=== PATIENT | male | born 1950 | race Caucasian/White ===

== ENCOUNTER → 2017-12-08 14:30 | Outpatient (CLI) | payer MEDICARE, OTHER, SELFPAY ==
--- NOTE | 2017-12-08 | FLU_PTH ---
PATIENT: MAYCOL BHANDARI LOC: [facility] U#:[id number] AGE/SX: 75/M ROOM: RE12/08/[address]: NICANOR Martinez : 1950 BED: DIS: SPEC #: [id number] RECD: 12/08/17 15:00 STATUS: SHANITA DEENA #: [id number] BRENT: 12/08/17 00:[address]: Mary Lou Greene NP DEPT: CYTOLOGY RECD BY: Alok Schwarz ENTERED: 12/09/17 08:06 SP TYPE: Fluid OTHR DR: Dr. Kirk Ervin MD Tissues: Urine Procedures: Special Stain Group II Surgery Specimen Level IV Cytospin Fluid HEADER OPERATION: Not noted PRE-OP DIAGNOSIS: C67.9 TISSUE SUBMITTED: Urine for cytology DIAGNOSIS CYTOLOGY Urine for cytology (cytospin): Rare mildly atypical urothelial cells noted. Numerous crystals. See comment. SJ:manuel 12/10/17 COMMENT Please make reference to previous specimen ([id number]), bladder, TUR with diagnosis of papillary urothelial carcinoma. CYTOLOGY STUDY Slides are reviewed. CYTOLOGY GROSS Received is 40 ml of clear yellow fluid labeled with the patient's name and and designated per the requisition as urine. Submitted for cytology preparation. / RB:cc 12/09/10 TC:5 [facility]: [id number]
[2017-12-08 16:18] LABS: PSA,Total - Annual Screen 0.59 ng/mL (0.00-4.00)
[2017-12-08 18:10] LABS: Cytology, Body Fluid / CSF SEE PATHOLOGY REPORT
== END ==
PROVIDERS: Family Provider Family Medicine; PCP Family Medicine; Visit Provider Nurse Practitioner Adult Health
DX: C67.9 Malignant neoplasm of bladder, unspecified (principal); Z12.5 Encounter for screening for malignant neoplasm of prostate
CPT/HCPCS: 36415; 84153; 88108; 88305; 88313; G0103

== ENCOUNTER 2018-05-15 12:13 | Emergency (ER) | payer MEDICARE, OTHER, SELFPAY ==
[2018-05-15] VITALS (9 sets, daily range): BP systolic 141–171; BP diastolic 89–103; PULSE 84–103; RESP 14–21; TEMP 36.8–38.2; O2SAT 96–100; BMI 39.9
--- NOTE | 2018-05-15 12:28 | EKG12_ITS ---
Test Reason : COUGH Blood Pressure : / mmHG Vent. Rate : 089 BPM Atrial Rate : 111 BPM P-R Int : 000 ms QRS Dur : 100 ms QT Int : 382 ms P-R-T Axes : 000 009 -18 degrees QTc Int : 464 ms Atrial fibrillation Abnormal ECG Confirmed by ANN-MARIE OLIVA MD ([id number]), editor farm journal FANG NUNEZ ([id number] on 05/20/2018 3:34:04 PM Referred By: Confirmed By:ANN-MARIE OLIVA MD
--- NOTE | 2018-05-15 12:28 | RAD_ITS ---
STUDY: X-RAY CHEST REASON FOR EXAM: Male, 68 years old. Chest pain and shortness of breath TECHNIQUE: Single AP portable view of the chest. COMPARISON: 09/03/2015 FINDINGS: EKG leads overlie the chest There are interstitial fibrotic changes of the lungs. There is no demonstrated pleural abnormality. Normal size heart. Normal mediastinum and tres. Normal visualized pulmonary arteries. Normal visualized aortic arch and descending thoracic aorta. There are diffuse degenerative changes of the visualized thoracic spine. Normal visualized ribs, clavicles, and shoulders. There is no demonstrated abnormality of the visualized soft tissue structures of the upper abdomen. RAD/Chest 1 View (Portable) IMPRESSION: Chronic interstitial changes, no superimposed acute pulmonary process Electronically Signed: Nate Broussard MD at 12:45 EST , Service support ,
[2018-05-15] MEDS: MethylPREDNISolone 125 MG/2 ML Vial IV (12:42)
--- NOTE | 2018-05-15 12:44 | ED.DCSUM_ITS ---
- ER Visit Summary Date of Service: 05/15/18 Chief Complaint: Cough History of Present Illness: The patient is a 68 M who is deaf but can read lips and speak. He does not sign. He presents with his family. He has had a cough with shortness of breath for the past 3 days. He has a history of smoking and h as had similar symptoms in the past with bronchitis. He also reports some chest pain. No fevers or hemoptysis. He has been using his rescue inhaler. Physical Examination: Hypertensive. Afebrile. No acute distress. Alert. Sitting and breathing comfortably. Lungs show wheezing abdomen sounds throughout. Heart regular. Abdomen soft. Pulses and skin unremarkable. Test Results: EKG, labs, chest x-ray pending. Emergency Department Course and Treatment: Patient received a breathing treatment and Solu-Medrol while awaiting results. His chest x-ray showed chronic changes. No sign of pneumonia. EKG showed atrial fibrillation. He has a history of this. Troponin normal. Platelets 142, potassium 2.9, CO2 33. Patient did have a fever here. He was treated with Tylenol. I suspect he has acute bronchitis. He is doing better on reevaluation. Heart rate 85 and blood pressure 152/91. He would like to go home. With his history, I will treat him with doxycycline. He received potassium here. He will continue taking his home potassium and follow-up with his doctor for recheck. Risks were discussed. He was also treated with a burst therapy of prednisone. Patient will be discharged. Return for any new or worsening issues. Treatment Plan: Potassium replacement, follow-up with primary care doctor for recheck. Doxycycline and prednisone for bronchitis. Disposition: Discharge Impression: 1. Acute bronchitis 2. Atrial fibrillation 3. Hypokalemia This note was generated with [employer] dictation software. It may contain incorrect words, spelling, and punctuation that were not noted in review of the chart prior to signing ED Disposition - Plan for ED Patient: Chief Complaint: Cough Referrals: Kirk Ervin MD [Primary Care Provider] -
[2018-05-15] MEDS: Ipratropium/Albuterol Sulfate 3 ML AMPUL.NEB INHALATION (12:45)
[2018-05-15 13:22] LABS: Absolute Lymphocyte Count 0.76 X10^3/ul (0.83-4.51); Eosinophil# 0.04 X10^3/uL; Eosinophils% 0.5 % (0-5); Hematocrit 47.7 % (40-54); Hemoglobin 15.9 g/dl (13.0-16.5); Lymphocyte # 0.76 X10^3/ul (4.0); Lymphocyte % 8.7 % (19-41); Mean Corp Hgb Conc 33.3 g/gl (32-36); Mean Corpuscular Hgb 32.4 pg (27.0-32.0); Mean Corpuscular Volume 97.1 fL (80-94); Mean Platelet Vol. 10.5 fl (6.2-12.0); Monocyte# 0.94 X10^3/uL; Monocyte% 10.8 % (0-10); Neutrophil # 6.98 X10^3/uL (2.7-7.7); Neutrophil % 79.8 % (47-70); Platelet Count 142 K/mm3 (150-450); RBC Distribution Width CV 14.5 % (11.6-14.6); RBC Distribution Width SD 51.8 fl (35.1-43.9); Red Blood Count 4.91 M/mm3 (4.6-6.2); White Blood Count 8.7 K/mm3 (4.4-11.0)
[2018-05-15 13:24] LABS: POSITIVE COUNT NO; POSITIVE DIFFERENTIAL NO; POSITIVE MORPHOLOGY NO
[2018-05-15 13:40] LABS: Anion Gap 9 (5-15); BUN 9 mg/dL (7-18); BUN/Creat Ratio 8.7 RATIO (10-20); Calcium,Total 8.3 mg/dL (8.5-10.1); Chloride 94 mmol/L (98-107); Creatinine, Serum 1.04 mg/dL (0.70-1.30); EST Glomerular Filtration Rate 75 mL/min (>60); Est Glom Filt Rate - Afr Amer 91 mL/min (>60); Estimated Creatinine Clearance 59.64 ml/min; Glucose 97 mg/dL (74-106); Potassium 2.9 mmol/L (3.5-5.1); Sodium Level 136 mmol/L (136-145)
[2018-05-15] MEDS: Acetaminophen 500 MG Tablet 1000 MG PO (13:59)
--- NOTE | 2018-05-15 14:50 | ED.DEP ---
ED Disposition - Plan for ED Patient: Chief Complaint: Cough Instructions: ED Bronchitis Asthmatic Prescriptions: Prednisone 40 mg PO DAILY 4 Days #16 Doxycycline 100 mg PO BID 10 Days #20 cap Referrals: Kirk Ervin MD [Primary Care Provider] -
[2018-05-15] MEDS: Doxycycline 100 MG CAPSULE PO (15:05)
--- OUTSIDE RECORDS SUMMARY | 2018-07-01 07:49 | XMS RPT_ITS ---
:1950 Author Organization OHIP Care Team Providers Name Role Phone LUCERO ERVIN Attending Unavailable LUCERO ERVIN Referring Unavailable LUCERO ERVIN Referring Unavailable LUCERO ERVIN Referring Unavailable LUCERO ERVIN Attending Unavailable LUCERO ERVIN Referring Unavailable LUCERO ERVIN Referring Unavailable LUBNA NOBLE (PA) Attending Unavailable LUCERO ERVIN Referring Unavailable Zahraa MALDONADO (PA-C) Attending Unavailable Zahraa MALDONADO (PA-C) Referring Unavailable Zahraa MALDONADO (PA-C) Referring Unavailable Zahraa MALDONADO (PA-C) Attending Unavailable Zahraa MALDONADO (PA-C) Referring Unavailable YESENIA JAY (COMPUTER SECURITY SPECIALIST) Attending Unavailable YESENIA JAY (COMPUTER SECURITY SPECIALIST) Referring Unavailable Lucero Ervin Primary Care Unavailable Bran Hsu Attending Unavailable Mary Lou Greene Attending Unavailable Mary Lou Greene Referring Unavailable Lucero Ervin Primary Care Unavailable PROBLEMS PROBLEMS DATE TYPE CONDITION / CODE ATTENDING STATUS SOURCE 05/21/2018 Active Hypokalemia / NA Active [facility] E87.6(ICD-10) [facility] [place] Repository 05/21/2018 Active Sialoadenitis, NA Active [place] unspecified / [facility] K11.20(ICD-10) [place] Repository 05/05/2018 Active Unspecified NA Active [place] osteoarthritis, [facility] unspecified site / [place] M19.90(ICD-10) Repository 04/27/2018 Active Abnormal levels of NA Active [facility] other serum enzymes [facility] / R74.8(ICD-10) [place] Repository 04/14/2018 Active Other fci NA Active [facility] (current) drug [facility] therapy / [place] Z79.899(ICD-10) Repository 04/14/2018 Active Hyperglycemia, NA Active [place] unspecified / [facility] R73.9(ICD-10) [place] Repository 04/14/2018 Active Essential (primary) NA Active [facility] hypertension / [facility] I10(ICD-10) [place] Repository 04/14/2018 Active Encounter for NA Active [facility] screening for lipoid [facility] disorders / [place] Z13.220(ICD-10) Repository 04/14/2018 Active Unspecified atrial NA Active [facility] fibrillation / [facility] I48.91(ICD-10) [place] Repository 12/08/2017 Unknown Z12.5 - Encounter Mary Lou Greene Active [place] for screening for M [facility] malignant [facility] / Repository Z12.5(ICD-10) 11/25/2017 Active Unknown / LUBNA NOBLE Active [facility] UNK(Unknown) (PA) [facility] [place] Repository 10/31/2017 Active Encounter for NA Active [facility] screening for [facility] cardiovascular [place] disorders / Repository Z13.6(ICD-10) 10/31/2017 Active Personal history of NA Active [facility] nicotine dependence [facility] / Z87.891(ICD-10) [place] Repository 07/07/2017 Active Pain in left hand / NA Active [facility] M79.642(ICD-10) [facility] [place] Repository PROCEDURES PROCEDURES No Procedure Records FoundRESULTS RESULTS CNPN Observed: 05/22/2018 Status: COMPLETED Source: [place] 12:00 AM [facility] REPOSITORY Telephone (FAMPWS) MAYCOL TALBERT ([id number]) 1950 M NFR Date Time Provider Department 05/22/18 YESENIA JAY ([facility]) [place] During your visit today, we recorded the following information about you: Yesenia Jay APRN.BOBBY 05/22/2018 7:50 AM Signed Can please let patient know that I received his lab results. His potassium is still low. Can we please check with him on how often he is taking his potassium, as we likely will need to increase this. ANDRZEJ Schofield Cma 05/22/2018 11:38 AM Signed Left message on patient's sisters voicemail to return call to office. Marimar Solis Cma Mike Kauffman IRINEO 05/22/2018 3:07 PM Signed Patient's sister notified. Reports that he is taking 1 tablet daily as noted on med list. Please review and advise. Yesenia Jay APRN.CNP 05/22/2018 4:00 PM Signed Please instruct to increase the potassium to twice daily for now. Repeat labs in 1-2 weeks. Order is in. ANDRZEJ Schofiled APRN.CNP 05/22/2018 4:00 PM Signed Addended by: YESENIA JAY CNP on: 05/22/2018 04:00 PM Modules accepted: Orders Nati Blank MA, MA 05/25/2018 8:30 AM Signed Patient sister informed of results, verbalized understanding. Please send rx for potassium. BOB Mei APRN.CNP 05/28/2018 7:54 AM Signed Script sent. Yesenia Jay APRN.CNP 05/28/2018 7:54 AM Signed Addended by: YESENIA JAY CNP on: 05/28/2018 07:54 AM Modules accepted: Orders Allergies As of Date: 05/22/2018 Noted Allergy Reaction ASA (SALICYLATES) 01/24/2005 5 - Intolerance 8 - GI Upset CODEINE 08/30/2015 8 - GI Upset Date Reviewed: 05/21/2018 Reviewed by: Marimar Solsi [facility] - Fully Assessed Reason for Visit: Results [95] Visit Diagnoses:Hypokalemia [E87.6] Essential hypertension [I10] Order(s):BASIC METABOLIC PNL [SQBMP] Order #: [id number] FUTURE potassium chloride ER (K-DUR, KLOR-CON) 20 mEq tabletTake 1 tablet by mouth twice daily.Disp: 180 tabletRfl: 1 Prescriptions as of 05/22/2018 Sig: ALBUTEROL SULFATE HFA 90 MCG/* Inhale 2 Puffs as instructed * AMOXICILLIN 875 MG-POTASSIUM * Take 1 tablet by mouth twice * CIPROFLOXACIN 500 MG TABLET Take 500 mg in office prior t* COMPOUNDED PRESCRIPTION Cock-up wrist splint DILTIAZEM SR 120 MG 24 HR CAP Take 1 capsule by mouth once * FLUTICASONE 500 MCG-SALMETERO* Inhale 1 Puff as instructed t* HYDROCHLOROTHIAZIDE 12.5 MG C* Take 1 capsule by mouth once * IRON (FERROUS SULFATE) ORAL Take 1 tablet by mouth once d* METHYLCELLULOSE (LAXATIVE) 50* Take 1 tablet by mouth twice * PANTOPRAZOLE 40 MG TABLET,DEL* Take 1 tablet by mouth daily * POTASSIUM CHLORIDE ER 20 MEQ * Take 1 tablet by mouth twice * PREDNISONE 10 MG TABLET Take 4 tabs daily x 3 days, t* TERAZOSIN 2 MG CAPSULE Take 1 capsule by mouth daily* Problem List As Of Date 05/22/2018 Noted Resolved HYPERTENSION BENIGN [I10] INVALID FOR*08/20/2007 TREMORS ESSENTIAL [G25.0, G25.2] INVALID FOR* ESOPHAGEAL REFLUX [K21.9] ACUTE GASTRITIS [535.0] 05/22/2005 ESOPHAGITIS [530.1] 05/22/2005 DIAPHRAGMATIC HERNIA [K44.9] 08/20/2007 HYPERTROPHY PROSTATE W/O OBST [N40.0] INVALID FOR* Hearing loss [H91.90] INVALID FOR* More... CHRONIC ASTHMATIC BRONCHITIS [493.2] INVALID FOR*08/20/2007 BENIGN NEOPLASM LG BOWEL [D12.6] INVALID FOR* DIVERTICULOSIS OF COLON W/O BLEED [K57.30] INVALID FOR* INT HEMORRHOID W/O COMPL [K64.8] HEARRING LOSS [Z82.2] 09/23/2005 CERVICALGIA [M54.2] INVALID FOR* JOINT PAIN-SHLDER [M25.519] INVALID FOR* TENSION HEADACHE [G44.209] INVALID FOR* Chronic airway obstruction, not elsewhere class*INVALID FOR* Hypertension [I10] INVALID FOR* UMBILICAL HERNIA [K42.9] INVALID FOR* CARPAL TUNNEL SYNDROME [G56.00] INVALID FOR* PAIN JOINT, KNEE [M25.569] INVALID FOR*10/30/2017 Chest Pain [R07.9] INVALID FOR* Rotator Cuff (Capsule) Sprain INVALID FOR* Cancer of bladder (HCC) [C67.9] INVALID FOR* Gross Hematuria [R31.0] INVALID FOR* Low back strain [S39.012A] INVALID FOR* Lumbar radicular pain [M54.16] INVALID FOR* Osteoarthritis [M19.90] INVALID FOR* Knee pain [M25.569] INVALID FOR* Anemia [D64.9] INVALID FOR* Rectal bleeding [K62.5] INVALID FOR* Family history of colon cancer [Z80.0] INVALID FOR* GERD (gastroesophageal reflux disease) [K21.9] INVALID FOR* Acute gastritis without mention of hemorrhage [*INVALID FOR* More... Congenital pes planus [Q66.50] INVALID FOR* Ingrowing nail [L60.0] INVALID FOR* Bladder stones [N21.0] INVALID FOR* Left carpal tunnel syndrome [G56.02] INVALID FOR* BPH (benign prostatic hyperplasia) [N40.0] INVALID FOR* Nocturia [R35.1] INVALID FOR* Frequency of urination [R35.0] INVALID FOR* Osteoarthrosis, unspecified whether generalized*INVALID FOR* Arthritis of knee, right [M17.11] INVALID FOR* Knee joint replacement status [Z96.659] INVALID FOR* History of bladder cancer [Z85.51] INVALID FOR* Bladder neck contracture [N32.0] INVALID FOR* Prediabetes [R73.03] INVALID FOR* Abdominal aortic aneurysm (AAA) without rupture*INVALID FOR* More... Medication management [Z79.899] INVALID FOR* First degree AV block [I44.0] INVALID FOR* Urothelial carcinoma (HCC) [C68.9] INVALID FOR* More... Prescriptions ordered this encounter Disp Refills Start End POTASSIUM CHLORIDE ER 20 MEQ TABLET,* 05/22/2018 05/28/2018 Class: Med Update Route: ORAL Sig: Take 1 tablet by mouth twice daily. POTASSIUM CHLORIDE ER 20 MEQ TABLET,* 180 * 1 05/28/2018 Route: ORAL Sig: Take 1 tablet by mouth twice daily. Medications Discontinued During This Encounter potassium chloride ER (K-DUR, KLOR-C* 90 t* 1 04/14/2018 05/22/2018 Route: ORAL Sig: Take 1 tablet by mouth once daily. Disc: Reason for discontinue is not on file. potassium chloride ER (K-DUR, KLOR-C* 05/22/2018 05/28/2018 Class: Med Update Route: ORAL Sig: Take 1 tablet by mouth twice daily. Disc: Reason for discontinue is not on file. Encounter Status:Closed by YESENIA JAY CNP on 05/22/18 CBC AND DIFFERENTIAL Collected: 05/21/2018 Status: F Source: [place] 10:42 AM [facility] REPOSITORY TYPE CODE TESTS RESULT OUT OF REFERENCE UNITS RANGE LAB WBC 3.70-11.00 k/uL WBC 10.10 LAB RBC 4.20-6.00 m/uL RBC 5.17 LAB HGB 13.0-17.0 g/dL Hemoglobin 16.5 LAB HCT 39.0-51.0 % Hematocrit 50.7 LAB MCV 80.0-100.0 fL MCV 98.1 LAB MCH 26.0-34.0 pG MCH 31.9 LAB MCHC 30.5-36.0 g/dL MCHC 32.5 LAB RDWCV 11.5-15.0 % RDW-CV 14.6 LAB PLTCT 150-400 k/uL Low Platelet Count 148 LAB MPV 9.0-12.7 fL MPV 10.8 LAB ANEUT % Neut% 73.2 LAB AANEUT 1.45-7.50 k/uL Abs Neut 7.39 LAB ALYMP % Lymph% 15.1 LAB AALYMP 1.00-4.00 k/uL Abs Lymph 1.53 LAB AMONO % Mcculloch% 7.7 LAB AAMONO <0.87 k/uL Abs Mcculloch 0.78 LAB AEOS % Eosin% 3.6 LAB AAEOS <0.46 k/uL Abs Eosin 0.36 LAB ABASO % Baso% 0.4 LAB AABASO <0.11 k/uL Abs Baso 0.04 LAB AUNRBC 0 /100 WBC NRBCs 0.0 LAB ABNRBC <0.01 k/uL Absolute nRBC <0.01 LAB DTYP DTYPE Auto Diff Performed By: #### CBCDIF, BMP #### [facility] [address] [place], [place] [address] BASIC METABOLIC PANL Collected: 05/21/2018 Status: F Source: [place] 10:42 AM [facility] REPOSITORY TYPE CODE TESTS RESULT OUT OF REFERENCE UNITS RANGE LAB GLU 74-99 mg/dL Glucose 98 Result Comment: The [place] [employer] (ADA) provides guidance for cutoff values for fasting glucose and random glucose. The ADA defines fasting as no caloric intake for at least 8 hours. Fas ting plasma glucose results between 100 to 125 mg/dL indicate increased risk for diabetes (prediabetes). Fasting plasma glucose results greater than or equal to 126 mg/dL meet the criteria for diagnosis of diabetes. In the absence of unequivocal hyperglycemia, results should be confirmed by repeat testing. In a patient with classic symptoms of hyperglycemia or hyperglycemic crisis, random plasma glucose results greater than or equal to 200 mg/dL meet the criteria for diagnosis of diabetes. Reference: Standards of Medical Care in Diabetes 2016, [place] [employer]. Diabetes Care. 2016.39(Suppl 1). LAB BUN 9-24 mg/dL BUN 13 LAB CRET 0.73-1.22 mg/dL Creatinine 1.01 LAB NA 136-144 mmol/L Sodium 140 LAB K 3.7-5.1 mmol/L Potassium Low 3.2 LAB CL 97-105 mmol/L Chloride Low 95 LAB CO2 22-30 mmol/L CO2 29 LAB AGAP 9-18 mmol/L Anion Gap 16 LAB CA 8.5-10.2 mg/dL Calcium, Total 9.1 LAB GFRAA eGFR- Amer. >60 LAB GFRNAA . eGFR-All Other Races >60 Result Comment: eGFR (Estimated GFR) Units of measure: mL/min/1.73 meters squared eGFR is derived from the reexpressed MDRD Study equation using the following parameters: serum creatinine, age, gender and race. The creatinine assay has been calibrated to be traceable to IDMS. An eGFR <60 mL/min/1.73m2 for >3 months is consistent with chronic kidney disease. Refer to KDOQI guidelines for clinical interpretation. In patients with unstable renal function, e.g. those with acute kidney injury, the eGFR may not accurately reflect actual GFR. Performed By: #### CBCDIF, BMP #### [facility] [employer] [address] [place], [place] [address] PROGRESS Observed: 05/21/2018 Status: COMPLETED Source: [place] 10:04 [facility] [place] REPOSITORY HNO ID: [id number] Author: Yesenia Jay Service: (none) Author Type: Nurse Practitioner Type: Progress Notes Filed: 05/21/2018 2:38 PM Note Text: This is a 68 year old male who presents today with: Patient presents with: ED Follow-up: bronchitis HISTORY OF PRESENT ILLNESS: Maycol Talbert is a 68 year old male. Patient presents with: ED Follow-up: bronchitis Pt is very [place]. Had to communicate a lot via writing. Pt presents today for ER follow-up. He was in the ER on 05/15. Dx with bronchitis. Was started on prednisone and doxycycline. Refers that he has finished the prednisone. Refers that he is still on the doxycycline. Using the advair. Using the albuterol every 4 hours (previously using every 6 hours). Refers that he still coughs, but not as bad. Refers that he started yesterday with swelling in the left neck. Refers that it is tender. Refers he has no teeth. No mouth pain. No ear pain. Has had dry mouth recently. He had a low potassium about a month ago. Was started on oral potassium. Due for recheck. PAST MEDICAL HISTORY: PAST MEDICAL HISTORY Diagnosis Date - Acute gastritis without mention of hemorrhage - Asthma - Benign neoplasm of colon - Bladder cancer (HCC) - CTS (carpal tunnel syndrome) bilateral - Diaphragmatic hernia without mention of obstruction or gangrene - Diverticulosis of colon (without mention of hemorrhage) - Esophageal reflux - Esophagitis - HEARRING LOSS - HTN (hypertension) - Hypokalemia - Internal hemorrhoids without mention of complication PAST SURGICAL HISTORY Procedure Laterality Date - ARTHRO KNEE 11/12/01 BILATERAL - COLONOS W/REM POLYP SNARE 09/02/05 - COLONOSCOP W/ OR W/O [facility] SPEC 12/21/10 - COLONOSCOP W/ OR W/O [facility] SPEC 03/18/16 Colonoscopy - EGD W/O [facility] SPECIMEN W/BX 12/21/10 - EGD W/O OR W/BRUSH/WASH 03/18/16 EGD - PAST SURGICAL HISTORY OF 12/06/03 EGD - PAST SURGICAL HISTORY OF 09/2010 TURBT - PAST SURGICAL HISTORY OF lipoma excisions - PAST SURGICAL HISTORY OF tonsillectomy - PAST SURGICAL HISTORY OF hearing implant - TOTAL KNEE REPLACEMENT 10/20/2013 Knee replacement, total - TOTAL KNEE REPLACEMENT 09/13/14 Knee replacement, total left ALLERGIES Asa [Salicylates]; Codeine MEDICATIONS Current Outpatient Prescriptions: albuterol HFA (VENTOLIN HFA) 90 mcg/actuation inhaler Inhale 2 Puffs as instructed every 4 hours as needed. ciprofloxacin HCl (CIPRO) 500 mg tablet Take 500 mg in office prior to procedure-to be administered per clinical support. COMPOUNDED PRESCRIPTION Cock-up wrist splint diltiazem CD (CARDIZEM CD) 120 mg 24 hr capsule Take 1 capsule by mouth once daily. fluticasone-salmeterol (ADVAIR DISKUS) 500-50 mcg/dose dsdv Inhale 1 Puff as instructed twice daily. Rinse and gargle mouth with water after use. Hydrochlorothiazide 12.5 mg capsule Take 1 capsule by mouth once daily. IRON, FERROUS SULFATE, ORAL Take 1 tablet by mouth once daily. Methylcellulose, Laxative, (CITRUCEL) 500 mg tab Take 1 tablet by mouth twice daily. pantoprazole DR (PROTONIX) 40 mg tablet Take 1 tablet by mouth daily before breakfast. Take on empty stomach, 1/2 hr before meal. potassium chloride ER (K-DUR, KLOR-CON) 20 mEq tablet Take 1 tablet by mouth once daily. terazosin (HYTRIN) 2 mg capsule Take 1 capsule by mouth daily at bedtime. No current facility-administered medications for this visit. FAMILY HISTORY Problem Relation Age of Onset - Prostate Cancer Father - Colon Cancer Father Social History Marital status: Spouse name: Tish Years of education: Number of children: 2 Occupational History Occupation Employer Comment [employer]* Social History Main Topics Smoking status: Former Smoker Packs/day: 0.50 Years: 43.00 Types: Cigarettes Quit date: 02/06/2010 Smokeless tobacco: Never Used Alcohol use: No Drug use: No EXAM: BP 160/98 (BP Site: Right Arm, BP Position: Sitting, BP Cuff Size: Large Adult) Pulse 100 Resp 14 Wt 109.8 kg (242 lb) SpO2 97% BMI 35.74 kg/m? PHYSICAL EXAM: General Appearance: Well appearing, alert, in no acute distress, well-hydrated, well nourished.. Skin: Skin color, texture, turgor normal, no suspicious rashes or lesions. Head: Normocephalic, no masses, lesions, tenderness or abnormalities. Eyes: Anicteric sclera. Extraocular movements are intact. . Ears: External ears normal, canals clear, Normal TMs bilaterally. Oropharynx: Lips, mucosa, and tongue normal, teeth and gums normal, oropharynx normal. Neck: swelling of the left parotid area. Lungs: lungs clear to auscultation. No wheezing, rhonchi, rales. Heart: RRR without murmur, gallop, or rubs. No ectopy. Extremities: No deformities, edema, skin discoloration, clubbing or cyanosis. Good capillary refill. . Neurologic: Gait normal. ASSESSMENT/PLAN: 1. Wheezing - ICD9: 786.07, ICD10: R06.2 (primary diagnosis) Continues with wheezing. Will restart taper. - PREDNISONE 10 MG TABLET 2. Hypokalemia - ICD9: 276.8, ICD10: E87.6 Repeat labs - BASIC METABOLIC PNL 3. Sialoadenitis - ICD9: 527.2, ICD10: K11.20 Stop doxy. Start augmentin. Moist heat. Suck on some sour candy. - CBC + DIFF Recheck in a week. Sooner if needed. If worsens/fever/chills, etc -- to the ER. Discussed treatment plan and patient voices understanding. Patient's questions answered appropriately. Medications and potential side effects were discussed and patient voices understanding. Return to the office as scheduled or as needed for worsening/no improvement. Yesenia Jay APRN.BOBBY The patient indicates understanding of these issues and agrees with the plan. CNOV Observed: 05/21/2018 Status: COMPLETED Source: [place] 10:00 AM [facility] REPOSITORY Office Visit (FAMPWS) MAYCOL TALBERT ([id number]) 1950 M NFR Date Time Provider Department 05/21/18 10:00 AM YESENIA JAY (BOBBY) [place] During your visit today, we recorded the following information about you: Pulse Respiration Blood pressure Weight 100/minute 14/minute 160/98 109.8 kg Yesenia Jay APRN.COMPUTER SECURITY SPECIALIST 05/21/2018 2:38 PM Signed This is a 68 year old male who presents today with: Patient presents with: ED Follow-up: bronchitis HISTORY OF PRESENT ILLNESS: Maycol Talbert is a 68 year old male. Patient presents with: ED Follow-up: bronchitis Pt is very [place]. Had to communicate a lot via writing. Pt presents today for ER follow-up. He was in the ER on 05/15. Dx with bronchitis. Was started on prednisone and doxycycline. Refers that he has finished the prednisone. Refers that he is still on the doxycycline. Using the advair. Using the albuterol every 4 hours (previously using every 6 hours). Refers that he still coughs, but not as bad. Refers that he started yesterday with swelling in the left neck. Refers that it is tender. Refers he has no teeth. No mouth pain. No ear pain. Has had dry mouth recently. He had a low potassium about a month ago. Was started on oral potassium. Due for recheck. PAST MEDICAL HISTORY: PAST MEDICAL HISTORY Diagnosis Date - Acute gastritis without mention of hemorrhage - Asthma - Benign neoplasm of colon - Bladder cancer (HCC) - CTS (carpal tunnel syndrome) bilateral - Diaphragmatic hernia without mention of obstruction or gangrene - Diverticulosis of colon (without mention of hemorrhage) - Esophageal reflux - Esophagitis - HEARRING LOSS - HTN (hypertension) - Hypokalemia - Internal hemorrhoids without mention of complication PAST SURGICAL HISTORY Procedure Laterality Date - ARTHRO KNEE 11/12/01 BILATERAL - COLONOS W/REM POLYP SNARE 09/02/05 - COLONOSCOP W/ OR W/O [facility] SPEC 12/21/10 - COLONOSCOP W/ OR W/O [facility] SPEC 03/18/16 Colonoscopy - EGD W/O [facility] SPECIMEN W/BX 12/21/10 - EGD W/O OR W/BRUSH/WASH 03/18/16 EGD - PAST SURGICAL HISTORY OF 12/06/03 EGD - PAST SURGICAL HISTORY OF 09/2010 TURBT - PAST SURGICAL HISTORY OF lipoma excisions - PAST SURGICAL HISTORY OF tonsillectomy - PAST SURGICAL HISTORY OF hearing implant - TOTAL KNEE REPLACEMENT 10/20/2013 Knee replacement, total - TOTAL KNEE REPLACEMENT 09/13/14 Knee replacement, total left ALLERGIES Asa [Salicylates]; Codeine MEDICATIONS Current Outpatient Prescriptions: albuterol HFA (VENTOLIN HFA) 90 mcg/actuation inhaler Inhale 2 Puffs as instructed every 4 hours as needed. ciprofloxacin HCl (CIPRO) 500 mg tablet Take 500 mg in office prior to procedure-to be administered per clinical support. COMPOUNDED PRESCRIPTION Cock-up wrist splint diltiazem CD (CARDIZEM CD) 120 mg 24 hr capsule Take 1 capsule by mouth once daily. fluticasone-salmeterol (ADVAIR DISKUS) 500-50 mcg/dose dsdv Inhale 1 Puff as instructed twice daily. Rinse and gargle mouth with water after use. Hydrochlorothiazide 12.5 mg capsule Take 1 capsule by mouth once daily. IRON, FERROUS SULFATE, ORAL Take 1 tablet by mouth once daily. Methylcellulose, Laxative, (CITRUCEL) 500 mg tab Take 1 tablet by mouth twice daily. pantoprazole DR (PROTONIX) 40 mg tablet Take 1 tablet by mouth daily before breakfast. Take on empty stomach, 1/2 hr before meal. potassium chloride ER (K-DUR, KLOR-CON) 20 mEq tablet Take 1 tablet by mouth once daily. terazosin (HYTRIN) 2 mg capsule Take 1 capsule by mouth daily at bedtime. No current facility-administered medications for this visit. FAMILY HISTORY Problem Relation Age of Onset - Prostate Cancer Father - Colon Cancer Father Social History Marital status: Spouse name: Tish Years of education: Number of children: 2 Occupational History Occupation Employer Comment [employer]* Social History Main Topics Smoking status: Former Smoker Packs/day: 0.50 Years: 43.00 Types: Cigarettes Quit date: 02/06/2010 Smokeless tobacco: Never Used Alcohol use: No Drug use: No EXAM: BP 160/98 (BP Site: Right Arm, BP Position: Sitting, BP Cuff Size: Large Adult) Pulse 100 Resp 14 Wt 109.8 kg (242 lb) SpO2 97% BMI 35.74 kg/m? PHYSICAL EXAM: General Appearance: Well appearing, alert, in no acute distress, well-hydrated, well nourished.. Skin: Skin color, texture, turgor normal, no suspicious rashes or lesions. Head: Normocephalic, no masses, lesions, tenderness or abnormalities. Eyes: Anicteric sclera. Extraocular movements are intact. . Ears: External ears normal, canals clear, Normal TMs bilaterally. Oropharynx: Lips, mucosa, and tongue normal, teeth and gums normal, oropharynx normal. Neck: swelling of the left parotid area. Lungs: lungs clear to auscultation. No wheezing, rhonchi, rales. Heart: RRR without murmur, gallop, or rubs. No ectopy. Extremities: No deformities, edema, skin discoloration, clubbing or cyanosis. Good capillary refill. . Neurologic: Gait normal. ASSESSMENT/PLAN: 1. Wheezing - ICD9: 786.07, ICD10: R06.2 (primary diagnosis) Continues with wheezing. Will restart taper. - PREDNISONE 10 MG TABLET 2. Hypokalemia - ICD9: 276.8, ICD10: E87.6 Repeat labs - BASIC METABOLIC PNL 3. Sialoadenitis - ICD9: 527.2, ICD10: K11.20 Stop doxy. Start augmentin. Moist heat. Suck on some sour candy. - CBC + DIFF Recheck in a week. Sooner if needed. If worsens/fever/chills, etc -- to the ER. Discussed treatment plan and patient voices understanding. Patient's questions answered appropriately. Medications and potential side effects were discussed and patient voices understanding. Return to the office as scheduled or as needed for worsening/no improvement. Yesenia Jay APRN.BOBBY The patient indicates understanding of these issues and agrees with the plan. Yesenia Jay APRN.CNP 05/21/2018 10:29 AM Signed 1. Get labwork done today -- to recheck potassium. 2. Start prednisone taper. The prednisone taper will be 4 tablets for 3 days; 3 tablets for 3 days; 2 tablets for 3 days; then 1 tablet for 3 days. Please do no use other anti-inflammatories (like ibuprofen, aleve, naproxen, etc) while you are on this medication. 3. Start Augmentin -- one pill twice daily. Stop the doxycycline. 4. Recheck in a week. 5. If the facial swelling gets worse -- return sooner or to the ER. Referring Provider: SELF [[id number]] Allergies As of Date: 05/21/2018 Noted Allergy Reaction ASA (SALICYLATES) 01/24/2005 5 - Intolerance 8 - GI Upset CODEINE 08/30/2015 8 - GI Upset Date Reviewed: 05/21/2018 Reviewed by: Marimar Solis Line Worker - Fully Assessed Reason for Visit: ED Follow-up [821] Cmt: bronchitis Primary Visit Diagnosis:Wheezing [R06.2] Other Visit Diagnoses:Hypokalemia [E87.6] Sialoadenitis [K11.20] Order(s):BASIC METABOLIC PNL [SQBMP] Order #: [id number] FUTURE amoxicillin-clavulanic acid (AUGMENTIN) 875-125 mg per tabletTake 1 tablet by mouth twice daily for 10 days.Disp: 20 tabletRfl: 0 CBC + DIFF [SQCBCDIF] Order #: [id number] FUTURE predniSONE (DELTASONE) 10 mg tabletTake 4 tabs daily x 3 days, then 3 tabs x 3 days, 2 tabs x 3 days, then 1 tab x3 days with food.Disp: 30 tabletRfl: 0 Prescriptions as of 05/21/2018 Sig: ALBUTEROL SULFATE HFA 90 MCG/* Inhale 2 Puffs as instructed * CIPROFLOXACIN 500 MG TABLET Take 500 mg in office prior t* COMPOUNDED PRESCRIPTION Cock-up wrist splint DILTIAZEM SR 120 MG 24 HR CAP Take 1 capsule by mouth once * FLUTICASONE 500 MCG-SALMETERO* Inhale 1 Puff as instructed t* HYDROCHLOROTHIAZIDE 12.5 MG C* Take 1 capsule by mouth once * IRON (FERROUS SULFATE) ORAL Take 1 tablet by mouth once d* METHYLCELLULOSE (LAXATIVE) 50* Take 1 tablet by mouth twice * PANTOPRAZOLE 40 MG TABLET,DEL* Take 1 tablet by mouth daily * POTASSIUM CHLORIDE ER 20 MEQ * Take 1 tablet by mouth once d* TERAZOSIN 2 MG CAPSULE Take 1 capsule by mouth daily* AMOXICILLIN 875 MG-POTASSIUM * Take 1 tablet by mouth twice * PREDNISONE 10 MG TABLET Take 4 tabs daily x 3 days, t* Problem List As Of Date 05/21/2018 Noted Resolved HYPERTENSION BENIGN [I10] INVALID FOR*08/20/2007 TREMORS ESSENTIAL [G25.0, G25.2] INVALID FOR* ESOPHAGEAL REFLUX [K21.9] ACUTE GASTRITIS [535.0] 05/22/2005 ESOPHAGITIS [530.1] 05/22/2005 DIAPHRAGMATIC HERNIA [K44.9] 08/20/2007 HYPERTROPHY PROSTATE W/O OBST [N40.0] INVALID FOR* Hearing loss [H91.90] INVALID FOR* More... CHRONIC ASTHMATIC BRONCHITIS [493.2] INVALID FOR*08/20/2007 BENIGN NEOPLASM LG BOWEL [D12.6] INVALID FOR* DIVERTICULOSIS OF COLON W/O BLEED [K57.30] INVALID FOR* INT HEMORRHOID W/O COMPL [K64.8] HEARRING LOSS [Z82.2] 09/23/2005 CERVICALGIA [M54.2] INVALID FOR* JOINT PAIN-SHLDER [M25.519] INVALID FOR* TENSION HEADACHE [G44.209] INVALID FOR* Chronic airway obstruction, not elsewhere class*INVALID FOR* Hypertension [I10] INVALID FOR* UMBILICAL HERNIA [K42.9] INVALID FOR* CARPAL TUNNEL SYNDROME [G56.00] INVALID FOR* PAIN JOINT, KNEE [M25.569] INVALID FOR*10/30/2017 Chest Pain [R07.9] INVALID FOR* Rotator Cuff (Capsule) Sprain INVALID FOR* Cancer of bladder (HCC) [C67.9] INVALID FOR* Gross Hematuria [R31.0] INVALID FOR* Low back strain [S39.012A] INVALID FOR* Lumbar radicular pain [M54.16] INVALID FOR* Osteoarthritis [M19.90] INVALID FOR* Knee pain [M25.569] INVALID FOR* Anemia [D64.9] INVALID FOR* Rectal bleeding [K62.5] INVALID FOR* Family history of colon cancer [Z80.0] INVALID FOR* GERD (gastroesophageal reflux disease) [K21.9] INVALID FOR* Acute gastritis without mention of hemorrhage [*INVALID FOR* More... Congenital pes planus [Q66.50] INVALID FOR* Ingrowing nail [L60.0] INVALID FOR* Bladder stones [N21.0] INVALID FOR* Left carpal tunnel syndrome [G56.02] INVALID FOR* BPH (benign prostatic hyperplasia) [N40.0] INVALID FOR* Nocturia [R35.1] INVALID FOR* Frequency of urination [R35.0] INVALID FOR* Osteoarthrosis, unspecified whether generalized*INVALID FOR* Arthritis of knee, right [M17.11] INVALID FOR* Knee joint replacement status [Z96.659] INVALID FOR* History of bladder cancer [Z85.51] INVALID FOR* Bladder neck contracture [N32.0] INVALID FOR* Prediabetes [R73.03] INVALID FOR* Abdominal aortic aneurysm (AAA) without rupture*INVALID FOR* More... Medication management [Z79.899] INVALID FOR* First degree AV block [I44.0] INVALID FOR* Urothelial carcinoma (HCC) [C68.9] INVALID FOR* More... Other instructions from your clinician: 1. Get labwork done today -- to recheck potassium. 2. Start prednisone taper. The prednisone taper will be 4 tablets for 3 days; 3 tablets for 3 days; 2 tablets for 3 days; then 1 tablet for 3 days. Please do no use other anti-inflammatories (like ibuprofen, aleve, naproxen, etc) while you are on this medication. 3. Start Augmentin -- one pill twice daily. Stop the doxycycline. 4. Recheck in a week. 5. If the facial swelling gets worse -- return sooner or to the ER. Prescriptions ordered this encounter Disp Refills Start End AMOXICILLIN 875 MG-POTASSIUM CLAVULA* 20 t* 0 05/21/2018 05/31/2018 Route: ORAL Sig: Take 1 tablet by mouth twice daily for 10 days. PREDNISONE 10 MG TABLET 30 t* 0 05/21/2018 06/02/2018 Sig: Take 4 tabs daily x 3 days, then 3 tabs x 3 days, 2 tabs x 3 days, then 1 tab x3 days with food. Encounter Status:Closed by YESENIA JAY CNP on 05/21/18 12 LEAD ELECTROCARDIOGRAM Observed: 05/20/2018 Status: F Source: [place] 3:34 PM [facility] REPOSITORY [facility] Cardiovascular Services [address] [place] [address] 12 Lead EKG 05/15/18 1250 MR#: [id number] Acct: [id number] Name: MAYCOL TALBERT Rep #: [id number] : 1950 68 From: Josh Garrison MD Attending Dr: Status: DEP ER Ordering Dr: Bran Hsu MD Date: 05/15/18 Location: ED Sex: M C Admitted: Test Reason : COUGH Blood Pressure : / mmHG Vent. Rate : 089 BPM Atrial Rate : 111 BPM P-R Int : 000 ms QRS Dur : 100 ms QT Int : 382 ms P-R-T Axes : 000 009 -18 degrees QTc Int : 464 ms Atrial fibrillation Abnormal ECG Confirmed by JOSH GARRISON MD ([id number]), state editor FANG NUNEZ ([id number]) on 05/20/2018 3:34:04 PM Referred By: Confirmed By:JOSH GARRISON MD 05/20/18 1534 Date Josh Garrison MD CC: Bran Hsu MD; Lucero Ervin MD Signed DISCHARGE INSTRUCTION Observed: 05/15/2018 Status: F Source: [place] 4:14 PM [facility] [place] REPOSITORY [facility] Medical Records Department [address] [place] [address] Discharge Instruction 05/15/18 1450 MR#: [id number] Acct: [id number] Name: MAYCOL TALBERT Derrick Rep #: [id number] : 1950 68 From: Bran Hsu MD PCP: Lucero Ervin MD Status: DEP ER ED Disposition - Plan for ED Patient: Chief Complaint: Cough Instructions: ED Bronchitis Asthmatic Prescriptions: Prednisone 40 mg PO DAILY 4 Days #16 Doxycycline 100 mg PO BID 10 Days #20 cap Referrals: Lucero Ervin MD [Primary Care Provider] - What to do if you have Problems For any increased pain, shortness of breath, bleeding, nausea or vomiting, chest pain, or any unexpected problems, contact your Primary Care Provider. Call [facility] ([phone]) or report to the closest Emergency Room. Call 911 if necessary. 05/15/18 1614 <Electronically signed by Bran Hsu MD> Date Bran Hsu MD Cosigner Signature (If Indicated): Date CC: Lucero Ervin MD EMERGENCY DEPARTMENT Observed: 05/15/2018 Status: F Source: [place] SUMMARY 4:14 PM [facility] [place] REPOSITORY [facility] Medical Records Department [address] [place] [address] Emergency Department Summary 05/15/18 1242 MR#: [id number] Acct: [id number] Name: MAYCOL TALBERT Rep #: [id number] : 1950 68 From: Bran Hsu MD PCP: Lucero Ervin MD Status: DEP ER - ER Visit Summary Date of Service: 05/15/18 Chief Complaint: Cough History of Present Illness: The patient is a 68 M who is deaf but can read lips and speak. He does not sign. He presents with his family. He has had a cough with shortness of breath for the past 3 days. He has a history of smoking and has had similar symptoms in the past with bronchitis. He also reports some chest pain. No fevers or hemoptysis. He has been using his rescue inhaler. Physical Examination: Hypertensive. Afebrile. No acute distress. Alert. Sitting and breathing comfortably. Lungs show wheezing abdomen sounds throughout. Heart regular. Abdomen soft. Pulses and skin unremarkable. Test Results: EKG, labs, chest x-ray pending. Emergency Department Course and Treatment: Patient received a breathing treatment and Solu-Medrol while awaiting results. His chest x-ray showed chronic changes. No sign of pneumonia. EKG showed atrial fibrillation. He has a history of this. Troponin normal. Platelets 142, potassium 2.9, CO2 33. Patient did have a fever here. He was treated with Tylenol. I suspect he has acute bronchitis. He is doing better on reevaluation. Heart rate 85 and blood pressure 152/91. He would like to go home. With his history, I will treat him with doxycycline. He received potassium here. He will continue taking his home potassium and follow-up with his doctor for recheck. Risks were discussed. He was also treated with a burst therapy of prednisone. Patient will be discharged. Return for any new or worsening issues. Treatment Plan: Potassium replacement, follow-up with primary care doctor for recheck. Doxycycline and prednisone for bronchitis. Disposition: Discharge Impression: 1. Acute bronchitis 2. Atrial fibrillation 3. Hypokalemia This note was generated with [employer] dictation software. It may contain incorrect words, spelling, and punctuation that were not noted in review of the chart prior to signing ED Disposition - Plan for ED Patient: Chief Complaint: Cough Referrals: Lucero Ervin MD [Primary Care Provider] - What to do if you have Problems For any increased pain, shortness of breath, bleeding, nausea or vomiting, chest pain, or any unexpected problems, contact your Primary Care Provider. Call [facility] ([phone]) or report to the closest Emergency Room. Call 911 if necessary. 05/15/18 1614 <Electronically signed by Bran Hsu MD> Date Bran Hsu MD Cosigner Signature (If Indicated): Date CC: Lucero Ervin MD CBC W/DIFF, AUTOMATED Collected: 05/15/2018 Status: F Source: [place] 12:45 PM [facility] REPOSITORY TYPE CODE TESTS RESULT OUT OF RANGE REFERENCE UNITS LAB L100.1000 4.4-11.0 K/mm3 Normal WBC 8.7 LAB L100.1200 4.6-6.2 M/mm3 Normal RBC 4.91 LAB L100.1300 13.0-16.5 g/dl Normal HGB 15.9 LAB L100.1400 40-54 % Normal HCT 47.7 LAB L100.1500 80-94 fL High MCV 97.1 LAB L100.1600 27.0-32.0 pg High MCH 32.4 LAB L100.1700 32-36 g/gl Normal MCHC 33.3 LAB L100.1810 11.6-14.6 % Normal RDW CV 14.5 LAB L100.1820 35.1-43.9 fl High RDW SD 51.8 LAB L100.1900 150-450 K/mm3 Low PLT 142 LAB L100.2000 6.2-12.0 fl Normal MPV 10.5 LAB L100.2100 47-70 % High NEUT% 79.8 LAB L100.2200 19-41 % Low LY% 8.7 LAB L100.2300 0-10 % High MONO% 10.8 LAB L100.2400 0-5 % Normal EO% 0.5 LAB L100.2500 0-1 % Normal BASO% 0.0 LAB L100.2550 0.0-0.9 % Normal IM GRAN % 0.200 Result Comment: IG% - Immature Granulocytes (promyelocytes, myelocytes and metamyelocytes) > 1% indicates that a LEFT SHIFT is Present. LAB L100.2620 2.0-7.7 X10 3/uL Normal Absolute Neut 7.0 LAB L100.2720 0.83-4.51 X10 3/ul Low Absolute Lymph 0.76 Performed By: #### L100.0100 #### [facility] [address] [place], [address] BASIC METABOLIC Collected: 05/15/2018 Status: F Source: [place] PROFILE (BMP) 12:45 PM [facility] [place] REPOSITORY TYPE CODE TESTS RESULT OUT OF RANGE REFERENCE UNITS LAB L501.0100 74-106 mg/dL Normal GLU 97 Result Comment: Please note revised GLUCOSE reference range effective 2017. LAB L501.1000 7-18 mg/dL Normal BUN 9 LAB L501.1100 0.70-1.30 mg/dL Normal CREAT,SERUM 1.04 Result Comment: The validity of the calculated GFR AND GFRAA in patients over 70 years has not been determined. Clinical correlation is essential. LAB L501.1110 >60 mL/min Normal EST GFR 75 Result Comment: Non- GFR Calc LAB L501.1115 >60 mL/min Normal EST GFR - AA 91 Result Comment: GFR Calc LAB L501.1255 ml/min Normal Estimated CRCL 59.64 LAB L501.1300 10-20 RATIO Low BUN/CRE 8.7 LAB L501.2200 8.5-10 mg/dL Low .1 CA 8.3 LAB L501.5300 136-14 mmol/L Normal 5 NA 136 LAB L501.5600 3.5-5. mmol/L Low 1 K 2.9 LAB L501.5900 98-107 mmol/L Low CL 94 LAB L501.6100 21.0-3 mmol/L High 2.0 CO2 33.0 LAB L501.6200 5-15 Normal GAP 9 Performed By: #### L500.2500, L501.4010 #### [facility] [address] [place], [address] TROPONIN-I Collected: 05/15/2018 Status: F Source: [place] 12:45 PM [facility] REPOSITORY TYPE CODE TESTS RESULT OUT OF RANGE REFERENCE UNITS LAB L501.4010 <0.045 ng/mL Normal < 0.015 TROPONIN-I Result Comment: TROPONIN-I EXPECTED VALUES <0.045 Negative 0.045 - 0.590 Consistent with Cardiac Damage > OR = 0.600 Critical Value Not every elevated troponin is indicative of FL. These values should be used with clinical judgement in examining the patient's clinical picture for diagnosis. To establish a diagnosis of FL versus myocardial injury, there must be a demonstrated rise and/or fall in the troponin values, in addition to ischemic symptoms, EKG changes, new regional wall motion abnormality, and/or angiographical evidence. PLEASE NOTE: REFERENCE RANGES EDITED 17 Performed By: #### L500.2500, L501.4010 #### [facility] [address] [place], [address] CHEST 1 VIEW Observed: 05/15/2018 Status: F Source: [place] (PORTABLE) 12:30 PM [facility] [place] REPOSITORY [facility] Imaging Services [address] [place] [address] Chest 1 View (Portable) MR#: [id number] Acct: [id number] Name: MAYCOL TALBERT Rep #: [id number] : 1950 M 68 From: Vitaliy Broussard MD PCP: Lucero Ervin MD Status: REG ER Study: Chest 1 View (Portable) Date of Exam: 05/15/18 Exam# [id number] Ordering Dr: Bran Hsu MD STUDY: X-RAY CHEST REASON FOR EXAM: Male, 68 years old. Chest pain and shortness of breath TECHNIQUE: Single AP portable view of the chest. COMPARISON: 09/03/2015 FINDINGS: EKG leads overlie the chest There are interstitial fibrotic changes of the lungs. There is no demonstrated pleural abnormality. Normal size heart. Normal mediastinum and tres. Normal visualized pulmonary arteries. Normal visualized aortic arch and descending thoracic aorta. There are diffuse degenerative changes of the visualized thoracic spine. Normal visualized ribs, clavicles, and shoulders. There is no demonstrated abnormality of the visualized soft tissue structures of the upper abdomen. RAD/Chest 1 View (Portable) IMPRESSION: Chronic interstitial changes, no superimposed acute pulmonary process Electronically Signed: Nate Broussard MD at 12:45 EST , Service support , CC: Bran Hsu MD; Lucero Ervin MD Electric Switch Tester: Signed SED RATE WESTERGREN Collected: 05/05/2018 Status: F Source: [place] 11:52 AM [facility] REPOSITORY TYPE CODE TESTS RESULT OUT OF REFERENCE UNITS RANGE LAB WSR 0-15 mm/hr Sed Rate Westergren 5 Performed By: #### WSR, CRP, URIC #### [facility] [employer] [address] [place] [address] C-REACTIVE PROTEIN Collected: 05/05/2018 Status: F Source: [place] 11:52 AM [facility] REPOSITORY TYPE CODE TESTS RESULT OUT OF REFERENCE UNITS RANGE LAB CRP <0.9 mg/dL C-Reactive 0.7 Protein Performed By: #### WSR, CRP, URIC #### [facility] [address] [place] [address] URIC ACID Collected: 05/05/2018 Status: F Source: [place] 11:52 AM [facility] REPOSITORY TYPE CODE TESTS RESULT OUT OF RANGE REFERENCE UNITS LAB URIC 4.0-8.1 mg/dL High Uric Acid 8.5 Performed By: #### WSR, CRP, URIC #### [facility] [address] [place], [place] [address] PROGRESS Observed: 05/05/2018 Status: COMPLETED Source: [place] 11:15 AM [facility] REPOSITORY HNO ID: [id number] Author: Zahraa Robbins (PaBarryC) Joel Service: (none) Author Type: Physician Monitoring And Evaluation Advisor Type: Progress Notes Filed: 05/05/2018 4:56 PM Note Text: 68 year old male with c/o swelling in right ankle better, now in left ankle. Tender over ankle. Hurts to walk. Has questions about ALP. I misread as intestinal advised liver. No other liver enzymes elevated. weight unchanged. No change in breathing. Denies SOB, chest pain, orthopnea. SOB with exertion. Concerned about ALP. Other liver enzymes not elevated. Reviewed labs with patient. No concerning. HISTORIES FAMILY HISTORY Problem Relation Age of Onset - Prostate Cancer Father - Colon Cancer Father PAST MEDICAL HISTORY Diagnosis Date - Acute gastritis without mention of hemorrhage - Asthma - Benign neoplasm of colon - Bladder cancer (HCC) - CTS (carpal tunnel syndrome) bilateral - Diaphragmatic hernia without mention of obstruction or gangrene - Diverticulosis of colon (without mention of hemorrhage) - Esophageal reflux - Esophagitis - HEARRING LOSS - HTN (hypertension) - Hypokalemia - Internal hemorrhoids without mention of complication PAST SURGICAL HISTORY Procedure Laterality Date - ARTHRO KNEE 11/12/01 BILATERAL - COLONOS W/REM POLYP SNARE 09/02/05 - COLONOSCOP W/ OR W/O BRSH SPEC 12/21/10 - COLONOSCOP W/ OR W/O BRSH SPEC 03/18/16 Colonoscopy - EGD W/O [facility] SPECIMEN W/BX 12/21/10 - EGD W/O OR W/BRUSH/WASH 03/18/16 EGD - PAST SURGICAL HISTORY OF 12/06/03 EGD - PAST SURGICAL HISTORY OF 09/2010 TURBT - PAST SURGICAL HISTORY OF lipoma excisions - PAST SURGICAL HISTORY OF tonsillectomy - PAST SURGICAL HISTORY OF hearing implant - TOTAL KNEE REPLACEMENT 10/20/2013 Knee replacement, total - TOTAL KNEE REPLACEMENT 09/13/14 Knee replacement, total left Social History Marital status: Spouse name: Tish Years of education: Number of children: 2 Occupational History Occupation Employer Comment [employer]* Social History Main Topics Smoking status: Former Smoker Packs/day: 0.50 Years: 43.00 Types: Cigarettes Quit date: 02/06/2010 Smokeless tobacco: Never Used Alcohol use: No Drug use: No ACTIVE PROBLEM LIST TREMORS ESSENTIAL Esophageal Reflux Hypertrophy of Prostate Without Urinary Obstruction and Other Lower Urinary Tract Symptoms (Luts) Hearing Loss Benign Neoplasm of Colon Diverticulosis of Colon (Without Mention of Hemorrhage) Internal Hemorrhoids Without Mention of Complication Cervicalgia Pain in Joint, Shoulder Region Tension Headache Chronic Airway Obstruction, Not Elsewhere Classified Hypertension Umbilical Hernia Without Mention of Obstruction Or Gangrene Carpal Tunnel Syndrome Chest Pain Rotator Cuff (Capsule) Sprain Cancer of bladder (HCC) Gross Hematuria Low Back Strain Lumbar Radicular Pain Osteoarthritis Knee Pain Anemia Rectal Bleeding Family History of Colon Cancer Gerd (Gastroesophageal Reflux Disease) Acute Gastritis Without Mention of Hemorrhage Congenital Pes Planus Ingrowing Nail Bladder Stones Left Carpal Tunnel Syndrome Bph (Benign Prostatic Hyperplasia) Nocturia Frequency of Urination Osteoarthrosis, Unspecified Whether Generalized Or Localized, Unspecified Site Arthritis of Knee, Right Knee Joint Replacement Status History of Bladder Cancer Bladder Neck Contracture Prediabetes Abdominal Aortic Aneurysm (Aaa) Without Rupture (Hcc) Medication Management First Degree Av Block Urothelial Carcinoma (Hcc) Current Outpatient Prescriptions: diltiazem CD (CARDIZEM CD) 120 mg 24 hr capsule Take 1 capsule by mouth once daily. Disp: 90 capsule Rfl: 3 terazosin (HYTRIN) 2 mg capsule Take 1 capsule by mouth daily at bedtime. Disp: 90 capsule Rfl: 3 potassium chloride ER (K-DUR, KLOR-CON) 20 mEq tablet Take 1 tablet by mouth once daily. Disp: 90 tablet Rfl: 1 albuterol HFA (VENTOLIN HFA) 90 mcg/actuation inhaler Inhale 2 Puffs as instructed every 4 hours as needed. Disp: 3 Inhaler Rfl: 3 Hydrochlorothiazide 12.5 mg capsule Take 1 capsule by mouth once daily. Disp: 30 capsule Rfl: [address] (PROTONIX) 40 mg tablet Take 1 tablet by mouth daily before breakfast. Take on empty stomach, 1/2 hr before meal. Disp: 90 tablet Rfl: 3 fluticasone-salmeterol (ADVAIR DISKUS) 500-50 mcg/dose dsdv Inhale 1 Puff as instructed twice daily. Rinse and gargle mouth with water after use. Disp: 3 Inhaler Rfl: 3 COMPOUNDED PRESCRIPTION Cock-up wrist splint Disp: 1 Device Rfl: 0 IRON, FERROUS SULFATE, ORAL Take 1 tablet by mouth once daily. Disp: Rfl: Methylcellulose, Laxative, (CITRUCEL) 500 mg tab Take 1 tablet by mouth twice daily. Disp: 60 tablet Rfl: 0 ciprofloxacin HCl (CIPRO) 500 mg tablet Take 500 mg in office prior to procedure-to be administered per clinical support. (Patient not taking: Reported on 05/05/2018 ) Disp: 1 tablet Rfl: 0 No current facility-administered medications for this visit. BP CONTROLLED (<130/80) due on 02/10/1966 HEPATITIS C SCREENING due on 1992 DTAP,TDAP,TD(2 - Tdap) due on 09/03/2012 EXAM: BP 140/84 (BP Site: Left Arm, BP Position: Sitting, BP Cuff Size: Large Adult) Pulse 78 Resp 16 Wt 112 kg (247 lb) BMI 36.48 kg/m? weight stable. Pleasant older man in no acute distress. Alert and oriented all spheres. Normal affect and cognition. Speech normal. No deficits to learning or comprehension. Skin warm, dry, pink to lips and nailbeds. Normal turgor. Respirations regular and unlabored. HEENT WNL. TM's clear. Nose and oropharynx free from injection or lesion. No cervical lymph nodes. Thyroid non-tender, no masses Chest CTA. HRRR without murmur or gallop. Abdomen: active bowel sounds throughout, soft, nontender, no masses or organomegaly. No CVAT. Extrem: no clubbing, cyanosis. Has 1/4+ pitting around left ankle now. Tender to palpation. Mildly warm. No erythema. Right ankle looks better. Extremities are warm and pink with prompt capillary refill. ASSESSMENT/PLAN: 1. Inflammatory arthritis - ICD9: 714.9, ICD10: M19.90 (primary diagnosis) Prednisone burst and follow up on progress in 5 days. - SED RATE WESTERGREN - C-REACTIVE PROTEIN (CRP) - URIC ACID BLOOD 2. Elevated alkaline phosphatase level - ICD9: 790.5, ICD10: R74.8 rechekc in 3 months. Other liver enzymes WNL 25 minute visit mostly spent in question answering and education. SAYRA Gipson Observed: 05/05/2018 Status: COMPLETED Source: [place] 10:00 AM [facility] REPOSITORY Office Visit (FAMPWS) MAYCOL TALBERT ([id number]) 1950 M NFR Date Time Provider Department 05/05/18 10:00 AM Zahraa MALDONADO) FAMPWS During your visit today, we recorded the following information about you: Pulse Respiration Blood pressure Weight 78/minute 16/minute 140/84 112 kg M Rosendo Maldonado PA-C 05/05/2018 4:56 PM Signed 68 year old male with c/o swelling in right ankle better, now in left ankle. Tender over ankle. Hurts to walk. Has questions about ALP. I misread as intestinal advised liver. No other liver enzymes elevated. weight unchanged. No change in breathing. Denies SOB, chest pain, orthopnea. SOB with exertion. Concerned about ALP. Other liver enzymes not elevated. Reviewed labs with patient. No concerning. HISTORIES FAMILY HISTORY Problem Relation Age of Onset - Prostate Cancer Father - Colon Cancer Father PAST MEDICAL HISTORY Diagnosis Date - Acute gastritis without mention of hemorrhage - Asthma - Benign neoplasm of colon - Bladder cancer (HCC) - CTS (carpal tunnel syndrome) bilateral - Diaphragmatic hernia without mention of obstruction or gangrene - Diverticulosis of colon (without mention of hemorrhage) - Esophageal reflux - Esophagitis - HEARRING LOSS - HTN (hypertension) - Hypokalemia - Internal hemorrhoids without mention of complication PAST SURGICAL HISTORY Procedure Laterality Date - ARTHRO KNEE 11/12/01 BILATERAL - COLONOS W/REM POLYP SNARE 09/02/05 - COLONOSCOP W/ OR W/O BRSH SPEC 12/21/10 - COLONOSCOP W/ OR W/O BRSH SPEC 03/18/16 Colonoscopy - EGD W/O BRSH SPECIMEN W/BX 12/21/10 - EGD W/O OR W/BRUSH/WASH 03/18/16 EGD - PAST SURGICAL HISTORY OF 12/06/03 EGD - PAST SURGICAL HISTORY OF 09/2010 TURBT - PAST SURGICAL HISTORY OF lipoma excisions - PAST SURGICAL HISTORY OF tonsillectomy - PAST SURGICAL HISTORY OF hearing implant - TOTAL KNEE REPLACEMENT 10/20/2013 Knee replacement, total - TOTAL KNEE REPLACEMENT 09/13/14 Knee replacement, total left Social History Marital status: Spouse name: Tish Years of education: Number of children: 2 Occupational History Occupation Employer Comment [employer]* Social History Main Topics Smoking status: Former Smoker Packs/day: 0.50 Years: 43.00 Types: Cigarettes Quit date: 02/06/2010 Smokeless tobacco: Never Used Alcohol use: No Drug use: No ACTIVE PROBLEM LIST TREMORS ESSENTIAL Esophageal Reflux Hypertrophy of Prostate Without Urinary Obstruction and Other Lower Urinary Tract Symptoms (Luts) Hearing Loss Benign Neoplasm of Colon Diverticulosis of Colon (Without Mention of Hemorrhage) Internal Hemorrhoids Without Mention of Complication Cervicalgia Pain in Joint, Shoulder Region Tension Headache Chronic Airway Obstruction, Not Elsewhere Classified Hypertension Umbilical Hernia Without Mention of Obstruction Or Gangrene Carpal Tunnel Syndrome Chest Pain Rotator Cuff (Capsule) Sprain Cancer of bladder (HCC) Gross Hematuria Low Back Strain Lumbar Radicular Pain Osteoarthritis Knee Pain Anemia Rectal Bleeding Family History of Colon Cancer Gerd (Gastroesophageal Reflux Disease) Acute Gastritis Without Mention of Hemorrhage Congenital Pes Planus Ingrowing Nail Bladder Stones Left Carpal Tunnel Syndrome Bph (Benign Prostatic Hyperplasia) Nocturia Frequency of Urination Osteoarthrosis, Unspecified Whether Generalized Or Localized, Unspecified Site Arthritis of Knee, Right Knee Joint Replacement Status History of Bladder Cancer Bladder Neck Contracture Prediabetes Abdominal Aortic Aneurysm (Aaa) Without Rupture (Hcc) Medication Management First Degree Av Block Urothelial Carcinoma (Hcc) Current Outpatient Prescriptions: diltiazem CD (CARDIZEM CD) 120 mg 24 hr capsule Take 1 capsule by mouth once daily. Disp: 90 capsule Rfl: 3 terazosin (HYTRIN) 2 mg capsule Take 1 capsule by mouth daily at bedtime. Disp: 90 capsule Rfl: 3 potassium chloride ER (K-DUR, KLOR-CON) 20 mEq tablet Take 1 tablet by mouth once daily. Disp: 90 tablet Rfl: 1 albuterol HFA (VENTOLIN HFA) 90 mcg/actuation inhaler Inhale 2 Puffs as instructed every 4 hours as needed. Disp: 3 Inhaler Rfl: 3 Hydrochlorothiazide 12.5 mg capsule Take 1 capsule by mouth once daily. Disp: 30 capsule Rfl: [address] (PROTONIX) 40 mg tablet Take 1 tablet by mouth daily before breakfast. Take on empty stomach, 1/2 hr before meal. Disp: 90 tablet Rfl: 3 fluticasone-salmeterol (ADVAIR DISKUS) 500-50 mcg/dose dsdv Inhale 1 Puff as instructed twice daily. Rinse and gargle mouth with water after use. Disp: 3 Inhaler Rfl: 3 COMPOUNDED PRESCRIPTION Cock-up wrist splint Disp: 1 Device Rfl: 0 IRON, FERROUS SULFATE, ORAL Take 1 tablet by mouth once daily. Disp: Rfl: Methylcellulose, Laxative, (CITRUCEL) 500 mg tab Take 1 tablet by mouth twice daily. Disp: 60 tablet Rfl: 0 ciprofloxacin HCl (CIPRO) 500 mg tablet Take 500 mg in office prior to procedure-to be administered per clinical support. (Patient not taking: Reported on 05/05/2018 ) Disp: 1 tablet Rfl: 0 No current facility-administered medications for this visit. BP CONTROLLED (<130/80) due on 02/10/1966 HEPATITIS C SCREENING due on 1992 DTAP,TDAP,TD(2 - Tdap) due on 09/03/2012 EXAM: BP 140/84 (BP Site: Left Arm, BP Position: Sitting, BP Cuff Size: Large Adult) Pulse 78 Resp 16 Wt 112 kg (247 lb) BMI 36.48 kg/m? weight stable. Pleasant older man in no acute distress. Alert and oriented all spheres. Normal affect and cognition. Speech normal. No deficits to learning or comprehension. Skin warm, dry, pink to lips and nailbeds. Normal turgor. Respirations regular and unlabored. HEENT WNL. TM's clear. Nose and oropharynx free from injection or lesion. No cervical lymph nodes. Thyroid non-tender, no masses Chest CTA. HRRR without murmur or gallop. Abdomen: active bowel sounds throughout, soft, nontender, no masses or organomegaly. No CVAT. Extrem: no clubbing, cyanosis. Has 1/4+ pitting around left ankle now. Tender to palpation. Mildly warm. No erythema. Right ankle looks better. Extremities are warm and pink with prompt capillary refill. ASSESSMENT/PLAN: 1. Inflammatory arthritis - ICD9: 714.9, ICD10: M19.90 (primary diagnosis) Prednisone burst and follow up on progress in 5 days. - SED RATE WESTERGREN - C-REACTIVE PROTEIN (CRP) - URIC ACID BLOOD 2. Elevated alkaline phosphatase level - ICD9: 790.5, ICD10: R74.8 rechekc in 3 months. Other liver enzymes WNL 25 minute visit mostly spent in question answering and education. M Rosendo Maldonado PA-C Referring Provider: SELF [200] Allergies As of Date: 05/05/2018 Noted Allergy Reaction ASA (SALICYLATES) 01/24/2005 5 - Intolerance 8 - GI Upset CODEINE 08/30/2015 8 - GI Upset Date Reviewed: 05/05/2018 Reviewed by: Nayeli Boyer - Fully Assessed Reason for Visit: Edema [39] Cmt: x 4 days both ankles are painful Results [95] Cmt: pt. asking review labs Reason For Visit History Recorded Primary Visit Diagnosis:Inflammatory arthritis [M19.90] Other Visit Diagnosis:Elevated alkaline phosphatase level [R74.8] Order(s):SED RATE WESTERGREN [SQWSR] Order #: [id number] FUTURE C-REACTIVE PROTEIN (CRP) [SQCRP] Order #: [id number] FUTURE URIC ACID BLOOD [SQURIC] Order #: [id number] FUTURE predniSONE (DELTASONE) 20 mg tabletTake 2 tablets by mouth once daily for 5 days.Disp: 10 tabletRfl: 0 Prescriptions as of 05/05/2018 Sig: DILTIAZEM SR 120 MG 24 HR CAP Take 1 capsule by mouth once * TERAZOSIN 2 MG CAPSULE Take 1 capsule by mouth daily* POTASSIUM CHLORIDE ER 20 MEQ * Take 1 tablet by mouth once d* ALBUTEROL SULFATE HFA 90 MCG/* Inhale 2 Puffs as instructed * HYDROCHLOROTHIAZIDE 12.5 MG C* Take 1 capsule by mouth once * PANTOPRAZOLE 40 MG TABLET,DEL* Take 1 tablet by mouth daily * FLUTICASONE 500 MCG-SALMETERO* Inhale 1 Puff as instructed t* COMPOUNDED PRESCRIPTION Cock-up wrist splint IRON (FERROUS SULFATE) ORAL Take 1 tablet by mouth once d* METHYLCELLULOSE (LAXATIVE) 50* Take 1 tablet by mouth twice * PREDNISONE 20 MG TABLET Take 2 tablets by mouth once * CIPROFLOXACIN 500 MG TABLET Take 500 mg in office prior t* Patient not taking: Reported on 05/05/2018 Problem List As Of Date 05/05/2018 Noted Resolved HYPERTENSION BENIGN [I10] INVALID FOR*08/20/2007 TREMORS ESSENTIAL [G25.0, G25.2] INVALID FOR* ESOPHAGEAL REFLUX [K21.9] ACUTE GASTRITIS [535.0] 05/22/2005 ESOPHAGITIS [530.1] 05/22/2005 DIAPHRAGMATIC HERNIA [K44.9] 08/20/2007 HYPERTROPHY PROSTATE W/O OBST [N40.0] INVALID FOR* Hearing loss [H91.90] INVALID FOR* More... CHRONIC ASTHMATIC BRONCHITIS [493.2] INVALID FOR*08/20/2007 BENIGN NEOPLASM LG BOWEL [D12.6] INVALID FOR* DIVERTICULOSIS OF COLON W/O BLEED [K57.30] INVALID FOR* INT HEMORRHOID W/O COMPL [K64.8] HEARRING LOSS [Z82.2] 09/23/2005 CERVICALGIA [M54.2] INVALID FOR* JOINT PAIN-SHLDER [M25.519] INVALID FOR* TENSION HEADACHE [G44.209] INVALID FOR* Chronic airway obstruction, not elsewhere class*INVALID FOR* Hypertension [I10] INVALID FOR* UMBILICAL HERNIA [K42.9] INVALID FOR* CARPAL TUNNEL SYNDROME [G56.00] INVALID FOR* PAIN JOINT, KNEE [M25.569] INVALID FOR*10/30/2017 Chest Pain [R07.9] INVALID FOR* Rotator Cuff (Capsule) Sprain INVALID FOR* Cancer of bladder (HCC) [C67.9] INVALID FOR* Gross Hematuria [R31.0] INVALID FOR* Low back strain [S39.012A] INVALID FOR* Lumbar radicular pain [M54.16] INVALID FOR* Osteoarthritis [M19.90] INVALID FOR* Knee pain [M25.569] INVALID FOR* Anemia [D64.9] INVALID FOR* Rectal bleeding [K62.5] INVALID FOR* Family history of colon cancer [Z80.0] INVALID FOR* GERD (gastroesophageal reflux disease) [K21.9] INVALID FOR* Acute gastritis without mention of hemorrhage [*INVALID FOR* More... Congenital pes planus [Q66.50] INVALID FOR* Ingrowing nail [L60.0] INVALID FOR* Bladder stones [N21.0] INVALID FOR* Left carpal tunnel syndrome [G56.02] INVALID FOR* BPH (benign prostatic hyperplasia) [N40.0] INVALID FOR* Nocturia [R35.1] INVALID FOR* Frequency of urination [R35.0] INVALID FOR* Osteoarthrosis, unspecified whether generalized*INVALID FOR* Arthritis of knee, right [M17.11] INVALID FOR* Knee joint replacement status [Z96.659] INVALID FOR* History of bladder cancer [Z85.51] INVALID FOR* Bladder neck contracture [N32.0] INVALID FOR* Prediabetes [R73.03] INVALID FOR* Abdominal aortic aneurysm (AAA) without rupture*INVALID FOR* More... Medication management [Z79.899] INVALID FOR* First degree AV block [I44.0] INVALID FOR* Urothelial carcinoma (HCC) [C68.9] INVALID FOR* More... Prescriptions ordered this encounter Disp Refills Start End PREDNISONE 20 MG TABLET 10 t* 0 05/05/2018 05/10/2018 Route: ORAL Sig: Take 2 tablets by mouth once daily for 5 days. Encounter Status:Closed by Zahraa MALDONADO PA-C on 05/05/18 ALK PHOS ISOENZYMES Collected: 04/27/2018 Status: F Source: [place] 9:56 AM [facility] REPOSITORY TYPE CODE TESTS RESULT OUT OF REFERENCE UNITS RANGE LAB ALKPS 38-113 U/L Alkaline High Phosphatase 131 LAB ALKBO 10.7-68.3 % Alk Phos Bone % 25.4 LAB ALKBF 12.9-52.6 U/L Bone Fraction 33.3 LAB ALKLIV 26.0-86.2 % Alk Phos Liver % 74.6 LAB ALKLF 16.0-69.3 U/L Liver High Fraction 97.7 LAB ALKINT 0.0-24.2 % Alk Phos Intestine % 0.0 LAB ALKINF 0.0-16.3 U/L Intestine Fraction 0.0 Performed By: #### ALKISO #### [facility] [address], [place] [address] PROGRESS Observed: 04/15/2018 Status: COMPLETED Source: [place] 9:32 AM [facility] REPOSITORY HNO ID: [id number] Author: Zahraa Maldonado Service: (none) Author Type: Physician Monitoring And Evaluation Advisor Type: Progress Notes Filed: 04/21/2018 11:33 AM Note Text: 68 year old male with signficant hearing loss c/o here for follow up. 1. Essential hypertension: controlled. Compliant with cardizem and HCTZ. No headache, dizziness, chest pain 2. Abdominal aortic aneurysm (aaa) without rupture (hcc) (primary encounter diagnosis): 10/31/17 CT: infrarenal 3.2cm: follow annually 3. Copd with chronic bronchitis (hcc): manged well. Occasional cough, wheeze. SOB with exertion but can do what he needs. Taking Advair routinely. Using albuterol about 4 times a day. No orthopnea, PND. 4. Hyperglycemia; no excessive thirst, weight loss, dizziness, chest pain, new numbness or loss of sensation. Component Latest Ref Rng AND Units 08/25/2014 10/29/2016 04/14/2018 Hemoglobin A1C 4.3 - 5.6 % 5.8 5.7 (H) 5.7 (H) Estimated Average Glucose mg/dL 120 117 117 5. hearing loss: can't afford hearing aides. 6. Urothelial cancer: Stage Ta high grade urothelial carcinoma without penetration into muscle. Followed by Dr. Montalvo. 12/08/17 PSA 0.59 HISTORIES FAMILY HISTORY Problem Relation Age of Onset - Prostate Cancer Father - Colon Cancer Father PAST MEDICAL HISTORY Diagnosis Date - Acute gastritis without mention of hemorrhage - Asthma - Benign neoplasm of colon - Bladder cancer (HCC) - CTS (carpal tunnel syndrome) bilateral - Diaphragmatic hernia without mention of obstruction or gangrene - Diverticulosis of colon (without mention of hemorrhage) - Esophageal reflux - Esophagitis - HEARRING LOSS - HTN (hypertension) - Hypokalemia - Internal hemorrhoids without mention of complication PAST SURGICAL HISTORY Procedure Laterality Date - ARTHRO KNEE 11/12/01 BILATERAL - COLONOS W/REM POLYP SNARE 09/02/05 - COLONOSCOP W/ OR W/O BRSH SPEC 12/21/10 - COLONOSCOP W/ OR W/O BRSH SPEC 03/18/16 Colonoscopy - EGD W/O BRSH SPECIMEN W/BX 12/21/10 - EGD W/O OR W/BRUSH/WASH 03/18/16 EGD - PAST SURGICAL HISTORY OF 12/06/03 EGD - PAST SURGICAL HISTORY OF 09/2010 TURBT - PAST SURGICAL HISTORY OF lipoma excisions - PAST SURGICAL HISTORY OF tonsillectomy - PAST SURGICAL HISTORY OF hearing implant - TOTAL KNEE REPLACEMENT 10/20/2013 Knee replacement, total - TOTAL KNEE REPLACEMENT 09/13/14 Knee replacement, total left Social History Marital status: Spouse name: Tish Years of education: Number of children: 2 Occupational History Occupation Employer Comment [employer]* Social History Main Topics Smoking status: Former Smoker Packs/day: 0.50 Years: 43.00 Types: Cigarettes Quit date: 02/06/2010 Smokeless tobacco: Never Used Alcohol use: No Drug use: No ACTIVE PROBLEM LIST TREMORS ESSENTIAL Esophageal Reflux Hypertrophy of Prostate Without Urinary Obstruction and Other Lower Urinary Tract Symptoms (Luts) Hearing Loss Benign Neoplasm of Colon Diverticulosis of Colon (Without Mention of Hemorrhage) Internal Hemorrhoids Without Mention of Complication Cervicalgia Pain in Joint, Shoulder Region Tension Headache Chronic Airway Obstruction, Not Elsewhere Classified Hypertension Umbilical Hernia Without Mention of Obstruction Or Gangrene Carpal Tunnel Syndrome Chest Pain Rotator Cuff (Capsule) Sprain Cancer of bladder (HCC) Gross Hematuria Low Back Strain Lumbar Radicular Pain Osteoarthritis Knee Pain Anemia Rectal Bleeding Family History of Colon Cancer Gerd (Gastroesophageal Reflux Disease) Acute Gastritis Without Mention of Hemorrhage Congenital Pes Planus Ingrowing Nail Bladder Stones Left Carpal Tunnel Syndrome Bph (Benign Prostatic Hyperplasia) Nocturia Frequency of Urination Osteoarthrosis, Unspecified Whether Generalized Or Localized, Unspecified Site Arthritis of Knee, Right Knee Joint Replacement Status History of Bladder Cancer Bladder Neck Contracture Prediabetes Abdominal Aortic Aneurysm (Aaa) Without Rupture (Hcc) Medication Management Current Outpatient Prescriptions: diltiazem CD (CARDIZEM CD) 120 mg 24 hr capsule Take 1 capsule by mouth once daily. Disp: 90 capsule Rfl: 3 terazosin (HYTRIN) 2 mg capsule Take 1 capsule by mouth daily at bedtime. Disp: 90 capsule Rfl: 3 potassium chloride ER (K-DUR, KLOR-CON) 20 mEq tablet Take 1 tablet by mouth once daily. Disp: 90 tablet Rfl: 1 albuterol HFA (VENTOLIN HFA) 90 mcg/actuation inhaler Inhale 2 Puffs as instructed every 4 hours as needed. Disp: 3 Inhaler Rfl: 3 Hydrochlorothiazide 12.5 mg capsule Take 1 capsule by mouth once daily. Disp: 30 capsule Rfl: [address] (PROTONIX) 40 mg tablet Take 1 tablet by mouth daily before breakfast. Take on empty stomach, 1/2 hr before meal. Disp: 90 tablet Rfl: 3 fluticasone-salmeterol (ADVAIR DISKUS) 500-50 mcg/dose dsdv Inhale 1 Puff as instructed twice daily. Rinse and gargle mouth with water after use. Disp: 3 Inhaler Rfl: 3 ciprofloxacin HCl (CIPRO) 500 mg tablet Take 500 mg in office prior to procedure-to be administered per clinical support. Disp: 1 tablet Rfl: 0 IRON, FERROUS SULFATE, ORAL Take 1 tablet by mouth once daily. Disp: Rfl: Methylcellulose, Laxative, (CITRUCEL) 500 mg tab Take 1 tablet by mouth twice daily. Disp: 60 tablet Rfl: 0 COMPOUNDED PRESCRIPTION Cock-up wrist splint Disp: 1 Device Rfl: 0 No current facility-administered medications for this visit. BP CONTROLLED (<130/80) due on 02/10/1966 HEPATITIS C SCREENING due on 1992 DTAP,TDAP,TD(2 - Tdap) due on 09/03/2012 EXAM: BP 148/96 Pulse 76 Temp 36.6 ?C (97.9 ?F) (Tympanic) Resp 16 Wt 110.7 kg (244 lb) BMI 36.03 kg/m? Pleasant older man, over weight, in no acute distress. Alert and oriented all spheres. Normal affect and cognition. Speech normal. No deficits to learning or comprehension other than hearing: had to write for understanding, couldn't hear yelling. Skin warm, dry, pink to lips and nailbeds. Normal turgor. Respirations regular and unlabored. Harsh chronic cough. HEENT WNL. TM's clear. Nose and oropharynx free from injection or lesion. No cervical lymph nodes. Thyroid non-tender, no masses Chest CTA, vesicular, diminished in bases. HRRR without murmur or gallop. Extrem: no clubbing, cyanosis, edema. Extremities are warm and pink with prompt capillary refill. ASSESSMENT/PLAN: 1. Abdominal aortic aneurysm (AAA) without rupture (HCC) - ICD9: 441.4, ICD10: I71.4 (primary diagnosis) Stable, follow annually 2. Hypokalemia - ICD9: 276.8, ICD10: E87.6 - POTASSIUM CHLORIDE ER 20 MEQ TABLET,EXTENDED RELEASE(PART/CRYST) 3. Essential hypertension - ICD9: 401.9, ICD10: I10 - suboptimal control - Recommended regular aerobic exercise. - Recommend home blood pressure monitoring, to bring results in on next visit - Goal of BP <130/80 - DILTIAZEM SR 120 MG 24 HR CAP - POTASSIUM CHLORIDE ER 20 MEQ TABLET,EXTENDED RELEASE(PART/CRYST) - COMP METABOLIC PANEL - CBC 4. COPD with chronic bronchitis (HCC) - ICD9: 491.20, ICD10: J44.9 - ALBUTEROL SULFATE HFA 90 MCG/ACTUATION AEROSOL INHALER 5. Medication management - ICD9: V58.69, ICD10: Z79.899 - COMP METABOLIC PANEL - CBC 6. Lipid screening - ICD9: V77.91, ICD10: Z13.220 - LIPID PANEL, NONFASTING 7. Hyperglycemia - ICD9: 790.29, ICD10: R73.9 - HGB A1C 8. First degree AV block - ICD9: 426.11, ICD10: I44.0 Noted. asymptomatic 9. Hearing loss, unspecified hearing loss type, unspecified laterality - ICD9: 389.9, ICD10: H91.90 Contact social service who came and spoke with patient to see what we might do to get aides covered. 10. Urothelial carcinoma (HCC) - ICD9: 199.1, ICD10: C68.9 Stable, follows with urology. F/u 6 months or prn Patient (guardian) expressed understanding of instructions and agrees with plan. Zahraa Maldonado PA-C CBC Collected: 04/14/2018 Status: F Source: [place] 10[facility] REPOS[facility] TYPE CODE TESTS RESULT OUT OF REFERENCE UNITS RANGE LAB WBC 3.70-11.00 k/uL WBC 7.31 LAB RBC 4.20-6.00 m/uL RBC 4.83 LAB HGB 13.0-17.0 g/dL Hemoglobin 15.4 LAB HCT 39.0-51.0 % Hematocrit 47.0 LAB MCV 80.0-100.0 fL MCV 97.3 LAB MCH 26.0-34.0 pG MCH 31.9 LAB MCHC 30.5-36.0 g/dL MCHC 32.8 LAB RDWCV 11.5-15.0 % RDW-CV 13.8 LAB PLTCT 150-400 k/uL Platelet Count 194 LAB MPV 9.0-12.7 fL MPV 10.4 LAB ABSNUC <0.01 k/uL Absolute nRBC <0.01 Performed By: #### CBC, CMP, LIPNF, HBA1C #### [facility] [address] [place], [place] [address] COMP METABOLIC PANEL Collected: 04/14/2018 Status: F Source: [place] 10:55 AM [facility] REPOSITORY TYPE CODE TESTS RESULT OUT OF REFERENCE UNITS RANGE LAB TP 6.3-8.0 g/dL Protein, Total 7.2 LAB ALB 3.9-4.9 g/dL Albumin 4.2 LAB CA 8.5-10.2 mg/dL Calcium, Total 9.3 LAB TBIL 0.2-1.3 mg/dL Bilirubin, Total 0.8 LAB ALKP 38-113 U/L Alkaline High Phosphatase 135 LAB AST 14-40 U/L AST 24 LAB GLU 74-99 mg/dL Glucose 99 Result Comment: The [place] [employer] (ADA) provides guidance for cutoff values for fasting glucose and random glucose. The ADA defines fasting as no caloric intake for at least 8 hours. Fas ting plasma glucose results between 100 to 125 mg/dL indicate increased risk for diabetes (prediabetes). Fasting plasma glucose results greater than or equal to 126 mg/dL meet the criteria for diagnosis of diabetes. In the absence of unequivocal hyperglycemia, results should be confirmed by repeat testing. In a patient with classic symptoms of hyperglycemia or hyperglycemic crisis, random plasma glucose results greater than or equal to 200 mg/dL meet the criteria for diagnosis of diabetes. Reference: Standards of Medical Care in Diabetes 2016, [place] [employer]. Diabetes Care. 2016.39(Suppl 1). LAB BUN 9-24 mg/dL BUN 11 LAB CRET 0.73-1.22 mg/dL Creatinine 1.04 LAB NA 136-144 mmol/L Sodium 142 LAB K 3.7-5.1 mmol/L Potassium Low 3.2 LAB CL 97-105 mmol/L Chloride 99 LAB CO2 22-30 mmol/L CO2 29 LAB AGAP 9-18 mmol/L Anion Gap 14 LAB ALT 10-54 U/L ALT 17 LAB GFRAA eGFR- Amer. >60 LAB GFRNAA . eGFR-All Other Races >60 Result Comment: eGFR (Estimated GFR) Units of measure: mL/min/1.73 meters squared eGFR is derived from the reexpressed MDRD Study equation using the following parameters: serum creatinine, age, gender and race. The creatinine assay has been calibrated to be traceable to IDMS. An eGFR <60 mL/min/1.73m2 for >3 months is consistent with chronic kidney disease. Refer to KDOQI guidelines for clinical interpretation. In patients with unstable renal function, e.g. those with acute kidney injury, the eGFR may not accurately reflect actual GFR. Performed By: #### CBC, CMP, LIPNF, HBA1C #### [facility] [address] [place], [place] [address] LIPID PANEL, NONFAST Collected: 04/14/2018 Status: F Source: [place] 10:55 AM [facility] REPOSITORY TYPE CODE TESTS RESULT OUT OF REFERENCE UNITS RANGE LAB CHOLNF <200 mg/dL Total Cholesterol NF 153 Result Comment: <200 mg/dL, Desirable 200-239 mg/dL, Borderline high >239 mg/dL, High LAB TRIGNF <150 mg/dL Triglycerides, NF 101 Result Comment: <150 mg/dL, Normal 150-199 mg/dL, Borderline high 200-499 mg/dL, High >499 mg/dL, Very high LAB HDLNF >39 mg/dL HDL Cholesterol, NF Low 39 Result Comment: 40-59 mg/dL, Acceptable >59 mg/dL, High: Negative risk factor for coronary heart disease <40 mg/dL, Low: Positive risk factor for coronary heart disease LAB LDLNF <100 mg/dL LDL Cholesterol, NF 94 Result Comment: <100 mg/dL, Optimal 100-129 mg/dL, Near optimal/above optimal 130-159 mg/dL, Borderline high 160-189 mg/dL, High >189 mg/dL, Very high Secondary prevention optimal LDL Cholesterol levels are recommended to be < 70 mg/dL LAB NOHDLN <130 mg/dL Non HDL Chol, 114 NF Result Comment: <130 mg/dL, Optimal 130-159 mg/dL, Near optimal/above optimal 160-189 mg/dL, Borderline high 190-219 mg/dL, High >219 mg/dL, Very high Secondary prevention optimal non HDL Cholesterol levels are recommended to be < 100 mg/dL LAB VLDLNF <30 mg/dL VLDL Cholesterol, NF 20 LAB TCHDLN <5.10 mg/dL T Chol/HDL Ratio NF 3.92 LAB LDLHDN <2.54 mg/dL LDL/HDL Ratio, NF 2.41 Result Comment: Reference: 1. National Cholesterol Education Program ATP III Guideline At-A-Glance Quick Desk Reference: National Heart, Lung, and Blood [place]. National Institutes of Health. 2001: NIH Publication No. 01-3305. 2. An International Atherosclerosis Society position paper: global recommendations for the management of dyslipidemia: executive summary, Atherosclerosis. 2014: 232(2):410-413. Performed By: #### CBC, CMP, LIPNF, HBA1C #### [facility] [employer] [address] [place], [place] [address] HEMOGLOBIN A1C Collected: 04/14/2018 Status: F Source: [place] 10:55 AM [facility] REPOSITORY TYPE CODE TESTS RESULT OUT OF REFERENCE UNITS RANGE LAB HGBA1C 4.3-5.6 % High Hemoglobin A1c 5.7 Result Comment: [place] [employer] guidelines indicate that patients with HgbA1c in the range 5.7-6.4% are at increased risk for development of diabetes, and intervention by lifestyle modification may be beneficial. HgbA1c greater or equal to 6.5% is considered diagnostic of diabetes. LAB HBA0 mg/dL Est. Average Glucose 117 Result Comment: eAG: (Estimated average glucose) is a calculated value from HgbA1c and is patient admitting representative of the average blood glucose level in the last 2-3 month period. Performed By: #### CBC, CMP, LIPNF, HBA1C #### [facility] [employer] [address] [place], [place] [address] CNOV Observed: 04/14/2018 Status: COMPLETED Source: [place] 10:00 AM [facility] REPOSITORY Office Visit (FAMPWS) MAYCOL TALBERT ([id number]) 1950 M NFR Date Time Provider Department 04/14/18 10:00 AM Zahraa MALDONADO) LROI During your visit today, we recorded the following information about you: Temperature Pulse Respiration Blood pressure 97.9 degrees 76/minute 16/minute 148/96 Weight 110.7 kg M Rosendo Maldonado PA-C 04/21/2018 11:33 AM Signed 68 year old male with signficant hearing loss c/o here for follow up. 1. Essential hypertension: controlled. Compliant with cardizem and HCTZ. No headache, dizziness, chest pain 2. Abdominal aortic aneurysm (aaa) without rupture (hcc) (primary encounter diagnosis): 10/31/17 CT: infrarenal 3.2cm: follow annually 3. Copd with chronic bronchitis (hcc): manged well. Occasional cough, wheeze. SOB with exertion but can do what he needs. Taking Advair routinely. Using albuterol about 4 times a day. No orthopnea, PND. 4. Hyperglycemia; no excessive thirst, weight loss, dizziness, chest pain, new numbness or loss of sensation. Component Latest Ref Rng AND Units 08/25/2014 10/29/2016 04/14/2018 Hemoglobin A1C 4.3 - 5.6 % 5.8 5.7 (H) 5.7 (H) Estimated Average Glucose mg/dL 120 117 117 5. hearing loss: can't afford hearing aides. 6. Urothelial cancer: Stage Ta high grade urothelial carcinoma without penetration into muscle. Followed by Dr. Montalvo. 12/08/17 PSA 0.59 HISTORIES FAMILY HISTORY Problem Relation Age of Onset - Prostate Cancer Father - Colon Cancer Father PAST MEDICAL HISTORY Diagnosis Date - Acute gastritis without mention of hemorrhage - Asthma - Benign neoplasm of colon - Bladder cancer (HCC) - CTS (carpal tunnel syndrome) bilateral - Diaphragmatic hernia without mention of obstruction or gangrene - Diverticulosis of colon (without mention of hemorrhage) - Esophageal reflux - Esophagitis - HEARRING LOSS - HTN (hypertension) - Hypokalemia - Internal hemorrhoids without mention of complication PAST SURGICAL HISTORY Procedure Laterality Date - ARTHRO KNEE 11/12/01 BILATERAL - COLONOS W/REM POLYP SNARE 09/02/05 - COLONOSCOP W/ OR W/O BRSH SPEC 12/21/10 - COLONOSCOP W/ OR W/O BRSH SPEC 03/18/16 Colonoscopy - EGD W/O BRSH SPECIMEN W/BX 12/21/10 - EGD W/O OR W/BRUSH/WASH 03/18/16 EGD - PAST SURGICAL HISTORY OF 12/06/03 EGD - PAST SURGICAL HISTORY OF 09/2010 TURBT - PAST SURGICAL HISTORY OF lipoma excisions - PAST SURGICAL HISTORY OF tonsillectomy - PAST SURGICAL HISTORY OF hearing implant - TOTAL KNEE REPLACEMENT 10/20/2013 Knee replacement, total - TOTAL KNEE REPLACEMENT 09/13/14 Knee replacement, total left Social History Marital status: Spouse name: Tish Years of education: Number of children: 2 Occupational History Occupation Employer Comment [employer]* Social History Main Topics Smoking status: Former Smoker Packs/day: 0.50 Years: 43.00 Types: Cigarettes Quit date: 02/06/2010 Smokeless tobacco: Never Used Alcohol use: No Drug use: No ACTIVE PROBLEM LIST TREMORS ESSENTIAL Esophageal Reflux Hypertrophy of Prostate Without Urinary Obstruction and Other Lower Urinary Tract Symptoms (Luts) Hearing Loss Benign Neoplasm of Colon Diverticulosis of Colon (Without Mention of Hemorrhage) Internal Hemorrhoids Without Mention of Complication Cervicalgia Pain in Joint, Shoulder Region Tension Headache Chronic Airway Obstruction, Not Elsewhere Classified Hypertension Umbilical Hernia Without Mention of Obstruction Or Gangrene Carpal Tunnel Syndrome Chest Pain Rotator Cuff (Capsule) Sprain Cancer of bladder (HCC) Gross Hematuria Low Back Strain Lumbar Radicular Pain Osteoarthritis Knee Pain Anemia Rectal Bleeding Family History of Colon Cancer Gerd (Gastroesophageal Reflux Disease) Acute Gastritis Without Mention of Hemorrhage Congenital Pes Planus Ingrowing Nail Bladder Stones Left Carpal Tunnel Syndrome Bph (Benign Prostatic Hyperplasia) Nocturia Frequency of Urination Osteoarthrosis, Unspecified Whether Generalized Or Localized, Unspecified Site Arthritis of Knee, Right Knee Joint Replacement Status History of Bladder Cancer Bladder Neck Contracture Prediabetes Abdominal Aortic Aneurysm (Aaa) Without Rupture (Hcc) Medication Management Current Outpatient Prescriptions: diltiazem CD (CARDIZEM CD) 120 mg 24 hr capsule Take 1 capsule by mouth once daily. Disp: 90 capsule Rfl: 3 terazosin (HYTRIN) 2 mg capsule Take 1 capsule by mouth daily at bedtime. Disp: 90 capsule Rfl: 3 potassium chloride ER (K-DUR, KLOR-CON) 20 mEq tablet Take 1 tablet by mouth once daily. Disp: 90 tablet Rfl: 1 albuterol HFA (VENTOLIN HFA) 90 mcg/actuation inhaler Inhale 2 Puffs as instructed every 4 hours as needed. Disp: 3 Inhaler Rfl: 3 Hydrochlorothiazide 12.5 mg capsule Take 1 capsule by mouth once daily. Disp: 30 capsule Rfl: [address] (PROTONIX) 40 mg tablet Take 1 tablet by mouth daily before breakfast. Take on empty stomach, 1/2 hr before meal. Disp: 90 tablet Rfl: 3 fluticasone-salmeterol (ADVAIR DISKUS) 500-50 mcg/dose dsdv Inhale 1 Puff as instructed twice daily. Rinse and gargle mouth with water after use. Disp: 3 Inhaler Rfl: 3 ciprofloxacin HCl (CIPRO) 500 mg tablet Take 500 mg in office prior to procedure-to be administered per clinical support. Disp: 1 tablet Rfl: 0 IRON, FERROUS SULFATE, ORAL Take 1 tablet by mouth once daily. Disp: Rfl: Methylcellulose, Laxative, (CITRUCEL) 500 mg tab Take 1 tablet by mouth twice daily. Disp: 60 tablet Rfl: 0 COMPOUNDED PRESCRIPTION Cock-up wrist splint Disp: 1 Device Rfl: 0 No current facility-administered medications for this visit. BP CONTROLLED (<130/80) due on 02/10/1966 HEPATITIS C SCREENING due on 1992 DTAP,TDAP,TD(2 - Tdap) due on 09/03/2012 EXAM: BP 148/96 Pulse 76 Temp 36.6 ?C (97.9 ?F) (Tympanic) Resp 16 Wt 110.7 kg (244 lb) BMI 36.03 kg/m? Pleasant older man, over weight, in no acute distress. Alert and oriented all spheres. Normal affect and cognition. Speech normal. No deficits to learning or comprehension other than hearing: had to write for understanding, couldn't hear yelling. Skin warm, dry, pink to lips and nailbeds. Normal turgor. Respirations regular and unlabored. Harsh chronic cough. HEENT WNL. TM's clear. Nose and oropharynx free from injection or lesion. No cervical lymph nodes. Thyroid non-tender, no masses Chest CTA, vesicular, diminished in bases. HRRR without murmur or gallop. Extrem: no clubbing, cyanosis, edema. Extremities are warm and pink with prompt capillary refill. ASSESSMENT/PLAN: 1. Abdominal aortic aneurysm (AAA) without rupture (HCC) - ICD9: 441.4, ICD10: I71.4 (primary diagnosis) Stable, follow annually 2. Hypokalemia - ICD9: 276.8, ICD10: E87.6 - POTASSIUM CHLORIDE ER 20 MEQ TABLET,EXTENDED RELEASE(PART/CRYST) 3. Essential hypertension - ICD9: 401.9, ICD10: I10 - suboptimal control - Recommended regular aerobic exercise. - Recommend home blood pressure monitoring, to bring results in on next visit - Goal of BP <130/80 - DILTIAZEM SR 120 MG 24 HR CAP - POTASSIUM CHLORIDE ER 20 MEQ TABLET,EXTENDED RELEASE(PART/CRYST) - COMP METABOLIC PANEL - CBC 4. COPD with chronic bronchitis (HCC) - ICD9: 491.20, ICD10: J44.9 - ALBUTEROL SULFATE HFA 90 MCG/ACTUATION AEROSOL INHALER 5. Medication management - ICD9: V58.69, ICD10: Z79.899 - COMP METABOLIC PANEL - CBC 6. Lipid screening - ICD9: V77.91, ICD10: Z13.220 - LIPID PANEL, NONFASTING 7. Hyperglycemia - ICD9: 790.29, ICD10: R73.9 - HGB A1C 8. First degree AV block - ICD9: 426.11, ICD10: I44.0 Noted. asymptomatic 9. Hearing loss, unspecified hearing loss type, unspecified laterality - ICD9: 389.9, ICD10: H91.90 Contact social service who came and spoke with patient to see what we might do to get aides covered. 10. Urothelial carcinoma (HCC) - ICD9: 199.1, ICD10: C68.9 Stable, follows with urology. F/u 6 months or prn Patient (guardian) expressed understanding of instructions and agrees with plan. M Rosendo Maldonado PA-C Referring Provider: SELF [[id number]] Allergies As of Date: 04/14/2018 Noted Allergy Reaction ASA (SALICYLATES) 01/24/2005 5 - Intolerance 8 - GI Upset CODEINE 08/30/2015 8 - GI Upset Date Reviewed: 04/14/2018 Reviewed by: Melissa Corado LPN - Fully Assessed Reason for Visit: F/U 3 Month [443] Primary Visit Diagnosis:Abdominal aortic aneurysm (AAA) without rupture (HCC) [I71.4] Other Visit Diagnoses:Hypokalemia [E87.6] Essential hypertension [I10] COPD with chronic bronchitis (HCC) [J44.9] Medication management [Z79.899] Lipid screening [Z13.220] Hyperglycemia [R73.9] First degree AV block [I44.0] Hearing loss, unspecified hearing loss type, unspecified laterality [H91.90] Urothelial carcinoma (HCC) [C68.9] Order(s):diltiazem CD (CARDIZEM CD) 120 mg 24 hr capsuleTake 1 capsule by mouth once daily.Disp: 90 capsuleRfl: 3 terazosin (HYTRIN) 2 mg capsuleTake 1 capsule by mouth daily at bedtime.Disp: 90 capsuleRfl: 3 potassium chloride ER (K-DUR, KLOR-CON) 20 mEq tabletTake 1 tablet by mouth once daily.Disp: 90 tabletRfl: 1 albuterol HFA (VENTOLIN HFA) 90 mcg/actuation inhalerInhale 2 Puffs as instructed every 4 hours as needed.Disp: 3 InhalerRfl: 3 HGB A1C [IZNEC5L] Order #: [id number] FUTURE COMP METABOLIC PANEL [SQCMP] Order #: [id number] FUTURE LIPID PANEL, NONFASTING [SQLIPNF] Order #: [id number] FUTURE CBC [SQCBC] Order #: [id number] FUTURE Prescriptions as of 04/14/2018 Sig: DILTIAZEM SR 120 MG 24 HR CAP Take 1 capsule by mouth once * TERAZOSIN 2 MG CAPSULE Take 1 capsule by mouth daily* POTASSIUM CHLORIDE ER 20 MEQ * Take 1 tablet by mouth once d* ALBUTEROL SULFATE HFA 90 MCG/* Inhale 2 Puffs as instructed * HYDROCHLOROTHIAZIDE 12.5 MG C* Take 1 capsule by mouth once * PANTOPRAZOLE 40 MG TABLET,DEL* Take 1 tablet by mouth daily * FLUTICASONE 500 MCG-SALMETERO* Inhale 1 Puff as instructed t* CIPROFLOXACIN 500 MG TABLET Take 500 mg in office prior t* IRON (FERROUS SULFATE) ORAL Take 1 tablet by mouth once d* METHYLCELLULOSE (LAXATIVE) 50* Take 1 tablet by mouth twice * COMPOUNDED PRESCRIPTION Cock-up wrist splint Problem List As Of Date 04/14/2018 Noted Resolved HYPERTENSION BENIGN [I10] INVALID FOR*08/20/2007 TREMORS ESSENTIAL [G25.0, G25.2] INVALID FOR* ESOPHAGEAL REFLUX [K21.9] ACUTE GASTRITIS [535.0] 05/22/2005 ESOPHAGITIS [530.1] 05/22/2005 DIAPHRAGMATIC HERNIA [K44.9] 08/20/2007 HYPERTROPHY PROSTATE W/O OBST [N40.0] INVALID FOR* Hearing loss [H91.90] INVALID FOR* Priority: A More... CHRONIC ASTHMATIC BRONCHITIS [493.2] INVALID FOR*08/20/2007 BENIGN NEOPLASM LG BOWEL [D12.6] INVALID FOR* DIVERTICULOSIS OF COLON W/O BLEED [K57.30] INVALID FOR* INT HEMORRHOID W/O COMPL [K64.8] HEARRING LOSS [Z82.2] 09/23/2005 CERVICALGIA [M54.2] INVALID FOR* JOINT PAIN-SHLDER [M25.519] INVALID FOR* TENSION HEADACHE [G44.209] INVALID FOR* Chronic airway obstruction, not elsewhere class*INVALID FOR* Priority: A Hypertension [I10] INVALID FOR* Priority: Moderate UMBILICAL HERNIA [K42.9] INVALID FOR* CARPAL TUNNEL SYNDROME [G56.00] INVALID FOR* PAIN JOINT, KNEE [M25.569] INVALID FOR*10/30/2017 Chest Pain [R07.9] INVALID FOR* Rotator Cuff (Capsule) Sprain INVALID FOR* Cancer of bladder (HCC) [C67.9] INVALID FOR* Priority: A Gross Hematuria [R31.0] INVALID FOR* Low back strain [S39.012A] INVALID FOR* Lumbar radicular pain [M54.16] INVALID FOR* Osteoarthritis [M19.90] INVALID FOR* Knee pain [M25.569] INVALID FOR* Anemia [D64.9] INVALID FOR* Rectal bleeding [K62.5] INVALID FOR* Family history of colon cancer [Z80.0] INVALID FOR* Priority: A GERD (gastroesophageal reflux disease) [K21.9] INVALID FOR* Acute gastritis without mention of hemorrhage [*INVALID FOR* More... Congenital pes planus [Q66.50] INVALID FOR* Ingrowing nail [L60.0] INVALID FOR* Bladder stones [N21.0] INVALID FOR* Left carpal tunnel syndrome [G56.02] INVALID FOR* BPH (benign prostatic hyperplasia) [N40.0] INVALID FOR* Nocturia [R35.1] INVALID FOR* Frequency of urination [R35.0] INVALID FOR* Osteoarthrosis, unspecified whether generalized*INVALID FOR* Arthritis of knee, right [M17.11] INVALID FOR* Knee joint replacement status [Z96.659] INVALID FOR* History of bladder cancer [Z85.51] INVALID FOR* Bladder neck contracture [N32.0] INVALID FOR* Prediabetes [R73.03] INVALID FOR* Abdominal aortic aneurysm (AAA) without rupture*INVALID FOR* More... Medication management [Z79.899] INVALID FOR* Prescriptions ordered this encounter Disp Refills Start End DILTIAZEM SR 120 MG 24 HR CAP 90 c* 3 04/14/2018 Route: ORAL Sig: Take 1 capsule by mouth once daily. TERAZOSIN 2 MG CAPSULE 90 c* 3 04/14/2018 Route: ORAL Sig: Take 1 capsule by mouth daily at bedtime. POTASSIUM CHLORIDE ER 20 MEQ TABLET,* 90 t* 1 04/14/2018 Route: ORAL Sig: Take 1 tablet by mouth once daily. ALBUTEROL SULFATE HFA 90 MCG/ACTUATI* 3 In* 3 04/14/2018 Route: INHALATION Sig: Inhale 2 Puffs as instructed every 4 hours as needed. Medications Discontinued During This Encounter diltiazem CD (CARDIZEM CD) 120 mg 24* 90 c* 3 04/17/2017 04/14/2018 Route: ORAL Sig: Take 1 capsule by mouth once daily. Disc: Reason for discontinue is not on file. terazosin (HYTRIN) 2 mg capsule 90 c* 3 04/17/2017 04/14/2018 Route: ORAL Sig: Take 1 capsule by mouth daily at bedtime. Disc: Reason for discontinue is not on file. potassium chloride ER (K-DUR, KLOR-C* 90 t* 0 02/17/2018 04/14/2018 Route: ORAL Sig: Take 1 tablet by mouth once daily. Disc: Reason for discontinue is not on file. albuterol HFA (VENTOLIN HFA) 90 mcg/* 3 In* 3 04/30/2017 04/14/2018 Class: Print RX Route: INHALATION Sig: Inhale 2 Puffs as instructed every 4 hours as needed. Disc: Reason for discontinue is not on file. Disposition: Return in about 6 months (around 10/12/2018). Follow-up and Disposition History Recorded Encounter Status:Closed by Zahraa MALDONADO PA-C on 04/21/18 PSA,TOTAL - ANNUAL Collected: 12/08/2017 Status: F Source: [place] SCREEN 2:37 PM [facility] [place] REPOSITORY TYPE CODE TESTS RESULT OUT OF RANGE REFERENCE UNITS LAB L501.9910 0.00-4.00 ng/mL Normal PSA,TOT 0.59 SCREEN Result Comment: This test was performed using the TPSA assay method for the [employer] chemistry system. Values obtained with different assay methods cannot be used interchangably. When changing PSA assays in the course of monitoring a patient, additional sequential testing should be carried out to confirm baseline values. Performed By: #### L501.9910 #### [facility] [address] [place], [address] CYTOLOGY, BODY FLUID / Collected: 12/08/2017 Status: F Source: [place] CSF 2:15 PM [facility] [place] REPOSITORY Order Comment: Specimen Source: URINE TYPE CODE TESTS RESULT OUT OF RANGE REFERENCE UNITS LAB L350.1000 SEE Normal PATHOLOGY CYTOLOGY,BF REPORT /CSF Result Comment: Specimen submitted to Anatomical Pathology Department for testing. Performed By: #### L350.1000 #### [facility] [address] [place], [address] FLUID/WASHING Observed: 12/08/2017 Status: F Source: [place] 12:00 AM [facility] [place] REPOSITORY Patient: MAYCOL TALBERT : 1950 (67/M) Acct Num: [id number] Phys: Jc MELTON,Mary Lou Unit Num: [id number] Loc: LAB Specimen: [id number] Received: 12/08/17 - 1500 Spec Type: Fluid TISSUES TISSUES: Urine COMMENT Please make reference to previous specimen ([id number]), bladder, TUR with diagnosis of papillary urothelial carcinoma. CYTOLOGY GROSS Received is 40 ml of clear yellow fluid labeled with the patient's name and and designated per the requisition as urine. Submitted for cytology preparation. / RB:cc 12/09/10 TC:5 CPT: 66584 CYTOLOGY STUDY Slides are reviewed. DIAGNOSIS CYTOLOGY Urine for cytology (cytospin): Rare mildly atypical urothelial cells noted. Numerous crystals. See comment. SJ:manuel 12/10/17 HEADER OPERATION: Not noted PRE-OP DIAGNOSIS: C67.9 TISSUE SUBMITTED: Urine for cytology Signed Phani Goff 12/10/17 <signature on file> Performed By: #### PFLU #### [facility] [address] [place], [address] PROGRESS Observed: 11/25/2017 Status: COMPLETED Source: [place] 10:05 AM [facility] REPOSITORY HNO ID: [id number] Author: Lubna Noble (Pa) Service: (none) Author Type: Physician Monitoring And Evaluation Advisor Type: Progress Notes Filed: 11/25/2017 10:20 AM Note Text: Discussed with patient that he requires annual cystoscopy and cytology for his history of Bladder Cancer. At this time I am unable to perform these for him at this location and offered [place] locations he refused Saying he can not drive there and will not go. So I offered him to call [facility] to see if they will Take him on. Notes printed and given to patient. I spent a total of, 15 minutes face to face with the patient. Greater than 50% of the time was spent counseling and coordinating the care based on my plan and assessment as noted. Lubna Noble, [facility], [place], SAYRA CNOV Observed: 11/25/2017 Status: COMPLETED Source: [place] 9:30 AM [facility] REPOSITORY Office Visit (UROLWS) MAYCOL TALBERT ([id number]) 1950 M NFR Date Time Provider Department 11/25/17 9:30 AM LUBNA NOBLE) UROLWS During your visit today, we recorded the following information about you: Pulse Blood pressure Weight 84/minute 164/102 112.3 kg JUAN RAMON Roth 11/25/2017 10:20 AM Signed Discussed with patient that he requires annual cystoscopy and cytology for his history of Bladder Cancer. At this time I am unable to perform these for him at this location and offered [place] locations he refused Saying he can not drive there and will not go. So I offered him to call [facility] to see if they will Take him on. Notes printed and given to patient. I spent a total of, 15 minutes face to face with the patient. Greater than 50% of the time was spent counseling and coordinating the care based on my plan and assessment as noted. GRISELDA Ordonez, [place], SAYRA Winn LPN 11/25/2017 10:12 AM Signed Our office will help get an appointment with Dr Zahraa Strange. When his office calls us back we will get you the first available appointment and contact your sister with that date and time Referring Provider: LUCERO ERVIN [[id number]] Allergies As of Date: 11/25/2017 Noted Allergy Reaction ASA (SALICYLATES) 01/24/2005 5 - Intolerance 8 - GI Upset CODEINE 08/30/2015 8 - GI Upset Date Reviewed: 10/30/2017 Reviewed by: Jyoti Guzman LPN - Fully Assessed Reason for Visit: Consult [173] Cmt: Consult Bladder Cancer Primary Visit Diagnosis:Malignant neoplasm of urinary bladder, unspecified site (HCC) [C67.9] Order(s):UA DIP, URINE (POC) [[id number]] Order #: [id number]. #:[id number] Prescriptions as of 11/25/2017 Sig: HYDROCHLOROTHIAZIDE 12.5 MG C* Take 1 capsule by mouth once * PANTOPRAZOLE 40 MG TABLET,DEL* Take 1 tablet by mouth daily * ALBUTEROL SULFATE HFA 90 MCG/* Inhale 2 Puffs as instructed * FLUTICASONE 500 MCG-SALMETERO* Inhale 1 Puff as instructed t* DILTIAZEM SR 120 MG 24 HR CAP Take 1 capsule by mouth once * TERAZOSIN 2 MG CAPSULE Take 1 capsule by mouth daily* POTASSIUM CHLORIDE ER 20 MEQ * Take 1 tablet by mouth once d* COMPOUNDED PRESCRIPTION Cock-up wrist splint IRON (FERROUS SULFATE) ORAL Take 1 tablet by mouth once d* METHYLCELLULOSE (LAXATIVE) 50* Take 1 tablet by mouth twice * CIPROFLOXACIN 500 MG TABLET Take 500 mg in office prior t* Problem List As Of Date 11/25/2017 Noted Resolved HYPERTENSION BENIGN [I10] INVALID FOR*08/20/2007 TREMORS ESSENTIAL [G25.0, G25.2] INVALID FOR* ESOPHAGEAL REFLUX [K21.9] ACUTE GASTRITIS [535.0] 05/22/2005 ESOPHAGITIS [530.1] 05/22/2005 DIAPHRAGMATIC HERNIA [K44.9] 08/20/2007 HYPERTROPHY PROSTATE W/O OBST [N40.0] INVALID FOR* Hearing loss [H91.90] INVALID FOR* Priority: A More... CHRONIC ASTHMATIC BRONCHITIS [493.2] INVALID FOR*08/20/2007 BENIGN NEOPLASM LG BOWEL [D12.6] INVALID FOR* DIVERTICULOSIS OF COLON W/O BLEED [K57.30] INVALID FOR* INT HEMORRHOID W/O COMPL [K64.8] HEARRING LOSS [Z82.2] 09/23/2005 CERVICALGIA [M54.2] INVALID FOR* JOINT PAIN-SHLDER [M25.519] INVALID FOR* TENSION HEADACHE [G44.209] INVALID FOR* Chronic airway obstruction, not elsewhere class*INVALID FOR* Priority: A Hypertension [I10] INVALID FOR* Priority: Moderate UMBILICAL HERNIA [K42.9] INVALID FOR* CARPAL TUNNEL SYNDROME [G56.00] INVALID FOR* PAIN JOINT, KNEE [M25.569] INVALID FOR*10/30/2017 Chest Pain [R07.9] INVALID FOR* Rotator Cuff (Capsule) Sprain INVALID FOR* Cancer of bladder (HCC) [C67.9] INVALID FOR* Priority: A Gross Hematuria [R31.0] INVALID FOR* Low back strain [S39.012A] INVALID FOR* Lumbar radicular pain [M54.16] INVALID FOR* Osteoarthritis [M19.90] INVALID FOR* Knee pain [M25.569] INVALID FOR* Anemia [D64.9] INVALID FOR* Rectal bleeding [K62.5] INVALID FOR* Family history of colon cancer [Z80.0] INVALID FOR* Priority: A GERD (gastroesophageal reflux disease) [K21.9] INVALID FOR* Acute gastritis without mention of hemorrhage [*INVALID FOR* More... Congenital pes planus [Q66.50] INVALID FOR* Ingrowing nail [L60.0] INVALID FOR* Bladder stones [N21.0] INVALID FOR* Left carpal tunnel syndrome [G56.02] INVALID FOR* BPH (benign prostatic hyperplasia) [N40.0] INVALID FOR* Nocturia [R35.1] INVALID FOR* Frequency of urination [R35.0] INVALID FOR* Osteoarthrosis, unspecified whether generalized*INVALID FOR* Arthritis of knee, right [M17.11] INVALID FOR* Knee joint replacement status [Z96.659] INVALID FOR* History of bladder cancer [Z85.51] INVALID FOR* Bladder neck contracture [N32.0] INVALID FOR* Prediabetes [R73.03] INVALID FOR* Abdominal aortic aneurysm (AAA) without rupture*INVALID FOR* More... Other instructions from your clinician: Our office will help get an appointment with Dr Zahraa Strange. When his office calls us back we will get you the first available appointment and contact your sister with that date and time Encounter Status:Closed by LUBNA NOBLE PA-C on 11/25/17 PROGRESS Observed: 10/31/2017 Status: COMPLETED Source: [place] 11:43 AM [facility] REPOSITORY HNO ID: [id number] Author: Vance Parisi Service: (none) Author Type: Picking Tech Type: Progress Notes Filed: 10/31/2017 11:43 AM Note Text: Radiology Service Progress Note PATIENT NAME: Maycol Talebrt DATE OF SERVICE: October 31, 2017 TIME: 11:43 AM PATIENT IDENTITY VERIFICATION COMPLETED USING TWO (2) METHODS: Patient confirmed name verbally and Date of . PATIENT GENDER DATA: Male PATIENT RELEVANT IMPLANT DATA REVIEWED: Not Applicable RADIOLOGY DEPARTMENT: Ultrasound PERIPHERAL IV DATA: Not applicable SIGNED BY: VANCE PARISI RDMS Bree October 31, 2017 11:43 AM US ABD AORTA Observed: 10/31/2017 Status: F Source: [place] 11:42 AM [facility] REPOSITORY * * *Final Report* * * DATE OF EXAM: Oct 31 2017 11:42AM WRU [id number] - US ABD AORTA / PROCEDURE REASON: multiple diagnoses * * * * Physician Interpretation * * * * EXAMINATION: US ABD AORTA HISTORY: Encounter for screening for cardiovascular disorders Personal history of nicotine dependence . TECHNIQUE: Grayscale and color Doppler images of the retroperitoneum were obtained. COMPARISON: Renal CT dated 01/29/2010. RESULT: The proximal abdominal aorta was not well-seen secondary to overlying bowel gas. The mid abdominal aorta measures approximately 2.3 x 2.8 cm. There is an infrarenal abdominal aortic aneurysm, measuring approximately 3.2 x 3.1 cm. This aneurysm measures approximately 3.9 cm in length. The distal abdominal measures approximately 2.2 x 2.6 cm. Both common iliac arteries measure approximately 1.1 cm. The proximal IVC is patent. IMPRESSION: Infrarenal abdominal aortic aneurysm, measuring approximately 3.2 cm. Electric Switch Tester: GLORIA Transcribe Date/Time: Nov 02 2017 7:16A Dictated by : DANGELO LUNA MD This examination was interpreted and the report reviewed and electronically signed by: DANGELO LUNA MD on Nov 02 2017 7:17AM EST [id number] Observed: 10/30/2017 Status: COMPLETED Source: [place] 11:00 AM [facility] REPOSITORY Office Visit (FAMPWS) MAYCOL TALBERT ([id number]) 1950 M NFR Date Time Provider Department 10/30/17 11:00 AM LUCERO ERVINWS During your visit today, we recorded the following information about you: Pulse Respiration Blood pressure Weight 80/minute 16/minute 140/100 110.2 kg Lucero Ervin MD 10/30/2017 12:02 PM Signed Patient presents with: Follow Up: 6 month. Bilateral ankle AND feet swelling x 1 wk HPI: Patient presents today for office visit for follow up. HYPERTENSION: has had some peripheral swelling since it got hot. Worse when on his feet. Is better in am. No chest pain or shortness of breath. No redness or warmth or pain. PULM: stable. Still gets winded easily. He is using his inhalers. GASTROENTEROLOGY:no gi issues. GENITOURINARY:urinating well. Overdue for follow up. MEDICATIONS: Current Outpatient Prescriptions: pantoprazole DR (PROTONIX) 40 mg tablet Take 1 tablet by mouth daily before breakfast. Take on empty stomach, 1/2 hr before meal. albuterol HFA (VENTOLIN HFA) 90 mcg/actuation inhaler Inhale 2 Puffs as instructed every 4 hours as needed. fluticasone-salmeterol (ADVAIR DISKUS) 500-50 mcg/dose dsdv Inhale 1 Puff as instructed twice daily. Rinse and gargle mouth with water after use. diltiazem CD (CARDIZEM CD) 120 mg 24 hr capsule Take 1 capsule by mouth once daily. terazosin (HYTRIN) 2 mg capsule Take 1 capsule by mouth daily at bedtime. potassium chloride ER (K-DUR, KLOR-CON) 20 mEq tablet Take 1 tablet by mouth once daily. ciprofloxacin HCl (CIPRO) 500 mg tablet Take 500 mg in office prior to procedure-to be administered per clinical support. IRON, FERROUS SULFATE, ORAL Take 1 tablet by mouth once daily. Methylcellulose, Laxative, (CITRUCEL) 500 mg tab Take 1 tablet by mouth twice daily. COMPOUNDED PRESCRIPTION Cock-up wrist splint No current facility-administered medications for this visit. ALLERGIES: ALLERGIES Allergen Reactions - Asa [Salicylates] Intolerance, GI Upset - Codeine GI Upset PAST MEDICAL HISTORY Diagnosis Date - Acute gastritis without mention of hemorrhage - Asthma - Benign neoplasm of colon - Bladder cancer (HCC) - CTS (carpal tunnel syndrome) bilateral - Diaphragmatic hernia without mention of obstruction or gangrene - Diverticulosis of colon (without mention of hemorrhage) - Esophageal reflux - Esophagitis - HEARRING LOSS - HTN (hypertension) - Hypokalemia - Internal hemorrhoids without mention of complication PAST SURGICAL HISTORY Procedure Laterality Date - ARTHRO KNEE 11/12/01 BILATERAL - COLONOS W/REM POLYP SNARE 09/02/05 - COLONOSCOP W/ OR W/O BRSH SPEC 12/21/10 - COLONOSCOP W/ OR W/O BRSH SPEC 03/18/16 Colonoscopy - EGD W/O BRSH SPECIMEN W/BX 12/21/10 - EGD W/O OR W/BRUSH/WASH 03/18/16 EGD - PAST SURGICAL HISTORY OF 12/06/03 EGD - PAST SURGICAL HISTORY OF 09/2010 TURBT - PAST SURGICAL HISTORY OF lipoma excisions - PAST SURGICAL HISTORY OF tonsillectomy - PAST SURGICAL HISTORY OF hearing implant - TOTAL KNEE REPLACEMENT 10/20/2013 Knee replacement, total - TOTAL KNEE REPLACEMENT 09/13/14 Knee replacement, total left FAMILY HISTORY Problem Relation Age of Onset - Prostate Cancer Father - Colon Cancer Father Social History Marital status: Spouse name: Tish Years of education: Number of children: 2 Occupational History Occupation Employer Comment [employer]* Social History Main Topics Smoking status: Former Smoker Packs/day: 0.50 Years: 43.00 Types: Cigarettes Quit date: 02/06/2010 Smokeless tobacco: Never Used Alcohol use: No Drug use: No Reviewed current medications, allergies, past medical history, surgical history, family history and social history today. REVIEW OF SYSTEMS All other reviewed and negative other than HPI. HEALTH MAINTENANCE: Reviewed health maintenance issues today and recommended the following in detail. HEPATITIS C SCREENING due on 1992 DTAP,TDAP,TD(2 - Tdap) due on 09/03/2012 ABDOMINAL AORTIC ANEURYSM SCREENING TOPIC due on 02/10/2013 PNEUMOVAX AGE 65 AND OVER WITH 5YR LOOKBACK(1) due on 12/27/2014 VITALS: BP 140/100 Pulse 80 Resp 16 Wt 110.2 kg (243 lb) BMI 35.88 kg/m? Last 4 Encounter Wt Readings: Date: Wt: 10/30/2017 110.2 kg (243 lb) 07/07/2017 108.4 kg (239 lb) 04/30/2017 110.2 kg (243 lb) 10/29/2016 111.9 kg (246 lb 9.6 oz) PHYSICAL EXAMINATION: General appearance: Well appearing, alert, in no acute distress, well-hydrated, well nourished. Skin: Skin color, texture, turgor normal, no suspicious rashes or lesions Head: Normocephalic, no masses, lesions, tenderness or abnormalities Lungs: Lungs clear to auscultation. No wheezing, rhonchi, rales Heart: RRR without murmur, gallop, or rubs. No ectopy Abdomen: Normal abdominal exam, Abdomen soft, non-tender. Bowel sounds normal. No masses, organomegaly Extremities: No deformities, trace edema, skin discoloration, clubbing or cyanosis. Good capillary refill. Neg homans ASSESSMENT/PLAN: 1. Essential hypertension - ICD9: 401.9, ICD10: I10 (primary diagnosis) - poor control - Continue current medication(s) - Add HCTZ - Reviewed risks of HTN and principles of treatment - BASIC METABOLIC PNL 2. Need for vaccination - ICD9: V05.9, ICD10: Z23 - PNEUMOCOCCAL IMMUNIZATION PPSV 23 3. Malignant neoplasm of urinary bladder, unspecified site (HCC) - ICD9: 188.9, ICD10: C67.9 - CONSULT TO UROLOGY 4. Prediabetes - ICD9: 790.29, ICD10: R73.03 - follow labs. - HGB A1C 5. Hearing loss, unspecified hearing loss type, unspecified laterality - ICD9: 389.9, ICD10: H91.90 stable 6. Anemia, unspecified type - ICD9: 285.9, ICD10: D64.9 - recheck labs. - CBC + DIFF 7. Screening for AAA (abdominal aortic aneurysm) - ICD9: V81.2, ICD10: Z13.6 - US ABD AORTA - US DOPPLER AORTA 8. Hx of tobacco use, presenting hazards to health - ICD9: V15.82, ICD10: Z87.891 - US ABD AORTA - US DOPPLER AORTA Lucero Ervin MD RTO in two weeks for labs and bp check and three months and prn. Referring Provider: LUCERO ERVIN [[id number]] Allergies As of Date: 10/30/2017 Noted Allergy Reaction ASA (SALICYLATES) 01/24/2005 5 - Intolerance 8 - GI Upset CODEINE 08/30/2015 8 - GI Upset Date Reviewed: 10/30/2017 Reviewed by: Jyoti Guzman LPN - Fully Assessed Reason for Visit: Follow Up [171] Cmt: 6 month. Bilateral ankle AND feet swelling x 1 wk Reason For Visit History Recorded Primary Visit Diagnosis:Essential hypertension [I10] Other Visit Diagnoses:Need for vaccination [Z23] Malignant neoplasm of urinary bladder, unspecified site (HCC) [C67.9] Prediabetes [R73.03] Hearing loss, unspecified hearing loss type, unspecified laterality [H91.90] Anemia, unspecified type [D64.9] Screening for AAA (abdominal aortic aneurysm) [Z13.6] Hx of tobacco use, presenting hazards to health [Z87.891] Order(s):PNEUMOCOCCAL IMMUNIZATION PPSV 23 [[id number]] Order #: [id number] US ABD AORTA [[id number]] Order #: [id number] FUTURE US DOPPLER AORTA [[id number]] Order #: [id number] FUTURE CONSULT TO UROLOGY [9041] Order #: [id number]: 1 Hydrochlorothiazide 12.5 mg capsuleTake 1 capsule by mouth once daily.Disp: 30 capsuleRfl: 12 CBC + DIFF [SQCBCDIF] Order #: [id number] FUTURE BASIC METABOLIC PNL [SQBMP] Order #: [id number] FUTURE HGB A1C [[id number]] Order #: [id number] FUTURE Prescriptions as of 10/30/2017 Sig: PANTOPRAZOLE 40 MG TABLET,DEL* Take 1 tablet by mouth daily * ALBUTEROL SULFATE HFA 90 MCG/* Inhale 2 Puffs as instructed * FLUTICASONE 500 MCG-SALMETERO* Inhale 1 Puff as instructed t* DILTIAZEM SR 120 MG 24 HR CAP Take 1 capsule by mouth once * TERAZOSIN 2 MG CAPSULE Take 1 capsule by mouth daily* POTASSIUM CHLORIDE ER 20 MEQ * Take 1 tablet by mouth once d* CIPROFLOXACIN 500 MG TABLET Take 500 mg in office prior t* IRON (FERROUS SULFATE) ORAL Take 1 tablet by mouth once d* METHYLCELLULOSE (LAXATIVE) 50* Take 1 tablet by mouth twice * HYDROCHLOROTHIAZIDE 12.5 MG C* Take 1 capsule by mouth once * COMPOUNDED PRESCRIPTION Cock-up wrist splint Problem List As Of Date 10/30/2017 Noted Resolved HYPERTENSION BENIGN [I10] INVALID FOR*08/20/2007 TREMORS ESSENTIAL [G25.0, G25.2] INVALID FOR* ESOPHAGEAL REFLUX [K21.9] ACUTE GASTRITIS [535.0] 05/22/2005 ESOPHAGITIS [530.1] 05/22/2005 DIAPHRAGMATIC HERNIA [K44.9] 08/20/2007 HYPERTROPHY PROSTATE W/O OBST [N40.0] INVALID FOR* Hearing loss [H91.90] INVALID FOR* Priority: A More... CHRONIC ASTHMATIC BRONCHITIS [493.2] INVALID FOR*08/20/2007 BENIGN NEOPLASM LG BOWEL [D12.6] INVALID FOR* DIVERTICULOSIS OF COLON W/O BLEED [K57.30] INVALID FOR* INT HEMORRHOID W/O COMPL [K64.8] HEARRING LOSS [Z82.2] 09/23/2005 CERVICALGIA [M54.2] INVALID FOR* JOINT PAIN-SHLDER [M25.519] INVALID FOR* TENSION HEADACHE [G44.209] INVALID FOR* Chronic airway obstruction, not elsewhere class*INVALID FOR* Priority: A Hypertension [I10] INVALID FOR* Priority: Moderate UMBILICAL HERNIA [K42.9] INVALID FOR* CARPAL TUNNEL SYNDROME [G56.00] INVALID FOR* PAIN JOINT, KNEE [M25.569] INVALID FOR*10/30/2017 Chest Pain [R07.9] INVALID FOR* Rotator Cuff (Capsule) Sprain INVALID FOR* Cancer of bladder (HCC) [C67.9] INVALID FOR* Priority: A Gross Hematuria [R31.0] INVALID FOR* Low back strain [S39.012A] INVALID FOR* Lumbar radicular pain [M54.16] INVALID FOR* Osteoarthritis [M19.90] INVALID FOR* Knee pain [M25.569] INVALID FOR* Anemia [D64.9] INVALID FOR* Rectal bleeding [K62.5] INVALID FOR* Family history of colon cancer [Z80.0] INVALID FOR* Priority: A GERD (gastroesophageal reflux disease) [K21.9] INVALID FOR* Acute gastritis without mention of hemorrhage [*INVALID FOR* More... Congenital pes planus [Q66.50] INVALID FOR* Ingrowing nail [L60.0] INVALID FOR* Bladder stones [N21.0] INVALID FOR* Left carpal tunnel syndrome [G56.02] INVALID FOR* BPH (benign prostatic hyperplasia) [N40.0] INVALID FOR* Nocturia [R35.1] INVALID FOR* Frequency of urination [R35.0] INVALID FOR* Osteoarthrosis, unspecified whether generalized*INVALID FOR* Arthritis of knee, right [M17.11] INVALID FOR* Knee joint replacement status [Z96.659] INVALID FOR* History of bladder cancer [Z85.51] INVALID FOR* Bladder neck contracture [N32.0] INVALID FOR* Prediabetes [R73.03] INVALID FOR* Prescriptions ordered this encounter Disp Refills Start End HYDROCHLOROTHIAZIDE 12.5 MG CAPSULE 30 c* 12 10/30/2017 Route: ORAL Sig: Take 1 capsule by mouth once daily. Disposition: Return in about 3 months (around 01/30/2018). Follow-up and Disposition History Recorded Encounter Status:Closed by LUCERO ERVIN MD on 10/30/17 PROGRESS Observed: 10/30/2017 Status: COMPLETED Source: [place] 10:58 AM [facility] REPOSITORY HNO ID: [id number] Author: Lucero Ervin Service: (none) Author Type: Physician Type: Progress Notes Filed: 10/30/2017 12:02 PM Note Text: Patient presents with: Follow Up: 6 month. Bilateral ankle AND feet swelling x 1 wk HPI: Patient presents today for office visit for follow up. HYPERTENSION: has had some peripheral swelling since it got hot. Worse when on his feet. Is better in am. No chest pain or shortness of breath. No redness or warmth or pain. PULM: stable. Still gets winded easily. He is using his inhalers. GASTROENTEROLOGY:no gi issues. GENITOURINARY:urinating well. Overdue for follow up. MEDICATIONS: Current Outpatient Prescriptions: pantoprazole DR (PROTONIX) 40 mg tablet Take 1 tablet by mouth daily before breakfast. Take on empty stomach, 1/2 hr before meal. albuterol HFA (VENTOLIN HFA) 90 mcg/actuation inhaler Inhale 2 Puffs as instructed every 4 hours as needed. fluticasone-salmeterol (ADVAIR DISKUS) 500-50 mcg/dose dsdv Inhale 1 Puff as instructed twice daily. Rinse and gargle mouth with water after use. diltiazem CD (CARDIZEM CD) 120 mg 24 hr capsule Take 1 capsule by mouth once daily. terazosin (HYTRIN) 2 mg capsule Take 1 capsule by mouth daily at bedtime. potassium chloride ER (K-DUR, KLOR-CON) 20 mEq tablet Take 1 tablet by mouth once daily. ciprofloxacin HCl (CIPRO) 500 mg tablet Take 500 mg in office prior to procedure-to be administered per clinical support. IRON, FERROUS SULFATE, ORAL Take 1 tablet by mouth once daily. Methylcellulose, Laxative, (CITRUCEL) 500 mg tab Take 1 tablet by mouth twice daily. COMPOUNDED PRESCRIPTION Cock-up wrist splint No current facility-administered medications for this visit. ALLERGIES: ALLERGIES Allergen Reactions - Asa [Salicylates] Intolerance, GI Upset - Codeine GI Upset PAST MEDICAL HISTORY Diagnosis Date - Acute gastritis without mention of hemorrhage - Asthma - Benign neoplasm of colon - Bladder cancer (HCC) - CTS (carpal tunnel syndrome) bilateral - Diaphragmatic hernia without mention of obstruction or gangrene - Diverticulosis of colon (without mention of hemorrhage) - Esophageal reflux - Esophagitis - HEARRING LOSS - HTN (hypertension) - Hypokalemia - Internal hemorrhoids without mention of complication PAST SURGICAL HISTORY Procedure Laterality Date - ARTHRO KNEE 11/12/01 BILATERAL - COLONOS W/REM POLYP SNARE 09/02/05 - COLONOSCOP W/ OR W/O BRSH SPEC 12/21/10 - COLONOSCOP W/ OR W/O BRSH SPEC 03/18/16 Colonoscopy - EGD W/O BRSH SPECIMEN W/BX 12/21/10 - EGD W/O OR W/BRUSH/WASH 03/18/16 EGD - PAST SURGICAL HISTORY OF 12/06/03 EGD - PAST SURGICAL HISTORY OF 09/2010 TURBT - PAST SURGICAL HISTORY OF lipoma excisions - PAST SURGICAL HISTORY OF tonsillectomy - PAST SURGICAL HISTORY OF hearing implant - TOTAL KNEE REPLACEMENT 10/20/2013 Knee replacement, total - TOTAL KNEE REPLACEMENT 09/13/14 Knee replacement, total left FAMILY HISTORY Problem Relation Age of Onset - Prostate Cancer Father - Colon Cancer Father Social History Marital status: Spouse name: Tish Years of education: Number of children: 2 Occupational History Occupation Employer Comment [employer]* Social History Main Topics Smoking status: Former Smoker Packs/day: 0.50 Years: 43.00 Types: Cigarettes Quit date: 02/06/2010 Smokeless tobacco: Never Used Alcohol use: No Drug use: No Reviewed current medications, allergies, past medical history, surgical history, family history and social history today. REVIEW OF SYSTEMS All other reviewed and negative other than HPI. HEALTH MAINTENANCE: Reviewed health maintenance issues today and recommended the following in detail. HEPATITIS C SCREENING due on 1992 DTAP,TDAP,TD(2 - Tdap) due on 09/03/2012 ABDOMINAL AORTIC ANEURYSM SCREENING TOPIC due on 02/10/2013 PNEUMOVAX AGE 65 AND OVER WITH 5YR LOOKBACK(1) due on 12/27/2014 VITALS: BP 140/100 Pulse 80 Resp 16 Wt 110.2 kg (243 lb) BMI 35.88 kg/m? Last 4 Encounter Wt Readings: Date: Wt: 10/30/2017 110.2 kg (243 lb) 07/07/2017 108.4 kg (239 lb) 04/30/2017 110.2 kg (243 lb) 10/29/2016 111.9 kg (246 lb 9.6 oz) PHYSICAL EXAMINATION: General appearance: Well appearing, alert, in no acute distress, well-hydrated, well nourished. Skin: Skin color, texture, turgor normal, no suspicious rashes or lesions Head: Normocephalic, no masses, lesions, tenderness or abnormalities Lungs: Lungs clear to auscultation. No wheezing, rhonchi, rales Heart: RRR without murmur, gallop, or rubs. No ectopy Abdomen: Normal abdominal exam, Abdomen soft, non-tender. Bowel sounds normal. No masses, organomegaly Extremities: No deformities, trace edema, skin discoloration, clubbing or cyanosis. Good capillary refill. Neg homans ASSESSMENT/PLAN: 1. Essential hypertension - ICD9: 401.9, ICD10: I10 (primary diagnosis) - poor control - Continue current medication(s) - Add HCTZ - Reviewed risks of HTN and principles of treatment - BASIC METABOLIC PNL 2. Need for vaccination - ICD9: V05.9, ICD10: Z23 - PNEUMOCOCCAL IMMUNIZATION PPSV 23 3. Malignant neoplasm of urinary bladder, unspecified site (HCC) - ICD9: 188.9, ICD10: C67.9 - CONSULT TO UROLOGY 4. Prediabetes - ICD9: 790.29, ICD10: R73.03 - follow labs. - HGB A1C 5. Hearing loss, unspecified hearing loss type, unspecified laterality - ICD9: 389.9, ICD10: H91.90 stable 6. Anemia, unspecified type - ICD9: 285.9, ICD10: D64.9 - recheck labs. - CBC + DIFF 7. Screening for AAA (abdominal aortic aneurysm) - ICD9: V81.2, ICD10: Z13.6 - US ABD AORTA - US DOPPLER AORTA 8. Hx of tobacco use, presenting hazards to health - ICD9: V15.82, ICD10: Z87.891 - US ABD AORTA - US DOPPLER AORTA Lucero Ervin MD RTO in two weeks for labs and bp check and three months and prn. CNPTOUTREACH Observed: 10/14/2017 Status: COMPLETED Source: [place] 12:00 AM [facility] REPOSITORY Patient Outreach ([facility]) MAYCOL TALBERT ([id number]) 1950 M NFR Date Time Provider Department 10/14/17 LUCERO ERIVN During your visit today, we recorded the following information about you: Allergies As of Date: 10/14/2017 Noted Allergy Reaction ASA (SALICYLATES) 01/24/2005 5 - Intolerance 8 - GI Upset CODEINE 08/30/2015 8 - GI Upset Date Reviewed: 07/07/2017 Reviewed by: Adrianne Tipton LPN - Fully Assessed Visit Diagnosis:Medication management [Z79.899] Prescriptions as of 10/14/2017 Sig: PANTOPRAZOLE 40 MG TABLET,DEL* Take 1 tablet by mouth daily * ALBUTEROL SULFATE HFA 90 MCG/* Inhale 2 Puffs as instructed * FLUTICASONE 500 MCG-SALMETERO* Inhale 1 Puff as instructed t* DILTIAZEM SR 120 MG 24 HR CAP Take 1 capsule by mouth once * TERAZOSIN 2 MG CAPSULE Take 1 capsule by mouth daily* X POTASSIUM CHLORIDE ER 20 MEQ * Take 1 tablet by mouth once d* CIPROFLOXACIN 500 MG TABLET Take 500 mg in office prior t* COMPOUNDED PRESCRIPTION Cock-up wrist splint IRON (FERROUS SULFATE) ORAL Take 1 tablet by mouth once d* METHYLCELLULOSE (LAXATIVE) 50* Take 1 tablet by mouth twice * Problem List As Of Date 10/14/2017 Noted Resolved HYPERTENSION BENIGN [I10] INVALID FOR*08/20/2007 TREMORS ESSENTIAL [G25.0, G25.2] INVALID FOR* ESOPHAGEAL REFLUX [K21.9] ACUTE GASTRITIS [535.0] 05/22/2005 ESOPHAGITIS [530.1] 05/22/2005 DIAPHRAGMATIC HERNIA [K44.9] 08/20/2007 HYPERTROPHY PROSTATE W/O OBST [N40.0] INVALID FOR* Unspecified hearing loss [H91.90] INVALID FOR* Priority: A More... CHRONIC ASTHMATIC BRONCHITIS [493.2] INVALID FOR*08/20/2007 BENIGN NEOPLASM LG BOWEL [D12.6] INVALID FOR* DIVERTICULOSIS OF COLON W/O BLEED [K57.30] INVALID FOR* INT HEMORRHOID W/O COMPL [K64.8] HEARRING LOSS [Z82.2] 09/23/2005 CERVICALGIA [M54.2] INVALID FOR* JOINT PAIN-SHLDER [M25.519] INVALID FOR* TENSION HEADACHE [G44.209] INVALID FOR* Chronic airway obstruction, not elsewhere class*INVALID FOR* Priority: A Hypertension [I10] INVALID FOR* Priority: Moderate UMBILICAL HERNIA [K42.9] INVALID FOR* CARPAL TUNNEL SYNDROME [G56.00] INVALID FOR* PAIN JOINT, KNEE [M25.569] INVALID FOR* Chest Pain [R07.9] INVALID FOR* Rotator Cuff (Capsule) Sprain INVALID FOR* Cancer of bladder (HCC) [C67.9] INVALID FOR* Priority: A Gross Hematuria [R31.0] INVALID FOR* Low back strain [S39.012A] INVALID FOR* Lumbar radicular pain [M54.16] INVALID FOR* Osteoarthritis [M19.90] INVALID FOR* Knee pain [M25.569] INVALID FOR* Anemia [D64.9] INVALID FOR* Rectal bleeding [K62.5] INVALID FOR* Family history of colon cancer [Z80.0] INVALID FOR* Priority: A GERD (gastroesophageal reflux disease) [K21.9] INVALID FOR* Acute gastritis without mention of hemorrhage [*INVALID FOR* More... Congenital pes planus [Q66.50] INVALID FOR* Ingrowing nail [L60.0] INVALID FOR* Bladder stones [N21.0] INVALID FOR* Left carpal tunnel syndrome [G56.02] INVALID FOR* BPH (benign prostatic hyperplasia) [N40.0] INVALID FOR* Nocturia [R35.1] INVALID FOR* Frequency of urination [R35.0] INVALID FOR* Osteoarthrosis, unspecified whether generalized*INVALID FOR* Arthritis of knee, right [M17.11] INVALID FOR* Knee joint replacement status [Z96.659] INVALID FOR* History of bladder cancer [Z85.51] INVALID FOR* Bladder neck contracture [N32.0] INVALID FOR* Prediabetes [R73.03] INVALID FOR* Encounter Status:Closed by BRIDGETTE, PRODUSER on 03/13/18 CBC AND DIFFERENTIAL Collected: 07/07/2017 Status: F Source: [place] 12:07 PM [facility] REPOS[facility] TYPE CODE TESTS RESULT OUT OF REFERENCE UNITS RANGE LAB WBC 3.70-11.00 k/uL WBC High 11.84 LAB RBC 4.20-6.00 m/uL RBC 4.85 LAB HGB 13.0-17.0 g/dL Hemoglobin 15.6 LAB HCT 39.0-51.0 % Hematocrit 47.0 LAB MCV 80.0-100.0 fL MCV 96.9 LAB MCH 26.0-34.0 pG MCH 32.2 LAB MCHC 30.5-36.0 g/dL MCHC 33.2 LAB RDWCV 11.5-15.0 % RDW-CV 13.5 LAB PLTCT 150-400 k/uL Platelet Count 190 LAB MPV 9.0-12.7 fL MPV 10.7 LAB ANEUT % Neut% 81.6 LAB AANEUT 1.45-7.50 k/uL Abs Neut High 9.65 LAB ALYMP % Lymph% 11.1 LAB AALYMP 1.00-4.00 k/uL Abs Lymph 1.32 LAB AMONO % Mcculloch% 6.8 LAB AAMONO <0.87 k/uL Abs Mcculloch 0.81 LAB AEOS % Eosin% 0.3 LAB AAEOS <0.46 k/uL Abs Eosin 0.04 LAB ABASO % Baso% 0.2 LAB AABASO <0.11 k/uL Abs Baso <0.03 LAB AUNRBC 0 /100 WBC NRBCs 0.0 LAB ABNRBC <0.01 k/uL Absolute nRBC <0.01 LAB DTYP DTYPE Auto Diff Performed By: #### CBCDIF, URIC, WSR #### [facility] [employer] [address] [place], [place] [address] URIC ACID Collected: 07/07/2017 Status: F Source: [place] 12:07 PM [facility] REPOSITORY TYPE CODE TESTS RESULT OUT OF RANGE REFERENCE UNITS LAB URIC 4.0-8.1 mg/dL Uric Acid 7.5 Performed By: #### CBCDIF, URIC, WSR #### [facility] [employer] [address], [place] [id number] SED RATE WESTERGREN Collected: 07/07/2017 Status: F Source: [place] 12:07 PM [facility] REPOSITORY TYPE CODE TESTS RESULT OUT OF REFERENCE UNITS RANGE LAB WSR 0-15 mm/hr Sed Rate Westergren 5 Performed By: #### CBCDIF, URIC, WSR #### [facility] [employer] [address], [place] [address] PROGRESS Observed: 07/07/2017 Status: COMPLETED Source: [place] 11:55 AM [facility] REPOSITORY HNO ID: [id number] Author: Aury (Rt) Hannah Nunez Service: (none) Author Type: Market Editor Type: Progress Notes Filed: 07/07/2017 11:57 AM Note Text: Radiology Service Progress Note PATIENT NAME: Maycol Talbert DATE OF SERVICE: July 07, 2017 TIME: 11:55 AM PATIENT IDENTITY VERIFICATION COMPLETED USING TWO (2) METHODS: Patient confirmed name verbally and Date of . PATIENT GENDER DATA: Male PATIENT RELEVANT IMPLANT DATA REVIEWED: Not Applicable RADIOLOGY DEPARTMENT: General X-ray: Exam(s) Completed: Upper Extremity X-Ray(s): Hand, left : PERIPHERAL IV DATA: Not applicable SIGNED BY: RT Blaise July 07, 2017 11:55 AM XR HAND 3V PA/LAT/OBL Observed: 07/07/2017 Status: F Source: [facility] 11:53 AM [facility] REPOSITORY * * *Final Report* * * DATE OF EXAM: Jul 07 2017 11:53AM WOX [id number] - XR HAND 3V PA/LAT/OBL LT / PROCEDURE REASON: Pain in left hand * * * * Physician Interpretation * * * * LEFT HAND X-RAY TECHNIQUE: 3 images: AP, lateral, and oblique views COMPARISON: No relevant prior INDICATION: Pain in left hand RESULT: Osteophytes most conspicuously at the interphalangeal joint of the thumb, 1st MCP joint, and at the middle finger DIP joint. Osteophyte formation, joint space loss, and subchondral cyst formation at the 1st carpometacarpal joint. No fracture. No osseous erosion. Soft tissues are intact. No radiopaque foreign object is appreciated. Diffuse demineralization. - IMPRESSION: Multifocal osteoarthritis. No acute osseous abnormality. Electric Switch Tester: PSCB Transcribe Date/Time: Jul 08 2017 9:17A Dictated by : AQUILES SIBLEY MD This examination was interpreted and the report reviewed and electronically signed by: AQUILES SIBLEY MD on Jul 08 2017 9:19AM EST [id number] PROGRESS Observed: 07/07/2017 Status: COMPLETED Source: [place] 11:32 AM [facility] REPOSITORY HNO ID: [id number] Author: Lucero Ervin Service: (none) Author Type: Physician Type: Progress Notes Filed: 07/07/2017 11:57 AM Note Text: Patient presents with: left hand pain: swelling and painful HPI: Patient presents today for office visit for left hand pain. Has been there today. No trauma. No fever or hx of gout. No numbness or tingling. No significant redness. Pain with movement. Worst pain is at the base of the thung. MEDICATIONS: ALLERGIES: ALLERGIES Allergen Reactions - Asa [Salicylates] Intolerance, GI Upset - Codeine GI Upset PAST MEDICAL HISTORY Diagnosis Date - Acute gastritis - Acute gastritis without mention of hemorrhage - Asthma - Benign neoplasm of colon - Bladder cancer (HCC) - Bladder mass - CTS (carpal tunnel syndrome) bilateral - Diaphragmatic hernia without mention of obstruction or gangrene - Diarrhea - Diverticulosis of colon (without mention of hemorrhage) - Esophageal reflux - Esophagitis - HEARRING LOSS - HTN (hypertension) - Hypokalemia - Internal hemorrhoids without mention of complication - Nonspecific abnormal finding in stool contents PAST SURGICAL HISTORY Procedure Laterality Date - ARTHRO KNEE 11/12/01 BILATERAL - COLONOS W/REM POLYP SNARE 09/02/05 - COLONOSCOP W/ OR W/O BRSH SPEC 12/21/10 - COLONOSCOP W/ OR W/O BRS SPEC 03/18/16 Colonoscopy - EGD W/O BRSH SPECIMEN W/BX 12/21/10 - EGD W/O OR W/BRUSH/WASH 03/18/16 EGD - PAST SURGICAL HISTORY OF 12/06/03 EGD - PAST SURGICAL HISTORY OF 09/2010 TURBT - PAST SURGICAL HISTORY OF lipoma excisions - PAST SURGICAL HISTORY OF tonsillectomy - PAST SURGICAL HISTORY OF hearing implant - TOTAL KNEE REPLACEMENT 10/20/2013 Knee replacement, total - TOTAL KNEE REPLACEMENT 09/13/14 Knee replacement, total left FAMILY HISTORY Problem Relation Age of Onset - Prostate Cancer Father - Colon Cancer Father Social History Marital status: Spouse name: Tish Years of education: Number of children: 2 Occupational History Occupation Employer Comment [employer]* Social History Main Topics Smoking status: Former Smoker Packs/day: 0.50 Years: 43.00 Types: Cigarettes Quit date: 02/06/2010 Smokeless status: Never Used Alcohol use: No Drug use: No Reviewed current medications, allergies, past medical history, surgical history, family history and social history today. VITALS: BP 142/92 Pulse 92 Temp 37.6 ?C (99.6 ?F) (Tympanic) Resp 14 Wt 108.4 kg (239 lb) BMI 35.29 kg/m2 Last 4 Encounter Wt Readings: Date: Wt: 07/07/2017 108.4 kg (239 lb) 04/30/2017 110.2 kg (243 lb) 10/29/2016 111.9 kg (246 lb 9.6 oz) 06/04/2016 103.4 kg (228 lb) PHYSICAL EXAMINATION: General appearance: Well appearing, alert, in no acute distress, well-hydrated, well nourished. Skin: Skin color, texture, turgor normal, no suspicious rashes or lesions Ext. No deformity. Normal pps Pain with movement. Tender at the base of the thumb. Minimal redness that would appear more inflammatory. No warmth. Nothing to suggest cellulitis. ASSESSMENT/PLAN: 1. Pain of left hand - ICD9: 729.5, ICD10: M79.642 (primary diagnosis) - appears inflammatory. - ice and rest. Red flags for re-assessment reviewed with patient in detail. - call with update in am. - XR HAND GENERAL 3V PA/LAT/OBL LT - CBC + DIFF - SED RATE WESTERGREN - URIC ACID BLOOD - PREDNISONE 10 MG TABLET 2. Gastroesophageal reflux disease with esophagitis - ICD9: 530.11, ICD10: K21.0 - PANTOPRAZOLE 40 MG TABLET,DELAYED RELEASE Lucero Ervin MD ALLERGIES ALLERGIES DATE TYPE / NAME / CODE REACTION SEVERITY SOURCE CODE 05/15/2018 Drug codeine/[id number] Vomiting Unknown [place] Allergy/41 0(RXNORM) Community [id number]([facility] OMED CT) Repository 05/15/2018 Drug aspirin/[id number] Other Unknown [place] Allergy/41 7(RXNORM) Community [id number]([facility] OMED CT) Repository 08/30/2015 DRUG CODEINE GI UPSET [facility] INGREDI/[address] [place] [id number]( Repository OMED CT) 01/24/2005 Drug SALICYLATES INTOLERANCE [facility] Class/[address] [place] [address]([facility] Repository ED CT) ENCOUNTERS ENCOUNTERS ADMIT/DISCHARGE ACCOUNT ADMITTING ENCOUNTER LOCATION SOURCE NUMBER CLASS 05/21/2018/05/21/20 [id number] Ambulatory [address] [place] Repository 05/21/2018/05/22/20 [id number] Ambulatory [address] [place] Repository 05/15/2018/05/15/20 [id number] Emergency [address] ing:ED Repository 05/05/2018/05/05/20 [id number] Ambulatory [address] [place] Repository 05/05/2018/05/06/20 [id number] Ambulatory [address] [place] Repository 04/27/2018/04/27/20 [id number] Ambulatory [address] [place] Repository 04/14/2018/04/14/20 [id number] Ambulatory [address] [place] Repository 04/14/2018/04/22/20 [id number] Ambulatory [address] [place] Repository 12/08/2017 [id number] Ambulatory [facility] ing:LAB Repository 11/25/2017/11/27/19 [id number] Ambulatory [address] [place] Repository 10/31/2017/11/05/19 [id number] Ambulatory [address] [place] Repository 10/30/2017/11/01/19 [id number] Ambulatory [address] [place] Repository 07/07/2017/07/07/19 [id number] Ambulatory [address] Repository 07/07/2017 [id number] Ambulatory [facility] Repository 07/07/2017 [id number] Ambulatory [facility] Repository 07/07/2017/07/07/[id number] Repository PAYERS PAYERS ENCOUNTER GUARANTOR PAYER SUBSCRIBER SOURCE 05/15/2018 MAYCOL L Primary MAYCOL L [place] [id number] Insurance:MEDICARE SELLERSDOB: Community [address] [facility] [id number] Number: Repository [id number]: [phone] [id number] [phone] (HP) Date:2018-05-15 05/15/2018 Secondary MAYCOL L [place] Insurance:PHYSICIAN SELLERSDOB: Community MUTUAL INS [facility] [id number] Hospital Number: Repository [id number] Date:0012-20-28DL [address] [address]UH: 05/15/2018 Tertiary NOT GIVENUNK [place] Insurance:SELF PAY [facility] Effective Repository Date:2018-05-15 12/08/2017 [place] Primary [place] [id number] Insurance:MEDICARE SellersDOB: Community [address] [facility] [id number] Number: Repository [id number]: [phone] [id number] [phone] (HP) Date:2017-12-08 12/08/2017 Secondary Maycol L [place] Insurance:PHYSICIAN SellersDOB: Community MUTUAL INS COPolicy [id number] Hospital Number: Repository [id number] Date:3832-06-00[address] [place] [id number]: 12/08/2017 Tertiary NOT GIVENUNK [place] Insurance:SELF PAY [facility] Number: Effective Repository Date:2017-12-08
== END 2018-05-15 15:13 | disposition home or self-care (01) ==
PROVIDERS: Emergency Provider Emergency Medicine; Family Provider Family Medicine; PCP Family Medicine
DX: J20.9 Acute bronchitis, unspecified (principal); I48.91 Unspecified atrial fibrillation; E87.6 Hypokalemia; I10 Essential (primary) hypertension; H91.93 Unspecified hearing loss, bilateral; Z79.899 Other long term (current) drug therapy; Z87.891 Personal history of nicotine dependence
CPT/HCPCS: 71045; 80048; 84484; 85025; 93005; 94640; 96374; 99285; A4216

== ENCOUNTER → 2019-01-25 09:24 | Outpatient (CLI) | payer MEDICARE, OTHER, SELFPAY ==
[2019-01-19 11:51] VITALS: BMI 39.9
[2019-01-25 11:35] LABS: AST(SGOT) 23 U/L (15-37); Alanine Aminotransfer ALT/SGPT 26 U/L (16-61); Albumin, Serum 3.7 g/dL (3.2-5.0); Alkaline Phosphatase 149 U/L (45-117); Bilirubin, Direct 0.23 mg/dL (0.00-0.30); Cholesterol 146 mg/dL (200); Globulin 3.9 g/dL (2.2-4.2); High Density Lipoprotein 54 mg/dL; Protein, Total 7.6 g/dL (6.4-8.2); Triglycerides 73 mg/dL; Very Low Density Lipoprotein 15 mg/dL (5-40)
== END ==
PROVIDERS: Family Provider Family Medicine; PCP Family Medicine; Referring Provider Internal Medicine Cardiovascular Disease; Visit Provider Internal Medicine Cardiovascular Disease
DX: R07.9 Chest pain, unspecified (principal); Z13.220 Encounter for screening for lipoid disorders
CPT/HCPCS: 36415; 80061; 80076

== ENCOUNTER → 2019-02-05 07:50 | Outpatient (CLI) | payer MEDICARE, OTHER, SELFPAY ==
[2019-01-19 11:51] VITALS: BMI 39.9
--- NOTE | 2019-02-05 07:52 | AAVD_ITS ---
Reason For Study: AAA Aorta Measurements Aorta Doppler Measurements Proximal aorta measures2.26 x 2.23cm. in cross- Peak systolic flow velocities within the proximal sectional axis. aorta measure 53.7 cm/sec. Proximal aorta measures2.26cm. in longitudinal Peak systolic flow velocities within the mid aorta axis. measure 49.4 cm/sec. Mid aorta measures2.02 x 2.04cm. in cross- Peak systolic flow velocities within the distal sectional axis. aorta measure 61.6 cm/sec. Mid aorta measures3.10 x 3.10cm. in longitudinal axis. Distal aorta measures3.10cm. in cross-sectional axis. Left Iliac Artery Left iliac artery measures 1.02 x 1.04 cm. in the cross-sectional axis. Left iliac artery measures 0.99 cm. in the longitudinal axis. Peak systolic velocity in the left iliac artery measures 122 cm/sec. Right Iliac Artery Right iliac artery measures 1.02 x 1.00 cm. in the cross-sectional axis. Right iliac artery measures 1.05 cm. in the longitudinal axis. Peak systolic velocity in the right iliac artery measures 122.1 cm/sec. Procedure Aorta IVC Iliac vasculature or bypass grafts 02054. Exam performed in department. Interpretation Summary Maximum aortic diameter mid and distal abdominal aorta 3.1 x 3.1 cm consistent with small aortic aneurysm. Left common iliac 1.2 x 1.04 cm Right common iliac 1.02 x 1 cm Ordering Physician: Bran Navarro Referring Physician: Kirk Ervin Performed By: Xochitl Mahoney RVT
--- NOTE | 2019-02-05 07:52 | STEWCON_ITS ---
Reason For Study: CHEST PAIN Stress Results Protocol: Dobutamine with definity Maximum Predicted HR: 150 bpm Target HR: 128 bpm % Maximum Predicted HR: 87 % DurationHeart Rate Stage (mm:ss) (bpm) BP Dose Comment BASELINE 76 167/96 2 CC DEFINITY STAGE 1 3:00 90 185/54854.002 CC DEFINITY STAGE 2 3:00 115 182/44340.00 STAGE 3 2:30 130 171/9630.002 CC DEFINITY RECOVERY 98 173/102 Stress Duration: 8:30 mm:ss Maximum Stress HR: 130 bpm Baseline Echocardiogram Findings The estimated ejection fraction is 65 %. Stress Echo Wall motion Data Resting WM Intermediate WM Stress WM Resting Wall Motion Wall Motion Stress No regional wall motion No regional wall motion abnormalities noted. abnormalities noted. EKG Data The baseline ECG displays normal sinus rhythm. The patient was titrated from 10 mcg to a maximun of 30 mcg of dobutamine during the stress. The maximum heart rate attained was 134 beats per minute. This was 89% of maximum predicted heart rate. During dobutamine infusion, there were no ST or T wave changes noted to suggest ischemia. No clinical angina was noted. Interpretation Summary The estimated ejection fraction is 65 %. Normal, adequate, dobutamine echocardiogram. Negative for ischemia by EKG and echocardiographic criteria. Final LVEF is 75%. Decreased sensitivity due to poor echo windows requiring Definity agent. Rare PACs noted. Appropriate blood pressure response to dobutamine. Test terminated due to attainment of target heart rate. The study was technically difficult. Contrast injection was performed. Ordering Physician: Bran Navarro Referring Physician: Bran Navarro Performed By: Giulia Corbett, RDCS, RVT
== END ==
PROVIDERS: Family Provider Family Medicine; PCP Family Medicine; Referring Provider Internal Medicine Cardiovascular Disease; Visit Provider Internal Medicine Cardiovascular Disease
DX: R07.9 Chest pain, unspecified (principal); I71.4 Abdominal aortic aneurysm, without rupture; I48.1 Persistent atrial fibrillation; R06.09 Other forms of dyspnea
CPT/HCPCS: 93017; 93350; 93978; J7040; Q9957; A4216; C8928

== ENCOUNTER 2019-05-03 15:48 | Emergency (ER) | payer MEDICARE, OTHER, SELFPAY ==
[2019-03-18 10:18] VITALS: BMI 38.0
[2019-05-03 15:49] VITALS: BP 159/101; PULSE 77; RESP 16; TEMP 36.6; O2SAT 97; BMI 34.8
--- NOTE | 2019-05-03 16:49 | ED.VIS.GEN ---
History of Present Illness Chief Complaint: Cough Detail of Chief Complaint: Dyspnea, dyspnea on exertion, productive cough Informant: Patient, Significant Other Onset: Weeks Timing: Continuous Quality: Productive cough yellow-colored sputum with RUIZ Location: Respiratory Current Severity: Mild Maximum Severity: Severe Worsened by: Activity Relieved by: Nothing Associated Symptoms: Dyspnea, dyspnea on exertion and productive cough Narrative: Patient is 69-year-old male who is not a good informant presents with productive cough, wheezing, dyspnea and dyspnea on exertion for the past several days to weeks. His symptoms have gotten worse over the past couple of days. He denies history of PE or DVT. He denies history of cardiac disease. He is on anticoagulant for chronic A. fib. He denies leg pain, swelling or discoloration. He denies fever, chills or night sweats. He denies chest pain. He denies GI symptoms. Patient reads lips. There was difficulty in reading my lips and had to facilitate. Prior similar symptoms: Yes Recent Illness/Hospitalization: No - Past Medical History (1) Debility Status: Acute (2) Aneurysm of infrarenal abdominal aorta Status: Chronic Comment: 3.2X 3.1 cm per U/S abdomina aorta 11/02/17 done @ [facility] (3) Benign neoplasm of colon Status: Chronic (4) Bladder cancer Status: Chronic (5) COPD (chronic obstructive pulmonary disease) Status: Chronic (6) Carpal tunnel syndrome on both sides Status: Chronic (7) Deaf Status: Chronic (8) Diaphragmatic hernia Status: Chronic (9) Diverticulosis Status: Chronic (10) Esophagitis Status: Chronic (11) GERD (gastroesophageal reflux disease) Status: Chronic (12) Hypertension Status: Chronic (13) Internal hemorrhoids without mention of complication Status: Chronic (14) Obesity (BMI 30.0-34.9) Status: Chronic (15) Persistent atrial fibrillation Status: Chronic (16) Pulmonary hypertension Status: Chronic Past Medical History - Allergies and Home Meds Allergies/Adverse Reactions: Allergies aspirin Adverse Reaction (Intermediate, Verified 05/03/19 15:49) Excess bleeding,GI upset codeine Adverse Reaction (Intermediate, Verified 05/03/19 15:49) GI upset Primary Care Physician: Kirk Ervin MD [Primary Care Provider] - Surgical History: total knee arthroplasty Lives: Spouse/ Significant Other Smoking Status: Former smoker Alcohol: None Drugs: None - Family History Maternal Family History: Family History (Last Reviewed 01/18/19 @ 17:56 by Jyoti Pearce) Father Colon cancer Prostate cancer Family History: Reports: No pertinent history Review of Systems General: Denies: Chills, Fever, Malaise, Subjective, Sweats Eyes: Denies: Visual changes - bilaterally, Diplopia ENT: Denies: Rhinorrhea, Sore throat Cardiovascular: Denies: Chest pain, Palpitations Respiratory: Reports: Dyspnea, Cough, Sputum, Dyspnea on exertion. Denies: Orthopnea, Paroxysmal nocturnal dyspnea, -, - Gastrointestinal: Denies: Abdominal pain, Nausea, Vomiting, Diarrhea, Melena, Hematochezia Genitourinary: Denies: Dysuria, Hematuria, Frequency Musculoskeletal: Denies: Myalgias, Arthralgias, Neck pain, Back pain, Swelling, Extremity Pain Skin: Denies: Rash, Wounds Neurological: Denies: Headache, Weakness, Numbness Hematologic: Denies: Easy bruising, Easy bleeding Allergy: Denies: Uticaria, Swelling of the mouth Physical Exam Vital Signs/Narrative: Vital Signs Temp Pulse Resp BP Pulse Ox 05/03/19 15:49 97.9 F 77 16 159/101 H 97 Inital Vital Signs reviewed: Yes General: Well nourished, Well developed, No Acute Distress Head: Normocephalic, Atraumatic Eyes: Perrl, EOMI ENT: Moist mucous membranes, No rhinorrhea Neck: Supple, Nontender Cardiovascular: Regular rate, Regular rhythm, No murmurs Respiratory: No distress, Chest nontender, Wheezing, Decreased Air Movement - Expiratory phase is increased.. Negative for: CTA bilaterally Abdomen: Soft, Nontender, Nondistended, Normal bowel sounds Back: Nontender, Normal Inspection, - - There is no asymmetry, swelling, discoloration, leg vein distention, palpable cords or tenderness along the distribution of the deep venous system. Extremities: Nontender, No edema Skin: Normal color, No rash, No Trauma. Negative for: Cyanosis, Diaphoresis, Jaundice Neurological: Alert, Oriented x3, Cranial nerves II-XII grossly intact, Normal Strength, Normal Sensation Psychological: Normal affect, Normal Mood Diagnostic/Tx/Re-eval Chest X-Ray - ED: 2 View, Read by ED Physician, Normal, Heart, Mediastinum, Bony Structures, No Acute Disease, Chronic Changes, - - Tray was interpreted by me at 1724. There is no evidence of pneumonia. 05/03/19 17:15 Chest PA and Lateral [RAD] Stat Laboratory Results 05/03/19 17:00 WBC 6.1 RBC 4.87 Hgb 15.6 Hct 47.2 MCV 96.9 H MCH 32.0 MCHC 33.1 RDW Std Deviation 50.2 H RDW Coeff of Taty 14.0 Plt Count 158 MPV 9.8 Immature Gran % (Auto) 0.200 Neut % (Auto) 63.6 Lymph % (Auto) 24.6 [place] % (Auto) 8.6 Eos % (Auto) 2.8 Baso % (Auto) 0.2 Absolute Neuts (auto) 3.9 Absolute Lymphs (auto) 1.49 Nucleated RBC % 0 05/03/19 17:15 Chest PA and Lateral [RAD] Stat Laboratory Results 05/03/19 05/03/19 17:00 17:00 WBC 6.1 RBC 4.87 Hgb 15.6 Hct 47.2 MCV 96.9 H MCH 32.0 MCHC 33.1 RDW Std Deviation 50.2 H RDW Coeff of Taty 14.0 Plt Count 158 MPV 9.8 Immature Gran % (Auto) 0.200 Neut % (Auto) 63.6 Lymph % (Auto) 24.6 [place] % (Auto) 8.6 Eos % (Auto) 2.8 Baso % (Auto) 0.2 Absolute Neuts (auto) 3.9 Absolute Lymphs (auto) 1.49 Nucleated RBC % 0 Sodium 134 L Potassium 3.0 L Chloride 97 L Carbon Dioxide 31.0 Anion Gap 6 BUN 16 Creatinine 1.17 Estim Creat Clear Calc 57.91 Est GFR (MDRD) Af Amer 79 Est GFR (MDRD) Non-Af 65 BUN/Creatinine Ratio 13.7 Glucose 95 Calcium 8.5 Chest x-ray and blood work are unremarkable. Since patient has a productive cough of green-colored sputum and has slight wheezing on the right side on reevaluation plan is 5-day burst of prednisone and 7 days of doxycycline. - Medical Decision Making With productive cough and wheezing he will receive a DuoNeb and albuterol treatment. Because he has had productive cough will obtain chest x-ray to assess for pneumonia. Baseline blood work was obtained for risk stratification in the event chest x-ray shows pneumonia. ED Disposition - Plan for ED Patient: Disposition: Home or Assisted Living Diagnosis: Acute exacerbation of COPD with asthma, Acute exacerbation of chronic bronchitis Instructions: Copd Flare Prescriptions: Prednisone [Deltasone] 40 mg PO DAILY #10 tab Transmission Status: Pending to [id number] Doxycycline 100 mg PO BID #14 cap Transmission Status: Pending to [id number] Referrals: iKrk Ervin MD [Primary Care Provider] - 3-5 Days
--- NOTE | 2019-05-03 17:15 | RAD_ITS ---
STUDY: X-RAY CHEST REASON FOR EXAM: Male, 69 years old. Cough. TECHNIQUE: PA and lateral views of the chest. COMPARISON: May 15, 2018. FINDINGS: Cardiac monitoring leads are present. The lungs are hyperexpanded. There is mild prominence of the bronchovascular markings. There is no demonstrated pleural abnormality. There is mild cardiac enlargement. Normal mediastinum and tres. There is prominence of the pulmonary hilar arteries with peripheral pulmonary vascular congestion. There is atherosclerotic calcification of the aortic arch with tortuosity. There are diffuse degenerative changes of the visualized thoracic spine. Normal visualized ribs, clavicles, and shoulders. There is no demonstrated abnormality of the visualized soft tissue structures of the upper abdomen. RAD/Chest PA and Lateral IMPRESSION: Mild cardiomegaly and pulmonary congestion. Electronically Signed: Selma Rosas MD at 7:05 EST , Service support ,
[2019-05-03 17:22] LABS: Absolute Lymphocyte Count 1.49 X10^3/uL (0.83-4.51); Absolute Neutrophil Count 3.9 X10^3/uL (2.0-7.7); Basophil# 0.01 X10^3/uL; Basophil% 0.2 % (0-1); Eosinophil# 0.17 X10^3/uL; Eosinophils% 2.8 % (0-5); Hematocrit 47.2 % (40-54); Hemoglobin 15.6 g/dL (13.0-16.5); Lymphocyte # 1.49 X10^3/ul (4.0); Lymphocyte % 24.6 % (19-41); Mean Corp Hgb Conc 33.1 g/dL (32-36); Mean Corpuscular Volume 96.9 fL (80-94); Mean Platelet Vol. 9.8 fl (6.2-12.0); Monocyte# 0.52 X10^3/uL; Monocyte% 8.6 % (0-10); NRBC Flagged by Analyzer 0 % (0-5); Neutrophil # 3.86 X10^3/uL (2.7-7.7); Neutrophil % 63.6 % (47-70); Platelet Count 158 K/mm3 (150-450); RBC Distribution Width SD 50.2 fl (35.1-43.9); Red Blood Count 4.87 M/mm3 (4.6-6.2); White Blood Count 6.1 K/mm3 (4.4-11.0)
[2019-05-03] MEDS: Ipratropium/Albuterol Sulfate 3 ML AMPUL.NEB INHALATION (17:23)
[2019-05-03] MEDS: Albuterol 2.5 MG/3 ML VIAL.NEB. INHALATION (17:24)
[2019-05-03 17:26] VITALS: PULSE 62; RESP 14
[2019-05-03 17:30] LABS: Anion Gap 6 (5-15); BUN 16 mg/dL (7-18); BUN/Creat Ratio 13.7 RATIO (10-20); Calcium,Total 8.5 mg/dL (8.5-10.1); Chloride 97 mmol/L (98-107); Creatinine, Serum 1.17 mg/dL (0.70-1.30); EST Glomerular Filtration Rate 65 mL/min (>60); Est Glom Filt Rate - Afr Amer 79 mL/min (>60); Estimated Creatinine Clearance 57.91 ml/min; Glucose 95 mg/dL (74-106); Sodium Level 134 mmol/L (136-145)
[2019-05-03 18:59] VITALS: BP 190/156; PULSE 82; RESP 16; O2SAT 95
== END 2019-05-03 19:02 | disposition home or self-care (01) ==
PROVIDERS: Emergency Provider Emergency Medicine; Family Provider Family Medicine; PCP Family Medicine
DX: J44.1 Chronic obstructive pulmonary disease with (acute) exacerbation (principal); I48.20 Chronic atrial fibrillation, unspecified; I10 Essential (primary) hypertension; I27.20 Pulmonary hypertension, unspecified; I48.19 Other persistent atrial fibrillation; K64.8 Other hemorrhoids; G56.03 Carpal tunnel syndrome, bilateral upper limbs; K21.9 Gastro-esophageal reflux disease without esophagitis; E66.9 Obesity, unspecified; Z79.899 Other long term (current) drug therapy; Z88.5 Allergy status to narcotic agent; Z88.6 Allergy status to analgesic agent; Z87.891 Personal history of nicotine dependence; Z85.51 Personal history of malignant neoplasm of bladder
CPT/HCPCS: 71046; 80048; 85025; 94640; 99251; 99284; A4216; G0463

== ENCOUNTER → 2020-01-13 08:46 | Outpatient (CLI) | payer MEDICARE, OTHER, SELFPAY ==
[2019-12-21 10:53] VITALS: BMI 39.9
--- NOTE | 2020-01-13 08:47 | ECHOCS_ITS ---
Reason For Study: PHTN Procedure This was a 2D Doppler, Color Flow transthoracic echocardiogram. The study was technically difficult. Contrast injection was performed. Exam performed in department. Left Ventricle Mild concentric left ventricular hypertrophy. The estimated ejection fraction is 65 %. Unable to assess diastolic dysfunction due to arrhythmia. No regional wall motion abnormalities noted. Right Ventricle Mildly dilated right ventricle. Normal systolic function. Atria The left atrium is moderately enlarged. The right atrium is moderately enlarged. Normal atrial septum. Mitral Valve The mitral valve is structurally normal. No prolapse or stenosis seen. Trivial mitral valve insufficiency. Tricuspid Valve Normal tricuspid valve. Trivial tricuspid valve insufficiency. Right ventricular systolic pressure estimated to be 37 mmHg. Mild pulmonary hypertension. Aortic Valve Trisinus/trileaflet aortic valve. Pulmonic Valve Normal pulmonic valve. Trivial pulmonic valve insufficiency. Great Vessels Normal aortic root. Normal arch. Normal inferior vena cava. Inferior vena cava collapse with sniff. Pericardium/Pleural No pericardial effusion. Medication 22 gauge I.V. with prn adaptor inserted into right arm. Diluted definity 6.0ml given slow IV push to enhance endocardial definition. MMode/2D Measurements & Calculations LVIDd: 4.5 cm IVSd: 1.4 cm Ao root diam: 4.0 cm LVIDs: 3.3 cm LVPWd: 1.2 cm RVDd: 3.8 cm FS: 26.0 % LAV(MOD-bp): 114.8 ml LVAd ap4: 30.1 cm2 SV(MOD-sp4): 55.2 ml LAV(MOD-bp) Indexed: 51.8 ml/m2 EDV(MOD-sp4): 93.4 ml LAV(MOD-sp2): 110.7 ml EDV(sp4-el): 98.4 ml LAV(MOD-sp4): 105.5 ml LVAs ap4: 17.8 cm2 ESV(MOD-sp4): 38.2 ml ESV(sp4-el): 38.5 ml EF(MOD-sp4): 59.1 % EF(sp4-el): 60.9 % SV(sp4-el): 59.9 ml LA A4 area: 31.2 cm2 LA dimension(2D): 5.2 cm RA A4 area: 25.2 cm2 Time Measurements MV dec time: 0.19 sec Doppler Measurements & Calculations MV E max sarah: 117.4 cm/sec Ao V2 max: 111.0 cm/sec LV V1 max: 103.1 cm/sec Ao max P.9 mmHg LV V1 max P.3 mmHg PA V2 max: 102.2 cm/sec PI end-d sarah: 135.6 cm/sec TR max sarah: 233.1 cm/sec TR max P.7 mmHg Interpretation Summary Mild concentric left ventricular hypertrophy. The estimated ejection fraction is 65 %. Unable to assess diastolic dysfunction due to arrhythmia. Mildly dilated right ventricle. The left atrium is moderately enlarged. Trivial mitral valve insufficiency. Trivial tricuspid valve insufficiency. Right ventricular systolic pressure estimated to be 37 mmHg. Mild pulmonary hypertension. Compared to echo report dated 09/20/2014, no appreciable changes noted however today the patient appears to be in atrial fibrillation. The study was technically difficult. Contrast injection was performed. Ordering Physician: Bran Navarro MD Referring Physician: LUCERO TEMPLE Performed By: Chelle ROSE RVT, Carrie and Student
== END ==
PROVIDERS: PCP Family Medicine; Referring Provider Internal Medicine Cardiovascular Disease; Visit Provider Internal Medicine Cardiovascular Disease
DX: I27.20 Pulmonary hypertension, unspecified (principal); R06.09 Other forms of dyspnea
CPT/HCPCS: 93306; Q9957; A4216; C8929

== ENCOUNTER 2020-09-05 17:50 | Emergency (ER) | payer MEDICARE, OTHER, SELFPAY ==
[2020-06-22 10:59] VITALS: BMI 40.1
[2020-09-05 17:51] VITALS: BP 145/102; PULSE 87; RESP 15; TEMP 36.7; O2SAT 98; BMI 37.8
[2020-09-05 18:00] VITALS: BP 177/102; PULSE 75; RESP 19; O2SAT 96
--- NOTE | 2020-09-05 18:00 | EKG12_ITS ---
Test Reason : CHF Blood Pressure : / mmHG Vent. Rate : 071 BPM Atrial Rate : 340 BPM P-R Int : 000 ms QRS Dur : 096 ms QT Int : 400 ms P-R-T Axes : 000 036 043 degrees QTc Int : 434 ms Atrial fibrillation Abnormal ECG Confirmed by DAVID SEALS, DEAN ([id number]), editorial project manager ELIZABETH MARSHALL ([id number]) on 09/08/2020 2:58:59 PM Referred By: Confirmed By:LJ HERNANDEZ MD
--- NOTE | 2020-09-05 18:17 | ED.DCSUM_ITS ---
History of Present Illness Chief Complaint: Edema Informant: Patient Narrative: 70-year-old male presenting with leg swelling over the last 3 days. He states he has a history of COPD and CHF. He states he used to follow with Dr. Navarro. He states that he had a recent chemical stress test which he said was okay. Patient states that he does have a little bit of dyspnea with exertion. He is not having any chest pain. He has not had a fever or cough. No viral symptoms. - Past Medical History (1) Dyspnea on exertion Status: Chronic (2) Aneurysm of infrarenal abdominal aorta Status: Chronic Comment: 3.2X 3.1 cm per U/S abdomina aorta 11/02/17 done @ [facility] (3) Benign neoplasm of colon Status: Chronic (4) COPD (chronic obstructive pulmonary disease) Status: Chronic (5) Deaf Status: Chronic Past Medical History - Allergies and Home Meds Allergies/Adverse Reactions: Allergies aspirin Adverse Reaction (Intermediate, Verified 09/05/20 17:51) Excess bleeding,GI upset codeine Adverse Reaction (Intermediate, Verified 09/05/20 17:51) GI upset Primary Care Physician: Kirk Ervin MD [Primary Care Provider] - Prior records reviewed: Yes Past Medical History: - - Reviewed in problem list Surgical History: total knee arthroplasty Lives: With Family Smoking Status: Former smoker Alcohol: None Drugs: None - Family History Maternal Family History: Family History (Last Reviewed 06/29/20 @ 11:00 by Luz Elena DELATORRE, PA) Father Colon cancer Prostate cancer Family History: Reports: No pertinent history Review of Systems General: Denies: Chills, Fever, Sweats Eyes: Denies: Visual changes - bilaterally, Diplopia ENT: Denies: Rhinorrhea, Sore throat Cardiovascular: Denies: Chest pain, Palpitations Respiratory: Reports: Dyspnea, Dyspnea on exertion. Denies: Cough Gastrointestinal: Denies: Abdominal pain, Nausea, Vomiting, Diarrhea, Melena, Hematochezia Genitourinary: Denies: Dysuria, Hematuria, Frequency Musculoskeletal: Reports: Swelling. Denies: Back pain Skin: Denies: Rash, Wounds Neurological: Denies: Headache, Weakness, Numbness Psych: Denies: Depression, Anxiety, Suicidal thoughts, Suicidal ideations, -, - Physical Exam Vital Signs/Narrative: Vital Signs Temp Pulse Resp BP Pulse Ox 09/05/20 17:51 98.1 F 87 15 145/102 H 98 Inital Vital Signs reviewed: Yes General: Well nourished, Well developed, No Acute Distress Head: Normocephalic, Atraumatic Eyes: Perrl, EOMI ENT: Moist mucous membranes, No rhinorrhea Cardiovascular: Regular rate, Regular rhythm Respiratory: No distress, CTA bilaterally Extremities: Nontender, Edema Skin: Normal color, No rash. Negative for: Cyanosis, Diaphoresis Neurological: Alert, Oriented x3 Psychological: Normal affect, Normal Mood Diagnostic/Tx/Re-eval Clinical Impression(s) from Imaging Studies Chest X-Ray 09/05/20 19:06 IMPRESSION: Mild cardiomegaly with central pulmonary venous congestion. Electronically Signed: Mynor Oconnor MD at 19:20 EDT Tel , Service support , Laboratory Data 09/05/20 09/05/20 09/05/20 18:30 18:30 18:30 WBC 6.0 RBC 4.36 L Hgb 14.1 Hct 43.7 MCV 100.2 H MCH 32.3 H MCHC 32.3 RDW Std Deviation 50.9 H RDW Coeff of Taty 14.0 Plt Count 194 MPV 10.0 Immature Gran % (Auto) 0.500 Neut % (Auto) 63.4 Lymph % (Auto) 23.7 [place] % (Auto) 10.0 Eos % (Auto) 2.2 Baso % (Auto) 0.2 Absolute Neuts (auto) 3.8 Absolute Lymphs (auto) 1.42 Nucleated RBC % 0 Sodium 140 Potassium 4.0 Chloride 109 H Carbon Dioxide 28.0 Anion Gap 3 L BUN 14 Creatinine 1.16 Estim Creat Clear Calc 57.56 Est GFR (MDRD) Af Amer 80 Est GFR (MDRD) Non-Af 66 BUN/Creatinine Ratio 12.1 Glucose 99 Calcium 8.2 L Troponin I < 0.015 B-Natriuretic Peptide 132.6 H - Medical Decision Making 80-year-old male presenting with shortness of breath and lower extremity edema. He states the lower extremity edema is new he admits to a history of COPD and CHF. Patient has on Aldactone. It seems as though he used to be on Lasix and was having trouble with wasting of potassium even though he was taking it 3 times a day-and that is why he was switched. He states he had been doing well. He is previously a patient of Dr. 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 Patient had a recent echo in the fall of last year which was normal and did not show CHF. Patient did appear to be having scant wheezing on initial exam and was given Solu-Medrol and breathing treatments which did help his breathing. It does sound as though his difficulty breathing and exertional dyspnea are chronic its difficult to determine whether it is significantly changed. Patient had EKG performed on arrival which shows atrial fibrillation at 71 bpm as interpreted by myself. Patient does have history of atrial fibrillation. Patient's work-up today shows a white blood cell count of 6.0 hemoglobin 14.1 platelets 194. BMP is unremarkable. Troponin is negative. BNP is 136. Asked x-ray as interpreted by myself shows mild pulmonary vascular congestion and radiology does agree. Patient is not requiring any O2 supplementation and his vital signs are otherwise stable. I initially spoke to Dr. Silver given the patient likely needing diuresis and not tolerant of Lasix due to potassium wasting. He recommended initially that we bring the patient in while we diurese him. Discussed with hospitalist who felt the patient was stable for discharge home. He felt the patient could go home on his eye doctor own and take Lasix. I did again spoke with Dr. Silver who felt this is probably reasonable if the patient is stable. I do believe he is at this point. He was given a dose of Lasix 40 mg IV as well as 20 mEq of potassium in the ED. He will be discharged home to continue his Aldactone and take 40 mg of Lasix daily as well as 20 mEq of potassium daily. He is to call Dr. Rosaline Watkins office to set an appointment. He needs to get follow-up BMP to determine his potassium levels. Patient was amenable to this plan. The plan was discussed with his sister given that the patient is deaf and has difficulty communicating. She acknowledges understanding as well. Patient discharged home in stable condition Impression: 1. CHF exacerbation ED Disposition - Plan for ED Patient: Disposition: Home or Assisted Living Instructions: ED Heart Failure, Congestive (CHF) Prescriptions: Furosemide [Lasix] 40 mg PO DAILY #30 tab Prescription Printed Potassium Chloride 0 meq PO DAILY #30 [email or web address].[email or web address] Prescription Printed Referrals: Kirk Ervin MD [Primary Care Provider] -
[2020-09-05 18:39] LABS: Absolute Lymphocyte Count 1.42 X10^3/uL (0.83-4.51); Absolute Neutrophil Count 3.8 X10^3/uL (2.0-7.7); Basophil# 0.01 X10^3/uL; Basophil% 0.2 % (0-1); Eosinophil# 0.13 X10^3/uL; Eosinophils% 2.2 % (0-5); Hematocrit 43.7 % (40-54); Hemoglobin 14.1 g/dL (13.0-16.5); Lymphocyte # 1.42 X10^3/ul (4.0); Lymphocyte % 23.7 % (19-41); Mean Corp Hgb Conc 32.3 g/dL (32-36); Mean Corpuscular Hgb 32.3 pg (27.0-32.0); Mean Corpuscular Volume 100.2 fL (80-94); NRBC Flagged by Analyzer 0 % (0-5); Neutrophil % 63.4 % (47-70); Platelet Count 194 K/mm3 (150-450); RBC Distribution Width SD 50.9 fl (35.1-43.9); Red Blood Count 4.36 M/mm3 (4.6-6.2)
[2020-09-05] MEDS: Ipratropium/Albuterol Sulfate 3 ML AMPUL.NEB INHALATION (18:42)
[2020-09-05] MEDS: MethylPREDNISolone 125 MG/2 ML Vial IV (18:42)
[2020-09-05] MEDS: Albuterol 2.5 MG/3 ML VIAL.NEB. INHALATION (18:42)
[2020-09-05 18:59] LABS: BNP,B-Type NATRIURETIC PEPTIDE 132.6 pg/mL (0-100)
[2020-09-05 19:03] LABS: Anion Gap 3 (5-15); BUN 14 mg/dL (7-18); BUN/Creat Ratio 12.1 RATIO (10-20); Calcium,Total 8.2 mg/dL (8.5-10.1); Chloride 109 mmol/L (98-107); Creatinine, Serum 1.16 mg/dL (0.70-1.30); EST Glomerular Filtration Rate 66 mL/min (>60); Est Glom Filt Rate - Afr Amer 80 mL/min (>60); Estimated Creatinine Clearance 57.56 ml/min; Glucose 99 mg/dL (74-106); Sodium Level 140 mmol/L (136-145)
--- NOTE | 2020-09-05 19:06 | RAD_ITS ---
INDICATION: chest pain EXAMINATION/TECHNIQUE: X-RAY - XR Chest 1 View COMPARISON: 05/03/2019. FINDINGS: Central pulmonary venous congestion. The lungs are otherwise clear. The heart is mildly enlarged. No pleural effusion or pneumothorax. No acute osseous abnormalities. RAD/Chest 1 View (Portable) IMPRESSION: Mild cardiomegaly with central pulmonary venous congestion. Electronically Signed: Mynor Oconnor MD at 19:20 EDT Tel , Service support ,
[2020-09-05 20:10] VITALS: BP 169/109; PULSE 84; RESP 15; O2SAT 97
[2020-09-05] MEDS: Potassium Chloride Oral Tablet 20 MEQ PO (21:28)
[2020-09-05] MEDS: Furosemide 40 MG/4 ML Vial IV (21:35)
== END 2020-09-05 21:42 | disposition home or self-care (01) ==
PROVIDERS: Emergency Provider Student in an Organized Health Care Education/Training Program; PCP Family Medicine
DX: I50.9 Heart failure, unspecified (principal); J44.9 Chronic obstructive pulmonary disease, unspecified; I48.91 Unspecified atrial fibrillation; H91.90 Unspecified hearing loss, unspecified ear; Z79.01 Long term (current) use of anticoagulants; Z79.899 Other long term (current) drug therapy; Z86.010 Personal history of colon polyps; Z87.891 Personal history of nicotine dependence
CPT/HCPCS: 71045; 80048; 83880; 84484; 85025; 93005; 96374; 96375; 99283; A4216; J1940

== ENCOUNTER → 2020-09-08 12:05 | Outpatient (CLI) | payer MEDICARE, OTHER, SELFPAY ==
[2020-09-08 11:19] VITALS: BMI 36.9
[2020-09-08 13:05] LABS: Anion Gap 6 (5-15); BUN 25 mg/dL (7-18); BUN/Creat Ratio 18.5 RATIO (10-20); Calcium,Total 9.3 mg/dL (8.5-10.1); Chloride 102 mmol/L (98-107); Creatinine, Serum 1.35 mg/dL (0.70-1.30); EST Glomerular Filtration Rate 55 mL/min (>60); Est Glom Filt Rate - Afr Amer 67 mL/min (>60); Glucose 90 mg/dL (74-106); Potassium 4.1 mmol/L (3.5-5.1); Sodium Level 138 mmol/L (136-145)
== END ==
PROVIDERS: PCP Family Medicine; Referring Provider Internal Medicine Cardiovascular Disease; Visit Provider Internal Medicine Cardiovascular Disease
DX: I10 Essential (primary) hypertension (principal); I48.19 Other persistent atrial fibrillation
CPT/HCPCS: 36415; 80048

== ENCOUNTER 2020-09-24 11:44 | Inpatient (IN) | payer MEDICARE, OTHER, SELFPAY ==
[2020-09-08 11:19] VITALS: BMI 36.9
[2020-09-24] VITALS (8 sets, daily range): BP systolic 116–167; BP diastolic 75–105; PULSE 65–80; RESP 10–18; TEMP 36.2–36.9; O2SAT 94–97; BMI 33.6; BMI 35.2
--- NOTE | 2020-09-24 11:51 | CT_ITS ---
STUDY: CTA CHEST REASON FOR EXAM: Male, 70 years old. chest pain RADIATION DOSAGE (If Supplied By Facility): CTDIvol = ( 18.78 ) mGy, DLP = ( 1133.74 ) mGycm TECHNIQUE: The examination was performed with the intravenous administration of 100CC ISOVUE 370. Post-processing of the angiographic images was performed, with multiplanar reformation and 3D reconstruction. Individualized dose optimization techniques were used for this CT. COMPARISON: None. FINDINGS: Normal enhancement of the main pulmonary artery and right and left pulmonary arteries. Normal enhancement of the bilateral peripheral pulmonary arteries. There is no demonstrated pulmonary embolism. Normal thoracic aorta and visualized great vessels. There is no demonstrated aortic dissection. Normal heart and pericardium. Normal mediastinum. Normal hilar regions. Normal visualized trachea and bronchi. The lungs are well expanded. Mild emphysematous changes with some subpleural blebs. Normal pleura. Normal chest wall structures. Normal osseous structures. Normal visualized upper abdomen. IMPRESSION: Normal CTA chest examination, without a demonstrated pulmonary embolism or arterial dissection. Electronically Signed: Konrad Riddle MD at 13:21 EDT Tel , Service support , STUDY: CTA OF THE ABDOMINAL AORTA AND BILATERAL LOWER EXTREMITIES REASON FOR EXAM: Male, 70 years old. chest pain RADIATION DOSAGE (If Supplied By Facility): CTDIvol = ( 18.78 ) mGy, DLP = ( 1133.74 ) mGycm TECHNIQUE: Axial CT angiography multi-detector data acquisition was obtained from the lung bases to the iliac crest following intravenous administration of 100 ML ISOVUE 370. Axial images and MIP images were reconstructed from the axial data set. Post-processing of the angiographic images was performed, with multiplanar reformation and 3D reconstruction. Individualized dose optimization techniques were used for this CT. TECHNICAL QUALITY: Good COMPARISON: None. Descriptors of Narrowing: None (0%) Mild (< 50%) Moderate (50-70%) Severe (70-90%) Subtotal/Total Occlusion (90-100%) Non-Evaluable (technically non-diagnostic FINDINGS: Abdominal aorta: 3.2 cm aneurysm of the infrarenal abdominal aorta without significant mural thrombus. Celiac and superior mesenteric arteries: No demonstrated narrowing. Inferior mesenteric artery: No demonstrated narrowing. Right renal artery(arteries): No demonstrated narrowing. Left renal artery(arteries): No demonstrated narrowing. Right common iliac artery: There is mild diffuse narrowing. Right external iliac artery: No demonstrated narrowing. Right internal iliac artery: No demonstrated narrowing. Left common iliac artery: There is mild diffuse narrowing. Left external iliac artery: No demonstrated narrowing. Left internal iliac artery: No demonstrated narrowing. CT/CTA Abdomen W/WO Contrast IMPRESSION: 1. 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 2. No chronic mesenteric ischemia renal artery stenosis. Electronically Signed: Konrad Riddle MD at 13:28 EDT Tel , Service support ,
--- NOTE | 2020-09-24 11:51 | EKG12_ITS ---
Test Reason : CHEST PAIN Blood Pressure : / mmHG Vent. Rate : 081 BPM Atrial Rate : 326 BPM P-R Int : 000 ms QRS Dur : 098 ms QT Int : 382 ms P-R-T Axes : 000 033 034 degrees QTc Int : 443 ms Atrial fibrillation Abnormal ECG Confirmed by JEROD SEALS, TING ([id number]), editor news VIKTORIA WILLIAM ([id number]) on 09/27/2020 8:49:12 AM Referred By: CL Confirmed By:TING NEWSOME MD
--- NOTE | 2020-09-24 11:51 | CT_ITS ---
STUDY: CTA CHEST REASON FOR EXAM: Male, 70 years old. chest pain RADIATION DOSAGE (If Supplied By Facility): CTDIvol = ( 18.78 ) mGy, DLP = ( 1133.74 ) mGycm TECHNIQUE: The examination was performed with the intravenous administration of 100CC ISOVUE 370. Post-processing of the angiographic images was performed, with multiplanar reformation and 3D reconstruction. Individualized dose optimization techniques were used for this CT. COMPARISON: None. FINDINGS: Normal enhancement of the main pulmonary artery and right and left pulmonary arteries. Normal enhancement of the bilateral peripheral pulmonary arteries. There is no demonstrated pulmonary embolism. Normal thoracic aorta and visualized great vessels. There is no demonstrated aortic dissection. Normal heart and pericardium. Normal mediastinum. Normal hilar regions. Normal visualized trachea and bronchi. The lungs are well expanded. Mild emphysematous changes with some subpleural blebs. Normal pleura. Normal chest wall structures. Normal osseous structures. Normal visualized upper abdomen. IMPRESSION: Normal CTA chest examination, without a demonstrated pulmonary embolism or arterial dissection. Electronically Signed: Konrad Riddle MD at 13:21 EDT Tel , Service support , STUDY: CTA OF THE ABDOMINAL AORTA AND BILATERAL LOWER EXTREMITIES REASON FOR EXAM: Male, 70 years old. chest pain RADIATION DOSAGE (If Supplied By Facility): CTDIvol = ( 18.78 ) mGy, DLP = ( 1133.74 ) mGycm TECHNIQUE: Axial CT angiography multi-detector data acquisition was obtained from the lung bases to the iliac crest following intravenous administration of 100 ML ISOVUE 370. Axial images and MIP images were reconstructed from the axial data set. Post-processing of the angiographic images was performed, with multiplanar reformation and 3D reconstruction. Individualized dose optimization techniques were used for this CT. TECHNICAL QUALITY: Good COMPARISON: None. Descriptors of Narrowing: None (0%) Mild (< 50%) Moderate (50-70%) Severe (70-90%) Subtotal/Total Occlusion (90-100%) Non-Evaluable (technically non-diagnostic FINDINGS: Abdominal aorta: 3.2 cm aneurysm of the infrarenal abdominal aorta without significant mural thrombus. Celiac and superior mesenteric arteries: No demonstrated narrowing. Inferior mesenteric artery: No demonstrated narrowing. Right renal artery(arteries): No demonstrated narrowing. Left renal artery(arteries): No demonstrated narrowing. Right common iliac artery: There is mild diffuse narrowing. Right external iliac artery: No demonstrated narrowing. Right internal iliac artery: No demonstrated narrowing. Left common iliac artery: There is mild diffuse narrowing. Left external iliac artery: No demonstrated narrowing. Left internal iliac artery: No demonstrated narrowing. CT/CTA Chest W/WO Contrast IMPRESSION: 1. 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 2. No chronic mesenteric ischemia renal artery stenosis. Electronically Signed: Konrad Riddle MD at 13:28 EDT Tel , Service support ,
[2020-09-24 11:59] LABS: Absolute Neutrophil Count 5.5 X10^3/uL (2.0-7.7); Basophil# 0.01 X10^3/uL; Basophil% 0.2 % (0-1); Eosinophil# 0.01 X10^3/uL; Eosinophils% 0.2 % (0-5); Hematocrit 47.2 % (40-54); Hemoglobin 15.6 g/dL (13.0-16.5); Lymphocyte % 10.5 % (19-41); Mean Corp Hgb Conc 33.1 g/dL (32-36); Mean Corpuscular Hgb 32.8 pg (27.0-32.0); Mean Corpuscular Volume 99.2 fL (80-94); Monocyte# 0.38 X10^3/uL; Monocyte% 5.7 % (0-10); NRBC Flagged by Analyzer 0 % (0-5); Neutrophil # 5.54 X10^3/uL (2.7-7.7); Neutrophil % 83.1 % (47-70); Platelet Count 174 K/mm3 (150-450); RBC Distribution Width CV 13.2 % (11.6-14.6); RBC Distribution Width SD 48.8 fl (35.1-43.9); Red Blood Count 4.76 M/mm3 (4.6-6.2); White Blood Count 6.7 K/mm3 (4.4-11.0)
--- NOTE | 2020-09-24 12:13 | ED.VIS.GEN ---
History of Present Illness Chief Complaint: Chest Pain Informant: Patient Narrative: 70-year-old male with past medical history of deafness, hypertension, atrial fibrillation, abdominal aortic aneurysm presents with concern for chest pain. Patient states that 9 hours ago he began having pain in his upper abdomen which radiated up into his chest. Patient states he does have gastric reflux but this does feel somewhat different. States he is not having the pain actively at this time. States it is been somewhat intermittent. Denies any shortness of breath, nausea, vomiting, diaphoresis. Eating and drinking normally. Moving his bowels and urinating normally. Denies any trauma. Past Medical History - Allergies and Home Meds Allergies/Adverse Reactions: Allergies aspirin Adverse Reaction (Intermediate, Verified 09/24/20 11:51) Excess bleeding,GI upset codeine Adverse Reaction (Intermediate, Verified 09/24/20 11:51) GI upset Primary Care Physician: Kirk Ervin MD [Primary Care Provider] - Prior records reviewed: Yes Past Medical History: - - afib, htn, AAA Surgical History: total knee arthroplasty Lives: Spouse/ Significant Other Smoking Status: Former smoker Alcohol: None Drugs: None - Family History Maternal Family History: Family History (Last Reviewed 09/13/20 @ 12:00 by Luz Elena DELATORRE, PA) Father Colon cancer Prostate cancer Family History: Reports: No pertinent history Review of Systems General: Denies: Chills, Fever, Sweats Eyes: Denies: Visual changes - bilaterally, Diplopia ENT: Denies: Rhinorrhea, Sore throat Cardiovascular: Reports: Chest pain. Denies: Palpitations Respiratory: Denies: Dyspnea, Cough, Dyspnea on exertion Gastrointestinal: Reports: Abdominal pain. Denies: Nausea, Vomiting, Diarrhea, Melena, Hematochezia Genitourinary: Denies: Dysuria, Hematuria, Frequency Musculoskeletal: Denies: Back pain, Extremity Pain Skin: Denies: Rash, Wounds Neurological: Denies: Headache, Weakness, Numbness Physical Exam Vital Signs/Narrative: Vital Signs Temp Pulse Resp BP Pulse Ox 09/24/20 11:51 97 09/24/20 11:46 97.2 F L 80 16 167/105 H 97 Inital Vital Signs reviewed: Yes General: Well nourished, Well developed, No Acute Distress Head: Normocephalic, Atraumatic Eyes: Perrl, EOMI ENT: Moist mucous membranes, No rhinorrhea Neck: Supple, Nontender Cardiovascular: Regular rate, Regular rhythm, No murmurs Respiratory: No distress, CTA bilaterally, Chest nontender, - - equal bilateral lower and upper extremity pulses. Abdomen: Soft, Nontender, Nondistended, Normal bowel sounds Back: Nontender, Normal Inspection Extremities: Nontender, No edema, - Skin: Normal color, No rash Neurological: Alert, Oriented x3, Cranial nerves II-XII grossly intact, Normal Strength, Normal Sensation Psychological: Normal affect, Normal Mood Diagnostic/Tx/Re-eval - Rhythm Strip Rhythm Strip: A-fib Rate: 81 Ectopy: None - EKG Initial EKG Interpretation: Atrial Fibrillation - Atrial fibrillation with a rate of 81 bpm. QTC of 443 ms. No evidence of ST elevation or depression at this time. ED Disposition - Plan for ED Patient: Referrals: Kirk Ervin MD [Primary Care Provider] -
[2020-09-24 12:18] LABS: AST(SGOT) 267 U/L (15-37); Alanine Aminotransfer ALT/SGPT 194 U/L (16-61); Albumin, Serum 3.8 g/dL (3.2-5.0); Alkaline Phosphatase 281 U/L (45-117); Anion Gap 6 (5-15); BUN 16 mg/dL (7-18); Calcium,Total 10.9 mg/dL (8.5-10.1); Chloride 99 mmol/L (98-107); Creatinine, Serum 1.46 mg/dL (0.70-1.30); EST Glomerular Filtration Rate 50 mL/min (>60); Est Glom Filt Rate - Afr Amer 61 mL/min (>60); Glucose 116 mg/dL (74-106); Lipase 151 U/L (73-393); Magnesium 2.1 mg/dL (1.6-2.6); Protein, Total 7.8 g/dL (6.4-8.2); Sodium Level 135 mmol/L (136-145)
[2020-09-24 12:30] LABS: Mucous, Urine 0 SEEN /hpf (<or=2+); Red Blood Cells-Urine 0 SEEN /hpf (0-5); Squamous Epithelial Cells - UA 0 SEEN /hpf (0-5); White Blood Cells 0 SEEN /hpf (0-5)
[2020-09-24 12:34] LABS: Color, Urine Yellow (Yellow); Glucose, Dipstick Normal (Normal); Ketone-Dipstick Negative (Negative); Leukocyte Esterase-Dipstick Negative /ul (Negative); Nitrite-Dipstick Negative (Negative); Occult Blood-Urine Negative /ul (Negative); Protein-Dipstick Negative (Negative); Specific Gravity, Urine 1.005 (1.002-1.030); Urine Bilirubin Dipstick Negative (Negative); Urine Clarity Sl. Cloudy (Clear); Urine Urobilinogen Normal (Normal)
--- NOTE | 2020-09-24 12:38 | US_ITS ---
STUDY: ABDOMINAL ULTRASOUND - RIGHT UPPER QUADRANT REASON FOR VISIT: Male, 70 years old. Right upper quadrant pain TECHNIQUE: Ultrasound evaluation of the right upper quadrant was performed with real-time and static paul-scale imaging. TECHNICAL QUALITY: Adequate. COMPARISON: None. FINDINGS: Liver: The liver measures 16.2 cm. There is increased echogenicity of the liver. The bile ducts are within normal limits. There is hepatic color flow. The direction of portal flow is hepatopetal. There is no demonstrated mass lesion. Gallbladder: Normal distended gallbladder. The gallbladder wall measures 3 mm. There is a negative sonographic Curtis''s sign in this patient on current pain medication. There is no pericholecystic fluid. There are multiple gallstones. Common Bile Duct (C.B.D.): The common bile duct measures 4 mm. Pancreas: Normal size of the head, body and tail of the pancreas. There is normal echogenicity of the pancreas. There is no demonstrated pancreatic mass or cyst. Right Kidney: Normal size of the right kidney. The right kidney measures 10.8 x 4.4 x 3.9 cm. Normal renal cortex. The right cortex measures 1.2 cm. There is no demonstrated renal mass or cyst. There is no right hydronephrosis. US/Gallbladder IMPRESSION: 1. Cholecystolithiasis without cholecystitis. Electronically Signed: Mayra Rangel MD at 14:32 EDT Tel , Service support ,
[2020-09-24 12:50] LABS: Bacteria 1+ /hpf (None Seen)
[2020-09-24] MEDS: Ondansetron 4 MG/2 ML Vial IV (13:02)
[2020-09-24] MEDS: HYDROmorphone 0.5 MG/0.5 ML SYRINGE IV (13:03)
--- NOTE | 2020-09-24 14:52 | NURSING ---
MED SURG BILIARY COLIC, CHOLELITHIASIS AARON
[2020-09-24] MEDS: Lactated Ringers 1,000 ML 75 ML IV (17:24)
[2020-09-24] MEDS: 0.9% Saline Lock 10 ML Syringe IV (17:24)
--- NOTE | 2020-09-24 18:20 | PCM.HP.BLA ---
History and Physical Date of Admission: 09/24/20 CC - abdominal pain HPI - 70 y/o WM presents with complaint of abdominal pain for the past day. He describes the pain as in the epigastric area but it radiates throughout the abdomen and to his back. He states that the pain is intermittent, he is not having pain at this time. However, the pain was severe at the time - described as sharp and 8 out of 10. He denies nausea/emesis. He underwent evaluation in the ED and found to have elevated LFTs. Tbili 4.2, AST 267, ALT 194, alkphos 281. WBC is normal. US of the RUQ abdomen revealed cholelithiasis. multiple gallstones...gallbladder wall measures 3mm...no pericholecystic fluid...CBD measures 4mm. He also has a known AAA. PAST MEDICAL HISTORY ? Acute gastritis without mention of hemorrhage ? ? Asthma ? ? Benign neoplasm of colon ? ? Bladder cancer (HCC) ? ? CTS (carpal tunnel syndrome)? bilateral ? Diaphragmatic hernia without mention of obstruction or gangrene ? ? Diverticulosis of colon (without mention of hemorrhage) ? ? Esophageal reflux ? ? Esophagitis ? ? HEARING LOSS ? ? HTN (hypertension) ? ? Hypokalemia ? ? Internal hemorrhoids without mention of complication ? PAST SURGICAL HISTORY ? ARTHRO KNEE 11/12/01 BILATERAL ? COLONOS W/REM POLYP SNARE ? 09/02/05 ? COLONOSCOP W/ OR W/O BRSH SPEC ? 12/21/10 ? COLONOSCOP W/ OR W/O BRSH SPEC ? 03/18/16 ? EGD W/O BRSH SPECIMEN W/BX ? 12/21/10 ? EGD W/O OR W/BRUSH/WASH ? 03/18/16 ? PAST SURGICAL HISTORY OF 12/06/03 EGD ? PAST SURGICAL HISTORY OF 09/2010 TURBT ? PAST SURGICAL HISTORY OF lipoma excisions ? PAST SURGICAL HISTORY OF tonsillectomy ? PAST SURGICAL HISTORY OF hearing implant ? TOTAL KNEE REPLACEMENT 10/20/2013 Knee replacement, total ? TOTAL KNEE REPLACEMENT 09/13/14 Knee replacement, total left ? MEDICATIONS: ? albuterol HFA (VENTOLIN HFA) 90 mcg/actuation inhaler Inhale 2 Puffs as instructed every 4 hours as needed. ? fluticasone-salmeterol (ADVAIR DISKUS) 500-50 mcg/dose dsdv Inhale 1 Puff as instructed twice daily. Rinse and gargle ? terazosin (HYTRIN) 2 mg capsule Take 1 capsule by mouth daily at bedtime. Appointment needed for future refills ? spironolactone (ALDACTONE) 25 mg tablet Take 1 tablet by mouth once daily. ? pantoprazole DR (PROTONIX) 40 mg tablet Take 1 tablet by mouth daily before breakfast. Take on empty stomach, 1/2 hr before ? rivaroxaban (XARELTO) 20 mg tablet Take 20 mg by mouth daily with dinner. ? diltiazem CD (CARDIZEM CD) 120 mg 24 hr capsule Take 1 capsule by mouth once daily. ? COMPOUNDED PRESCRIPTION Cock-up wrist splint ? Methylcellulose, Laxative, (CITRUCEL) 500 mg tab Take 1 tablet by mouth twice daily. ? ALLERGIES: ? Asa [Salicylates] Intolerance, GI Upset ? Codeine SOCIAL HISTORY Social History ? Tobacco Use ? Smoking status: Former Smoker ? ? Packs/day: 0.50 ? ? Years: 43.00 ? ? Pack years: 21.50 ? ? Types: Cigarettes ? ? Quit date: 02/06/2010 ? ? Years since quittin.2 ? Smokeless tobacco: Never Used Substance Use Topics ? Alcohol use: No ? Drug use: No REVIEW OF SYSTEMS: General - denies fevers, denies weight loss, denies anorexia Cardiovascular has CAF followed by [facility], denies chest pain, denies racing heart sensation Pulmonary denies shortness of breath, denies coughing up blood Gastrointestinal as per HPI, has acid reflux/heartburn Neurological is deaf - able to read lips, denies seizures Genitourinary history of bladder cancer, denies burning with urination, denies blood in urine Hematological on eliquis for CAF, denies spontaneous/prolonged bleeding Skin denies open non healing wounds Musculoskeletal denies history of fractures, denies arthritis Endocrine denies diabetes Psychological denies hallucinations PHYSICAL EXAMINATION: Vital signs Temp 98.4F HR 78 RR 16 BP 116/86 General WD/WN WM in no apparent distress, alert and oriented, not septic appearing HEENT Normocephalic. EOM intact with sclera clear and no icterus noted. Neck is supple with no jugular venous distention noted. Trachea is midline. Lungs normal respiratory excursion, no adventitial sounds noted. No labored breathing noted, such as retractions. No cough heard. Heart irregular. Abdomen soft and benign and protuberant, umbilical hernia noted - incarcerated, rectus diastasis present, no peritoneal signs Extremities no pitting edema noted. . Genitourinary/Rectal deferred Skin no rashes noted. Normal skin integrity. Neurological non focal. Psychological normal affect, patient is calm and appropriate IMPRESSION: biliary colic elevated LFTs - possible choledocholithiasis PLAN: Hold corinne Earliest that I can place patient on schedule is Friday afternoon Will consult Internal Medicine/Hospitalist for perioperative medical management I have explained the above to the patient. I have offered the patient the procedure of laparoscopic cholecystectomy with cholangiograms. I have explained the procedure to the patient. I have counseled the patient as to the risks of the procedure, including but not limited to: infection, bleeding, injury to any blood vessels/nerves, scar tissue, injury to any intrabdominal organs, injury to kidney/ureters, injury to bowel/bladder, injury to the common bile duct/biliary tree, bile leakage, intraabdominal abscess/bleeding, hernias at incisional sites, wound infections, possible open procedure, complications of anesthesia, postoperative pneumonia/cardiac problems/blood clots etc. the patient understands. The patient was offered a surgery/procedure. The provider and patient have discussed in detail the risk of exposure to and/or potential harm posed by the COVID-19 virus with having a surgery/procedure at this time versus the risk of delaying the surgery/procedure. It is not possible to know either the risk of delaying the surgery or procedure or chance of getting an infection with perfect accuracy, but a joint decision was made between the patient and the provider to proceed at this time with the scheduled surgery/procedure. I have answered all questions to the patient?s satisfaction and the patient has no further questions. I have also called patient's sister, [place], at patient's request, and informed her of the above.
--- NOTE | 2020-09-24 18:59 | PN_ITS ---
Subjective: There is is a 70-year-old white male who presented to the emergency department [facility] on 09/24/2020 complaining of epigastric pain. Mr. Talbert has a past medical history of mild pulmonary hypertension with right ventricular systolic pressure of 37, a mildly dilated RV, persistent atrial fibrillation, COPD, and infrarenal AAA that is stable, hypertension, GERD, BPH, deafness, and history of prostate cancer. The patient reported that his symptoms started approximately 9 hours prior to presentation when he began having upper abdominal pain with it radiated into his right chest. He reports that he has a history of acid reflux but this felt different than his acid reflux. He denied any pain with activity and stated on admission that the pain was somewhat intermittent. He denied shortness of breath, nausea, vomiting, diaphoresis and stated he had been eating and drinking normally. He has had no changes in his bowels or bladder habits. His vital signs in the emergency department were stable. His CBC was normal. His CMP showed mild hyponatremia with a sodium of 135, serum creatinine elevation with a serum creatinine of 1.46, hypercalcemia, and an elevated alkaline phosphatase at 281, ALT at 194, AST at 267, and a total bilirubin of 4.20. All of which were markedly above baseline. A UA was done and was unremarkable. A CTA of his abdomen and pelvis was performed given his history of aneurysm and showed a 3.2 cm fusiform aneurysm of the infrarenal aorta which is stable when compared to previous studies and no chronic mesenteric ischemia or renal artery stenosis. The CTA of his chest was a normal study with no PE or arterial dissection. Given his liver enzyme elevation an ultrasound of his gallbladder was performed and showed cholecystolithiasis without any cholecystitis. General surgery was contacted and recommended admission for removal of his gallbladder which is to be formed on Friday. The patient has been on Eliquis for his chronic atrial fibrillation and this has been held with his last dose being this morning. I suspect based on his liver enzymes that he possibly had a duct obstruction with a stone that has since passed. The patient is currently only complaining of some mild right epigastric/right upper quadrant pain. The patient is deaf but he reads lips well. Vitals/I&O's: Vital Signs Temp Pulse Resp BP Pulse Ox 98.3 F 70 18 131/89 H 94 09/24/20 17:08 09/24/20 17:08 09/24/20 17:08 09/24/20 17:08 09/24/20 17:08 Oxygen Delivery Method Room Air Weight: 109.7 kg Body Mass Index (BMI) 35.2 Intake and Output for Last 24 Hours 09/22/20 09/23/20 09/24/20 23:59 23:59 23:59 Intake Total 180 / 180 Balance 180 / 180 General: Alert, Oriented x3, Cooperative, No apparent distress, Well developed, Well nourished, - - Obese white male lying in bed, watching television, appears comfortable, nursing at bedside, nontoxic HEENT: Atraumatic, PERRLA, EOMI, Normocephalic, EAC Clear Oral: Moist Mucosa, No Gingival or Mucosal Lesions/ Ulcerations, - - Upper and lower dentures in place, Mallampati 2, no thrush Neck: Supple, No JVD, Negative Carotid Bruits, Trachea Midline, Thyroid Normal Size and Texture Lungs: Clear to auscultation, Normal air movement, No rhonchi, No wheeze, No rales Cardiovascular: Regular rate, Normal S1, Normal S2, No murmurs, No Ectopic Activity, No rub noted, No Gallop, - - Irregular rhythm Abdomen: Bowel Sounds Present, Soft, Non-Distended, Obese, Tender - Mild tenderness in the epigastric and right upper quadrant region, Hernia - Moderate umbilical hernia that is easily reducible Extremities: No clubbing, No cyanosis, No edema, Capillary Refill Less than 3 Seconds, Peripheral Pulses Normal Skin: No rashes, No breakdown Musculoskeletal: No Tenderness to Palpation of Joints or Extremities, No Muscle Wasting, Arthritic Changes, - - Bilateral knee incisions indicative of previous total knee [id number] Lymphatic: No Cervical, Supraclavicular, or Inguinal Adenopathy Neurological: Neuro grossly intact, Motor Exam 5/5 strength throughout, Muscle tone normal, Coordination normal, - - Patient is deaf all other cranial nerves are within normal limits Psych/Mental Status: Normal Affect, Appropriate Laboratory Results 09/24/20 11:50: WBC 6.7, RBC 4.76, Hgb 15.6, Hct 47.2, MCV 99.2 H, MCH 32.8 H, MCHC 33.1, RDW Std Deviation 48.8 H, RDW Coeff of Tayt 13.2, Plt Count 174, MPV 10.0, Immature Gran % (Auto) 0.300, Neut % (Auto) 83.1 H, Lymph % (Auto) 10.5 L, [place] % (Auto) 5.7, Eos % (Auto) 0.2, Baso % (Auto) 0.2, Absolute Neuts (auto) 5.5, Absolute Lymphs (auto) 0.70 L, Nucleated RBC % 0 09/24/20 11:50: Sodium 135 L, Potassium 4.0, Chloride 99, Carbon Dioxide 30.0, Anion Gap 6, BUN 16, Creatinine 1.46 H, Estim Creat Clear Calc 50.20, Est GFR (MDRD) Af Amer 61, Est GFR (MDRD) Non-Af 50 L, BUN/Creatinine Ratio 11.0, Glucose 116 H, Calcium 10.9 H, Magnesium 2.1, Total Bilirubin 4.20 H, AST 267 H, ALT 194 H, Alkaline Phosphatase 281 H, Troponin I < 0.015, Total Protein 7.8, Albumin 3.8, Globulin 4.0, Albumin/Globulin Ratio 1.0, Lipase 151 09/24/20 12:27: Urine Color Yellow, Urine Clarity Sl. Cloudy, Urine pH 7.0, Ur Specific [place] 1.005, Urine Protein Negative, Urine Glucose (UA) Normal, Urine Ketones Negative, Urine Occult Blood Negative, Urine Nitrite Negative, Urine Bilirubin Negative, Urine Urobilinogen Normal, Ur Leukocyte Esterase Negative, Urine RBC 0 SEEN, Urine WBC 0 SEEN, Ur Squamous Epith Cells 0 SEEN, Urine Bacteria 1+, Urine Mucus 0 SEEN Current Medications Albuterol Sulfate (Albuterol 2.5 Mg/3 Ml Vial.Neb.) 2.5 mg INHALATION Q4H PRN PRN PRN Reason: SHORTNESS OF BREATH Albuterol Sulfate (Albuterol 2.5 Mg/3 Ml Vial.Neb.) 2.5 mg INHALATION Q6HWA.RT [facility] Budesonide (Budesonide Respules 0.5 Mg/2 Ml Ampul.Neb.) 0.5 mg INHALATION Q12H.RT [facility] Diltiazem HCl (Diltiazem Cd 120 Mg Capsule) 120 mg PO DAILY [facility] Doxazosin Mesylate (Doxazosin 1 Mg Tablet) 2 mg PO QHS [facility] Furosemide (Furosemide 40 Mg Tablet) 40 mg PO DAILY [facility] Lactated Ringer's () 1,000 mls @ 75 mls/hr IV .[id number] [facility] Last Admin: 09/24/20 17:24 Dose: 75 mls/hr Documented by: Sodium Chloride () 250 mls @ 15 mls/hr IV .[id number] PRN PRN Reason: Saline Flush Sodium Chloride () 250 mls @ 15 mls/hr IV .[id number] PRN PRN Reason: Additional IVPB Infusion Morphine Sulfate (Morphine 2 Mg/Ml Syringe) 2 mg IV Q1H PRN PRN PRN Reason: Pain Score 4-10 Ondansetron HCl (Ondansetron 4 Mg/2 Ml Vial) 4 mg IV Q8 PRN PRN Reason: NAUSEA/VOMITING Pantoprazole Sodium (Pantoprazole Sodium 40 Mg Tablet) 40 mg PO DAILY [facility] Sodium Chloride (0.9% Saline Lock 10 Ml Syringe) 10 - 40 ml IV UD PRN PRN Reason: SALINE FLUSH Last Admin: 09/24/20 17:24 Dose: 10 ml Documented by: Spironolactone (Spironolactone 25 Mg Tablet) 25 mg PO DAILY [facility] STROKE Vital Signs/Narrative: Vital Signs Temp Pulse Resp BP Pulse Ox 09/24/20 17:08 98.3 F 70 18 131/89 H 94 09/24/20 15:00 98.4 F 78 11 L 116/86 H 95 Medical Necessity - Tobacco Use Smoking Status: Former smoker Assessment/Plan All Active Problems (Last Reviewed 09/13/20 @ 12:00 by Luz Elena Willard PA, PA) Chest pain (Resolved) Debility (Acute) Postoperative hematoma (Resolved) Biliary colic/cholecystitis -Patient is admitted to general surgery with the intent to perform a cholecystectomy on Friday afternoon -Hold [facility] -EKG reviewed and shows persistent atrial fibrillation with no signs of ST-T wave changes indicative of ischemia -Serum troponin was within normal limits -Echo done on 01/13/2020 that showed mild concentric LVH, EF of 65%, persistent a trial fibrillation, moderate left atrial enlargement and a right ventricular systolic pressure of 37 mmHg -NSQIP risk calculator was performed and patient has slight increased risk for serious complication(2.1% greater than baseline risk), any complication(2.6% greater than baseline risk, readmission(3.1% greater than baseline risk), and intermediate discharge (1% greater than baseline risk) -Continue with morphine for pain and Zofran for nausea -As needed bowel regimen Mild LUIS EDUARDO on CKD stage II -Patient with IV hydration of LR at 75 cc/h -Continue x1 bag -Repeat BMP in a.m. -If these have normalized would continue Lasix and Aldactone dosing as ordered, if not would hold diuretics and continue IV fluids Persistent atrial fibrillation -Patient is rate controlled with diltiazem--> continue 120 mg daily -Eliquis on hold for surgery -Restart in the postoperative period when okay with general surgery Hypertension -Continue Cardizem, Lasix, Aldactone -Trend blood pressures -DC IV fluids in a.m. if serum creatinine is stable and normalized Hypercalcemia -Suspect related to dehydration -Repeat in a.m. Hyponatremia -Suspect hypovolemic hyponatremia -Sodium 135 on admission -Repeat in a.m. after fluids -Okay for Lasix if serum creatinine has normalized History of GERD/gastritis/esophagitis -Continue PPI Chronic deafness -Patient reads lips well History of bladder cancer/BPH -No current issues and patient has been in remission -Continue doxazosin COPD -Remote history of tobacco abuse -Continue home inhalers -As needed albuterol DVT prophylaxis -Lovenox daily starting tomorrow Inpatient E&M: [id number] [facility] [place] Hosp L3
[2020-09-24] MEDS: Albuterol 2.5 MG/3 ML VIAL.NEB. INHALATION (19:19)
[2020-09-24] MEDS: Budesonide Respules 0.5 MG/2 ML AMPUL.NEB. INHALATION (19:20)
[2020-09-24] MEDS: Doxazosin 1 MG Tablet 2 MG PO (21:06)
[2020-09-25] VITALS (7 sets, daily range): BP systolic 111–146; BP diastolic 61–78; PULSE 72–89; RESP 16–20; TEMP 36.6–37.2; O2SAT 93–98
[2020-09-25] MEDS: Lactated Ringers 1,000 ML 75 ML IV ×2 (05:48→17:47)
[2020-09-25 07:19] LABS: Absolute Lymphocyte Count 0.65 X10^3/uL (0.83-4.51); Absolute Neutrophil Count 4.3 X10^3/uL (2.0-7.7); Basophil# 0.01 X10^3/uL; Basophil% 0.2 % (0-1); Eosinophil# 0.09 X10^3/uL; Eosinophils% 1.6 % (0-5); Hematocrit 41.2 % (40-54); Hemoglobin 13.3 g/dL (13.0-16.5); Lymphocyte # 0.65 X10^3/ul (0.83-4.51); Lymphocyte % 11.8 % (19-41); Mean Corp Hgb Conc 32.3 g/dL (32-36); Mean Platelet Vol. 10.3 fl (6.2-12.0); Monocyte# 0.41 X10^3/uL; Monocyte% 7.4 % (0-10); NRBC Flagged by Analyzer 0 % (0-5); Neutrophil # 4.34 X10^3/uL (2.7-7.7); Neutrophil % 78.8 % (47-70); Platelet Count 162 K/mm3 (150-450); RBC Distribution Width CV 13.6 % (11.6-14.6); RBC Distribution Width SD 49.8 fl (35.1-43.9); Red Blood Count 4.16 M/mm3 (4.6-6.2); White Blood Count 5.5 K/mm3 (4.4-11.0)
[2020-09-25] MEDS: Budesonide Respules 0.5 MG/2 ML AMPUL.NEB. INHALATION ×2 (07:42→20:18)
[2020-09-25] MEDS: Albuterol 2.5 MG/3 ML VIAL.NEB. INHALATION ×3 (07:43→20:18)
--- NOTE | 2020-09-25 07:50 | PCM.PN.HOSP ---
Reason for Visit: Follow-up on cholecystolithiasis Subjective: Patient was seen and examined. I communicated with him through lip-reading with my mask off, but his on; as he was deaf. He denied any abdominal pain. Denied any fever or chills. He is going for surgery tomorrow. Objective: Physical exam: General: Alert, Oriented x3, Cooperative, No apparent distress, Well developed, deaf HEENT: Atraumatic Oral: Moist Mucosa Neck: Supple Lungs: Clear to auscultation Cardiovascular: HS I+II, regular, no murmurs Abdomen: Bowel Sounds Present, Soft, Non Tender Extremities: No edema Skin: No rashes, No breakdown Neurological: Grossly intact Psych/Mental Status: Appropriate Vitals/I&O's: Vital Signs Temp Pulse Resp BP Pulse Ox 98 F 76 20 H 111/70 98 09/25/20 03:13 09/25/20 07:43 09/25/20 07:43 09/25/20 03:13 09/25/20 03:13 Oxygen Delivery Method Room Air Weight: 109.7 kg Body Mass Index (BMI) 35.2 Intake and Output for Last 24 Hours 09/23/20 09/24/20 09/25/20 23:59 23:59 23:59 Intake Total 180 / 180 930 / 930 Balance 180 / 180 930 / 930 Laboratory Results 09/24/20 11:50: WBC 6.7, RBC 4.76, Hgb 15.6, Hct 47.2, MCV 99.2 H, MCH 32.8 H, MCHC 33.1, RDW Std Deviation 48.8 H, RDW Coeff of Taty 13.2, Plt Count 174, MPV 10.0, Immature Gran % (Auto) 0.300, Neut % (Auto) 83.1 H, Lymph % (Auto) 10.5 L, [place] % (Auto) 5.7, Eos % (Auto) 0.2, Baso % (Auto) 0.2, Absolute Neuts (auto) 5.5, Absolute Lymphs (auto) 0.70 L, Nucleated RBC % 0 09/24/20 11:50: Sodium 135 L, Potassium 4.0, Chloride 99, Carbon Dioxide 30.0, Anion Gap 6, BUN 16, Creatinine 1.46 H, Estim Creat Clear Calc 50.20, Est GFR (MDRD) Af Amer 61, Est GFR (MDRD) Non-Af 50 L, BUN/Creatinine Ratio 11.0, Glucose 116 H, Calcium 10.9 H, Magnesium 2.1, Total Bilirubin 4.20 H, AST 267 H, ALT 194 H, Alkaline Phosphatase 281 H, Troponin I < 0.015, Total Protein 7.8, Albumin 3.8, Globulin 4.0, Albumin/Globulin Ratio 1.0, Lipase 151 09/24/20 12:27: Urine Color Yellow, Urine Clarity Sl. Cloudy, Urine pH 7.0, Ur Specific [employer] 1.005, Urine Protein Negative, Urine Glucose (UA) Normal, Urine Ketones Negative, Urine Occult Blood Negative, Urine Nitrite Negative, Urine Bilirubin Negative, Urine Urobilinogen Normal, Ur Leukocyte Esterase Negative, Urine RBC 0 SEEN, Urine WBC 0 SEEN, Ur Squamous Epith Cells 0 SEEN, Urine Bacteria 1+, Urine Mucus 0 SEEN 09/25/20 06:35: WBC 5.5, RBC 4.16 L, Hgb 13.3, Hct 41.2, MCV 99.0 H, MCH 32.0, MCHC 32.3, RDW Std Deviation 49.8 H, RDW Coeff of Taty 13.6, Plt Count 162, MPV 10.3, Immature Gran % (Auto) 0.200, Neut % (Auto) 78.8 H, Lymph % (Auto) 11.8 L, [place] % (Auto) 7.4, Eos % (Auto) 1.6, Baso % (Auto) 0.2, Absolute Neuts (auto) 4.3, Absolute Lymphs (auto) 0.65 L, Nucleated RBC % 0 09/25/20 06:35: Sodium Pending, Potassium Pending, Chloride Pending, Carbon Dioxide Pending, Anion Gap Pending, BUN Pending, Creatinine Pending, Est GFR (MDRD) Af Amer Pending, Est GFR (MDRD) Non-Af Pending, BUN/Creatinine Ratio Pending, Glucose Pending, Calcium Pending, Total Bilirubin Pending, AST Pending, ALT Pending, Alkaline Phosphatase Pending, Total Protein Pending, Albumin Pending Current Medications Albuterol Sulfate (Albuterol 2.5 Mg/3 Ml Vial.Neb.) 2.5 mg INHALATION Q4H PRN PRN PRN Reason: SHORTNESS OF BREATH Albuterol Sulfate (Albuterol 2.5 Mg/3 Ml Vial.Neb.) 2.5 mg INHALATION Q6HWA.RT [facility] Last Admin: 09/25/20 07:43 Dose: 2.5 mg Documented by: Budesonide (Budesonide Respules 0.5 Mg/2 Ml Ampul.Neb.) 0.5 mg INHALATION Q12H.RT [facility] Last Admin: 09/25/20 07:42 Dose: 0.5 mg Documented by: Diltiazem HCl (Diltiazem Cd 120 Mg Capsule) 120 mg PO DAILY [facility] Doxazosin Mesylate (Doxazosin 1 Mg Tablet) 2 mg PO QHS [facility] Last Admin: 09/24/20 21:06 Dose: 2 mg Documented by: Furosemide (Furosemide 40 Mg Tablet) 40 mg PO DAILY [facility] Lactated Ringer's () 1,000 mls @ 75 mls/hr IV .[id number] [facility] Last Admin: 09/25/20 05:48 Dose: 75 mls/hr Documented by: Sodium Chloride () 250 mls @ 15 mls/hr IV .[id number] PRN PRN Reason: Saline Flush Sodium Chloride () 250 mls @ 15 mls/hr IV .[id number] PRN PRN Reason: Additional IVPB Infusion Morphine Sulfate (Morphine 2 Mg/Ml Syringe) 2 mg IV Q1H PRN PRN PRN Reason: Pain Score 4-10 Ondansetron HCl (Ondansetron 4 Mg/2 Ml Vial) 4 mg IV Q8 PRN PRN Reason: NAUSEA/VOMITING Pantoprazole Sodium (Pantoprazole Sodium 40 Mg Tablet) 40 mg PO DAILY [facility] Senna/Docusate Sodium (Senna/Docusate Sodium 1 Tablet) 2 tablet PO DAILY PRN PRN PRN Reason: CONSTIPATION Sodium Chloride (0.9% Saline Lock 10 Ml Syringe) 10 - 40 ml IV UD PRN PRN Reason: SALINE FLUSH Last Admin: 09/24/20 17:24 Dose: 10 ml Documented by: Spironolactone (Spironolactone 25 Mg Tablet) 25 mg PO DAILY [facility] STROKE Vital Signs/Narrative: Vital Signs Pulse Resp 09/25/20 07:43 76 20 H Medical Necessity - Tobacco Use Smoking Status: Former smoker Assessment/Plan All Active Problems (Last Reviewed 09/13/20 @ 12:00 by Luz Elena Willard PA, PA) Chest pain (Resolved) Debility (Acute) Postoperative hematoma (Resolved) 1. Cholecystolithiasis, no evidence of acute cholecystitis Patient is going for surgery tomorrow; off Eliquis Continue on clear liquid diet per general surgery 2. LUIS EDUARDO on CKD stage 2, secondary to #1 , appears the same Baseline Creatinine around 1.1; off spironolactone and hydrochlorothiazide On IV fluids, repeat blood work in a.m. 3. Persistent atrial fibrillation, rate controlled, continue on Cardizem, off Eliquis for surgery 4. Hypertension, controlled, continue on Cardizem Continue to hold spironolactone and Lasix 5. Hypercalcemia, resolved with IV fluids Repeat blood work in a.m. 6. Hyponatremia, appears resolved with IV fluids Sodium currently is 137, improved from 135 7. GERD/gastritis, continue on pantoprazole 8. History of bladder CA/BPH, continue on Cardura 9. Deafness, complicates communication; patient lip-reads 10. DVT prophylaxis with Lovenox subcu Inpatient E&M: [id number] Subs Hosp L2
[2020-09-25 07:57] LABS: ALB/GLOB Ratio 0.9 RATIO (0.9-2.4); AST(SGOT) 144 U/L (15-37); Alanine Aminotransfer ALT/SGPT 155 U/L (16-61); Albumin, Serum 2.9 g/dL (3.2-5.0); Alkaline Phosphatase 254 U/L (45-117); Anion Gap 6 (5-15); BUN 14 mg/dL (7-18); BUN/Creat Ratio 9.5 RATIO (10-20); Calcium,Total 9.2 mg/dL (8.5-10.1); Chloride 102 mmol/L (98-107); Creatinine, Serum 1.47 mg/dL (0.70-1.30); EST Glomerular Filtration Rate 50 mL/min (>60); Est Glom Filt Rate - Afr Amer 61 mL/min (>60); Estimated Creatinine Clearance 45.42 ml/min; Globulin 3.1 g/dL (2.2-4.2); Glucose 100 mg/dL (74-106); Potassium 4.3 mmol/L (3.5-5.1); Sodium Level 137 mmol/L (136-145)
[2020-09-25] MEDS: Pantoprazole Sodium 40 MG Tablet PO (08:54)
[2020-09-25] MEDS: dilTIAZem CD 120 MG Capsule PO (08:55)
--- NOTE | 2020-09-25 09:55 | CASEMGMT ---
RN CM Face to Face with patient for initial transition planning/care coordination assessment. RN CM introduced self and role at [facility]. Patient lying in bed, alert and oriented. Patient willing to participate in assessment and is able to answer all questions appropriately. Care providers, pharmacy, and demographics verified. Patient wishes to discharge home, will monitor for need for HHC pending therapy. Patient states he has no further needs or concerns at this time. CM to follow for discharge planning needs that may arise. PCP: [facility] Specialists: Nadeem, polisher balance screwhead; Katia, urologist [facility] Insurance: [facility], Physician [place] Prescription Benefit: yes Living Will/HPOA: none LNOK: sisters Living Arrangements: Patient lives alone in a ground floor apartment with no steps to enter. Patient states he is independent at home. Transportation: self/sister DME/HHC: Patient states he has shower chair, raised toilet, cane, walker, and grab bars at home. Patient states he has previously had [facility] HHC. Disposition Plan: Patient to discharge home with family support and follow-up plans in place. Xochitl BLANK, RN, CM
--- NOTE | 2020-09-25 11:25 | PCM.PN.SRG ---
Subjective: Patient still with RUQ and epigastric abdominal pain, but less LFTs decreasing but still abnormal - may have passed stone (choledocholithiasis) - will plan IOC - Physical Exam Vitals/I&O's: Vital Signs Temp Pulse Resp BP Pulse Ox 98.3 F 85 18 111/73 94 09/25/20 08:44 09/25/20 08:44 09/25/20 08:44 09/25/20 08:44 09/25/20 08:44 Oxygen Delivery Method Room Air Weight: 109.7 kg Body Mass Index (BMI) 35.2 Intake and Output for Last 24 Hours 09/23/20 09/24/20 09/25/20 23:59 23:59 23:59 Intake Total 180 / 180 930 / 930 Balance 180 / 180 930 / 930 General: Alert, Oriented x3 Oral: Moist Mucosa Neck: Supple Lungs: Normal air movement Abdomen: Soft, Obese, - - minimal tenderness right upper quadrant Microbiology Past 72 Hours 09/25/20 09:50 Mucosa - Nose SARS-CoV-2 Antigen (Rapid) - Final Laboratory Results 09/24/20 11:50: WBC 6.7, RBC 4.76, Hgb 15.6, Hct 47.2, MCV 99.2 H, MCH 32.8 H, MCHC 33.1, RDW Std Deviation 48.8 H, RDW Coeff of Taty 13.2, Plt Count 174, MPV 10.0, Immature Gran % (Auto) 0.300, Neut % (Auto) 83.1 H, Lymph % (Auto) 10.5 L, [place] % (Auto) 5.7, Eos % (Auto) 0.2, Baso % (Auto) 0.2, Absolute Neuts (auto) 5.5, Absolute Lymphs (auto) 0.70 L, Nucleated RBC % 0 09/24/20 11:50: Sodium 135 L, Potassium 4.0, Chloride 99, Carbon Dioxide 30.0, Anion Gap 6, BUN 16, Creatinine 1.46 H, Estim Creat Clear Calc 50.20, Est GFR (MDRD) Af Amer 61, Est GFR (MDRD) Non-Af 50 L, BUN/Creatinine Ratio 11.0, Glucose 116 H, Calcium 10.9 H, Magnesium 2.1, Total Bilirubin 4.20 H, AST 267 H, ALT 194 H, Alkaline Phosphatase 281 H, Troponin I < 0.015, Total Protein 7.8, Albumin 3.8, Globulin 4.0, Albumin/Globulin Ratio 1.0, Lipase 151 09/24/20 12:27: Urine Color Yellow, Urine Clarity Sl. Cloudy, Urine pH 7.0, Ur Specific [place] 1.005, Urine Protein Negative, Urine Glucose (UA) Normal, Urine Ketones Negative, Urine Occult Blood Negative, Urine Nitrite Negative, Urine Bilirubin Negative, Urine Urobilinogen Normal, Ur Leukocyte Esterase Negative, Urine RBC 0 SEEN, Urine WBC 0 SEEN, Ur Squamous Epith Cells 0 SEEN, Urine Bacteria 1+, Urine Mucus 0 SEEN 09/25/20 06:35: WBC 5.5, RBC 4.16 L, Hgb 13.3, Hct 41.2, MCV 99.0 H, MCH 32.0, MCHC 32.3, RDW Std Deviation 49.8 H, RDW Coeff of Taty 13.6, Plt Count 162, MPV 10.3, Immature Gran % (Auto) 0.200, Neut % (Auto) 78.8 H, Lymph % (Auto) 11.8 L, [place] % (Auto) 7.4, Eos % (Auto) 1.6, Baso % (Auto) 0.2, Absolute Neuts (auto) 4.3, Absolute Lymphs (auto) 0.65 L, Nucleated RBC % 0 09/25/20 06:35: Sodium 137, Potassium 4.3, Chloride 102, Carbon Dioxide 29.0, Anion Gap 6, BUN 14, Creatinine 1.47 H, Estim Creat Clear Calc 45.42, Est GFR (MDRD) Af Amer 61, Est GFR (MDRD) Non-Af 50 L, BUN/Creatinine Ratio 9.5 L, Glucose 100, Calcium 9.2, Total Bilirubin 2.90 H, AST 144 H, ALT 155 H, Alkaline Phosphatase 254 H, Total Protein 6.0 L, Albumin 2.9 L, Globulin 3.1, Albumin/Globulin Ratio 0.9 Current Medications Albuterol Sulfate (Albuterol 2.5 Mg/3 Ml Vial.Neb.) 2.5 mg INHALATION Q4H PRN PRN PRN Reason: SHORTNESS OF BREATH Albuterol Sulfate (Albuterol 2.5 Mg/3 Ml Vial.Neb.) 2.5 mg INHALATION Q6HWA.RT [facility] Last Admin: 09/25/20 07:43 Dose: 2.5 mg Documented by: Budesonide (Budesonide Respules 0.5 Mg/2 Ml Ampul.Neb.) 0.5 mg INHALATION Q12H.RT [facility] Last Admin: 09/25/20 07:42 Dose: 0.5 mg Documented by: Diltiazem HCl (Diltiazem Cd 120 Mg Capsule) 120 mg PO DAILY [facility] Last Admin: 09/25/20 08:55 Dose: 120 mg Documented by: Doxazosin Mesylate (Doxazosin 1 Mg Tablet) 2 mg PO QHS [facility] Last Admin: 09/24/20 21:06 Dose: 2 mg Documented by: Furosemide (Furosemide 40 Mg Tablet) 40 mg PO DAILY [facility] Last Admin: 09/25/20 09:06 Dose: Not Given Documented by: Lactated Ringer's () 1,000 mls @ 75 mls/hr IV .[id number] [facility] Last Admin: 09/25/20 05:48 Dose: 75 mls/hr Documented by: Sodium Chloride () 250 mls @ 15 mls/hr IV .[id number] PRN PRN Reason: Saline Flush Sodium Chloride () 250 mls @ 15 mls/hr IV .[id number] PRN PRN Reason: Additional IVPB Infusion Morphine Sulfate (Morphine 2 Mg/Ml Syringe) 2 mg IV Q1H PRN PRN PRN Reason: Pain Score 4-10 Ondansetron HCl (Ondansetron 4 Mg/2 Ml Vial) 4 mg IV Q8 PRN PRN Reason: NAUSEA/VOMITING Pantoprazole Sodium (Pantoprazole Sodium 40 Mg Tablet) 40 mg PO DAILY [facility] Last Admin: 09/25/20 08:54 Dose: 40 mg Documented by: Senna/Docusate Sodium (Senna/Docusate Sodium 1 Tablet) 2 tablet PO DAILY PRN PRN PRN Reason: CONSTIPATION Sodium Chloride (0.9% Saline Lock 10 Ml Syringe) 10 - 40 ml IV UD PRN PRN Reason: SALINE FLUSH Last Admin: 09/24/20 17:24 Dose: 10 ml Documented by: Spironolactone (Spironolactone 25 Mg Tablet) 25 mg PO DAILY [facility] Last Admin: 09/25/20 09:06 Dose: Not Given Documented by: Medical Necessity - Tobacco Use Smoking Status: Former smoker Assessment/Plan All Active Problems (Last Reviewed 09/13/20 @ 12:00 by Luz Elena Willard PA, PA) Chest pain (Resolved) Debility (Acute) Postoperative hematoma (Resolved) Impression: biliary colic, cholelithiasis, elevated LFTs - suggestion of choledocholithiasis Plan: Lap linda tomorrow - risks/benefits again explained to patient perioperative medications as per Internal Medicine - appreciate their input
--- NOTE | 2020-09-25 11:30 | CASEMGMT ---
Palliative screening tool completed due to Lace/Strata 3. Patient does not meet criteria per screening tool at this time.
[2020-09-25] MEDS: Senna/Docusate Sodium 1 Tablet 2 TABLET PO (11:42)
[2020-09-25] MEDS: Doxazosin 1 MG Tablet 2 MG PO (22:32)
[2020-09-26] VITALS (13 sets, daily range): BP systolic 130–156; BP diastolic 77–99; PULSE 74–92; RESP 16–20; TEMP 36.2–37.3; O2SAT 87–99; BMI 35.2
--- NOTE | 2020-09-26 | GALL_PTH ---
PATIENT: MAYOCL BHANDARI LOC: MS3 U#:[id number] AGE/SX: 70/M ROOM: WI318 RE09/24/[address]: Dr. Violeta Hernandez MD : 1950 BED: 1 DIS: 09/29/2020 SPEC #: [id number] RECD: 09/27/20 08:42 STATUS: SHANITA REQ #: [id number] BRENT: 09/26/20 00:[address]: Aarti Tran DEPT: SURGICAL PATHOLOGY RECD BY: Gregory Lynn ENTERED: 09/27/20 08:42 SP TYPE: GALLBLADDE OTHR DR: MD Dr. Cindy Traylor DO Dr. Linda Wang, MD Dr. William Lago, MD Tissues: Gallbladder, NOS Procedures: Surgery Specimen Level III Comments: @ Ordering doctor for SUIII edited from to DR.LWANG Erasmo NEGRO at 09/27/20 09 @ Submitting doctor edited from to DR.LWANG Zimmerman by MARKY at 09/27/20907 HEADER OPERATION: Laparoscopic cholecystectomy with IOC PRE-OP DIAGNOSIS: Biliary colic, elevated LFTs TISSUE SUBMITTED: Gallbladder MICROSCOPIC DIAGNOSIS Gallbladder, cholecystectomy: Acute and chronic cholecystitis, cholelithiasis and focal cholesterolosis. ANTONIO:manuel 09/28/2020 MICROSCOPIC DESCRIPTION Slides are reviewed. GROSS DESCRIPTION Received is one container labeled with the patient's name and designated gallbladder. The specimen consists of a previously opened gallbladder measuring 8 cm in length and up to 3 cm in diameter. The external surface is pink-cochran, smooth and glistening for the most part. Focally it is granular, hemorrhagic and contains cautery artifact. The gallbladder contains a small amount of green-yellow mucoid bile and one brownish-black stone at the cystic duct measuring 1 cm in greatest dimension. The mucosa is bile-stained and without any mass lesions. The gallbladder wall measures up to 1.2 cm in thickness. Increased amount of subserosal fat is noted. Commercial Green Building Architect sections from the gallbladder and the cystic duct are submitted in one cassette. / ANTONIO:manuel 09/27/20 TC:2 CPT: 57534
[2020-09-26] MEDS: Albuterol 2.5 MG/3 ML VIAL.NEB. INHALATION ×2 (07:15→19:08)
[2020-09-26] MEDS: Lactated Ringers 1,000 ML 75 ML IV ×2 (07:20→17:23)
[2020-09-26] MEDS: Budesonide Respules 0.5 MG/2 ML AMPUL.NEB. INHALATION ×2 (07:20→19:08)
[2020-09-26] MEDS: Bisacodyl 5 MG Tablet PO (08:00)
[2020-09-26] MEDS: Pantoprazole Sodium 40 MG Tablet PO (08:00)
[2020-09-26] MEDS: dilTIAZem CD 120 MG Capsule PO (08:00)
--- NOTE | 2020-09-26 15:11 | RAD_ITS ---
STUDY: INTRAOPERATIVE CHOLANGIOGRAM. REASON FOR EXAM: Male, 70 years old. PAIN FLUOROSCOPY TIME (if supplied): ( 10 seconds ) minutes/seconds. One image was obtained. TECHNIQUE: An intraoperative Intra Cholangiogram was performed by the surgeon. Imaging was provided. COMPARISON: None. FINDINGS: Mild dilatation of the common bile duct. No flow of contrast is seen entering the duodenum. RAD/Cholangiogram/ O R,Initial IMPRESSION: The common bile duct does not empty into the duodenum. Electronically Signed: Kevin Jacobsen MD at 8:55 EDT , Service support ,
--- NOTE | 2020-09-26 16:07 | RAD_ITS ---
STUDY: INTRAOPERATIVE CHOLANGIOGRAM. REASON FOR EXAM: Male, 70 years old. PAIN FLUOROSCOPY TIME (if supplied): ( 10 seconds ) minutes/seconds. One single image was obtained. TECHNIQUE: An intraoperative cholangiogram was performed by the surgeon. Single image was submitted. COMPARISON: None. FINDINGS: Minimal dilatation of the common bile duct. Tiny filling defect is seen in the distal portion of the common bile duct. No flow of contrast is seen into the duodenum. RAD/Cholangiogram O.R./Subsequent IMPRESSION: Tiny filling defect in the distal portion of the common bile duct. No flow of contrast is seen into the duodenum. Electronically Signed: Kevin Jacobsen MD at 8:52 EDT , Service support ,
--- NOTE | 2020-09-26 16:34 | CPS ---
checked on patient at 16:00 has been out of the room all afternoon.
--- NOTE | 2020-09-26 16:49 | OP.PCM_ITS ---
Report of Operation Date of Procedure: 09/26/20 Pre-Operative Diagnosis: cholelithiasis, elevated LFTs Post-Operative Diagnosis: cholelithiasis, common bile duct obstruction by IOC Surgery/Procedure Performed:: laparoscopic cholecystectomy with intraoperative cholangiogram Description of Surgical Findings:: common bile duct obstruction by IOC, cholelithiasis, chronic cholecystitis business solutions analyst: Teddy Go Type of Anesthesia: General/Regional Anesthesiologist: Linwood Drummond Specimen's removed: gallbladder and contents Drains: 10 FR passive drain Estimated Blood Loss (mL): 40 ml Fluids Replaced: 2000 ml RL Description of Procedure: After informed consent was given, the patient was brought to the Operating Room. Appropriate time out protocol was followed. The patient was placed in the supine position. The patient was then placed under general endotracheal anesthesia by the anesthesia provider. The abdomen was then prepped with a sterile surgical skin preparation and sterile surgical drapes were placed. An area superior to the umbilical dimple was grasped with penetrating clamps and the skin and subcutaneous tissues were infiltrated with 0.25% marcaine with epinephrine. A skin incision was then made with a 15 blade scalpel. The patient had a large umbilical hernia - fascial defect and the 12 mm trocar was placed into the intraabdominal cavity via the hernia. A CO2 pneumoperitoneum was then created. Once this was achieved, A 10mm laparoscope was then inserted into the trocar and careful attention was directed to the intraabdominal contents. There was no evidence of injury to any intraabdominal organs from insertion of the Veress needle or the trocar. Under direct visualization, a 5mm subxiphoid trocar and two lateral 5mm right subcostal trocars were placed. The skin and subcutaneous tissues at these sites were infiltrated with 0.25% marcaine with epinephrine prior to placement of these trocars. Attention was then directed to the right upper quadrant of the abdomen. Graspers were placed in the lateral trocars to grasp the distal aspect of the gallbladder and direct it cephalad and to grasp the gallbladder at Robles?s pouch and direct it laterally. Dissection then began on the proximal gallbladder continuing down to the area of the triangle of Calot to bluntly dissect out the cystic duct. The neck of the gallbladder was identified and blunt dissection continued to dissect out a segment of the cystic duct. A clip was then placed on the neck of the gallbladder. A small ductotomy was then made. A Ranfac catheter was brought in through a separate skin incision and placed into the cystic duct. An intraoperative cholangiogram was performed under fluoroscopy. The xray revealed obstruction of the common bile duct, no flow into the duodenum but good arborization of the biliary tree. The Ranfac catheter was then removed and two clips were placed proximal to the ductotomy and the cystic duct was then transected. The cystic artery was visualized and bluntly isolated and then two clips were placed proximally and one clip distally and then it was transected between the proximal and distal clips. The gallbladder was then from the liver bed using electrocautery. Once from the liver bed, it was brought out via the umbilical port in an Endobag. It was then forwarded to pathology for analysis. The liver bed was carefully examined. There was no evidence of bile leakage or bleeding. However, there was inflammatory oozing and patient was on Eliquis. Therefore surgicel and Zeeshan was applied to the area. A 10 Fr passive drain was brought in via one of the lateral ports and the drain placed in the liver bed and sutured to the skin using nylon suture. The cystic duct stump and cystic artery stump had their clips intact and there was no evidence of bile leakage or bleeding. The remainder of the abdomen was grossly normal. The CO2 was released and all trocars removed intact. The periumbilical fascia was approximated with a [id number] 0 vicryl sutures to close the fascial defect in a transverse fashion. All skin incision were closed with 4-0 monocryl in a subdermal fashion. Cavilol and Steristrips were used to reinforce the skin closure. Sterile dressings were applied to all wounds. Sponge, needle and instrument count was verified and correct at time of skin closure. The patient was extubated and brought to the Recovery Room in stable condition. Complications none noted Admit VTE Documentation VTE Present on Admission: Yes VTE Mechan Device Prophylaxis: SCD's
[2020-09-26] MEDS: Bupiv/Epi 0.25% 30 ML Vial (16:51)
--- NOTE | 2020-09-26 16:58 | PCM.PN.BLA ---
Progress Note Patient with common bile duct obstruction. Dr. Zamora consulted for consideration of ERCP
--- NOTE | 2020-09-26 17:43 | PCM.PN.HOSP ---
Subjective Subjective: Patient was seen and examined. He is going for surgery at 3pm. He denied any fever or chills. He has been passing gas. Objective Data Objective Data General: Alert, Oriented x3, Cooperative, No apparent distress, Well developed, deaf HEENT: Atraumatic Oral: Moist Mucosa Neck: Supple Lungs: Clear to auscultation Cardiovascular: HS I+II, regular, no murmurs Abdomen: Bowel Sounds Present, Soft, Non Tender Extremities: No edema Skin: No rashes, No breakdown Neurological: Grossly intact Psych/Mental Status: Appropriate Vital Signs: Vital Signs Temp Pulse Resp BP Pulse Ox 99.1 F 82 20 H 142/97 H 99 09/26/20 17:06 09/26/20 17:30 09/26/20 17:30 09/26/20 17:30 09/26/20 17:30 Oxygen Flow Rate (L/min) 8 Oxygen Delivery Method Simple Mask Weight: 109.7 kg Body Mass Index (BMI) 35.2 Intake & Output: Intake and Output for Last 24 Hours 09/24/20 09/25/20 09/26/20 23:59 23:59 23:59 Intake Total 180 / 180 2278.75 / 2278.75 2353.75 / 2353.75 Output Total 40 / 40 Balance 180 / 180 2278.75 / 2278.75 2313.75 / 2313.75 Lab / Micro Data Result Diagrams: 09/25/20 06:35 09/25/20 06:35 Micro: Microbiology 09/25/20 09:50 Mucosa - Nose SARS-CoV-2 Antigen (Rapid) - Final Rhythm Strip Rhythm Strip: A-fib Rate: 81 Ectopy: None Assessment & Plan Assessment/Plan (1) Cholecystolithiasis: Status: Acute Code(s): K80.20 - Calculus of gallbladder without cholecystitis without obstruction Qualifiers: Cholecystitis presence: without cholecystitis Biliary obstruction: with biliary obstruction Qualified Code(s): K80.21 - Calculus of gallbladder without cholecystitis with obstruction (2) LUIS EDUARDO (acute kidney injury): Status: Acute Code(s): N17.9 - Acute kidney failure, unspecified Plan: Continue on IV fluids Repeat blood work in a.m. Follow-up on general surgery recommendation Continue rest of home medications?reviewed
[2020-09-26] MEDS: Ondansetron 4 MG/2 ML Vial IV (18:51)
[2020-09-26] MEDS: Furosemide 40 MG Tablet PO (18:52)
[2020-09-26] MEDS: 0.9% Saline Lock 10 ML Syringe IV (18:57)
[2020-09-26] MEDS: Morphine 2 MG/ML Syringe IV (21:18)
[2020-09-26] MEDS: Doxazosin 1 MG Tablet 2 MG PO (21:19)
[2020-09-27] VITALS (15 sets, daily range): BP systolic 119–137; BP diastolic 77–93; PULSE 75–108; RESP 16–20; TEMP 36.5–37.1; O2SAT 92–99; BMI 35.2
[2020-09-27] MEDS: Lactated Ringers 1,000 ML 75 ML IV ×2 (06:02→17:33)
[2020-09-27] MEDS: Morphine 2 MG/ML Syringe IV (06:03)
[2020-09-27] MEDS: Albuterol 2.5 MG/3 ML VIAL.NEB. INHALATION ×2 (06:23→08:13)
[2020-09-27] MEDS: Budesonide Respules 0.5 MG/2 ML AMPUL.NEB. INHALATION (06:24)
[2020-09-27] MEDS: Ondansetron 4 MG/2 ML Vial IV (06:36)
[2020-09-27 07:13] LABS: Absolute Lymphocyte Count 0.77 X10^3/uL (0.83-4.51); Basophil# 0.01 X10^3/uL; Basophil% 0.1 % (0-1); Eosinophil# 0.02 X10^3/uL; Eosinophils% 0.2 % (0-5); Hematocrit 44.1 % (40-54); Hemoglobin 13.8 g/dL (13.0-16.5); Lymphocyte # 0.77 X10^3/ul (0.83-4.51); Lymphocyte % 8.8 % (19-41); Mean Corp Hgb Conc 31.3 g/dL (32-36); Mean Corpuscular Hgb 31.9 pg (27.0-32.0); Mean Corpuscular Volume 102.1 fL (80-94); Mean Platelet Vol. 10.4 fl (6.2-12.0); Monocyte# 0.87 X10^3/uL; NRBC Flagged by Analyzer 0 % (0-5); Neutrophil # 7.01 X10^3/uL (2.7-7.7); Neutrophil % 80.6 % (47-70); Platelet Count 133 K/mm3 (150-450); RBC Distribution Width CV 13.6 % (11.6-14.6); RBC Distribution Width SD 51.9 fl (35.1-43.9); Red Blood Count 4.32 M/mm3 (4.6-6.2); White Blood Count 8.7 K/mm3 (4.4-11.0)
[2020-09-27] MEDS: Pantoprazole Sodium 40 MG Tablet PO (07:35)
--- NOTE | 2020-09-27 07:39 | PCM.PN.SRG ---
Subjective Subjective: Patient reporting some nausea and some pain at the incision sites Objective Data Objective Data Vital Signs: Vital Signs Temp Pulse Resp BP Pulse Ox 97.7 F L 92 19 H 136/93 H 94 09/27/20 02:31 09/27/20 06:24 09/27/20 06:24 09/27/20 02:31 09/27/20 06:24 Oxygen Flow Rate (L/min) 3 Oxygen Delivery Method Nasal Cannula Weight: 241 lb 13.553 oz Body Mass Index (BMI) 35.2 Intake & Output: Intake and Output for Last 24 Hours 09/25/20 09/26/20 09/27/20 23:59 23:59 23:59 Intake Total 2278.75 / 2278.75 2403.75 / 2403.75 1448.75 / 1448.75 Output Total 60 / 60 555 / 555 Balance 2278.75 / 2278.75 2343.75 / 2343.75 893.75 / 893.75 Lab / Micro Data Result Diagrams: 09/27/20 06:40 09/25/20 06:35 Labs: Laboratory Results - last 24 hr 09/27/20 06:40 WBC 8.7 RBC 4.32 L Hgb 13.8 Hct 44.1 MCV 102.1 H MCH 31.9 MCHC 31.3 L RDW Std Deviation 51.9 H RDW Coeff of Taty 13.6 Plt Count 133 L MPV 10.4 Immature Gran % (Auto) 0.300 Neut % (Auto) 80.6 H Lymph % (Auto) 8.8 L [place] % (Auto) 10.0 Eos % (Auto) 0.2 Baso % (Auto) 0.1 Absolute Neuts (auto) 7.0 Absolute Lymphs (auto) 0.77 L Nucleated RBC % 0 Micro: Microbiology 09/25/20 09:50 Mucosa - Nose SARS-CoV-2 Antigen (Rapid) - Final Rhythm Strip Rhythm Strip: A-fib Rate: 81 Ectopy: None Physical Exam Const oriented x3 Resp normal respiratory effort Cardio regular rate and regular rhythm GI soft to palpation Assessment & Plan Assessment/Plan (1) Choledocholithiasis: Status: Acute Code(s): K80.50 - Calculus of bile duct without cholangitis or cholecystitis without obstruction Plan: The patient had laparoscopic cholecystectomy with cholangiogram yesterday for acute cholecystitis. The patient was noted to have a bile duct stone on cholangiogram. I discussed ERCP with the patient this morning. I discussed the procedure in detail as well as the risks including but not limited to bleeding, infection, perforation of bile duct or bowel, pancreatitis. The patient understands the risks and is willing to proceed with ERCP and stone removal. I also explained the possibility of stent placement. Dickson Zamora MD Pager: [facility] [address] [place] [address] Office:
[2020-09-27 07:43] LABS: ALB/GLOB Ratio 0.9 RATIO (0.9-2.4); AST(SGOT) 74 U/L (15-37); Alanine Aminotransfer ALT/SGPT 116 U/L (16-61); Alkaline Phosphatase 220 U/L (45-117); Anion Gap 4 (5-15); BUN 13 mg/dL (7-18); BUN/Creat Ratio 9.3 RATIO (10-20); Calcium,Total 8.3 mg/dL (8.5-10.1); Chloride 102 mmol/L (98-107); EST Glomerular Filtration Rate 53 mL/min (>60); Est Glom Filt Rate - Afr Amer 64 mL/min (>60); Estimated Creatinine Clearance 47.69 ml/min; Globulin 3.4 g/dL (2.2-4.2); Glucose 103 mg/dL (74-106); Potassium 4.4 mmol/L (3.5-5.1); Protein, Total 6.4 g/dL (6.4-8.2); Sodium Level 137 mmol/L (136-145)
--- NOTE | 2020-09-27 09:43 | NURSING ---
@ 09, surgery here to take pt for ERCP via bed
--- NOTE | 2020-09-27 10:00 | RAD_ITS ---
STUDY: ERCP REASON FOR EXAM: Male, 70 years old. Retained calculus. FLUOROSCOPY TIME (if supplied): ( 51 seconds ) minutes/seconds. 2 images were obtained. TECHNIQUE: An ERCP was performed by the surgeon. The the surgeon performed a sphincterotomy and balloon dilatation. COMPARISON: None. FINDINGS: Imaging provided for intraoperative ERCP. RAD/ERCP Biliary Only IMPRESSION: Imaging provided for ERCP. Electronically Signed: Kevin Jacobsen MD at 13:35 EDT , Service support ,
[2020-09-27] MEDS: Furosemide 20 MG/2 ML VIAL IV ×2 (10:10→20:30)
--- NOTE | 2020-09-27 11:49 | NURSING ---
pt remains off unit
--- NOTE | 2020-09-27 11:57 | OP.ERCP_ITS ---
Patient Name: Shyam Talbert Procedure Date: 09/27/2020 10:18 AM Date of : 1950 Age: 70 Procedure: ERCP Indications: Bile duct stone(s) Providers: Dickson Zamora MD Medicines: General Anesthesia Patient Profile: This is a 70 year old male. Refer to note in patient chart for documentation of history and physical. Complications: No immediate complications. Estimated blood loss: Minimal. Procedure: Pre-Anesthesia Assessment: - Prior to the procedure, a History and Physical was performed, and patient medications and allergies were reviewed. The patient's tolerance of previous anesthesia was also reviewed. The risks and benefits of the procedure and the sedation options and risks were discussed with the patient. All questions were answered, and informed consent was obtained. Prior Anticoagulants: The patient has taken Eliquis (apixaban), last dose was 3 days prior to procedure. After reviewing the risks and benefits, the patient was deemed in satisfactory condition to undergo the procedure. After obtaining informed consent, the scope was passed under direct vision. Throughout the procedure, the patient's blood pressure, pulse, and oxygen saturations were monitored continuously. The [id number] s/n [id number] endoscope was introduced through the mouth, and advanced to the duodenum and used to inject contrast into the bile duct. The ERCP was accomplished without difficulty. The patient tolerated the procedure well. Scope In: 11:44:10 AM Scope Out: 11:52:01 AM Total Procedure Duration Time 0 hours 7 minutes 51 seconds Findings: A 0.035 inch x 260 cm straight Dreamwire was passed into the biliary tree. The sphincterotome was passed over the guidewire and the bile duct was then deeply cannulated. Contrast was injected. I personally interpreted the bile duct images. There was brisk flow of contrast through the ducts. The lower third of the main bile duct contained one stone mm. Biliary sphincterotomy was made with a monofilament sphincterotome using ERBE electrocautery. There was no post-sphincterotomy bleeding. The biliary tree was swept with a 12 mm balloon starting at the bifurcation. All stones were removed. The endoscope was withdrawn from the patient. Impression: - Choledocholithiasis was found. Complete removal was accomplished by biliary sphincterotomy and balloon extraction. - A biliary sphincterotomy was performed. - The biliary tree was swept. Recommendation: - [facility] care. - Advance diet as tolerated. - Continue present medications. Procedure Code(s): --- Professional --- 22334, Endoscopic retrograde cholangiopancreatography (ERCP); with removal of calculi/debris from biliary/pancreatic duct(s) 40437, Endoscopic retrograde cholangiopancreatography (ERCP); with sphincterotomy/papillotomy Diagnosis Code(s): --- Professional --- K80.50, Calculus of bile duct without cholangitis or cholecystitis without obstruction CPT copyright 2017 [employer]. All rights reserved. The codes documented in this report are preliminary and upon sap security consultant review may be revised to meet current compliance requirements. Dickson Zamora MD 09/27/2020 11:57:09 AM This report has been signed electronically. Number of Addenda: 0 Note Initiated On: 09/27/2020 10:18 AM
--- NOTE | 2020-09-27 11:57 | OP.CCLET_ITS ---
09/27/2020 Kirk Ervin Re : ERCP procedure for Robeson Talbertmason Ervin This procedure was performed on Sunday, September 27, 2020. My impressions and recommendations are as follows: Impressions : - Choledocholithiasis was found. Complete removal was accomplished by biliary sphincterotomy and balloon extraction. - A biliary sphincterotomy was performed. - The biliary tree was swept. Recommendations : - [facility]. - Advance diet as tolerated. - Continue present medications. My findings are described in the full procedure note, which is enclosed. If I can be of further assistance, please feel free to contact me at Doctor phone number(s): , Work: . Sincerely, Dickson Zamora MD 09/27/2020 11:57:09 AM This report has been signed electronically.
--- NOTE | 2020-09-27 15:15 | PCM.PN.SRG ---
Subjective Subjective: patient feeling well this morning Objective Data Objective Data Vital Signs: Vital Signs Temp Pulse Resp BP Pulse Ox 97.9 F 87 20 H 131/77 H 95 09/27/20 14:31 09/27/20 14:31 09/27/20 14:31 09/27/20 14:31 09/27/20 14:31 Oxygen Flow Rate (L/min) 96 Oxygen Delivery Method Room Air Weight: 109.7 kg Body Mass Index (BMI) 35.2 Intake & Output: Intake and Output for Last 24 Hours 09/25/20 09/26/20 09/27/20 23:59 23:59 23:59 Intake Total 2278.75 / 2278.75 2403.75 / 2403.75 1498.75 / 1498.75 Output Total 60 / 60 1015 / 1015 Balance 2278.75 / 2278.75 2343.75 / 2343.75 483.75 / 483.75 Lab / Micro Data Result Diagrams: 09/27/20 06:40 09/27/20 06:40 Labs: Laboratory Results - last 24 hr 09/27/20 09/27/20 06:40 06:40 WBC 8.7 RBC 4.32 L Hgb 13.8 Hct 44.1 MCV 102.1 H MCH 31.9 MCHC 31.3 L RDW Std Deviation 51.9 H RDW Coeff of Taty 13.6 Plt Count 133 L MPV 10.4 Immature Gran % (Auto) 0.300 Neut % (Auto) 80.6 H Lymph % (Auto) 8.8 L [place] % (Auto) 10.0 Eos % (Auto) 0.2 Baso % (Auto) 0.1 Absolute Neuts (auto) 7.0 Absolute Lymphs (auto) 0.77 L Nucleated RBC % 0 Sodium 137 Potassium 4.4 Chloride 102 Carbon Dioxide 31.0 Anion Gap 4 L BUN 13 Creatinine 1.40 H Estim Creat Clear Calc 47.69 Est GFR (MDRD) Af Amer 64 Est GFR (MDRD) Non-Af 53 L BUN/Creatinine Ratio 9.3 L Glucose 103 Calcium 8.3 L Total Bilirubin 1.10 H AST 74 H ALT 116 H Alkaline Phosphatase 220 H Total Protein 6.4 Albumin 3.0 L Globulin 3.4 Albumin/Globulin Ratio 0.9 Micro: Microbiology 09/25/20 09:50 Mucosa - Nose SARS-CoV-2 Antigen (Rapid) - Final Radiography Diagnostic Testing: Radiology Impression Cholangiogram 09/26/20 15:11 IMPRESSION: The common bile duct does not empty into the duodenum. Electronically Signed: Kevin Jacobsen MD at 8:55 EDT , Service support , Cholangiogram,Operative 09/26/20 16:07 IMPRESSION: Tiny filling defect in the distal portion of the common bile duct. No flow of contrast is seen into the duodenum. Electronically Signed: Kevin Jacobsen MD at 8:52 EDT , Service support , ERCP X-Ray 09/27/20 10:00 IMPRESSION: Imaging provided for ERCP. Electronically Signed: Kevin Jacobsen MD at 13:35 EDT , Service support , Rhythm Strip Rhythm Strip: A-fib Rate: 81 Ectopy: None Physical Exam Const no apparent distress Resp normal respiratory effort GI GI Narrative: dressings intact abdomen is soft ROLAN output is serosanguinous patient underwent ERCP today and did well, plan discharge tomorrow
--- NOTE | 2020-09-27 15:45 | PN.HOSP_ITS ---
Subjective Subjective: Patient was seen and examined. He has some wheezes. Had ERCP done today Objective Data Objective Data Vital Signs: Vital Signs Temp Pulse Resp BP Pulse Ox 97.9 F 87 20 H 131/77 H 95 09/27/20 14:31 09/27/20 14:31 09/27/20 14:31 09/27/20 14:31 09/27/20 14:31 Oxygen Flow Rate (L/min) 96 Oxygen Delivery Method Room Air Weight: 109.7 kg Body Mass Index (BMI) 35.2 Intake & Output: Intake and Output for Last 24 Hours 09/25/20 09/26/20 09/27/20 23:59 23:59 23:59 Intake Total 2278.75 / 2278.75 2403.75 / 2403.75 1498.75 / 1498.75 Output Total 60 / 60 1015 / 1015 Balance 2278.75 / 2278.75 2343.75 / 2343.75 483.75 / 483.75 Lab / Micro Data Result Diagrams: 09/27/20 06:40 09/27/20 06:40 Labs: Laboratory Results - last 24 hr 09/27/20 09/27/20 06:40 06:40 WBC 8.7 RBC 4.32 L Hgb 13.8 Hct 44.1 MCV 102.1 H MCH 31.9 MCHC 31.3 L RDW Std Deviation 51.9 H RDW Coeff of Taty 13.6 Plt Count 133 L MPV 10.4 Immature Gran % (Auto) 0.300 Neut % (Auto) 80.6 H Lymph % (Auto) 8.8 L [place] % (Auto) 10.0 Eos % (Auto) 0.2 Baso % (Auto) 0.1 Absolute Neuts (auto) 7.0 Absolute Lymphs (auto) 0.77 L Nucleated RBC % 0 Sodium 137 Potassium 4.4 Chloride 102 Carbon Dioxide 31.0 Anion Gap 4 L BUN 13 Creatinine 1.40 H Estim Creat Clear Calc 47.69 Est GFR (MDRD) Af Amer 64 Est GFR (MDRD) Non-Af 53 L BUN/Creatinine Ratio 9.3 L Glucose 103 Calcium 8.3 L Total Bilirubin 1.10 H AST 74 H ALT 116 H Alkaline Phosphatase 220 H Total Protein 6.4 Albumin 3.0 L Globulin 3.4 Albumin/Globulin Ratio 0.9 Micro: Microbiology 09/25/20 09:50 Mucosa - Nose SARS-CoV-2 Antigen (Rapid) - Final Radiography Diagnostic Testing: Radiology Impression Cholangiogram 09/26/20 15:11 IMPRESSION: The common bile duct does not empty into the duodenum. Electronically Signed: Kevin Jacobsen MD at 8:55 EDT , Service support , Cholangiogram,Operative 09/26/20 16:07 IMPRESSION: Tiny filling defect in the distal portion of the common bile duct. No flow of contrast is seen into the duodenum. Electronically Signed: Kevin Jacobsen MD at 8:52 EDT , Service support , ERCP X-Ray 09/27/20 10:00 IMPRESSION: Imaging provided for ERCP. Electronically Signed: Kevin Jacobsen MD at 13:35 EDT , Service support , Rhythm Strip Rhythm Strip: A-fib Rate: 81 Ectopy: None Physical Exam Narrative General: Alert, Oriented x3, Cooperative, No apparent distress, Well developed, deaf HEENT: Atraumatic Oral: Moist Mucosa Neck: Supple Lungs: Diminished, wheezes ++ Cardiovascular: HS I+II, regular, no murmurs Abdomen: Bowel Sounds Present, Soft, Non Tender Extremities: No edema Skin: No rashes, No breakdown Neurological: Grossly intact Psych/Mental Status: Appropriate Assessment & Plan Assessment/Plan (1) Cholecystolithiasis: Status: Acute Code(s): K80.20 - Calculus of gallbladder without cholecystitis without obstruction Qualifiers: Biliary obstruction: with biliary obstruction Cholecystitis presence: without cholecystitis Qualified Code(s): K80.21 - Calculus of gallbladder without cholecystitis with obstruction Plan: status post ERCP (2) LUIS EDUARDO (acute kidney injury): Status: Acute Code(s): N17.9 - Acute kidney failure, unspecified Plan: Discontinue IV fluids, Continue with pain control Ipratropium breathing treatments Repeat blood work in a.m. Follow-up on general surgery recommendation Possible dc in am Continue rest of home medications?reviewed Inpatient E&M: 84217 Subs Hosp L2
[2020-09-27] MEDS: dilTIAZem CD 120 MG Capsule PO (17:32)
[2020-09-27] MEDS: Spironolactone 25 MG Tablet PO (17:32)
[2020-09-27] MEDS: 0.9% Saline Lock 10 ML Syringe IV ×2 (20:31→22:56)
[2020-09-27] MEDS: Doxazosin 1 MG Tablet 2 MG PO (22:56)
[2020-09-28] VITALS (16 sets, daily range): BP systolic 107–142; BP diastolic 66–95; PULSE 71–101; RESP 18–19; TEMP 36.5–36.9; O2SAT 80–97
[2020-09-28] MEDS: Acetaminophen 325 MG Tablet 650 MG PO ×2 (00:38→10:00)
[2020-09-28] MEDS: Budesonide Respules 0.5 MG/2 ML AMPUL.NEB. INHALATION ×2 (07:06→19:36)
[2020-09-28] MEDS: Ipratropium/Albuterol Sulfate 3 ML AMPUL.NEB INHALATION ×4 (07:06→19:36)
--- NOTE | 2020-09-28 07:33 | PCM.PN.SRG ---
Subjective Subjective: The patient reports he is feeling better since the ERCP Objective Data Objective Data Abdomen is soft and nondistended Vital Signs: Vital Signs Temp Pulse Resp BP Pulse Ox 97.7 F L 71 18 142/95 H 92 09/28/20 05:35 09/28/20 06:46 09/28/20 05:35 09/28/20 05:35 09/28/20 06:46 Oxygen Flow Rate (L/min) 1 Oxygen Delivery Method Nasal Cannula Weight: 241 lb 13.553 oz Body Mass Index (BMI) 35.2 Intake & Output: Intake and Output for Last 24 Hours 09/26/20 09/27/20 09/28/20 23:59 23:59 23:59 Intake Total 2403.75 / 2403.75 4672.75 / 4672.75 200 / 200 Output Total 60 / 60 3415 / 3415 750 / 750 Balance 2343.75 / 2343.75 1257.75 / 1257.75 -550 / -550 Lab / Micro Data Result Diagrams: 09/27/20 06:40 09/27/20 06:40 Labs: Laboratory Results - last 24 hr 09/27/20 06:40 Sodium 137 Potassium 4.4 Chloride 102 Carbon Dioxide 31.0 Anion Gap 4 L BUN 13 Creatinine 1.40 H Estim Creat Clear Calc 47.69 Est GFR (MDRD) Af Amer 64 Est GFR (MDRD) Non-Af 53 L BUN/Creatinine Ratio 9.3 L Glucose 103 Calcium 8.3 L Total Bilirubin 1.10 H AST 74 H ALT 116 H Alkaline Phosphatase 220 H Total Protein 6.4 Albumin 3.0 L Globulin 3.4 Albumin/Globulin Ratio 0.9 Micro: Microbiology 09/25/20 09:50 Mucosa - Nose SARS-CoV-2 Antigen (Rapid) - Final Radiography Diagnostic Testing: Radiology Impression Cholangiogram 09/26/20 15:11 IMPRESSION: The common bile duct does not empty into the duodenum. Electronically Signed: Kevin Jacobsen MD at 8:55 EDT , Service support , Cholangiogram,Operative 09/26/20 16:07 IMPRESSION: Tiny filling defect in the distal portion of the common bile duct. No flow of contrast is seen into the duodenum. Electronically Signed: Kevin Jacobsen MD at 8:52 EDT , Service support , ERCP X-Ray 09/27/20 10:00 IMPRESSION: Imaging provided for ERCP. Electronically Signed: Kevin Jacobsen MD at 13:35 EDT , Service support , Rhythm Strip Rhythm Strip: A-fib Rate: 81 Ectopy: None Assessment & Plan Assessment/Plan (1) Choledocholithiasis: Status: Resolved Code(s): K80.50 - Calculus of bile duct without cholangitis or cholecystitis without obstruction Plan: The patient had ERCP with 2 stones removed from the common bile duct yesterday. He is feeling well this morning. He says he is still not passing flatus. He is tolerating clears with no nausea or vomiting. Advance diet as tolerated. Follow-up as needed. Dickson Zamora MD Pager: [facility] [address] [place] [address], [address] [place] [address] Office:
[2020-09-28 08:31] LABS: Absolute Lymphocyte Count 0.67 X10^3/uL (0.83-4.51); Absolute Neutrophil Count 8.6 X10^3/uL (2.0-7.7); Eosinophil# 0.01 X10^3/uL; Eosinophils% 0.1 % (0-5); Hematocrit 42.3 % (40-54); Hemoglobin 13.6 g/dL (13.0-16.5); Lymphocyte # 0.67 X10^3/ul (0.83-4.51); Lymphocyte % 6.6 % (19-41); Mean Corp Hgb Conc 32.2 g/dL (32-36); Mean Corpuscular Hgb 32.9 pg (27.0-32.0); Mean Corpuscular Volume 102.2 fL (80-94); Mean Platelet Vol. 10.1 fl (6.2-12.0); Monocyte% 7.9 % (0-10); NRBC Flagged by Analyzer 0 % (0-5); Neutrophil # 8.57 X10^3/uL (2.7-7.7); Platelet Count 130 K/mm3 (150-450); RBC Distribution Width CV 13.5 % (11.6-14.6); RBC Distribution Width SD 51.3 fl (35.1-43.9); Red Blood Count 4.14 M/mm3 (4.6-6.2); White Blood Count 10.1 K/mm3 (4.4-11.0)
[2020-09-28 08:53] LABS: ALB/GLOB Ratio 0.8 RATIO (0.9-2.4); AST(SGOT) 43 U/L (15-37); Alanine Aminotransfer ALT/SGPT 86 U/L (16-61); Albumin, Serum 2.8 g/dL (3.2-5.0); Alkaline Phosphatase 182 U/L (45-117); Anion Gap 5 (5-15); BUN 14 mg/dL (7-18); BUN/Creat Ratio 10.3 RATIO (10-20); Calcium,Total 8.3 mg/dL (8.5-10.1); Chloride 100 mmol/L (98-107); Creatinine, Serum 1.36 mg/dL (0.70-1.30); EST Glomerular Filtration Rate 55 mL/min (>60); Est Glom Filt Rate - Afr Amer 66 mL/min (>60); Globulin 3.6 g/dL (2.2-4.2); Glucose 118 mg/dL (74-106); Potassium 3.6 mmol/L (3.5-5.1); Protein, Total 6.4 g/dL (6.4-8.2); Sodium Level 138 mmol/L (136-145)
--- NOTE | 2020-09-28 09:49 | PN.SURG_ITS ---
Subjective Subjective: Patient feels improved, has minimal pain, but primarily from the drain The ROLAN drain was removed without difficulty, output was mainly serous this morning Overnight output was 40 ml Objective Data Objective Data Vital Signs: Vital Signs Temp Pulse Resp BP Pulse Ox 97.7 F L 88 19 H 142/95 H 93 09/28/20 05:35 09/28/20 07:10 09/28/20 07:10 09/28/20 05:35 09/28/20 07:58 Oxygen Flow Rate (L/min) 2 Oxygen Delivery Method Nasal Cannula Weight: 109.7 kg Body Mass Index (BMI) 35.2 Intake & Output: Intake and Output for Last 24 Hours 09/26/20 09/27/20 09/28/20 23:59 23:59 23:59 Intake Total 2403.75 / 2403.75 4672.75 / 4672.75 200 / 200 Output Total 60 / 60 3415 / 3415 750 / 750 Balance 2343.75 / 2343.75 1257.75 / 1257.75 -550 / -550 Lab / Micro Data Result Diagrams: 09/28/20 08:10 09/28/20 08:10 Labs: Laboratory Results - last 24 hr 09/28/20 09/28/20 08:10 08:10 WBC 10.1 RBC 4.14 L Hgb 13.6 Hct 42.3 MCV 102.2 H MCH 32.9 H MCHC 32.2 RDW Std Deviation 51.3 H RDW Coeff of Taty 13.5 Plt Count 130 L MPV 10.1 Immature Gran % (Auto) 0.400 Neut % (Auto) 85.0 H Lymph % (Auto) 6.6 L [place] % (Auto) 7.9 Eos % (Auto) 0.1 Baso % (Auto) 0.0 Absolute Neuts (auto) 8.6 H Absolute Lymphs (auto) 0.67 L Nucleated RBC % 0 Sodium 138 Potassium 3.6 Chloride 100 Carbon Dioxide 33.0 H Anion Gap 5 BUN 14 Creatinine 1.36 H Estim Creat Clear Calc 49.10 Est GFR (MDRD) Af Amer 66 Est GFR (MDRD) Non-Af 55 L BUN/Creatinine Ratio 10.3 Glucose 118 H Calcium 8.3 L Total Bilirubin 0.90 AST 43 H ALT 86 H Alkaline Phosphatase 182 H Total Protein 6.4 Albumin 2.8 L Globulin 3.6 Albumin/Globulin Ratio 0.8 L Micro: Microbiology 09/25/20 09:50 Mucosa - Nose SARS-CoV-2 Antigen (Rapid) - Final Radiography Diagnostic Testing: Radiology Impression ERCP X-Ray 09/27/20 10:00 IMPRESSION: Imaging provided for ERCP. Electronically Signed: Kevin Jacobsen MD at 13:35 EDT , Service support , Rhythm Strip Rhythm Strip: A-fib Rate: 81 Ectopy: None Physical Exam Const no apparent distress Resp normal respiratory effort Resp Narrative: but wheezing noted GI GI Narrative: abdomen is soft but distended/protuberant - unchanged from base line Dressings intact ROLAN removed without difficulty
--- NOTE | 2020-09-28 09:57 | DCINST_ITS ---
Discharge Instructions Outpatient Procedure Reason For Visit: CHOLELITHIASIS, ABDOMINAL PAIN, ELEVATED BILL Diet Discharge Diet: No restrictions (avoid carbonated beverages for a couple of days, drink plenty of fluids) Activity Discharge Activity: Return to Normal Activity Follow Up Care Test Results: Test results from this visit will be discussed in further detail at your follow-up appointment, if applicable. Pending Tests Upon Discharge: Ignore above heading. Recommended pain control regimen - May take 600 mg ibuprofen (Motrin) and then in 3-4 hours, may take 650 mg acetaminophen (Tylenol), then in 3-4 hours may take 600 mg ibuprofen, then in 3- 4 hours may take 650 mg acetaminophen and so on for 2-3 days May take narcotic pain medication for pain that is not controlled by above and at night for comfort through the night Leave dressings in place May get dressings wet in shower - do not scrub in the area and pat dry Do not soak - no tub baths/swimming Ice applied to areas of discomfort may help No lifting/pushing/pulling greater than 20 pounds for a month. Please call for a follow up appointment in 1-2 weeks, . Discharge Plan Admission Admit Date/Time: 09/24/20 14:46 Attending Provider: Violeta Hernandez Primary Care Provider: Kirk Ervin Consulting Providers: Cindy Watkins Instructions Patient Instructions: ED Chest Pain, Noncardiac Discharge Orders/Prescriptions Prescriptions: No Action spironolactone 25 mg tablet 25 mg PO DAILY RF: 0 terazosin 2 mg capsule 2 mg PO QHS RF: 0 fluticasone propion-salmeterol 1 PUFF inhaler 1 puff inhalation BID RF: 0 albuterol sulfate 1 INHALER inhaler 2 puff inhalation Q4H PRN PRN (Reason: Shortness Of Breath) RF: 0 methylcellulose (laxative) 500 MG tablet 500 mg PO BID RF: 0 multivitamin with minerals 1 EACH tablet 1 tablet PO DAILY RF: 0 calcium citrate-vitamin D3 1 EACH tablet 1 tab PO DAILY RF: 0 furosemide 40 MG tablet 40 mg PO DAILY RF: 0 pantoprazole 40 MG tablet,delayed release (DR/EC) 40 mg PO DAILY RF: 0 diltiazem HCl 120 MG capsule,extended release 24hr 120 mg PO DAILY RF: 0 apixaban 5 MG tablet 5 mg PO BID RF: 0 Potassium Chloride 20 MEQ Tab.Er.Prt 20 meq PO DAILY RF: 0 Referrals: Kirk Ervin MD [Primary Care Provider] -
[2020-09-28] MEDS: Pantoprazole Sodium 40 MG Tablet PO (10:00)
[2020-09-28] MEDS: Furosemide 40 MG Tablet PO (10:01)
[2020-09-28] MEDS: dilTIAZem CD 120 MG Capsule PO (10:13)
[2020-09-28] MEDS: Spironolactone 25 MG Tablet PO (10:13)
--- NOTE | 2020-09-28 10:22 | PCM.PN.HOSP ---
Subjective Subjective: Patient was seen and examined. He has generalized wheezes. He diuresed a lot yesterday. He is off IV fluids. Currently on 2 L of oxygen. Objective Data Objective Data Vital Signs: Vital Signs Temp Pulse Resp BP Pulse Ox 97.7 F L 88 19 H 142/95 H 93 09/28/20 05:35 09/28/20 07:10 09/28/20 07:10 09/28/20 05:35 09/28/20 07:58 Oxygen Flow Rate (L/min) 2 Oxygen Delivery Method Nasal Cannula Weight: 109.7 kg Body Mass Index (BMI) 35.2 Intake & Output: Intake and Output for Last 24 Hours 09/26/20 09/27/20 09/28/20 23:59 23:59 23:59 Intake Total 2403.75 / 2403.75 4672.75 / 4672.75 200 / 200 Output Total 60 / 60 3415 / 3415 750 / 750 Balance 2343.75 / 2343.75 1257.75 / 1257.75 -550 / -550 Lab / Micro Data Result Diagrams: 09/28/20 08:10 09/28/20 08:10 Labs: Laboratory Results - last 24 hr 09/28/20 09/28/20 08:10 08:10 WBC 10.1 RBC 4.14 L Hgb 13.6 Hct 42.3 MCV 102.2 H MCH 32.9 H MCHC 32.2 RDW Std Deviation 51.3 H RDW Coeff of Taty 13.5 Plt Count 130 L MPV 10.1 Immature Gran % (Auto) 0.400 Neut % (Auto) 85.0 H Lymph % (Auto) 6.6 L [place] % (Auto) 7.9 Eos % (Auto) 0.1 Baso % (Auto) 0.0 Absolute Neuts (auto) 8.6 H Absolute Lymphs (auto) 0.67 L Nucleated RBC % 0 Sodium 138 Potassium 3.6 Chloride 100 Carbon Dioxide 33.0 H Anion Gap 5 BUN 14 Creatinine 1.36 H Estim Creat Clear Calc 49.10 Est GFR (MDRD) Af Amer 66 Est GFR (MDRD) Non-Af 55 L BUN/Creatinine Ratio 10.3 Glucose 118 H Calcium 8.3 L Total Bilirubin 0.90 AST 43 H ALT 86 H Alkaline Phosphatase 182 H Total Protein 6.4 Albumin 2.8 L Globulin 3.6 Albumin/Globulin Ratio 0.8 L Micro: Microbiology 09/25/20 09:50 Mucosa - Nose SARS-CoV-2 Antigen (Rapid) - Final Radiography Diagnostic Testing: Radiology Impression ERCP X-Ray 09/27/20 10:00 IMPRESSION: Imaging provided for ERCP. Electronically Signed: Kevni Jacobsen MD at 13:35 EDT , Service support , Rhythm Strip Rhythm Strip: A-fib Rate: 81 Ectopy: None Physical Exam Narrative General: Alert, Oriented x3, Cooperative, No apparent distress, Well developed, deaf HEENT: Atraumatic Oral: Moist Mucosa Neck: Supple Lungs: Diminished, wheezes ++ Cardiovascular: HS I+II, regular, no murmurs Abdomen: Bowel Sounds Present, Soft, Non Tender Extremities: No edema Skin: No rashes, No breakdown Neurological: Grossly intact Psych/Mental Status: Appropriate Assessment & Plan Assessment/Plan (1) Cholecystolithiasis: Status: Acute Code(s): K80.20 - Calculus of gallbladder without cholecystitis without obstruction Qualifiers: Cholecystitis presence: without cholecystitis Biliary obstruction: with biliary obstruction Qualified Code(s): K80.21 - Calculus of gallbladder without cholecystitis with obstruction Plan: status post ERCP (2) LUIS EDUARDO (acute kidney injury): Status: Resolved Code(s): N17.9 - Acute kidney failure, unspecified (3) COPD with acute exacerbation: Status: Chronic Code(s): J44.1 - Chronic obstructive pulmonary disease with (acute) exacerbation Plan: We will treat empirically for acute COPD exacerbation with IV Solu-Medrol, continue on breathing treatments Lasix IV 40 mg x 1, continue on rest of home p.o. Lasix Continue with pain control Continue rest of home medications?reviewed Patient will be reassessed for ambulatory home oxygen requirements and possibly be discharged home with oxygen He would need prednisone 40 mg p.o. daily x5 Inpatient E&M: 25992 Subs Hosp L2
[2020-09-28] MEDS: MethylPREDNISolone 125 MG/2 ML Vial IV (11:07)
[2020-09-28] MEDS: Furosemide 40 MG/4 ML Vial IV (11:07)
[2020-09-28] MEDS: oxyCODONE 5 MG Tablet PO (11:07)
--- NOTE | 2020-09-28 15:25 | CASEMGMT ---
EUGENIA CM in to discuss discharge needs with patient. Patient denies need for HHC. Patient may need home oxygen at discharge. Patient was provided a list of DME providers consistent with the patient?s preferred geographic region, medical needs, and insurance network. The patient?s preferred provider is [facility]. EUGENIA RYDER put green sheet on chart if patient qualifies for home oxygen.
[2020-09-28] MEDS: Doxazosin 1 MG Tablet 2 MG PO (21:34)
[2020-09-28] MEDS: 0.9% Saline Lock 10 ML Syringe IV (21:35)
[2020-09-29] MEDS: Acetaminophen 325 MG Tablet 650 MG PO ×2 (00:57→07:20)
[2020-09-29 03:22] VITALS: BP 124/87; PULSE 85; RESP 18; TEMP 36.9; O2SAT 97
[2020-09-29] MEDS: 0.9% Saline Lock 10 ML Syringe IV (05:46)
[2020-09-29 07:51] VITALS: PULSE 85; RESP 20; O2SAT 95
[2020-09-29] MEDS: Ipratropium/Albuterol Sulfate 3 ML AMPUL.NEB INHALATION ×2 (07:51→11:18)
[2020-09-29 09:11] VITALS: BP 127/63; PULSE 87; RESP 16; TEMP 36.8; O2SAT 93
[2020-09-29] MEDS: Furosemide 40 MG Tablet PO (09:25)
[2020-09-29] MEDS: dilTIAZem CD 120 MG Capsule PO (09:25)
[2020-09-29] MEDS: Pantoprazole Sodium 40 MG Tablet PO (09:25)
[2020-09-29] MEDS: Spironolactone 25 MG Tablet PO (09:25)
[2020-09-29 10:35] VITALS: O2SAT 86; O2SAT 94; O2SAT 95
--- NOTE | 2020-09-29 10:46 | CASEMGMT ---
EUGENIA RYDER NOTE: Pt qualifies for O2 @ 2 l/m w/exertion. Script obtained from Dr Hernandez and faxed to [facility]. Call placed to [facility] and spoke w/ Viviane. She was made aware pt is being discharged home today and will need portable O2 tank delivered to his room. EUGENIA RYDER to room to talk with pt. He was made aware he is to call [facility] once he arrives home for further O2 portable tanks and concentrator can be delivered to his home. Pt inquired if he can get humidification on his oxygen at home d/t issues w/dry nose. Viviane @ [facility] was made aware of this request. She states she will notify the assistant gm of content & delivery to have this added. Pt denies having any further discharge needs. Chrissy BLANK RN CM
[2020-09-29 11:18] VITALS: RESP 18
--- NOTE | 2020-09-29 11:20 | CPS ---
Pt thinks aerosols are causing headaches each time they are given, stopped aerosol & informed Garry BELLO.
--- NOTE | 2020-09-29 11:37 | PCM.PN.HOSP ---
Subjective Subjective: Patient was seen and examined. He feels much better. He is saturating well on room air. He,however, needed 2 L of oxygen on ambulation. Objective Data Objective Data Vital Signs: Vital Signs Temp Pulse Resp BP Pulse Ox 98.3 F 87 18 127/63 H 95 09/29/20 09:11 09/29/20 09:11 09/29/20 11:18 09/29/20 09:11 09/29/20 10:35 Oxygen Flow Rate (L/min) [ 2 AMBULATING with Oxygen #3] Oxygen Flow Rate (L/min) 2 Oxygen Delivery Method Room Air Weight: 241 lb 13.553 oz Body Mass Index (BMI) 35.2 Intake & Output: Intake and Output for Last 24 Hours 09/27/20 09/28/20 09/29/20 23:59 23:59 23:59 Intake Total 4672.75 / 4672.75 1598.5 / 1598.5 50 / 50 Output Total 3415 / 3415 1350 / 1350 450 / 450 Balance 1257.75 / 1257.75 248.5 / 248.5 -400 / -400 Lab / Micro Data Result Diagrams: 09/28/20 08:10 09/28/20 08:10 Micro: Microbiology 09/25/20 09:50 Mucosa - Nose SARS-CoV-2 Antigen (Rapid) - Final Rhythm Strip Rhythm Strip: A-fib Rate: 81 Ectopy: None Physical Exam Narrative General: Alert, Oriented x3, Cooperative, No apparent distress, Well developed, deaf HEENT: Atraumatic Oral: Moist Mucosa Neck: Supple Lungs: Diminished, no wheezes heard Cardiovascular: HS I+II, regular, no murmurs Abdomen: Bowel Sounds Present, Soft, Non Tender Extremities: No edema Skin: No rashes, No breakdown Neurological: Grossly intact Psych/Mental Status: Appropriate Assessment & Plan Assessment/Plan (1) Cholecystolithiasis: Status: Acute Code(s): K80.20 - Calculus of gallbladder without cholecystitis without obstruction Qualifiers: Cholecystitis presence: without cholecystitis Biliary obstruction: with biliary obstruction Qualified Code(s): K80.21 - Calculus of gallbladder without cholecystitis with obstruction Plan: status post ERCP (2) LUIS EDUARDO (acute kidney injury): Status: Resolved Code(s): N17.9 - Acute kidney failure, unspecified (3) COPD with acute exacerbation: Status: Chronic Code(s): J44.1 - Chronic obstructive pulmonary disease with (acute) exacerbation Plan: Patient is improved. He will be discharged home with oxygen. He would need a short burst of prednisone 40 mg daily x5. He should continue with the rest of his home medications and breathing treatments. He will follow-up with his primary care doctor within 1 to 2 weeks. Continue per general surgery recommendations Visit Charges Inpatient E&M: 57308 Subs Hosp L2
--- NOTE | 2020-10-02 10:15 | DS.PCM_ITS ---
Discharge Summary Date of Admission: 09/24/20 Date of Discharge: 09/28/20 Summary: Patient admitted for RUQ abdominal pain and cholelithiasis with findings of elevated LFTs. Underwent laparoscopic cholecystectomy with IOC on 09/26/2020 Found to have choledocholithiasis by IOC. Underwent ERCP on 09/27/2020 - with sphincterotomy and stent placement and removal of choledocholithiasis. Developed mild fluid overload and treated by Internal Medicine. Discharged to home Meaningful Use Info Meaningful Use Diagnoses (Choose all that apply): None applicable Discharge Plan Admission Admit Date/Time: 09/24/20 14:46 Attending Provider: Violeta Hernandez Primary Care Provider: Kirk Ervin Consulting Providers: Cindy Watkins Instructions Patient Instructions: ED Chest Pain, Noncardiac Additional Instructions / Restrictions: Recommended pain control regimen - May take 600 mg ibuprofen (Motrin) and then in 3-4 hours, may take 650 mg acetaminophen (Tylenol), then in 3-4 hours may take 600 mg ibuprofen, then in 3- 4 hours may take 650 mg acetaminophen and so on for 2-3 days May take narcotic pain medication for pain that is not controlled by above and at night for comfort through the night Leave dressings in place May get dressings wet in shower - do not scrub in the area and pat dry Do not soak - no tub baths/swimming No lifting/pushing/pulling greater than 20 pounds for .two weeks Please call for a follow up appointment in 1 weeks, Discharge Orders/Prescriptions Prescriptions: New hydrocodone-acetaminophen 5-325 mg tablet 1 tab PO Q8H 5 Days Qty: 15 RF: 0 prednisone 20 mg tablet 40 mg PO DAILY 5 Days Qty: 10 RF: 0 No Action spironolactone 25 mg tablet 25 mg PO DAILY RF: 0 terazosin 2 mg capsule 2 mg PO QHS RF: 0 fluticasone propion-salmeterol 1 PUFF inhaler 1 puff inhalation BID RF: 0 albuterol sulfate 1 INHALER inhaler 2 puff inhalation Q4H PRN PRN (Reason: Shortness Of Breath) RF: 0 methylcellulose (laxative) 500 MG tablet 500 mg PO BID RF: 0 multivitamin with minerals 1 EACH tablet 1 tablet PO DAILY RF: 0 calcium citrate-vitamin D3 1 EACH tablet 1 tab PO DAILY RF: 0 furosemide 40 MG tablet 40 mg PO DAILY RF: 0 pantoprazole 40 MG tablet,delayed release (DR/EC) 40 mg PO DAILY RF: 0 diltiazem HCl 120 MG capsule,extended release 24hr 120 mg PO DAILY RF: 0 apixaban 5 MG tablet 5 mg PO BID RF: 0 Potassium Chloride 20 MEQ Tab.Er.Prt 20 meq PO DAILY RF: 0 Referrals: Kirk Ervin MD [Primary Care Provider] - Disposition Disposition (needs filled in before D/C Order can be placed): Home, self care
--- NOTE | 2020-10-02 13:57 | CASEMGMT ---
EUGENIA RYDER Discharge Follow-up Phone Call: PAT: 13 Strata: 3 Call Date: 10/02/20 Discharge Date: Time of Call: 1357 Duration: 1 min Admitting Diagnosis: Cholelithiasis, Abdominal pain RN BRITNI attempted to complete follow-up phone call after recent hospitalization. No answer, voice message left with return contact information.
== END 2020-09-29 14:25 | disposition home or self-care (01) | DRG 418 ==
LOC: ED 14:50 → MS3 15:18
PROVIDERS: Internal Medicine; Surgery; Admitting Provider Surgery; Emergency Provider Emergency Medicine; PCP Family Medicine; Visit Provider Internal Medicine
PROC: 0FT44ZZ Resection of Gallbladder, Percutaneous Endoscopic Approach (ICD-10-PCS; CPT 47610; principal; 2020-09-26 14:40)
PROC: 0FC98ZZ Extirpation of Matter from Common Bile Duct, Via Natural or Artificial Opening Endoscopic (ICD-10-PCS; CPT 43260; principal; 2020-09-27 10:30)
DX: K80.65 Calculus of gallbladder and bile duct with chronic cholecystitis with obstruction (principal); I48.19 Other persistent atrial fibrillation; N17.9 Acute kidney failure, unspecified; E87.1 Hypo-osmolality and hyponatremia; J44.1 Chronic obstructive pulmonary disease with (acute) exacerbation; K80.20 Calculus of gallbladder without cholecystitis without obstruction; E87.70 Fluid overload, unspecified; E83.52 Hypercalcemia; Z20.822 Contact with and (suspected) exposure to COVID-19; I12.9 Hypertensive chronic kidney disease with stage 1 through stage 4 chronic kidney disease, or unspecified chronic kidney disease; N18.2 Chronic kidney disease, stage 2 (mild); I27.20 Pulmonary hypertension, unspecified; H91.90 Unspecified hearing loss, unspecified ear; M19.90 Unspecified osteoarthritis, unspecified site; N40.0 Benign prostatic hyperplasia without lower urinary tract symptoms; K21.9 Gastro-esophageal reflux disease without esophagitis; Z79.01 Long term (current) use of anticoagulants; Z79.899 Other long term (current) drug therapy; Z87.891 Personal history of nicotine dependence; Z85.51 Personal history of malignant neoplasm of bladder; Z96.652 Presence of left artificial knee joint; Z85.46 Personal history of malignant neoplasm of prostate
CPT/HCPCS: 36415; 71275; 74175; 74300; 74301; 74328; 76000; 76705; 80053; 81001; 83690; 83735; 84484; 85025; 87426; 88304; 93005; 94640; 94762; 99285; J7050; J7120; Q9967; A4216; J1610; J1940; J2405

== ENCOUNTER → 2021-01-02 07:06 | Outpatient (CLI) | payer MEDICARE, OTHER, SELFPAY ==
[2020-12-18 08:46] VITALS: BMI 36.6
--- NOTE | 2021-01-02 13:21 | STRESSREP ---
Stress Test Report Date: 01-02-2021 Procedure: Pharmacologic stress nuclear imaging study Indications: Chest pain; atrial fibrillation; peripheral artery disease Consent: Per the patient Procedure: The patient underwent pharmacologic (Regadenoson 0.4mg ) evaluation with a peak heart rate of 87 beats per minute (58%predicted maximal heart rate) and a peak blood pressure of 142/80 mmHg. The baseline ECG demonstrated atrial fibrillation; nonspecific T wave abnormality. The peak pharmacologic ECG demonstrated no obvious ECG changes. There was a rare PVC during infusion and recovery. There was no complaint of chest discomfort during pharmacologic infusion or recovery. The examination was discontinued secondary to completion of protocol. Impression: 1. Pharmacologic (Regadenoson) evaluation 2. Peak pharmacologic ECG with continued nonspecific T wave abnormality with no obvious ECG changes. 3. There was a rare PVC during infusion and recovery. 4. Nuclear images pending Myocardial perfusion imaging study: Technique: The patient was injected with 14.2 millicuries of technetium 99m Cardiolite and subsequently rest SPECT Cardiolite nuclear imaging was obtained in the horizontal long, vertical long, and short axis views. The patient underwent pharmacologic (Regadenoson) evaluation with a peak heart rate of 87 beats per minute (58% percent predicted maximal heart rate) and a peak blood pressure of 142/80mmHg. The patient was injected with 45.0 millicuries of technetium 99m Cardiolite and subsequently stress SPECT Cardiolite nuclear imaging was obtained in the horizontal long, vertical long, and short axis views. A gated Cardiolite study at peak stress was obtained. Interpretation: Rest and stress SPECT Cardiolite nuclear imaging status post realignment, normalization, and attenuation correction demonstrate relative uniform tracer uptake and myocardial perfusion appearing within normal limits. There is end systolic thickening and brightening. The gated Cardiolite study demonstrates myocardial thickening and inward wall motion. The reported LVEF is 68%. Impression: 1. Rest and stress SPECT Cardiolite nuclear imaging demonstrate relative uniform tracer uptake and myocardial perfusion appearing within normal limits. 2. The gated Cardiolite study reports an LVEF of 68%. This note was generated with [employer] software. It may contain incorrect words, spelling, and punctuation that were not noted in checking the note before signing.
== END ==
PROVIDERS: PCP Family Medicine; Referring Provider Nurse Practitioner Gerontology; Visit Provider Nurse Practitioner Gerontology
DX: R07.9 Chest pain, unspecified (principal)
CPT/HCPCS: 78452; 93017; A9500; A4216; J2785

== ENCOUNTER 2021-08-02 10:56 | Outpatient (CLI) | payer MEDICARE, OTHER, SELFPAY ==
--- NOTE | 2021-08-02 11:07 | ART_ITS ---
Reason For Study: PVD Procedure A bilateral lower extremity continuous wave Doppler with analog waveform analysis,segmental pressures,and ankle brachial indexes without exercise. Left Segmental Pressures Left brachial= 144mmHg. Left posterior tibial artery = 179mmHg. Left dorsalis pedis artery = 163mmHg. Left digit = 140 mmHg. The left dorsalis pedis waveforms are triphasic. The left posterior tibial artery waveforms are triphasic. Right Segmental Pressures Right brachial= 150mmHg. Right posterior tibial artery = 165mmHg. Right dorsalis pedis artery = 158mmHg. Right digit = 144 mmHg. The right dorsalis pedis waveforms are triphasic. The right posterior tibial artery waveforms are triphasic. Indices The right ankle brachial index by the dorsalis pedis is 1.05. The right ankle brachial index by the posterior tibial artery is 1.1. The right digital-brachial index is .96. The left ankle brachial index by the dorsalis pedis is 1.09. The left ankle brachial index by the posterior tibial artery is 1.19. The left digital-brachial index is .93. Did not exercise pt. Pt walks with a cane and is wearing house slippers. VL/Lower Ext Art Exam w/o Exercis Interpretation Summary Triphasic Doppler waveforms are noted at ankle level bilaterally. Pulse-volume recordings appear satisfactory at all levels bilaterally, including low thigh, calf, ankle, and d igital levels. Resting ankle-brachial indices are normal bilaterally. Digital-brachial indices are normal bilaterally. There is no evidence of significant arterial occlusive disease in the lower ext remities bilaterally. Ordering Physician: Bran Williamson Performed By: David Aguilar, RVT
== END 2021-08-02 23:59 | disposition home or self-care (01) ==
LOC: CVS 10:59
PROVIDERS: PCP Family Medicine; Referring Provider Podiatrist; Visit Provider Podiatrist
DX: I73.9 Peripheral vascular disease, unspecified (principal)
CPT/HCPCS: 93923

== ENCOUNTER 2021-09-10 12:55 | Outpatient (CLI) | payer MEDICARE, OTHER, SELFPAY ==
--- NOTE | 2021-09-10 13:04 | CT_ITS ---
EXAM: CT ANGIOGRAPHY ABDOMEN AND PELVIS WITH RUNOFF TO THE LOWER EXTREMITIES WITH INTRAVENOUS CONTRAST : 1950 CLINICAL INDICATION: AAA TECHNIQUE: Helically acquired angiography images were obtained of the abdomen, pelvis and lower extremities with intravenous contrast using CTA runoff protocol. This CT exam was performed using one or more of the following dose reduction techniques: automated exposure control, adjustment of the mA and/or kV according to patient size, and/or use of iterative reconstruction technique. This report was created using [employer] report generation technology. MIP reconstructed images were created and reviewed. CONTRAST: IV 100mL [id number] COMPARISON: CT abdomen and pelvis September 24, 2020 FINDINGS: VASCULATURE: AORTA: Stable 3.6 cm saccular infrarenal abdominal aortic aneurysm. No occlusion or significant stenosis. No dissection. CELIAC TRUNK AND MESENTERIC ARTERIES: No acute findings. No occlusion or significant stenosis. No dissection. RENAL ARTERIES: No acute findings. No occlusion or significant stenosis. No dissection. RIGHT ILIAC ARTERIES: No acute findings. No occlusion or significant stenosis. No dissection. RIGHT FEMORAL/POPLITEAL ARTERIES: Popliteal arteries not evaluated at the level of the popliteal fossa secondary to significant streak artifacts from the bilateral knee prostheses. Popliteal arteries are otherwise unremarkable. RIGHT CALF/FOOT ARTERIES: No acute findings. No occlusion or significant stenosis. LEFT ILIAC ARTERIES: No acute findings. No occlusion or significant stenosis. No dissection. LEFT FEMORAL/POPLITEAL ARTERIES: Patent. LEFT CALF/FOOT ARTERIES: No acute findings. No occlusion or significant stenosis. LOWER THORAX: Unremarkable. Lung bases are clear. Stable mild cardiomegaly. No pericardial effusion. ABDOMEN: LIVER: Unremarkable. Homogeneous. No focal mass. GALLBLADDER AND BILE DUCTS: Interval cholecystectomy. No intra- or extrahepatic biliary ductal dilation. PANCREAS: Unremarkable. No focal cystic or solid mass. SPLEEN: Unremarkable. Normal size without focal cystic or solid mass. ADRENALS: Unremarkable. No nodules. KIDNEYS AND URETERS: Unremarkable. Normal renal size and position. No hydronephrosis. STOMACH AND BOWEL: Small linear radiopaque foreign body noted along the proximal sigmoid colon and along the proximal descending colon. No stomach or bowel distention. No focal inflammatory change. PELVIS: APPENDIX: Appendix is visualised and normal in appearance. BLADDER: Unremarkable. REPRODUCTIVE: Unremarkable as visualized. No mass. ABDOMEN, PELVIS and LOWER EXTREMITIES: INTRAPERITONEAL SPACE: Unremarkable. No ascites or other fluid collection. No free air. BONES/JOINTS: Unremarkable. No suspicious lytic or blastic abnormality. SOFT TISSUES: Bilateral fat-containing inguinal hernias are noted. Fat-containing periumbilical hernia appears smaller in size on the current study. LYMPH NODES: Unremarkable. No enlarged lymph nodes. CT/CTA Abd w/Runoff W/WO Contrast IMPRESSION: 1. Stable 3.6 cm infrarenal saccular aneurysm. 2. No evidence of significant peripheral vascular disease. Individualized dose optimization techniques were used for this CT. at 1111 Reported and signed by: Johan Cox MD Electronically Signed: Johan Cox MD at 11:10 EDT ,
[2021-09-10 13:21] LABS: CREATININE FINGERSTICK 1.2 mg/dL (0.70-1.30); EGFR FINGERSTICK > 60.0000 mL/min (>60)
== END 2021-09-10 23:59 | disposition home or self-care (01) ==
LOC: CT 12:56
PROVIDERS: PCP Family Medicine; Visit Provider Internal Medicine Cardiovascular Disease
DX: I71.4 Abdominal aortic aneurysm, without rupture (principal)
CPT/HCPCS: 75635; Q9967

== ENCOUNTER 2021-12-05 15:06 | Emergency (ER) | payer MEDICARE, OTHER, SELFPAY ==
[2021-12-05 15:07] VITALS: BP 168/96; PULSE 92; RESP 18; TEMP 36.3; O2SAT 95; BMI 29.5
--- NOTE | 2021-12-05 15:19 | RAD_ITS ---
STUDY: X-RAY CHEST REASON FOR EXAM: Male, 71 years old. chest pain TECHNIQUE: 1 view COMPARISON: 09/05/2020 FINDINGS: Cardiomediastinal silhouette is unremarkable. Costophrenic angles are sharp. Lungs are clear. The trachea is midline. There is no pneumothorax. The bones are grossly intact. RAD/Chest 1 View (Portable) IMPRESSION: No acute cardiopulmonary process. Electronically Signed: Heriberto Santiago MD at 16:07 EDT ,
--- NOTE | 2021-12-05 15:19 | EKG12_ITS ---
Test Reason : cp Blood Pressure : / mmHG Vent. Rate : 063 BPM Atrial Rate : 000 BPM P-R Int : 000 ms QRS Dur : 094 ms QT Int : 392 ms P-R-T Axes : 000 032 029 degrees QTc Int : 401 ms Atrial fibrillation Abnormal ECG Confirmed by JEROD SEALS, TING ([id number]), pictures editor VIKTORIA WILLIAM ([id number]) on 12/08/2021 9:36:41 AM Referred By: Maria Confirmed By:TING NEWSOME MD
--- NOTE | 2021-12-05 15:20 | EDS_ITS ---
HPI History of Present Illness Chief Complaint: Chest Pain Informant: patient and spouse/S.O. Narrative Narrative: Here with spouse patient is deaf however can read lips chest pains 2 hours prior to arrival while watching TV. Pain down left arm with numbness. He does have history of COPD reports increasing cough due to change in seasons recently. There is tightness and wheezing. Remote tobacco history. History of atrial fibrillation on Eliquis followed by Dr. Silver. Denies any cardiac stents or coronary disease. Denies history of heart cath. Prediabetic. Denies hyperlipidemia. Reports pain is 7. Prior Similar Symptoms: No CVD Risk Factors: Positive for Hypertension, Diabetes and Smoking [facility] Medical History Abdominal aortic aneurysm without rupture Aneurysm of infrarenal abdominal aorta Asthma Chest pain Cholecystolithiasis COPD (chronic obstructive pulmonary disease) Deaf Essential hypertension History of gastritis Hypokalemia Osteoarthritis Persistent atrial fibrillation Postoperative atrial fibrillation Pulmonary hypertension Home Medications albuterol sulfate 90 mcg/actuation aerosol inhaler 2 puff inhalation Q4H PRN PRN Shortness Of Breath 09/06/14 [History Last Taken Unknown] methylcellulose (laxative) 500 mg tablet 500 mg PO BID bowels 09/03/15 [History Last Taken Unknown] terazosin 2 mg capsule 2 mg PO QHS bladder 12/21/19 [History Last Taken 09/23/20 22:00] multivitamin with minerals 1 tablet PO DAILY supplement 09/24/20 [History Last Taken Unknown] pantoprazole 40 mg tablet,delayed release 40 mg PO DAILY acid reflux 09/24/20 [History Last Taken 09/23/20] diltiazem HCl 120 mg capsule,extended release 24 hr 120 mg PO DAILY heart #90 caps 11/24/20 [Rx Last Taken Unknown] fluticasone fur. 100 mcg-umeclid 62.5 mcg-vilant 25 mcg inhalat.powder (Trelegy Ellipta) 1 inh inhalation DAILY 12/18/20 [History Last Taken Unknown] apixaban 5 mg tablet 5 mg PO BID #60 tabs 06/22/21 [Rx Last Taken Unknown] furosemide 40 mg tablet 40 mg PO DAILY water pill #90 tabs 10/05/21 [Rx Last Taken Unknown] azithromycin 250 mg tablet 250 mg PO DAILY #4 tabs 12/05/21 [Rx Last Taken Unknown] potassium chloride 20 mEq tablet,extended release 40 meq PO DAILY 12/05/21 [History Last Taken Unknown] prednisone 20 mg tablet 60 mg PO DAILY #12 tabs 12/05/21 [Rx Last Taken Unknown] Allergy/AdvReac Type Severity Reaction Status Date / Time aspirin AdvReac Intermediate Excess Verified 12/05/21 15:10 bleeding,GI upset codeine AdvReac Intermediate GI upset Verified 12/05/21 15:10 Family History Father Colon cancer Prostate cancer Surgical History History of bilateral cataract extraction (~2015) History of bilateral knee arthroplasty History of cholecystectomy (~08/2020) History of cochlear implant History of colonoscopy History of esophagogastroduodenoscopy (EGD) History of tonsillectomy History of umbilical hernia repair (~08/2020) Status post bilateral knee replacements Status post excision of lipoma Status post total left knee replacement Social History Smoking Status: Former smoker how long ago did patient quit smokin years ago alcohol intake: current alcohol intake frequency: holidays/special occasions only substance use type: does not use caffeine: Yes Type: coffee ROS ROS ED Constitutional Constitutional ED: Denies chills, fever(s) or sweats Eyes Eyes: Denies change in vision ENT ENT ED: Denies dysphagia or sore throat Cardiovascular Cardiovascular: Reports chest pain; Denies leg edema, palpitations or racing heartbeat Respiratory/Chest Respiratory/Chest: Reports cough and dyspnea; Denies dyspnea on exertion Gastrointestinal Gastrointestinal: Denies abdominal pain, diarrhea, nausea or vomiting Genitourinary Genitourinary ED: Denies dysuria, hematuria or urinary frequency Musculoskeletal Musculoskeletal: Denies back pain, extremity pain or neck pain Integumentary Denies rash or wounds Neurologic Neurologic: Denies headache(s), paresthesias or weakness EXAM Physical Exam Const Vital Signs: 12/05/21 15:07 12/05/21 15:19 12/05/21 15:31 Temperature 97.4 F L Temperature Source Temporal Pulse Rate 92 75 Respiratory Rate 18 18 Respiratory Effort Blood Pressure 168/96 H Blood Pressure Mean 120 Pulse Ox 95 Oxygen Delivery Method Room Air Room Air 12/05/21 16:12 12/05/21 16:32 12/05/21 18:22 Temperature Temperature Source Pulse Rate 68 79 Respiratory Rate 14 22 H Respiratory Effort Normal Non-Labored Blood Pressure 137/85 H 145/93 H Blood Pressure Mean 102 110 Pulse Ox 96 95 Oxygen Delivery Method Room Air Room Air 12/05/21 19:00 Temperature Temperature Source Pulse Rate Respiratory Rate 18 Respiratory Effort Blood Pressure Blood Pressure Mean Pulse Ox Oxygen Delivery Method Positive well nourished and well developed Constitutional Narrative: Patient speaking in short sentences General Appearance ED: well developed HEENT Reports moist mucous membranes normocephalic and atraumatic Eyes PERRL, EOMs intact bilaterally and conjunctivae normal General Eye ED: Yes normal appearance of both eyes Neck no lymphadenopathy and supple General: Negative for tenderness Chest Wall Chest: Negative for tenderness Resp Resp Narrative: Diminished breath sounds at bases Effort and Inspection: symmetric chest movement; Negative for respiratory distress Cardio regular rhythm and no murmurs Rhythm: abnormal rhythm Peripheral Pulses: pulses 2+ throughout GI normal to inspection, nondistended, normoactive bowel sounds and non-tender Palpation: Negative for guarding or rebound tenderness present Back/Spine no CVA tenderness and no thoracic nor lumbar tenderness Extremity normal to inspection General Extremety ED: Negative for edema or tenderness General Extremity: Negative for edema Neuro oriented x3 and no sensory deficits noted Sensorium / Orientation: awake and alert Skin no rashes or lesions noted and no wounds Heart Score History: Slightly/Non-Suspicious ECG: Normal Age: >/= 65 years Risk Factors: >/= 3 Risk Factors or History of CAD Troponin: </= Normal Limit Score: 4 MDM MDM MDM Narrative Medical decision making narrative: Patient EKG rate controlled atrial fibrillation. Cardiac work-up initiated. Chest x-ray 1 view reviewed by myself and read by radiology shows no acute process. He was treated aerosol treatment and steroids with his COPD. 1700: Lab work initial troponin negative. Clinically was improving after aerosol treatments and steroids. Heart score is a 4. Awaiting repeat troponin. Repeat troponin down to 10. Symptoms clinically improved pulse ox 96% on room air. He is started on Zithromax. Additional 4 days of antibiotics and steroids for COPD exacerbation. He will follow-up as an outpatient with strict return precautions. All questions were answered. Lab Data Attestation: I reviewed the patient's lab results. Labs: Laboratory Results - last 24 hr 12/05/21 12/05/21 12/05/21 15:30 15:30 17:30 WBC 6.0 RBC 4.71 Hgb 14.9 Hct 44.9 MCV 95.3 H MCH 31.6 MCHC 33.2 RDW Std Deviation 50.2 H RDW Coeff of Taty 14.4 Plt Count 169 MPV 10.4 Immature Gran % (Auto) 0.300 Neut % (Auto) 58.2 Lymph % (Auto) 26.8 [place] % (Auto) 11.7 H Eos % (Auto) 2.8 Baso % (Auto) 0.2 Absolute Neuts (auto) 3.5 Absolute Lymphs (auto) 1.61 Nucleated RBC % 0 Sodium 139 Potassium 3.8 Chloride 106 Carbon Dioxide 27.0 Anion Gap 6 BUN 15 Creatinine 1.22 Estim Creat Clear Calc 53.93 Est GFR (MDRD) Af Amer 75 Est GFR (MDRD) Non-Af 62 BUN/Creatinine Ratio 12.3 Glucose 83 Calcium 8.8 Troponin I High Sens 11 10 Radiography Chest X-Ray - ED: 1 View, Read by ED Physician and Read by Radiologist Diagnostic Testing: Clinical Impression(s) from Imaging Studies Chest X-Ray 12/05/21 15:19 IMPRESSION: No acute cardiopulmonary process. Electronically Signed: Heriberto Santiago MD at 16:07 EDT Reading Location ID and State: [address] [place] [address] Tel , Service support , EKG Initial EKG: Attestation: I personally reviewed and interpreted this EKG as follows: Comments: Rate controlled atrial fibrillation rate of 63, no ST or T wave changes. Discharge Plan Triage Chief Complaint: Chest Pain ED Provider: Osman Sifuentes Dx/Rx/DC Orders Clinical Impression: COPD exacerbation, Chest pain, Chronic a-fib Instructions: ED COPD Flare, ED Chest Pain, Uncertain Cause Prescriptions: New azithromycin [azithromycin] 250 MG tablet 250 mg PO DAILY Qty: 4 0RF prednisone 20 MG tablet 60 mg PO DAILY Qty: 12 0RF No Action terazosin 2 mg capsule 2 mg PO QHS Trelegy Ellipta 100-62.5-25 mcg blister with device 1 inh inhalation DAILY albuterol sulfate 1 INHALER inhaler 2 puff inhalation Q4H PRN PRN (Reason: Shortness Of Breath) Label Comments: breathing methylcellulose (laxative) 500 MG tablet 500 mg PO BID multivitamin with minerals 1 EACH tablet 1 tablet PO DAILY pantoprazole 40 MG tablet,delayed release (DR/EC) 40 mg PO DAILY Label Comments: gastric reflux potassium chloride 20 mEq tablet extended release 40 meq PO DAILY diltiazem HCl 120 mg capsule,extended release 24hr 120 mg PO DAILY Qty: 90 3RF apixaban 5 mg tablet 5 mg PO BID Qty: 60 11RF furosemide 40 mg tablet 40 mg PO DAILY Qty: 90 3RF Primary Care Provider: Kirk Ervin Referrals: Kirk Ervin MD [Primary Care Provider] - 3-5 Days Activity Restrictions/Additional Instructions: Cardiac work-up negative. Take medications as prescribed. Follow-up with your doctor. Return for any worsening symptoms. Disposition Disposition: Home, Self Care Discharge Date/Time: 12/05/21 19:01
[2021-12-05 15:31] VITALS: PULSE 75; RESP 18
[2021-12-05] MEDS: Ipratropium/Albuterol Sulfate 3 ML AMPUL.NEB INHALATION (15:31)
[2021-12-05] MEDS: MethylPREDNISolone 125 MG/2 ML Vial 60 MG IV (15:39)
[2021-12-05 15:51] LABS: Absolute Lymphocyte Count 1.61 X10^3/uL (0.83-4.51); Absolute Neutrophil Count 3.5 X10^3/uL (2.0-7.7); Basophil# 0.01 X10^3/uL; Basophil% 0.2 % (0-1); Eosinophil# 0.17 X10^3/uL; Eosinophils% 2.8 % (0-5); Hematocrit 44.9 % (40-54); Hemoglobin 14.9 g/dL (13.0-16.5); Lymphocyte # 1.61 X10^3/ul (0.83-4.51); Lymphocyte % 26.8 % (19-41); Mean Corp Hgb Conc 33.2 g/dL (32-36); Mean Corpuscular Hgb 31.6 pg (27.0-32.0); Mean Corpuscular Volume 95.3 fL (80-94); Mean Platelet Vol. 10.4 fl (6.2-12.0); Monocyte% 11.7 % (0-10); NRBC Flagged by Analyzer 0 % (0-5); Neutrophil # 3.49 X10^3/uL (2.7-7.7); Neutrophil % 58.2 % (47-70); Platelet Count 169 K/mm3 (150-450); RBC Distribution Width CV 14.4 % (11.6-14.6); RBC Distribution Width SD 50.2 fl (35.1-43.9); Red Blood Count 4.71 M/mm3 (4.6-6.2)
[2021-12-05 15:59] LABS: Anion Gap 6 (5-15); BUN 15 mg/dL (7-18); BUN/Creat Ratio 12.3 RATIO (10-20); Calcium,Total 8.8 mg/dL (8.5-10.1); Chloride 106 mmol/L (98-107); Creatinine, Serum 1.22 mg/dL (0.70-1.30); EST Glomerular Filtration Rate 62 mL/min (>60); Est Glom Filt Rate - Afr Amer 75 mL/min (>60); Estimated Creatinine Clearance 53.93 ml/min; Glucose 83 mg/dL (74-106); Potassium 3.8 mmol/L (3.5-5.1); Sodium Level 139 mmol/L (136-145); Troponin-I HS (w/2H Reflex) 11 pg/mL (3.0-78.0)
[2021-12-05 16:12] VITALS: BP 137/85; PULSE 68; RESP 14; O2SAT 96
[2021-12-05 17:36] LABS: Reflex Troponin-HS? (from REC) Y
[2021-12-05 18:03] LABS: Troponin-I HS 10 pg/mL (3.0-78.0)
[2021-12-05 18:22] VITALS: BP 145/93; PULSE 79; RESP 22; O2SAT 95
[2021-12-05] MEDS: Azithromycin 250 MG Tablet 500 MG PO (18:56)
[2021-12-05 19:00] VITALS: RESP 18
== END 2021-12-05 19:01 | disposition home or self-care (01) ==
PROVIDERS: Emergency Provider Emergency Medicine; PCP Family Medicine; Visit Provider Emergency Medicine
DX: J44.1 Chronic obstructive pulmonary disease with (acute) exacerbation (principal); I48.20 Chronic atrial fibrillation, unspecified; E11.9 Type 2 diabetes mellitus without complications; I10 Essential (primary) hypertension; M79.602 Pain in left arm; H91.90 Unspecified hearing loss, unspecified ear; Z79.01 Long term (current) use of anticoagulants; Z79.899 Other long term (current) drug therapy; Z87.891 Personal history of nicotine dependence; Z96.653 Presence of artificial knee joint, bilateral
CPT/HCPCS: 71045; 80048; 84484; 85025; 93005; 94640; 96374; 99285; A4216

== ENCOUNTER → 2022-02-20 | Outpatient (CLI) | payer MEDICARE, OTHER, SELFPAY ==
--- NOTE | 2022-02-20 08:45 | CDU_ITS ---
Reason For Study: Lightheadedness/dizziness Rt. Velocities/BP Lt. Velocities/BP Prox CCA 69.2/8.8 cm/sec. Prox CCA 71.8/16.8 cm/sec. Mid CCA 71.1/12.6 cm/sec. Mid CCA 43.2/13.5 cm/sec. Dist CCA 52.2/8.8 cm/sec. Dist CCA 46.5/14.6 cm/sec. Prox ICA 30.5/12.6 cm/sec. Prox ICA 35.5/11.3 cm/sec. Mid ICA 43.8/11.8 cm/sec. Mid ICA 49.8/17.9 cm/sec. Dist ICA 38.7/14.5 cm/sec. Dist ICA 48.7/17.9 cm/sec. Rt. ICA/CCA = 0.63. Lt. ICA/CCA = 1.07. Prox ECA 84.4/10.7 cm/sec. Prox ECA 71.8/9.1 cm/sec. Rt. Vert. 33.3/6.9 cm/sec. Lt. Vert. 33.3/11.3 cm/sec. Right Extracranial There is homogeneous, smooth atherosclerotic plaque noted in the right common carotid artery. There is homogeneous, smooth atherosclerotic plaque noted in the right internal carotid artery. There is intimal thickening but no significant atherosclerotic plaque noted in the right external carotid artery. Antegrade flow is noted in the right vertebral artery. Left Extracranial There is homogeneous, smooth atherosclerotic plaque noted in the left common carotid artery. There is homogeneous, smooth atherosclerotic plaque noted in the left internal carotid artery. There is homogeneous, smooth atherosclerotic plaque noted in the left external carotid artery. Antegrade flow is noted in the left vertebral artery. Procedure Carotid Duplex 15172. This is a Carotid Duplex examination using B-mode, color flow and specral Doppler. Exam performed in department. VL/Carotid Duplex Ultrasound Interpretation Summary Mild (<50%) stenosis right extracranial internal carotid. Mild (<50%) stenosis left extracranial internal carotid. Patent and antegrade vertebrals bilaterally. Ordering Physician: Corey Serna Referring Physician: Kirk Ervin Performed By: Xochitl Mahoney RVT
== END | disposition home or self-care (01) ==
LOC: CVS 08:41
PROVIDERS: PCP Family Medicine; Referring Provider Nurse Practitioner Family; Visit Provider Nurse Practitioner Family
DX: I65.23 Occlusion and stenosis of bilateral carotid arteries (principal); R42 Dizziness and giddiness
CPT/HCPCS: 93880

== ENCOUNTER → 2022-03-08 | Outpatient (CLI) | payer MEDICARE, OTHER, SELFPAY ==
--- NOTE | 2022-03-08 17:46 | CT_ITS ---
STUDY: CT TEMPORAL BONES WITHOUT CONTRAST - ATTN: I.A.C. S REASON FOR EXAM: Male, 72 years old. Hearing loss. RADIATION DOSAGE (If Supplied By Facility): CTDIvol = ( 67.58 ) mGy, DLP = ( 827.45 ) mGycm TECHNIQUE: The patient was scanned in a multi detector CT scanner. Transaxial imaging was performed without the administration of intravenous contrast material. Sagittal and coronal images were reconstructed. Individualized dose optimization techniques were used for this CT. COMPARISON: None. FINDINGS: RIGHT TEMPORAL BONE Normal right internal auditory canal. Normal visualized ossicles and tympanic cavity. Normal right cochlea and semicircular canals. Normal vestibular aqueduct. Normal right petrous carotid artery. Normal right jugular fossa. Normal right mastoid air cells. Normal right petrous apex. LEFT TEMPORAL BONE Normal left internal auditory canal. Left canal wall up mastoidectomy defect. No soft tissue density in the left mastoid bowl. The learning technologies specialist-stimulator hardware in the skull show no erosion of the underlying skull. The electrode extending from the learning technologies specialist-stimulator hardware courses through the mastoid bowl, across the facial recess and into the cochlea via a widened round window. This courses into the basal turn of the left cochlea. Normal left cochlea and semicircular canals. Normal vestibular aqueduct. Normal left middle ear ossicles. Normal left petrous carotid artery. Normal right jugular fossa. No suspicious abnormality of the left mastoid bowl. Normal left petrous apex. CT/Orb Sella Post Fossa Ear w/o IMPRESSION: 1. No CT evidence of any suspicious abnormality of the left mastoid bowl previous canal wall up mastoidectomy. 2. No erosion of the skull underneath the left learning technologies specialist-stimulator hardware. 3. Normal course of the electrode extending from the learning technologies specialist stimulator through the mastoid bowl, across the fascial recesses and into the basal turn of the cochlea via a wide and round window. 4. Normal CT of the right temporal bone. Electronically Signed: Steven Melendez MD at 8:51 EDT ,
== END | disposition home or self-care (01) ==
LOC: CT 17:43
PROVIDERS: PCP Family Medicine; Referring Provider Otolaryngology; Visit Provider Otolaryngology
DX: H91.90 Unspecified hearing loss, unspecified ear (principal)
CPT/HCPCS: 70480

== ENCOUNTER 2022-04-21 11:06 | Emergency (ER) | payer MEDICARE, OTHER, SELFPAY ==
[2022-04-21 11:07] VITALS: BP 140/83; PULSE 89; RESP 18; TEMP 36.6; O2SAT 98; BMI 36.6
--- NOTE | 2022-04-21 11:20 | EDS_ITS ---
HPI History of Present Illness Chief Complaint: Edema Detail of Chief Complaint: Pain and swelling the right foot x2 days Informant: patient Narrative Narrative: Present with pain and swelling to the right foot x2 days. Patient states he f irst noticed that when he got up to use restroom middle the night 2 nights ago. Painful to walk on now. He denies any injury. He is not had pain like this before. He denies fever. No history of gout. [facility] Medical History Abdominal aortic aneurysm without rupture Aneurysm of infrarenal abdominal aorta Asthma Chest pain Cholecystolithiasis COPD (chronic obstructive pulmonary disease) [place] Essential hypertension History of gastritis Hypokalemia Osteoarthritis Persistent atrial fibrillation Postoperative atrial fibrillation Pulmonary hypertension Home Medications methylcellulose (laxative) 500 mg tablet 500 mg PO BID bowels 09/03/15 [History Last Taken Unknown] terazosin 2 mg capsule 2 mg PO QHS bladder 12/21/19 [History Last Taken 09/23/20 22:00] multivitamin with minerals 1 tablet PO DAILY supplement 09/24/20 [History Last Taken Unknown] pantoprazole 40 mg tablet,delayed release 40 mg PO DAILY acid reflux 09/24/20 [History Last Taken 09/23/20] fluticasone fur. 100 mcg-umeclid 62.5 mcg-vilant 25 mcg inhalat.powder (Trelegy Ellipta) 1 inh inhalation DAILY 12/18/20 [History Last Taken Unknown] potassium chloride 20 mEq tablet,extended release 40 meq PO DAILY 12/05/21 [History Last Taken Unknown] diltiazem HCl 120 mg capsule,extended release 24 hr 120 mg PO DAILY heart #90 caps 12/20/21 [Rx Last Taken Unknown] albuterol sulfate 90 mcg/actuation aerosol inhaler 2 puff inhalation Q6H PRN Shortness Of Breath 01/14/22 [History Last Taken Unknown] furosemide 40 mg tablet 40 mg PO Q OTHER DAY water pill #90 tabs 01/17/22 [Rx Last Taken Unknown] apixaban 5 mg tablet 5 mg PO BID #180 tabs 04/17/22 [Rx Last Taken Unknown] hydrocodone-acetaminophen 5-325mg 5mg-325mg 1 tab PO Q4H PRN PRN Pain 2 days #10 TABLETS 04/21/22 [Rx Last Taken Unknown] prednisone 20 mg tablet 20 mg PO BID #10 tabs 04/21/22 [Rx Last Taken Unknown] Allergy/AdvReac Type Severity Reaction Status Date / Time aspirin AdvReac Intermediate Excess Verified 04/21/22 11:08 bleeding,GI upset codeine AdvReac Intermediate GI upset Verified 04/21/22 11:08 Family History Father Colon cancer Prostate cancer Surgical History History of bilateral cataract extraction (~2015) History of bilateral knee arthroplasty History of cholecystectomy (~08/2020) History of cochlear implant History of colonoscopy History of esophagogastroduodenoscopy (EGD) History of tonsillectomy History of umbilical hernia repair (~08/2020) Status post bilateral knee replacements Status post excision of lipoma Status post total left knee replacement Social History Smoking Status: Former smoker how long ago did patient quit smokin years ago alcohol intake: current alcohol intake frequency: holidays/special occasions only substance use type: does not use caffeine: Yes Type: coffee ROS ROS ED Review of Systems ROS Unobtainable: other Constitutional Constitutional ED: Reports lethargy; Denies chills, fever(s), sweats or weight loss Eyes Eyes: Denies blurry vision, change in vision or diplopia ENT ENT ED: Denies rhinorrhea or sore throat Cardiovascular Cardiovascular: Denies chest pain, orthopnea or racing heartbeat Respiratory/Chest Respiratory/Chest: Denies cough, dyspnea, dyspnea on exertion, orthopnea or sputum Gastrointestinal Gastrointestinal: Denies abdominal pain, diarrhea, nausea or vomiting Genitourinary Genitourinary ED: Denies dysuria, hematuria or urinary frequency Musculoskeletal Musculoskeletal: Reports other Details: Right foot pain and swelling ; Denies arthralgias, back pain, myalgias or neck pain Integumentary Denies abscess, Abrasions or rash Neurologic Neurologic: Denies headache(s) or weakness Psychiatric Psychiatric: Denies anxiety, depression or suicidal thoughts Endocrine Endocrinology: Denies polydipsia, polyphagia or polyuria Hematologic/Lymphatic Hematologic/Lymphatic: Denies easy bleeding, easy bruising or lymphadenopathy Allergic/Immunologic Allergic/Immunologic ED: Denies mouth swelling, tongue swelling or urticaria EXAM Physical Exam Const Vital Signs: 04/21/22 11:07 Temperature 97.9 F Temperature Source Temporal Pulse Rate 89 Respiratory Rate 18 Blood Pressure 140/83 H Blood Pressure Mean 102 Pulse Ox 98 Positive well nourished and well developed General Appearance ED: well developed and NAD HEENT Reports TM's clear and moist mucous membranes normocephalic and atraumatic; Negative for trauma or tenderness Tympanic Membrane ED: Yes TM's clear Eyes PERRL and EOMs intact bilaterally General Eye ED: Negative for pale conjunctiva or scleral icterus Neck no lymphadenopathy, supple and no JVD General: Negative for tenderness Chest Wall inspection of chest normal and palpation of chest normal Chest: Negative for tenderness Resp normal respiratory effort and clear to auscultation bilaterally Effort and Inspection: Negative for respiratory distress or pain with movement Auscultation: Negative for rhonchi, wheezes or diminished lung sounds Cardio regular rate, regular rhythm, S1 normal heart sound, S2 normal heart sound and no murmurs Peripheral Pulses: pulses 2+ throughout GI normal to inspection, nondistended, normoactive bowel sounds, soft to palpation, non-tender, non-distended and no masses Back/Spine no CVA tenderness and no thoracic nor lumbar tenderness Extremity Extremity Narrative: Right foot-I do not appreciate significant edema. Patient does have some erythema over the first MTP joint with tenderness to palpation over this area. There are no cellulitic changes noted. Foot is atraumatic. No deformities. Patient has normal dorsal pedal and posterior tibial pulses and normal cap refill. Foot is warm to the touch. General Extremety ED: Negative for edema General Extremity: Negative for edema Neuro oriented x3, CN's II-XII intact bilaterally, no sensory deficits noted and gait normal Sensorium / Orientation: awake, alert, oriented to person, oriented to place and oriented to time Motor Exam: strength 5/5 throughout and strength abnormal Psych mental status grossly normal Skin no rashes or lesions noted and no wounds MDM MDM MDM Narrative Medical decision making narrative: Patient clinically has gout. Since he is atraumatic and will feel x-rays are indicated. Patient will be started on prednisone and given a prescription for [place] and given crutches. Patient advised to follow-up with his primary care physician within next 3 to 5 days. Patient is not a diabetic. Discharge Plan Triage Chief Complaint: Edema ED Provider: Alida Barbosa Dx/Rx/DC Orders Clinical Impression: Gouty arthritis Instructions: ED Gout, ED Gout Diet Prescriptions: New prednisone 20 mg tablet 20 mg PO BID Qty: 10 0RF hydrocodone-acetaminophen [hydrocodone-acetaminophen] 5-325 mg tablet 1 tab PO Q4H PRN PRN (Reason: Pain) 2 Days Qty: 10 0RF No Action terazosin 2 mg capsule 2 mg PO QHS Trelegy Ellipta 100-62.5-25 mcg blister with device 1 inh inhalation DAILY albuterol sulfate 90 mcg/actuation HFA aerosol inhaler 2 puff inhalation Q6H PRN (Reason: Shortness Of Breath) Label Comments: breathing methylcellulose (laxative) 500 MG tablet 500 mg PO BID multivitamin with minerals 1 EACH tablet 1 tablet PO DAILY pantoprazole 40 MG tablet,delayed release (DR/EC) 40 mg PO DAILY Label Comments: gastric reflux potassium chloride 20 mEq tablet extended release 40 meq PO DAILY diltiazem HCl 120 mg capsule,extended release 24hr 120 mg PO DAILY Qty: 90 3RF furosemide 40 mg tablet 40 mg PO Q OTHER DAY Qty: 90 3RF apixaban 5 mg tablet 5 mg PO BID Qty: 180 4RF Primary Care Provider: Kirk Ervin Referrals: Kirk Ervin MD [Primary Care Provider] - 3-5 Days Disposition Disposition: Home, Self Care
[2022-04-21] MEDS: HYDROcodone Bitartrate/Apap 5/325 Tablet PO (11:39)
[2022-04-21] MEDS: predniSONE 20 MG Tablet 40 MG PO (11:39)
== END 2022-04-21 11:46 | disposition home or self-care (01) ==
PROVIDERS: Emergency Provider Emergency Medicine; PCP Family Medicine; Visit Provider Emergency Medicine
DX: M10.9 Gout, unspecified (principal); J44.9 Chronic obstructive pulmonary disease, unspecified; I48.19 Other persistent atrial fibrillation; M79.671 Pain in right foot; I10 Essential (primary) hypertension; Z79.01 Long term (current) use of anticoagulants; Z79.899 Other long term (current) drug therapy; Z87.891 Personal history of nicotine dependence; Z96.653 Presence of artificial knee joint, bilateral
CPT/HCPCS: 99284

== ENCOUNTER 2022-10-07 18:54 | Emergency (ER) | payer MEDICARE, SELFPAY ==
[2022-10-07] VITALS (8 sets, daily range): BP systolic 161–188; BP diastolic 86–101; PULSE 78–91; RESP 12–19; TEMP 36.4; O2SAT 94–96; BMI 38.8
[2022-10-07 19:18] LABS: Absolute Lymphocyte Count 1.32 X10^3/uL (0.83-4.51); Absolute Neutrophil Count 3.7 X10^3/uL (2.0-7.7); Basophil# 0.01 X10^3/uL; Basophil% 0.2 % (0-1); Eosinophil# 0.21 X10^3/uL; Eosinophils% 3.6 % (0-5); Hematocrit 42.7 % (40-54); Hemoglobin 14.1 g/dL (13.0-16.5); Lymphocyte # 1.32 X10^3/ul (0.83-4.51); Lymphocyte % 22.6 % (19-41); Mean Corpuscular Hgb 32.2 pg (27.0-32.0); Mean Corpuscular Volume 97.5 fL (80-94); Mean Platelet Vol. 9.7 fl (6.2-12.0); Monocyte# 0.59 X10^3/uL; Monocyte% 10.1 % (0-10); NRBC Flagged by Analyzer 0 % (0-5); Neutrophil % 63.2 % (47-70); Platelet Count 178 K/mm3 (150-450); RBC Distribution Width CV 14.6 % (11.6-14.6); RBC Distribution Width SD 52.9 fl (35.1-43.9); Red Blood Count 4.38 M/mm3 (4.6-6.2); White Blood Count 5.9 K/mm3 (4.4-11.0)
[2022-10-07 19:32] LABS: Anion Gap 6 (5-15); BUN 12 mg/dL (7-18); BUN/Creat Ratio 10.5 RATIO (10-20); Calcium,Total 8.5 mg/dL (8.5-10.1); Chloride 109 mmol/L (98-107); Creatinine, Serum 1.14 mg/dL (0.70-1.30); EST Glomerular Filtration Rate 67 mL/min (>60); Est Glom Filt Rate - Afr Amer 81 mL/min (>60); Estimated Creatinine Clearance 56.85 ml/min; Glucose 100 mg/dL (74-106); Potassium 4.2 mmol/L (3.5-5.1); Sodium Level 144 mmol/L (136-145)
--- NOTE | 2022-10-07 19:40 | RAD_ITS ---
STUDY: X-RAY CHEST REASON FOR EXAM: Male, 72 years old. SOB TECHNIQUE: Single AP portable view of the chest. COMPARISON: 09/05/2020. FINDINGS: The lungs are hyperexpanded. There are coarsened interstitial markings suggestive of mild chronic fibrosis. Probable scarring in the lung bases. No gross focal infiltrates. No gross effusions. There is moderate cardiac enlargement. Normal mediastinum and tres. Normal visualized pulmonary arteries. There is atherosclerotic tortuosity of the aortic arch and descending thoracic aorta. Normal visualized thoracic spine. Normal visualized ribs, clavicles, and shoulders. There is no demonstrated abnormality of the visualized soft tissue structures of the upper abdomen. RAD/Chest 1 View (Portable) IMPRESSION: No definite acute or significant abnormality seen. Electronically Signed: Jeet Cleary MD at 20:38 EDT ,
[2022-10-07] MEDS: MethylPREDNISolone 125 MG/2 ML Vial IV (22:10)
[2022-10-07] MEDS: Albuterol 2.5 MG/3 ML VIAL.NEB. INHALATION (22:14)
[2022-10-07] MEDS: Ipratropium/Albuterol Sulfate 3 ML AMPUL.NEB INHALATION (22:14)
--- NOTE | 2022-10-07 22:38 | CPS ---
x1 Albuterol given to pt. in ER as well
--- NOTE | 2022-10-07 23:39 | EDS_ITS ---
HPI History of Present Illness Chief Complaint: Shortness of Breath Narrative Narrative: 72-year-old male with history of A-fib, dyspnea on exertion, hypertension, COPD presenting with shortness of breath. He states been going on for about a week. He states he feels like he is wheezing. It is definitely worsened by exertion. He denies chest pain. He has not had fever, chills. He does not feel unwell other than shortness of breath. She is also complaining of bilateral lower ext remity pain. He states it hurts all the time. It is worse when he walks. He called his PCP to get an appointment for the leg pain and was referred to the ER. Patient is anticoagulated on Eliquis. [facility] Medical History Abdominal aortic aneurysm without rupture Aneurysm of infrarenal abdominal aorta Asthma Chest pain Cholecystolithiasis COPD (chronic obstructive pulmonary disease) [place] Essential hypertension History of gastritis Hypokalemia Osteoarthritis Persistent atrial fibrillation Postoperative atrial fibrillation Pulmonary hypertension Home Medications methylcellulose (laxative) 500 mg tablet 500 mg PO BID bowels 09/03/15 [History Last Taken Unknown] terazosin 2 mg capsule 2 mg PO QHS bladder 12/21/19 [History Last Taken 09/23/20 22:00] multivitamin with minerals 1 tablet PO DAILY supplement 09/24/20 [History Last Taken Unknown] pantoprazole 40 mg tablet,delayed release 40 mg PO DAILY acid reflux 09/24/20 [History Last Taken 09/23/20] fluticasone fur. 100 mcg-umeclid 62.5 mcg-vilant 25 mcg inhalat.powder (Trelegy Ellipta) 1 inh inhalation DAILY 12/18/20 [History Last Taken Unknown] diltiazem HCl 120 mg capsule,extended release 24 hr 120 mg PO DAILY heart #90 caps 12/20/21 [Rx Last Taken Unknown] albuterol sulfate 90 mcg/actuation aerosol inhaler 2 puff inhalation Q6H PRN Shortness Of Breath 01/14/22 [History Last Taken Unknown] hydrocodone-acetaminophen 5-325mg 5mg-325mg 1 tab PO Q4H PRN PRN Pain 2 days #10 TABLETS 04/21/22 [Rx Last Taken Unknown] furosemide 40 mg tablet 40 mg PO DAILY this is a dose increase from every other day #90 tabs 06/11/22 [Rx Last Taken Unknown] apixaban 5 mg tablet 5 mg PO BID #180 tabs 08/21/22 [Rx Last Taken Unknown] potassium chloride 20 mEq tablet,extended release 40 meq PO DAILY #90 tabs 09/30/22 [Rx Last Taken Unknown] prednisone 50 mg tablet 50 mg PO DAILY #5 tabs 10/07/22 [Rx Last Taken Unknown] Allergy/AdvReac Type Severity Reaction Status Date / Time aspirin AdvReac Intermediate Excess Verified 10/07/22 20:42 bleeding,GI upset codeine AdvReac Intermediate GI upset Verified 10/07/22 20:42 Family History Father Colon cancer Prostate cancer Surgical History History of bilateral cataract extraction (~2015) History of bilateral knee arthroplasty History of cholecystectomy (~08/2020) History of cochlear implant History of colonoscopy History of esophagogastroduodenoscopy (EGD) History of tonsillectomy History of umbilical hernia repair (~08/2020) Status post bilateral knee replacements Status post excision of lipoma Status post total left knee replacement Social History Smoking Status: Former smoker how long ago did patient quit smokin years ago alcohol intake: current alcohol intake frequency: holidays/special occasions only substance use type: does not use caffeine: Yes Type: coffee ROS ROS ED Constitutional Constitutional ED: Denies chills or fever(s) Eyes Eyes: Denies change in vision or diplopia ENT ENT ED: Denies rhinorrhea or sore throat Cardiovascular Cardiovascular: Denies chest pain or palpitations Respiratory/Chest Respiratory/Chest: Reports dyspnea and dyspnea on exertion Gastrointestinal Gastrointestinal: Denies abdominal pain, nausea or vomiting Genitourinary Genitourinary ED: Denies hematuria Musculoskeletal Musculoskeletal: Reports other Details: Leg pains ; Denies arthralgias or back pain Integumentary Denies abscess or Abrasions Neurologic Neurologic: Denies headache(s) EXAM Physical Exam Const Vital Signs: 10/07/22 18:55 10/07/22 20:40 10/07/22 20:41 Temperature 97.6 F L Temperature Source Temporal Pulse Rate 91 78 Respiratory Rate 16 17 Respiratory Effort Respiratory Depth Respiratory Pattern Blood Pressure 188/101 H 170/86 H Blood Pressure Mean 130 114 Pulse Ox 95 96 96 Oxygen Delivery Method Room Air Room Air 10/07/22 20:41 10/07/22 20:43 10/07/22 22:09 Temperature Temperature Source Pulse Rate 80 Respiratory Rate 19 H 18 Respiratory Effort Short of Breath Labored Accessory Muscle Use Respiratory Depth Shallow Respiratory Pattern Normal Blood Pressure 161/94 H Blood Pressure Mean 116 Pulse Ox 96 95 Oxygen Delivery Method Room Air Room Air Room Air 10/07/22 22:14 10/07/22 23:08 Temperature Temperature Source Pulse Rate 81 85 Respiratory Rate 18 12 Respiratory Effort Respiratory Depth Respiratory Pattern Normal Blood Pressure 166/93 H Blood Pressure Mean 117 Pulse Ox 94 Oxygen Delivery Method Room Air Positive well nourished General Appearance ED: NAD HEENT Reports moist mucous membranes Eyes PERRL and EOMs intact bilaterally General Eye ED: Negative for pale conjunctiva or scleral icterus Neck no lymphadenopathy and supple Resp normal respiratory effort MDM MDM MDM Narrative Medical decision making narrative: Patient presenting with shortness of breath. Patient is wheezing on exam. He is given Solu-Medrol 125 as well as breathing treatments. PE is unlikely given that he is anticoagulated on Eliquis. CBC to assess white blood cell count, hemoglobin, platelets, differential. BMP to assess renal function, electrolytes. Chest x-ray my interpretation shows no acute cardiopulmonary process. Radiologist services and agrees. CBC and BMP unremarkable. On reevaluation patient is feeling improved. He does have complaint that his lower extremities hurt when he walks although he has good pulses bilaterally. There is no evidence of cellulitis. He does not have lower extremity edema. I suspect he has peripheral neuropathy. I recommend that he follow-up with his PCP for this. I do not believe he needs any lab work or imaging. Impression: 1. COPD exacerbation Lab Data Labs: Laboratory Results - last 24 hr 10/07/22 10/07/22 19:10 19:10 WBC 5.9 RBC 4.38 L Hgb 14.1 Hct 42.7 MCV 97.5 H MCH 32.2 H MCHC 33.0 RDW Std Deviation 52.9 H RDW Coeff of Taty 14.6 Plt Count 178 MPV 9.7 Immature Gran % (Auto) 0.300 Neut % (Auto) 63.2 Lymph % (Auto) 22.6 [place] % (Auto) 10.1 H Eos % (Auto) 3.6 Baso % (Auto) 0.2 Absolute Neuts (auto) 3.7 Absolute Lymphs (auto) 1.32 Nucleated RBC % 0 Sodium 144 Potassium 4.2 Chloride 109 H Carbon Dioxide 29.0 Anion Gap 6 BUN 12 Creatinine 1.14 Estim Creat Clear Calc 56.85 Est GFR (MDRD) Af Amer 81 Est GFR (MDRD) Non-Af 67 BUN/Creatinine Ratio 10.5 Glucose 100 Calcium 8.5 Radiography Diagnostic Testing: Clinical Impression(s) from Imaging Studies Chest X-Ray 10/07/22 19:40 IMPRESSION: No definite acute or significant abnormality seen. Electronically Signed: Jeet Cleary MD at 20:38 EDT , Discharge Plan Triage Chief Complaint: Shortness of Breath ED Provider: Fernie Meade Dx/Rx/DC Orders Instructions: ED COPD Flare Prescriptions: New prednisone 50 mg tablet 50 mg PO DAILY Qty: 5 0RF No Action terazosin 2 mg capsule 2 mg PO QHS Trelegy Ellipta 100-62.5-25 mcg blister with device 1 inh inhalation DAILY albuterol sulfate 90 mcg/actuation HFA aerosol inhaler 2 puff inhalation Q6H PRN (Reason: Shortness Of Breath) Label Comments: breathing methylcellulose (laxative) 500 MG tablet 500 mg PO BID multivitamin with minerals 1 EACH tablet 1 tablet PO DAILY pantoprazole 40 MG tablet,delayed release (DR/EC) 40 mg PO DAILY Label Comments: gastric reflux hydrocodone-acetaminophen [hydrocodone-acetaminophen] 5-325 mg tablet 1 tab PO Q4H PRN PRN (Reason: Pain) 2 Days Qty: 10 0RF diltiazem HCl 120 mg capsule,extended release 24hr 120 mg PO DAILY Qty: 90 3RF furosemide 40 mg tablet 40 mg PO DAILY Qty: 90 3RF apixaban 5 mg tablet 5 mg PO BID Qty: 180 4RF potassium chloride 20 mEq tablet extended release 40 meq PO DAILY Qty: 90 3RF Primary Care Provider: Kirk Ervin Referrals: Kirk Ervin MD [Primary Care Provider] - Disposition Disposition: Home, Self Care Discharge Date/Time: 10/07/22 23:49
== END 2022-10-07 23:49 | disposition home or self-care (01) ==
PROVIDERS: Emergency Provider Student in an Organized Health Care Education/Training Program; PCP Family Medicine; Visit Provider Student in an Organized Health Care Education/Training Program
DX: J44.1 Chronic obstructive pulmonary disease with (acute) exacerbation (principal); Z87.891 Personal history of nicotine dependence; M79.604 Pain in right leg; I10 Essential (primary) hypertension; M79.605 Pain in left leg; Z79.52 Long term (current) use of systemic steroids
CPT/HCPCS: 71045; 80048; 85025; 87811; 94640; 94760; 96374; 99283; J7030; A4216

== ENCOUNTER 2022-10-15 16:38 | Outpatient (CLI) | payer MEDICARE, SELFPAY ==
[2022-10-15 17:10] LABS: Absolute Lymphocyte Count 1.14 X10^3/uL (0.83-4.51); Absolute Neutrophil Count 6.6 X10^3/uL (2.0-7.7); Basophil# 0.02 X10^3/uL; Basophil% 0.2 % (0-1); Eosinophil# 0.19 X10^3/uL; Eosinophils% 2.1 % (0-5); Hematocrit 43.6 % (40-54); Hemoglobin 13.8 g/dL (13.0-16.5); Lymphocyte # 1.14 X10^3/ul (0.83-4.51); Lymphocyte % 12.7 % (19-41); Mean Corp Hgb Conc 31.7 g/dL (32-36); Mean Corpuscular Hgb 31.9 pg (27.0-32.0); Mean Corpuscular Volume 100.7 fL (80-94); Mean Platelet Vol. 10.7 fl (6.2-12.0); Monocyte# 0.89 X10^3/uL; Monocyte% 9.9 % (0-10); NRBC Flagged by Analyzer 0 % (0-5); Neutrophil # 6.62 X10^3/uL (2.7-7.7); Neutrophil % 73.9 % (47-70); Platelet Count 194 K/mm3 (150-450); RBC Distribution Width CV 14.7 % (11.6-14.6); RBC Distribution Width SD 55.5 fl (35.1-43.9); Red Blood Count 4.33 M/mm3 (4.6-6.2)
[2022-10-15 17:24] LABS: BUN 20 mg/dL (7-18); Creatinine, Serum 1.21 mg/dL (0.70-1.30); Glucose 115 mg/dL (74-106)
[2022-10-15 17:25] LABS: AST(SGOT) 18 U/L (15-37); Alanine Aminotransfer ALT/SGPT 28 U/L (16-61); Albumin, Serum 3.3 g/dL (3.2-5.0); Alkaline Phosphatase 140 U/L (45-117); Anion Gap 7 (5-15); BUN/Creat Ratio 16.5 RATIO (10-20); Calcium,Total 8.4 mg/dL (8.5-10.1); Chloride 106 mmol/L (98-107); EST Glomerular Filtration Rate 62 mL/min (>60); Est Glom Filt Rate - Afr Amer 75 mL/min (>60); Globulin 3.4 g/dL (2.2-4.2); Potassium 4.9 mmol/L (3.5-5.1); Protein, Total 6.7 g/dL (6.4-8.2); Sodium Level 142 mmol/L (136-145)
[2022-10-15 17:30] LABS: BNP,B-Type NATRIURETIC PEPTIDE 84.1 pg/mL (0-100)
== END 2022-10-15 23:59 | disposition home or self-care (01) ==
LOC: LABSPEC 16:41
PROVIDERS: PCP Family Medicine; Referring Provider Family Medicine; Visit Provider Family Medicine
DX: J44.1 Chronic obstructive pulmonary disease with (acute) exacerbation (principal)
CPT/HCPCS: 80053; 83880; 85025

== ENCOUNTER → 2022-10-30 | Outpatient (CLI) | payer MEDICARE, SELFPAY ==
--- NOTE | 2022-10-30 13:55 | ECHOCS_ITS ---
Reason For Study: DYSPNEA Procedure This was a 2D Doppler, Color Flow transthoracic echocardiogram. The study was technically difficult. Exam performed in department. Left Ventricle Normal LV size. Moderate concentric left ventricular hypertrophy. The left ventricular ejection fraction is 50 %. Diastolic function is indeterminate. Mild inferior hypokinesis. Right Ventricle Normal RV size. Borderline RV systolic function. Atria The left atrium is severely enlarged. The right atrium is moderately enlarged. Mitral Valve Mild (1+) mitral valve insufficiency. Tricuspid Valve Mild tricuspid valve insufficiency. Right ventricular systolic pressure estimated to be 45 mmHg. Mild pulmonary hypertension. Aortic Valve Trisinus/trileaflet aortic valve. Mild (1+) aortic valve insufficiency. Pulmonic Valve The pulmonic valve is not well visualized. Moderate (2+) pulmonic valve insufficiency. Great Vessels Normal sized aortic root. Pericardium/Pleural No pericardial effusion. Medication 22 gauge I.V. with prn adaptor inserted into right arm. Diluted definity 2ml given slow IV push to enhance endocardial definition. MMode/2D Measurements & Calculations LVIDd: 4.7 cm IVSd: 1.5 cm LVOT diam: 2.1 cm LVIDs: 2.9 cm LVPWd: 1.3 cm RVDd: 3.6 cm FS: 38.1 % LVOT area: 3.5 cm2 Ao root diam: 3.9 cm LAV(MOD-bp): 108.2 ml LVAd ap4: 33.2 cm2 LAV(MOD-bp) Indexed: 46.5 ml/m2 LVLd ap4: 7.8 cm LAV(MOD-sp2): 112.7 ml EDV(MOD-sp4): 110.6 ml LAV(MOD-sp4): 97.7 ml EDV(sp4-el): 120.4 ml LVAs ap4: 20.7 cm2 LVLs ap4: 7.1 cm ESV(MOD-sp4): 51.6 ml ESV(sp4-el): 51.3 ml EF(MOD-sp4): 53.3 % EF(sp4-el): 57.4 % LVAd ap2: 37.8 cm2 SV(MOD-sp4): 58.9 ml SV(MOD-sp2): 77.6 ml LVLd ap2: 8.1 cm EDV(MOD-sp2): 146.0 ml EDV(sp2-el): 150.4 ml LVAs ap2: 24.2 cm2 LVLs ap2: 6.9 cm ESV(MOD-sp2): 68.4 ml ESV(sp2-el): 72.0 ml EF(MOD-sp2): 53.1 % SV(sp4-el): 69.2 ml LA dimension(2D): 5.1 cm LA A4 area: 28.6 cm2 RA A4 area: 26.7 cm2 Time Measurements MV dec time: 0.16 sec Doppler Measurements & Calculations MV E max antione: 100.2 cm/sec Lat Peak E' Antione: 11.7 cm/sec Med Peak E' Antione: 11.0 cm/sec E/E' lat: 8.6 E/E' med: 9.1 Ao V2 max: 94.3 cm/sec LV V1 max: 98.7 cm/sec PA V2 max: 100.7 cm/sec Ao max P.6 mmHg LV V1 max P.0 mmHg PA max PG (full): 2.5 mmHg EFRAIN(V,D): 3.7 cm2 TR max antione: 279.0 cm/sec TR max P.1 mmHg ECHO/Echo Complete W/ Contrast Interpretation Summary The study was technically difficult. Moderate concentric left ventricular hypertrophy. The left ventricular ejection fraction is 50-55 %. Diastolic function is indeterminate. Mild inferior hypokinesis Borderline RV systolic function The left atrium is severely enlarged. The right atrium is moderately enlarged. Mild (1+) mitral valve insufficiency. Mild tricuspid valve insufficiency. Mild pulmonary hypertension. Moderate (2+) pulmonic valve insufficiency. Ordering Physician: Luz Elena Willard Referring Physician: Kirk Ervin Performed By: Denia Marquez RDCS
[2022-10-30 14:29] LABS: Anion Gap 6 (5-15); BUN 16 mg/dL (7-18); BUN/Creat Ratio 13.7 RATIO (10-20); Calcium,Total 8.7 mg/dL (8.5-10.1); Chloride 102 mmol/L (98-107); Creatinine, Serum 1.17 mg/dL (0.70-1.30); EST Glomerular Filtration Rate 65 mL/min (>60); Est Glom Filt Rate - Afr Amer 78 mL/min (>60); Glucose 87 mg/dL (74-106); Potassium 4.1 mmol/L (3.5-5.1); Sodium Level 139 mmol/L (136-145)
== END | disposition home or self-care (01) ==
PROVIDERS: PCP Family Medicine; Referring Provider Physician Assistant Medical; Visit Provider Physician Assistant Medical
DX: R06.00 Dyspnea, unspecified (principal); I27.20 Pulmonary hypertension, unspecified; R06.02 Shortness of breath
CPT/HCPCS: 36415; 80048; 93306; Q9957; A4216; C8929

== ENCOUNTER → 2022-11-13 | Outpatient (CLI) | payer MEDICARE, SELFPAY ==
--- NOTE | 2022-11-13 17:13 | STRESSREP ---
Stress Test Report Pharmacologic myocardial perfusion stress test. 72-year-old man with a history of dyspnea on exertion Resting EKG demonstrates sinus rhythm with a rate of 86 bpm. Resting blood pressure is 142/94 mmHg. 0.4 mg of regadenoson was infused per usual protocol followed by rapid intravenous saline flush injection. Continuous EKG monitoring was performed. The maximum heart rate was 104 bpm which was 71 of max impacted heart rate the maximum workload was 1 metabolic equivalent. At rest there were no ST or T wave changes noted to suggest ischemia and at peak infusion nonspecific ST changes were noted which did not meet the criteria for ischemia. No clinical angina is noted. The final blood pressure was 138/84 mmHg. Myocardial perfusion protocol. 14.8 mCi of technetium 99m sestamibi was injected at rest. 0.4 mg of regadenoson was infused per usual protocol. At peak infusion 44.8 mCi of technetium 99m sestamibi was injected stress images were obtained stress and rest images were reconstructed and compared in the short axis vertical long and horizontal long axis. Gated images were also obtained. Perfusion SPECT analysis: Review of the stress images demonstrate normal uptake of tracer noted in all areas of the myocardium. The resting images similar demonstrated normal uptake of tracer noted in all areas of the myocardium. No areas of reversibility are noted to suggest ischemia and no previous infarct is noted. Gated SPECT analysis: The gated ejection fraction is 58%. Conclusion: Normal pharmacologic myocardial perfusion stress test. Preserved ejection fraction.
== END | disposition home or self-care (01) ==
LOC: CVS 06:54
PROVIDERS: PCP Family Medicine; Referring Provider Physician Assistant Medical; Visit Provider Physician Assistant Medical
DX: R06.09 Other forms of dyspnea (principal)
CPT/HCPCS: 78452; 93017; A9500; A4216; J2785

== ENCOUNTER 2022-11-21 16:52 | Emergency (ER) | payer MEDICARE, SELFPAY ==
[2022-11-21 16:56] VITALS: BP 128/80; PULSE 84; RESP 16; TEMP 36.7; O2SAT 96; BMI 38.5
[2022-11-21] MEDS: Ipratropium/Albuterol Sulfate 3 ML AMPUL.NEB INHALATION (17:21)
[2022-11-21] MEDS: Albuterol 2.5 MG/3 ML VIAL.NEB. INHALATION ×3 (17:21→17:46)
[2022-11-21 17:22] VITALS: PULSE 90; RESP 18
--- NOTE | 2022-11-21 17:34 | ED.VIS.DYS ---
HPI History of Present Illness Chief Complaint: Shortness of Breath Detail of Chief Complaint: Shortness of breath Informant: patient and spouse/S.O. Onset/Context/Timing Onset: Days Context: gradual Timing: Continuous Quality: Positive for Dyspnea on exertion and Wheezing; Negative for Orthopnea or PND Current Severity: Mild Maximum Severity: Moderate Worsened by: Exertion Relieved by: Nothing Associated Symptoms cough; Negative for rhinorrhea, post nasal drip, ear pain, fever, sore throat, subjective, chills, sweats, clear sputum, white sputum, yellow sputum, green sputum or other Narrative Narrative: Patient is a 72-year-old male who is deaf and has difficulty reading lips. 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 He has been short of breath since November 12. He was seen by Dr. Sandeep Arnett the motorized squad captain and placed on prednisone. He has 3 days remaining. He has chronic runny nose. Has a cough that is nonproductive. He denies history of PE or DVT. He denies chest pain of any type. He does report shortness of breath at rest which is worse with activity. He also complains of wheezing. He denies fever, chills night sweats. [place] headache, visual, ocular or auditory symptoms. He denies neck pain or throat pain. He denies GI symptoms. He denies urologic symptoms. PE Risk Factors: Negative for Cancer, OCP + Smoking + > 35, Prior DVT or PE, Recent immobilization, Recent surgery or Recent travel Prior similar symptoms: Yes Recent Illness/Hospitalization: No PFSH PFS Medical History Abdominal aortic aneurysm without rupture Aneurysm of infrarenal abdominal aorta Asthma Chest pain Cholecystolithiasis COPD (chronic obstructive pulmonary disease) Deaf Essential hypertension History of gastritis Hypokalemia Osteoarthritis Persistent atrial fibrillation Postoperative atrial fibrillation Pulmonary hypertension Home Medications methylcellulose (laxative) 500 mg tablet 500 mg PO BID bowels 09/03/15 [History Last Taken Unknown] terazosin 2 mg capsule 2 mg PO QHS bladder 12/21/19 [History Last Taken 09/23/20 22:00] multivitamin with minerals 1 tablet PO DAILY supplement 09/24/20 [History Last Taken Unknown] pantoprazole 40 mg tablet,delayed release 40 mg PO DAILY acid reflux 09/24/20 [History Last Taken 09/23/20] fluticasone fur. 100 mcg-umeclid 62.5 mcg-vilant 25 mcg inhalat.powder (Trelegy Ellipta) 1 inh inhalation DAILY 12/18/20 [History Last Taken Unknown] diltiazem HCl 120 mg capsule,extended release 24 hr 120 mg PO DAILY heart #90 caps 12/20/21 [Rx Last Taken Unknown] albuterol sulfate 90 mcg/actuation aerosol inhaler 2 puff inhalation Q6H PRN Shortness Of Breath 01/14/22 [History Last Taken Unknown] hydrocodone-acetaminophen 5-325mg 5mg-325mg 1 tab PO Q4H PRN PRN Pain 2 days #10 TABLETS 04/21/22 [Rx Last Taken Unknown] apixaban 5 mg tablet 5 mg PO BID #180 tabs 08/21/22 [Rx Last Taken Unknown] amoxicillin 875 mg-potassium clavulanate 125 mg tablet 1 tab PO BID 10/16/22 [History Last Taken Unknown] gabapentin 300 mg capsule 300 mg PO TID 10/16/22 [History Last Taken Unknown] potassium chloride 20 mEq tablet,extended release 20 meq PO DAILY 10/16/22 [History Last Taken Unknown] prednisone 50 mg tablet 50 mg PO DAILY 10/16/22 [History Last Taken Unknown] furosemide 40 mg tablet 40 mg PO DAILY #180 tabs 10/31/22 [Rx Last Taken Unknown] inhalational spacing device (Aerochamber MV spacer) #1 ea 11/21/22 [Rx Last Taken Unknown] Allergy/AdvReac Type Severity Reaction Status Date / Time aspirin AdvReac Intermediate Excess Verified 11/21/22 16:55 bleeding,GI upset codeine AdvReac Intermediate GI upset Verified 11/21/22 16:55 Family History Father Colon cancer Prostate cancer Surgical History History of bilateral cataract extraction (~2015) History of bilateral knee arthroplasty History of cholecystectomy (~08/2020) History of cochlear implant History of colonoscopy History of esophagogastroduodenoscopy (EGD) History of tonsillectomy History of umbilical hernia repair (~08/2020) Status post bilateral knee replacements Status post excision of lipoma Status post total left knee replacement Social History Smoking Status: Former smoker how long ago did patient quit smokin years ago alcohol intake: current alcohol intake frequency: holidays/special occasions only substance use type: does not use caffeine: Yes Type: coffee ROS ROS ED Constitutional Constitutional ED: Denies chills, fever(s), sweats or weight loss Eyes Eyes: Denies blurry vision, change in vision or diplopia ENT ENT ED: Reports rhinorrhea; Denies ear pain or sore throat Cardiovascular Cardiovascular: Denies chest pain, orthopnea, palpitations, paroxysmal nocturnal dyspnea or racing heartbeat Respiratory/Chest Respiratory/Chest: Reports cough, dyspnea and dyspnea on exertion; Denies orthopnea, paroxysmal nocturnal dyspnea or sputum Gastrointestinal Gastrointestinal: Denies abdominal pain or nausea Genitourinary Genitourinary ED: Denies dysuria or hematuria Musculoskeletal Musculoskeletal: Denies arthralgias, back pain, myalgias or neck pain Integumentary Denies abscess, Abrasions or rash Neurologic Neurologic: Denies headache(s), paresthesias or weakness Psychiatric Psychiatric: Denies anxiety or depression Endocrine Endocrinology: Denies cold intolerance or heat intolerance Hematologic/Lymphatic Hematologic/Lymphatic: Denies easy bleeding or easy bruising EXAM Physical Exam Const Vital Signs: 11/21/22 16:56 11/21/22 17:22 11/21/22 17:40 Temperature 98.1 F Temperature Source Oral Pulse Rate 84 90 Respiratory Rate 16 18 Respiratory Effort Normal Non-Labored Respiratory Depth Normal Respiratory Pattern Normal Normal Blood Pressure 128/80 H Blood Pressure Mean 96 Pulse Ox 96 Oxygen Delivery Method Room Air Room Air 11/21/22 18:47 Temperature Temperature Source Pulse Rate 93 Respiratory Rate 14 Respiratory Effort Respiratory Depth Respiratory Pattern Blood Pressure 144/88 H Blood Pressure Mean 106 Pulse Ox 95 Oxygen Delivery Method Room Air Positive well nourished, well developed and obese General Appearance ED: well developed and NAD; Negative for pallor Nutritional Appearance: obese HEENT Reports moist mucous membranes HEENT Narrative: Ears are normal. TMs normal. Nares patent. Posterior pharynx is normal. Uvula is midline. atraumatic Eyes PERRL and EOMs intact bilaterally General Eye ED: Negative for pale conjunctiva or scleral icterus Neck no lymphadenopathy, supple, no meningeal signs and no JVD Resp normal respiratory effort and clear to auscultation bilaterally Cardio regular rate, regular rhythm, S1 normal heart sound, S2 normal heart sound and no murmurs GI non-tender, non-distended and no masses Auscultation: normoactive bowel sounds Rectal Exam: normal sphincter tone Back/Spine no CVA tenderness Extremity normal to inspection Neuro oriented x3, CN's II-XII intact bilaterally and no sensory deficits noted Brennan Coma Scale: document GCS findings Spontaneous Obeys Commands Oriented 15 Sensorium / Orientation: alert Psych mental status grossly normal Skin no wounds and skin turgor normal General Skin Exam: Negative for jaundice or pallor MDM MDM MDM Narrative Medical decision making narrative: Patient has symptoms consistent with exacerbated COPD. He has not gotten better in spite of prednisone. Will obtain chest x-ray to rule out pneumonia. CBC to assess white count differential. Basic metabolic panel assess renal function and electrolytes. Also to assess glucose he is on prednisone and may have hyperglycemia. Lab Data Attestation: I reviewed the patient's lab results. Lab results narrative: White count is normal. There is demargination due to steroids. Basic metabolic panel slight elevation of creatinine 1.25 with a GFR 60. Glucose is elevated 1 4. Labs: Laboratory Results - last 24 hr 11/21/22 11/21/22 17:30 17:30 WBC 8.8 RBC 4.73 Hgb 14.9 Hct 45.3 MCV 95.8 H MCH 31.5 MCHC 32.9 RDW Std Deviation 51.0 H RDW Coeff of Taty 14.5 Plt Count 191 MPV 9.8 Immature Gran % (Auto) 1.100 H Neut % (Auto) 90.7 H Lymph % (Auto) 5.6 L [place] % (Auto) 2.5 Eos % (Auto) 0.0 Baso % (Auto) 0.1 Absolute Neuts (auto) 7.9 H Absolute Lymphs (auto) 0.49 L Nucleated RBC % 0 Differential Comment SEE COMMENT Platelet Estimate ADEQUATE RBC Morphology N CHROM Anisocytosis RARE Macrocytosis RARE Sodium 138 Potassium 4.2 Chloride 104 Carbon Dioxide 29.0 Anion Gap 5 BUN 19 H Creatinine 1.25 Estim Creat Clear Calc 51.85 Est GFR (MDRD) Af Amer 73 Est GFR (MDRD) Non-Af 60 BUN/Creatinine Ratio 15.2 Glucose 140 H Calcium 8.6 Radiography Chest X-Ray - ED: 2 View and Read by ED Physician (2 view chest x-ray reveals no acute process. There is chronic changes consistent with COPD. Cardiac silhouette size unremarkable. Perihilar region is unremarkable. Osseous structures are unremarkable. There is no infiltrate or effusion noted. There are chronic changes noted) Diagnostic Testing: Clinical Impression(s) from Imaging Studies Chest X-Ray 11/21/22 18:15 IMPRESSION: There are no acute findings. Electronically Signed: Alf Limon MD at 19:12 EDT , Treatment and Re-Evaluation :: Patient was reassessed at 1942. He is wheeze free. He states he feels better. He is not tachypneic, tachycardic or hypoxic. Patient was discharged with prescription for spacer. He was instructed he can use his inhaler more frequently. Discharge Plan Triage Chief Complaint: Shortness of Breath Other Complaint: Chest Pain ED Provider: Randall Gilliland Dx/Rx/DC Orders Clinical Impression: Acute exacerbation of chronic obstructive pulmonary disease, Deaf, Pulmonary hypertension, Essential hypertension, Acute bronchospasm Instructions: ED COPD Flare Prescriptions: New (DME) Aerochamber MV Spacer See Rx Instructions .Route Qty: 1 0RF Rx Instructions: As directed No Action terazosin 2 mg capsule 2 mg PO QHS Trelegy Ellipta 100-62.5-25 mcg blister with device 1 inh inhalation DAILY amoxicillin-pot clavulanate 875-125 mg tablet 1 tab PO BID gabapentin 300 mg capsule 300 mg PO TID potassium chloride 20 mEq tablet extended release 20 meq PO DAILY prednisone 50 mg tablet 50 mg PO DAILY Rx Instructions: tapering dose furosemide 40 mg tablet 40 mg PO DAILY Qty: 180 3RF albuterol sulfate 90 mcg/actuation HFA aerosol inhaler 2 puff inhalation Q6H PRN (Reason: Shortness Of Breath) Label Comments: breathing methylcellulose (laxative) 500 MG tablet 500 mg PO BID multivitamin with minerals 1 EACH tablet 1 tablet PO DAILY pantoprazole 40 MG tablet,delayed release (DR/EC) 40 mg PO DAILY Label Comments: gastric reflux hydrocodone-acetaminophen [hydrocodone-acetaminophen] 5-325 mg tablet 1 tab PO Q4H PRN PRN (Reason: Pain) 2 Days Qty: 10 0RF diltiazem HCl 120 mg capsule,extended release 24hr 120 mg PO DAILY Qty: 90 3RF apixaban 5 mg tablet 5 mg PO BID Qty: 180 4RF Primary Care Provider: Kirk Ervin Referrals: Kirk Ervin MD [Primary Care Provider] - As Needed Activity Restrictions/Additional Instructions: Use the spacer every time use her metered-dose inhaler since it will deliver 2-3 times more medication to your lungs. If you develop increased shortness of breath and wheezing you may administer 4 to 6 puffs of your metered-dose inhaler with spacer. This is equivalent to a nebulized treatment. You may repeat in 15 minutes. If you are still having shortness of breath recommend contact your doctor or come into the emergency department. Take prednisone until gone Disposition Disposition: Home, Self Care
[2022-11-21 17:39] LABS: Absolute Lymphocyte Count 0.49 X10^3/uL (0.83-4.51); Absolute Neutrophil Count 7.9 X10^3/uL (2.0-7.7); Basophil# 0.01 X10^3/uL; Basophil% 0.1 % (0-1); Hematocrit 45.3 % (40-54); Hemoglobin 14.9 g/dL (13.0-16.5); Lymphocyte # 0.49 X10^3/ul (0.83-4.51); Lymphocyte % 5.6 % (19-41); Mean Corp Hgb Conc 32.9 g/dL (32-36); Mean Corpuscular Hgb 31.5 pg (27.0-32.0); Mean Corpuscular Volume 95.8 fL (80-94); Mean Platelet Vol. 9.8 fl (6.2-12.0); Monocyte# 0.22 X10^3/uL; Monocyte% 2.5 % (0-10); NRBC Flagged by Analyzer 0 % (0-5); Neutrophil # 7.93 X10^3/uL (2.7-7.7); Neutrophil % 90.7 % (47-70); POSITIVE DIFFERENTIAL YES; Platelet Count 191 K/mm3 (150-450); RBC Distribution Width CV 14.5 % (11.6-14.6); Red Blood Count 4.73 M/mm3 (4.6-6.2); White Blood Count 8.8 K/mm3 (4.4-11.0)
[2022-11-21 17:40] VITALS: O2SAT 97
[2022-11-21 17:52] LABS: Anion Gap 5 (5-15); BUN 19 mg/dL (7-18); BUN/Creat Ratio 15.2 RATIO (10-20); Calcium,Total 8.6 mg/dL (8.5-10.1); Chloride 104 mmol/L (98-107); Creatinine, Serum 1.25 mg/dL (0.70-1.30); EST Glomerular Filtration Rate 60 mL/min (>60); Est Glom Filt Rate - Afr Amer 73 mL/min (>60); Estimated Creatinine Clearance 51.85 ml/min; Glucose 140 mg/dL (74-106); Potassium 4.2 mmol/L (3.5-5.1); Sodium Level 138 mmol/L (136-145)
[2022-11-21 18:08] LABS: Differential Indicated SCAN CRITERIA MET
--- NOTE | 2022-11-21 18:15 | RAD_ITS ---
STUDY: XR Chest 2 Views 11/21/2022 6:11 PM REASON FOR EXAM: Male, 72 years old. CHEST PAIN Cough and wheezing COMPARISON: 5.8.23 TECHNIQUE: XR Chest 2 Views FINDINGS: There is no demonstrated pleural abnormality. Enlarged heart size. Normal mediastinum. Normal tres. Prominent appearing increased interstitial lung markings. Normal visualized pulmonary arteries. There is atherosclerotic calcification of the aortic arch with tortuosity. There are diffuse degenerative changes of the visualized thoracic spine. There is degenerative osteoarthritis of the bilateral shoulders. There is no demonstrated abnormality of the visualized soft tissue structures of the upper abdomen. RAD/Chest PA and Lateral IMPRESSION: There are no acute findings. Electronically Signed: Alf Limon MD at 19:12 EDT ,
[2022-11-21 18:23] LABS: Anisocytosis RARE; Macrocytosis RARE; Platelet Estimate ADEQUATE (ADEQ); Red Cell Morphology N CHROM NORMAL (NORM C&C)
[2022-11-21 18:47] VITALS: BP 144/88; PULSE 93; RESP 14; O2SAT 95
[2022-11-21 20:06] VITALS: BP 145/102; BP 154/100; PULSE 93; PULSE 96; RESP 16; RESP 18; RESP 23; TEMP 37.1; O2SAT 94
== END 2022-11-21 20:12 | disposition home or self-care (01) ==
PROVIDERS: Emergency Provider Emergency Medicine; PCP Family Medicine; Visit Provider Emergency Medicine
DX: J44.1 Chronic obstructive pulmonary disease with (acute) exacerbation (principal); I27.20 Pulmonary hypertension, unspecified; J98.01 Acute bronchospasm; I10 Essential (primary) hypertension; Z87.891 Personal history of nicotine dependence; E66.9 Obesity, unspecified; H91.90 Unspecified hearing loss, unspecified ear
CPT/HCPCS: 71046; 80048; 85025; 94640; 99284; A4216

== ENCOUNTER 2023-05-24 19:08 | Emergency (ER) | payer MEDICARE, SELFPAY ==
[2023-05-24 19:09] VITALS: BP 178/139; PULSE 83; RESP 16; TEMP 36.6; O2SAT 98
[2023-05-24 19:20] VITALS: BP 181/114
--- NOTE | 2023-05-24 19:37 | EX.ED.UPPERE ---
HPI History of Present Illness HPI Narrative: 73-year-old male having left upper posterior shoulder neck pain for about a week and now its on the right side. Denies any fall injury or trauma. He has not been lifting any thing heavy lately. Denies any chest pain or shortness of breath. No arm weakness. No fever. Worse when he tries to rotate his head from left to right. Chief Complaint: Upper Extremity Injury Informant: patient and spouse/S.O. Occured/Mechanism Mechanism/Context: No injury and No blunt trauma Onset/Context/Timing Onset: Days Context: Gradual Onset Timing: Continuous Quality of Pain: Sharp and Stabbing Current Severity: Mild Maximum Severity: Moderate Associated Symptoms Associated Symptoms: Negative for Parasthesia, Weakness or Loss of Funtion Narrative Narrative: 73-year-old male neck pain over the last several days to week. Initially on the left now on the right. No fall injury or trauma. Prior similar symptoms: No Recent Illness/Hospitalization: No PFSH PFSH Medical History Abdominal aortic aneurysm without rupture Aneurysm of infrarenal abdominal aorta Asthma Chest pain Cholecystolithiasis COPD (chronic obstructive pulmonary disease) Deaf Essential hypertension History of gastritis Hypokalemia Osteoarthritis Persistent atrial fibrillation Postoperative atrial fibrillation Pulmonary hypertension Home Medications methylcellulose (laxative) 500 mg tablet 500 mg PO BID bowels 09/03/15 [History Last Taken Unknown] terazosin 2 mg capsule 2 mg PO QHS bladder 12/21/19 [History Last Taken 09/23/20 22:00] multivitamin with minerals 1 tablet PO DAILY supplement 09/24/20 [History Last Taken Unknown] pantoprazole 40 mg tablet,delayed release 40 mg PO DAILY acid reflux 09/24/20 [History Last Taken 09/23/20] fluticasone fur. 100 mcg-umeclid 62.5 mcg-vilant 25 mcg inhalat.powder (Trelegy Ellipta) 1 inh inhalation DAILY 12/18/20 [History Last Taken Unknown] albuterol sulfate 90 mcg/actuation aerosol inhaler 2 puff inhalation Q6H PRN Shortness Of Breath 01/14/22 [History Last Taken Unknown] hydrocodone-acetaminophen 5-325mg 5mg-325mg 1 tab PO Q4H PRN PRN Pain 2 days #10 TABLETS 04/21/22 [Rx Last Taken Unknown] apixaban 5 mg tablet 5 mg PO BID #180 tabs 08/21/22 [Rx Last Taken Unknown] amoxicillin 875 mg-potassium clavulanate 125 mg tablet 1 tab PO BID 10/16/22 [History Last Taken Unknown] gabapentin 300 mg capsule 300 mg PO TID 10/16/22 [History Last Taken Unknown] prednisone 50 mg tablet 50 mg PO DAILY 10/16/22 [History Last Taken Unknown] furosemide 40 mg tablet 40 mg PO DAILY #180 tabs 10/31/22 [Rx Last Taken Unknown] inhalational spacing device (Aerochamber MV spacer) #1 ea 11/21/22 [Rx Last Taken Unknown] diltiazem HCl 120 mg capsule,extended release 24 hr 120 mg PO DAILY heart #90 caps 12/13/22 [Rx Last Taken Unknown] potassium chloride 20 mEq tablet,extended release 20 meq PO DAILY #30 tabs 03/24/23 [Rx Last Taken Unknown] metaxalone 800 mg tablet 800 mg PO TID 7 days #21 tabs 05/24/23 [Rx Last Taken Unknown] Allergy/AdvReac Type Severity Reaction Status Date / Time aspirin AdvReac Intermediate Excess Verified 05/24/23 19:11 bleeding,GI upset codeine AdvReac Intermediate GI upset Verified 05/24/23 19:11 Family History Father Colon cancer Prostate cancer Surgical History History of bilateral cataract extraction (~2015) History of bilateral knee arthroplasty History of cholecystectomy (~08/2020) History of cochlear implant History of colonoscopy History of esophagogastroduodenoscopy (EGD) History of tonsillectomy History of umbilical hernia repair (~08/2020) Status post bilateral knee replacements Status post excision of lipoma Status post total left knee replacement Social History Smoking Status: Former smoker how long ago did patient quit smokin years ago alcohol intake: current alcohol intake frequency: holidays/special occasions only substance use type: does not use caffeine: Yes Type: coffee ROS ROS ED ROS Narrative Denies recent illness. Review of Systems ROS Unobtainable: Denies due to encephalopathy Constitutional Constitutional ED: Denies chills or fever(s) Eyes Eyes: Denies blurry vision ENT ENT ED: Denies ear pain Cardiovascular Cardiovascular: Denies chest pain Respiratory/Chest Respiratory/Chest: Denies cough, dyspnea or dyspnea on exertion Gastrointestinal Gastrointestinal: Denies abdominal pain Genitourinary Genitourinary ED: Denies dysuria or hematuria Musculoskeletal Musculoskeletal: Reports neck pain; Denies back pain or myalgias Integumentary Denies abscess or Abrasions Neurologic Neurologic: Denies headache(s) Psychiatric Psychiatric: Denies anxiety Endocrine Endocrinology: Denies cold intolerance Hematologic/Lymphatic Hematologic/Lymphatic: Denies easy bleeding, easy bruising or lymphadenopathy Allergic/Immunologic Allergic/Immunologic ED: Denies mouth swelling, tongue swelling or urticaria EXAM Physical Exam Narrative Exam Narrative: 73-year-old male vital signs stable afebrile. Initial blood pressure elevated due to pain. Will be reevaluated. H EENT exam unremarkable. Neck to the base of his neck on the right side of his trapezius at the shoulder neck junction he is tender to palpation consistent with myofascial strain and spasm. Left side currently is unremarkable. Rest of his back nontender. Worse if he tries to rotate his head from left to right. Lungs clear. Heart regular rhythm. Chest wall nontender. Abdomen soft nontender. Moving all 4 extremities. 5 out of 5 end finder forming department strength bilaterally. Equal symmetrical radial pulses. Trace edema both lower extremities. Neurologically is awake and alert with no focal motor deficits. Const Vital Signs: 05/24/23 19:09 05/24/23 19:20 Temperature 97.8 F Temperature Source Temporal Pulse Rate 83 Respiratory Rate 16 Blood Pressure 178/139 H 181/114 H Blood Pressure Mean 152 136 Pulse Ox 98 Oxygen Delivery Method Room Air Positive well nourished and well developed; Negative for obese, cachectic, contractures or unkempt General Appearance ED: well developed and NAD; Negative for unkempt, cachectic, contractures, cyanotic or diaphoretic Nutritional Appearance: Negative for cachectic or obese HEENT Reports moist mucous membranes normocephalic and atraumatic; Negative for trauma or tenderness Eyes PERRL and EOMs intact bilaterally Neck full ROM and supple Neck Narrative: Tenderness right neck paraCervical soft tissues. Consistent with muscle spasm. General: tenderness Lymph Lymphatic: Negative for other Chest Wall inspection of chest normal and palpation of chest normal Chest: Negative for other Resp normal respiratory effort and clear to auscultation bilaterally Effort and Inspection: Negative for pain with movement Auscultation: Negative for rales, rhonchi or wheezes Cardio regular rate, regular rhythm, S1 normal heart sound, S2 normal heart sound and no murmurs Rate: Negative for bradycardia or tachycardic GI non-tender, non-distended and no masses Inspection: Negative for abdominal distention Auscultation: normoactive bowel sounds Palpation: soft; Negative for tender or guarding Back/Spine no CVA tenderness General Back: Negative for CVA tenderness Cervical Spine: Negative for cervical spine tenderness Thoracic Spine / Upper Back: Negative for thoracic spinal tenderness Lumbar Spine / Lower Back: Negative for lumbar spinal tenderness Extremity full ROM; Negative for normal to inspection Extremity Narrative: Bilateral lower extremity edema chronic. General Extremety ED: Yes edema General Extremity: edema Neuro oriented x3, CN's II-XII intact bilaterally, moves all extremities and no focal motor deficits Neuro Narrative: . Very hard of hearing. Sensorium / Orientation: alert, oriented to person, oriented to place and oriented to time Motor Exam: strength 5/5 throughout Psych mental status grossly normal Appearance: Negative for unkempt Attitude: No agitated Mood & Affect: Negative for depressed, anxious or tearful Skin General Skin Exam: Negative for petechiae Lesions: no lesions Rashes: no rashes Trauma: no lacerations or abrasions MDM MDM MDM Narrative Medical decision making narrative: 73-year-old male with pain to the right lateral side of his neck soft tissue consistent with myofascial strain and spasm. No fall injury or trauma. No need for imaging or labs. Reproducible pain. Limited 1 [place] for pain. Otherwise Skelaxin 3 times daily for 7 days. Hot shower, warm compress and massage. Follow-up if not improving or return if worse. History & Record Review Additional record(s) reviewed:: Prior outpatient record, Prior ED visit and Prior labs Discharge Plan Triage Chief Complaint: Upper Extremity Injury ED Provider: Enoc Mcguire Dx/Rx/DC Orders Clinical Impression: Muscle spasm, History of hypertension, History of atrial fibrillation Instructions: ED Neck Spasm, No Trauma Prescriptions: New metaxalone 800 mg tablet 800 mg PO TID 7 Days Qty: 21 0RF No Action terazosin 2 mg capsule 2 mg PO QHS Trelegy Ellipta 100-62.5-25 mcg blister with device 1 inh inhalation DAILY amoxicillin-pot clavulanate 875-125 mg tablet 1 tab PO BID gabapentin 300 mg capsule 300 mg PO TID prednisone 50 mg tablet 50 mg PO DAILY Rx Instructions: tapering dose furosemide 40 mg tablet 40 mg PO DAILY Qty: 180 3RF albuterol sulfate 90 mcg/actuation HFA aerosol inhaler 2 puff inhalation Q6H PRN (Reason: Shortness Of Breath) Patient Comments: breathing methylcellulose (laxative) 500 MG tablet 500 mg PO BID multivitamin with minerals 1 EACH tablet 1 tablet PO DAILY pantoprazole 40 MG tablet,delayed release (DR/EC) 40 mg PO DAILY Patient Comments: gastric reflux hydrocodone-acetaminophen [hydrocodone-acetaminophen] 5-325 mg tablet 1 tab PO Q4H PRN PRN (Reason: Pain) 2 Days Qty: 10 0RF (DME) Aerochamber MV Spacer See Rx Instructions .Route Qty: 1 0RF Rx Instructions: As directed apixaban 5 mg tablet 5 mg PO BID Qty: 180 4RF diltiazem HCl 120 mg capsule,extended release 24hr 120 mg PO DAILY Qty: 90 3RF potassium chloride 20 mEq tablet extended release 20 meq PO DAILY Qty: 30 11RF Primary Care Provider: Kirk Ervin Referrals: Kirk Ervin MD [Primary Care Provider] - 1 Week if not improving Activity Restrictions/Additional Instructions: You have muscle spasms in the back your neck and upper shoulders. The muscle relaxant Skelaxin 1 pill 3 times a day. It may take several days to start working. Limited Motrin or ibuprofen 1 to 2 pills twice a day. Hot shower, warm bath, warm compresses or heating pad and massage to relax the muscles in your neck. Follow-up if not improving. Disposition Disposition: Home, Self Care
[2023-05-24] MEDS: HYDROcodone Bitartrate/Apap 5/325 Tablet PO (19:40)
[2023-05-24] MEDS: Metaxalone 800 MG Tablet PO (19:46)
[2023-05-24 20:01] VITALS: BP 162/78; PULSE 87; RESP 16
== END 2023-05-24 20:02 | disposition home or self-care (01) ==
PROVIDERS: Emergency Provider Emergency Medicine; PCP Family Medicine; Visit Provider Emergency Medicine
DX: M62.838 Other muscle spasm (principal); J44.9 Chronic obstructive pulmonary disease, unspecified; I48.19 Other persistent atrial fibrillation; M25.512 Pain in left shoulder; M54.2 Cervicalgia; I10 Essential (primary) hypertension; Z79.01 Long term (current) use of anticoagulants; Z79.899 Other long term (current) drug therapy; Z87.891 Personal history of nicotine dependence
CPT/HCPCS: 99283

== ENCOUNTER 2023-06-21 15:59 | Observation (INO) | payer MEDICARE, SELFPAY ==
[2023-06-21 16:01] VITALS: BP 173/103; PULSE 87; RESP 16; TEMP 36.2; O2SAT 97
[2023-06-21 16:04] VITALS: BMI 36.9
--- NOTE | 2023-06-21 16:54 | EDS_ITS ---
HPI History of Present Illness Chief Complaint: Lower Extremity Injury Informant: patient and EMS Narrative Narrative: Patient states he slipped on snow and fell and due to the fact that he has had knee replacements he is unable to get up on his own so he was laying there until someone helped him. EMS came to help with them up, said he is having trouble putting weight on it because his knee hurts so bad so he was transported. He also states that he is having edema in both lower extremities ever since I was put on a muscle relaxer in May. He denies a history of cardiac problems, he does apparently have a history of COPD. States he has not been flared up lately. He denies any dyspnea on exertion or orthopnea that is new. [facility] Medical History Abdominal aortic aneurysm without rupture Aneurysm of infrarenal abdominal aorta Asthma Chest pain Cholecystolithiasis COPD (chronic obstructive pulmonary disease) Deaf Essential hypertension History of gastritis Hypokalemia Osteoarthritis Persistent atrial fibrillation Postoperative atrial fibrillation Pulmonary hypertension Home Medications methylcellulose (laxative) 500 mg tablet 500 mg PO BID bowels 09/03/15 [History Last Taken Unknown] terazosin 2 mg capsule 2 mg PO QHS bladder 12/21/19 [History Last Taken 09/23/20 22:00] multivitamin with minerals 1 tablet PO DAILY supplement 09/24/20 [History Last Taken Unknown] pantoprazole 40 mg tablet,delayed release 40 mg PO DAILY acid reflux 09/24/20 [History Last Taken 09/23/20] fluticasone fur. 100 mcg-umeclid 62.5 mcg-vilant 25 mcg inhalat.powder (Trelegy Ellipta) 1 inh inhalation DAILY 12/18/20 [History Last Taken Unknown] albuterol sulfate 90 mcg/actuation aerosol inhaler 2 puff inhalation Q6H PRN Shortness Of Breath 01/14/22 [History Last Taken Unknown] hydrocodone-acetaminophen 5-325mg 5mg-325mg 1 tab PO Q4H PRN PRN Pain 2 days #10 TABLETS 04/21/22 [Rx Last Taken Unknown] amoxicillin 875 mg-potassium clavulanate 125 mg tablet 1 tab PO BID 10/16/22 [History Last Taken Unknown] gabapentin 300 mg capsule 300 mg PO TID 05/17/23 [History Last Taken Unknown] prednisone 50 mg tablet 50 mg PO DAILY 10/16/22 [History Last Taken Unknown] furosemide 40 mg tablet 40 mg PO DAILY #180 tabs 10/31/22 [Rx Last Taken Unknown] inhalational spacing device (Aerochamber MV spacer) #1 ea 11/21/22 [Rx Last Taken Unknown] diltiazem HCl 120 mg capsule,extended release 24 hr 120 mg PO DAILY heart #90 caps 12/13/22 [Rx Last Taken Unknown] potassium chloride 20 mEq tablet,extended release 20 meq PO DAILY #30 tabs 03/24/23 [Rx Last Taken Unknown] metaxalone 800 mg tablet 800 mg PO TID 7 days #21 tabs 05/24/23 [Rx Last Taken Unknown] apixaban 5 mg tablet 5 mg PO BID #180 tabs 05/29/23 [Rx Last Taken Unknown] Allergy/AdvReac Type Severity Reaction Status Date / Time aspirin AdvReac Intermediate Excess Verified 05/24/23 19:11 bleeding,GI upset codeine AdvReac Intermediate GI upset Verified 05/24/23 19:11 Family History Father Colon cancer Prostate cancer Surgical History History of bilateral cataract extraction (~2015) History of bilateral knee arthroplasty History of cholecystectomy (~08/2020) History of cochlear implant History of colonoscopy History of esophagogastroduodenoscopy (EGD) History of tonsillectomy History of umbilical hernia repair (~08/2020) Status post bilateral knee replacements Status post excision of lipoma Status post total left knee replacement Social History Smoking Status: Former smoker how long ago did patient quit smokin years ago alcohol intake: current alcohol intake frequency: holidays/special occasions only substance use type: does not use caffeine: Yes Type: coffee ROS ROS ED Constitutional Constitutional ED: Denies chills or fever(s) Eyes Eyes: Denies change in vision or diplopia ENT ENT ED: Denies rhinorrhea or sore throat Cardiovascular Cardiovascular: Reports leg edema; Denies chest pain or orthopnea Respiratory/Chest Respiratory/Chest: Denies cough, dyspnea, dyspnea on exertion or orthopnea Gastrointestinal Gastrointestinal: Denies abdominal pain, diarrhea or nausea Musculoskeletal Musculoskeletal: Reports extremity pain; Denies neck pain Integumentary Denies Abrasions, rash or wounds Neurologic Neurologic: Denies headache(s), paresthesias or weakness EXAM Physical Exam Const Vital Signs: 06/21/23 16:01 Temperature 97.2 F L Temperature Source Temporal Pulse Rate 87 Respiratory Rate 16 Blood Pressure 173/103 H Blood Pressure Mean 126 Pulse Ox 97 Oxygen Delivery Method Room Air Positive well nourished, well developed and obese General Appearance ED: well developed and NAD Nutritional Appearance: obese Eyes PERRL Eyes Narrative: eomi Neck full ROM and supple Neck Narrative: Possible JVD present. Exam limited by obesity. Chest Wall inspection of chest normal and palpation of chest normal Resp normal respiratory effort Resp Narrative: Slight end expiratory wheezes diffusely otherwise clear lungs Cardio regular rate and regular rhythm Rate: Negative for tachycardic GI non-tender and non-distended Back/Spine normal ROM and normal to inspection Extremity Extremity Narrative: Edematous lower extremities symmetrically with some blanching nontender erythema to the knees. The right knee is swollen. There is tenderness at the lateral aspect diffusely, but stops at the joint line and nontender at the fibular head. No deformities. Very limited range of motion. Extensor mechanism intact. Barely able to bend. Joint is grossly stable but not able to evaluate ACL and PCL reliably due to limited range of motion. MCL and LCL are stable Neuro oriented x3, no focal motor deficits and no sensory deficits noted Sensorium / Orientation: alert Psych mental status grossly normal and thought process normal Skin no wounds Rashes: no rashes MDM MDM MDM Narrative Medical decision making narrative: 2 view knee x-ray was obtained because the patient can barely bend his knee, and 4 views will be difficult to obtain. On my interpretation that show no acute fracture or dislocation, radiology in agreement. Hardware in place. I obtained some labs because the patient was complaining that his edema is worse. Family arrived later discussed with 2 other members who are not deaf. They agree this is a chronic problem they do not know the cause but Dr. Ervin has been treating him with diuretics, he has been on Lasix 40 mg a day, sometimes twice a day, sometimes he has metolazone added the right now he is on Lasix once daily. He thinks it has been worse for the past month and it makes it difficult for him to get around. We gave him something for pain, but he is barely able to bend that knee and he is unable to get out of bed and put any weight on his right lower extremity. He understands that this may mean half-way/short-term rehab since he lives by himself and does not have help at home. He is wanting this right now. Discussed with hospitalist who requested CT of the knee be performed prior to admission, and will review the results on the inpatient side. History & Record Review Discussion w/independent historian: Patient and Family Lab Data Attestation: I reviewed the patient's lab results. Labs: Laboratory Results - last 24 hr 06/21/23 17:08 WBC 5.0 RBC 4.39 L Hgb 13.9 Hct 42.8 MCV 97.5 H MCH 31.7 MCHC 32.5 RDW Std Deviation 52.3 H RDW Coeff of Taty 14.4 Plt Count 164 MPV 9.6 Immature Gran % (Auto) 0.400 Neut % (Auto) 68.2 Lymph % (Auto) 17.9 L [place] % (Auto) 10.5 H Eos % (Auto) 2.6 Baso % (Auto) 0.4 Absolute Neuts (auto) 3.4 Absolute Lymphs (auto) 0.90 Nucleated RBC % 0 Sodium 141 Potassium 4.1 Chloride 108 H Carbon Dioxide 28.0 Anion Gap 5 BUN 11 Creatinine 0.99 Est GFR (MDRD) Af Amer 95 Est GFR (MDRD) Non-Af 78 BUN/Creatinine Ratio 11.1 Glucose 100 Calcium 9.3 Total Bilirubin 0.60 AST 18 ALT 18 Alkaline Phosphatase 139 H B-Natriuretic Peptide 142.8 H Total Protein 6.9 Albumin 3.6 Globulin 3.3 Albumin/Globulin Ratio 1.1 Radiography Diagnostic Testing: Clinical Impression(s) from Imaging Studies Knee X-Ray 06/21/23 17:15 IMPRESSION: Total knee prosthesis is in place with no acute fracture or subluxation. Soft tissue swelling at the knee. Electronically Signed: Janet Wills MD at 17:35 EST , Management Discussion w/another healthcare provider: Hospitalist Discharge Plan Triage Chief Complaint: Lower Extremity Injury ED Provider: Parmjit Reyes Dx/Rx/DC Orders Clinical Impression: Bilateral lower extremity edema, Fall due to slipping on ice or snow, Inability to bear weight, Injury of right knee, Debility Prescriptions: No Action terazosin 2 mg capsule 2 mg PO QHS Trelegy Ellipta 100-62.5-25 mcg blister with device 1 inh inhalation DAILY amoxicillin-pot clavulanate 875-125 mg tablet 1 tab PO BID gabapentin 300 mg capsule 300 mg PO TID prednisone 50 mg tablet 50 mg PO DAILY Rx Instructions: tapering dose furosemide 40 mg tablet 40 mg PO DAILY Qty: 180 3RF albuterol sulfate 90 mcg/actuation HFA aerosol inhaler 2 puff inhalation Q6H PRN (Reason: Shortness Of Breath) Patient Comments: breathing methylcellulose (laxative) 500 MG tablet 500 mg PO BID multivitamin with minerals 1 EACH tablet 1 tablet PO DAILY pantoprazole 40 MG tablet,delayed release (DR/EC) 40 mg PO DAILY Patient Comments: gastric reflux hydrocodone-acetaminophen [hydrocodone-acetaminophen] 5-325 mg tablet 1 tab PO Q4H PRN PRN (Reason: Pain) 2 Days Qty: 10 0RF (DME) Aerochamber MV Spacer See Rx Instructions .Route Qty: 1 0RF Rx Instructions: As directed metaxalone 800 mg tablet 800 mg PO TID 7 Days Qty: 21 0RF diltiazem HCl 120 mg capsule,extended release 24hr 120 mg PO DAILY Qty: 90 3RF potassium chloride 20 mEq tablet extended release 20 meq PO DAILY Qty: 30 11RF apixaban 5 mg tablet 5 mg PO BID Qty: 180 4RF Primary Care Provider: Kirk Ervin Referrals: Kirk Ervin MD [Primary Care Provider] - Disposition Disposition: Acute Care Hospital [facility]
[2023-06-21] MEDS: HYDROcodone Bitartrate/Apap 5/325 Tablet PO (17:10)
[2023-06-21 17:15] LABS: Absolute Neutrophil Count 3.4 X10^3/uL (2.0-7.7); Basophil# 0.02 X10^3/uL; Basophil% 0.4 % (0-1); Eosinophil# 0.13 X10^3/uL; Eosinophils% 2.6 % (0-5); Hematocrit 42.8 % (40-54); Hemoglobin 13.9 g/dL (13.0-16.5); Lymphocyte % 17.9 % (19-41); Mean Corp Hgb Conc 32.5 g/dL (32-36); Mean Corpuscular Hgb 31.7 pg (27.0-32.0); Mean Corpuscular Volume 97.5 fL (80-94); Mean Platelet Vol. 9.6 fl (6.2-12.0); Monocyte# 0.53 X10^3/uL; Monocyte% 10.5 % (0-10); NRBC Flagged by Analyzer 0 % (0-5); Neutrophil # 3.44 X10^3/uL (2.7-7.7); Neutrophil % 68.2 % (47-70); Platelet Count 164 K/mm3 (150-450); RBC Distribution Width CV 14.4 % (11.6-14.6); RBC Distribution Width SD 52.3 fl (35.1-43.9); Red Blood Count 4.39 M/mm3 (4.6-6.2)
--- NOTE | 2023-06-21 17:15 | RAD_ITS ---
STUDY: X-RAY - RIGHT KNEE REASON FOR EXAM: Male, 73 years old. injury TECHNIQUE: 2 view(s) of the knee. COMPARISON: None. FINDINGS: Total knee prosthesis in place, otherwise normal visualized distal femur. Normal visualized proximal tibia and fibula. There is arthrosis of the proximal tibiofibular articulation. There is no demonstrated fracture. Postoperative changes of the patella. Soft tissue swelling along the knee. RAD/Knee 1 or 2 Views IMPRESSION: Total knee prosthesis is in place with no acute fracture or subluxation. Soft tissue swelling at the knee. Electronically Signed: Janet Wills MD at 17:35 EST ,
[2023-06-21 17:54] LABS: BNP,B-Type NATRIURETIC PEPTIDE 142.8 pg/mL (0-100)
[2023-06-21 17:55] LABS: ALB/GLOB Ratio 1.1 RATIO (0.9-2.4); AST(SGOT) 18 U/L (15-37); Alanine Aminotransfer ALT/SGPT 18 U/L (16-61); Albumin, Serum 3.6 g/dL (3.2-5.0); Alkaline Phosphatase 139 U/L (45-117); Anion Gap 5 (5-15); BUN 11 mg/dL (7-18); BUN/Creat Ratio 11.1 RATIO (10-20); Calcium,Total 9.3 mg/dL (8.5-10.1); Chloride 108 mmol/L (98-107); Creatinine, Serum 0.99 mg/dL (0.70-1.30); EST Glomerular Filtration Rate 78 mL/min (>60); Est Glom Filt Rate - Afr Amer 95 mL/min (>60); Globulin 3.3 g/dL (2.2-4.2); Glucose 100 mg/dL (74-106); Potassium 4.1 mmol/L (3.5-5.1); Protein, Total 6.9 g/dL (6.4-8.2); Sodium Level 141 mmol/L (136-145)
[2023-06-21 19:14] VITALS: BP 192/120
--- NOTE | 2023-06-21 19:21 | PCM.HP.STD ---
[facility] - General General Date of Admission: 06/21/23 Date of Service: 06/21/23 Chief Complaint: Right knee pain HPI Radha BHANDARI, is a 73 M who presented to the emergency department at [facility] on 06/21/2023 after suffering a mechanical fall and landing on his right knee. He had a acute onset right knee pain and does have a history of bilateral total knee arthroplasty. He was outside and bent over to pick something up and lost his balance and fell. He had to lay there until someone got there to help him but they were not able to get him up so EMS was called. He was having trouble putting weight on his leg because it hurts so badly, so he was transferred to the emergency department. He also complained of having bilateral lower extremity edema that had been worsening since he was seen here on 05/24/2023 and placed on Skelaxin. He has completed that course of medications but the edema has been persistent. He denies any significant dietary indiscretion with regards to salt or fluid and family does report he watches his sodium intake. He had no shortness of breath or any other signs of heart failure and he is anticoagulated at baseline with Eliquis and not missed any doses. Patient has no other complaints other than his right knee and lower extremity swelling. Vital signs show temperature of 97.2, heart rate 87, blood pressure 173/103, respiratory rate 16 oxygen saturations are 97% on room air. His CBC is overall unremarkable. He has a normal hemoglobin with a macrocytosis. His chemistry panel is unremarkable. Liver function is normal. Renal function is normal. His BNP is elevated at 142.8 with his most recent BNP being in September at which time it was normal at 84.1. Patient states he has been compliant with his Lasix at home. X-ray of his knee was unremarkable for any acute fracture but did show some soft tissue swelling. On exam he has some ecchymosis at the anterior knee and has difficulty moving his leg. He also has significant bilateral lower extremity pitting edema and his legs appear consistent with venous stasis. He really wanted to go home but was unable to ambulate at all in his leg so he will need to be admitted for possible evaluation for rehab and given his elevated BNP and lower extremity swelling he will need some IV diuresis. Patient is deaf at baseline but reads lips well. [facility] Medical History Abdominal aortic aneurysm without rupture Aneurysm of infrarenal abdominal aorta Asthma Chest pain Cholecystolithiasis COPD (chronic obstructive pulmonary disease) Deaf Essential hypertension History of gastritis Hypokalemia Osteoarthritis Persistent atrial fibrillation Postoperative atrial fibrillation Pulmonary hypertension Home Medications methylcellulose (laxative) 500 mg tablet 500 mg PO BID bowels 09/03/15 [History Last Taken Unknown] terazosin 2 mg capsule 2 mg PO QHS bladder 12/21/19 [History Last Taken 09/23/20 22:00] multivitamin with minerals 1 tablet PO DAILY supplement 09/24/20 [History Last Taken Unknown] pantoprazole 40 mg tablet,delayed release 40 mg PO DAILY acid reflux 09/24/20 [History Last Taken 09/23/20] fluticasone fur. 100 mcg-umeclid 62.5 mcg-vilant 25 mcg inhalat.powder (Trelegy Ellipta) 1 inh inhalation DAILY 12/18/20 [History Last Taken Unknown] albuterol sulfate 90 mcg/actuation aerosol inhaler 2 puff inhalation Q6H PRN Shortness Of Breath 01/14/22 [History Last Taken Unknown] furosemide 40 mg tablet 40 mg PO DAILY #180 tabs 10/31/22 [Rx Last Taken Unknown] inhalational spacing device (Aerochamber MV spacer) #1 ea 11/21/22 [Rx Last Taken Unknown] diltiazem HCl 120 mg capsule,extended release 24 hr 120 mg PO DAILY heart #90 caps 12/13/22 [Rx Last Taken Unknown] potassium chloride 20 mEq tablet,extended release 20 meq PO DAILY #30 tabs 03/24/23 [Rx Last Taken Unknown] metaxalone 800 mg tablet 800 mg PO TID 7 days #21 tabs 05/24/23 [Rx Last Taken Unknown] apixaban 5 mg tablet 5 mg PO BID #180 tabs 05/29/23 [Rx Last Taken Unknown] Allergy/AdvReac Type Severity Reaction Status Date / Time aspirin AdvReac Intermediate Excess Verified 05/24/23 19:11 bleeding,GI upset codeine AdvReac Intermediate GI upset Verified 05/24/23 19:11 Family History Father Colon cancer Prostate cancer Surgical History History of bilateral cataract extraction (~2015) History of bilateral knee arthroplasty History of cholecystectomy (~08/2020) History of cochlear implant History of colonoscopy History of esophagogastroduodenoscopy (EGD) History of tonsillectomy History of umbilical hernia repair (~08/2020) Status post bilateral knee replacements Status post excision of lipoma Status post total left knee replacement Social History Smoking Status: Former smoker how long ago did patient quit smokin years ago alcohol intake: current alcohol intake frequency: holidays/special occasions only substance use type: does not use caffeine: Yes Type: coffee ROS Constitutional Constitutional: Reports weakness; Denies anorexia, change in weight, chills, fatigue, fever(s), malaise, night sweats or other Eyes Eyes: Denies blurry vision, change in eye color, change in vision, discharge from eye(s), double vision, erythema, eye pain, loss of vision or other ENT HEENT: Reports abnormal hearing and hearing loss; Denies dysphagia, ear pain, epistaxis, headache(s), nasal congestion, nasal discharge, post nasal drip, sinus pressure, sore throat or other Cardiovascular Cardiovascular: Reports edema; Denies chest pain, claudication, dyspnea on exertion, lightheadedness, orthopnea, palpitations, paroxysmal nocturnal dyspnea, rapid heart rate, syncope or other Respiratory/Chest Respiratory/Chest: Denies cough, dyspnea, excessive phlegm production, hemoptysis, productive cough, shortness of breath at rest, shortness of breath with exertion, wheezing or other Gastrointestinal Gastrointestinal: Denies abdominal pain, coffee ground emesis, constipation, diarrhea, dyspepsia, hematemesis, hematochezia, loose stools, melena, nausea, vomiting or other Genitourinary Genitourinary: Denies burning urination, difficulty urinating, dysuria, hematuria, nocturia, urinary frequency, urinary hesitancy, urinary incontinence, urinary urgency or other Musculoskeletal Musculoskeletal: Reports joint pain, joint stiffness and joint swelling; Denies arthralgias, back pain, myalgias, neck pain or other Neurologic Neurologic: Reports abnormal gait and other Details: Balance issues ; Denies abnormal speech, confusion, disequilibrium, dizziness, focal weakness, headache(s), numbness, paresthesias, seizure-like activity, seizures, syncope, tingling or tremor(s) Psychiatric Psychiatric: Denies anxiety, depression, homicidal ideation, suicidal ideation or other Endocrine Endocrinology: Denies change in body appearance, cold intolerance, excessive sweating, heat intolerance, polydipsia, polyuria or other Hematologic/Lymphatic Hematologic/Lymphatic: Denies anemia, easy bleeding, easy bruising, lymphadenopathy or other Allergic/Immunologic Allergic/Immunologic: Denies rhinitis, hives, eczemia, asthma or other Vital Signs Vital Signs Vital Signs: 06/21/23 16:01 06/21/23 19:14 Temperature 97.2 F L Temperature Source Temporal Pulse Rate 87 Respiratory Rate 16 Blood Pressure 173/103 H 192/120 H Blood Pressure Mean 126 144 Pulse Ox 97 Oxygen Delivery Method Room Air Physical Exam Const alert, oriented x3, no apparent distress and well nourished; Negative for average body habitus Constitutional Narrative: Elderly, white male, sitting up in bed, family at bedside, nurse at bedside, patient appears comfortable currently and nontoxic, ice over right knee General Appearance: cooperative HEENT normocephalic, head/scalp atraumatic and moist oral mucous membranes; Negative for hearing grossly normal bilaterally HEENT Narrative: Upper and lower dentures in place, Mallampati 2, no thrush, patient is deaf but reads lips Eyes PERRL, EOMs intact bilaterally and conjunctivae normal Eyes Narrative: No scleral icterus Neck no lymphadenopathy and supple Neck Narrative: Trachea midline, no thyroid enlargement Resp normal respiratory effort, no retractions, no use of accessory muscles and clear to auscultation bilaterally Resp Narrative: Diminished but clear Auscultation: Negative for rales, rhonchi or wheezes Cardio regular rate, regular rhythm, S1 normal heart sound, S2 normal heart sound, no murmurs, no rub, no gallops and no clicks GI normal to inspection, nondistended, normoactive bowel sounds, soft to palpation and non-tender Extremity Extremity Narrative: No clubbing or cyanosis, patient with 1-2+ bilateral lower extremity pitting edema, right knee with small effusion and significant ecchymosis that appears to be acute on the anterior portion of the knee below the patella and over the medial lateral joint line, pain with range of motion and decreased flexion range of motion Skin no wounds, skin turgor normal, no jaundice, no petechiae and no mottling Skin Narrative: Lower extremities have color changes consistent with venous stasis, ecchymosis is noted above Neuro oriented x3, CN's II-XII intact bilaterally and no focal motor deficits Neuro Narrative: Limited movement right lower extremity due to pain Psych affect normal Psych Narrative: Very pleasant, interacts appropriately, reads lips well Results Lab / Micro Data 06/21/23 17:08 06/21/23 17:08 Labs: Laboratory Results - last 24 hr 06/21/23 17:08: WBC 5.0, RBC 4.39 L, Hgb 13.9, Hct 42.8, MCV 97.5 H, MCH 31.7, MCHC 32.5, RDW Std Deviation 52.3 H, RDW Coeff of Taty 14.4, Plt Count 164, MPV 9.6, Immature Gran % (Auto) 0.400, Neut % (Auto) 68.2, Lymph % (Auto) 17.9 L, [place] % (Auto) 10.5 H, Eos % (Auto) 2.6, Baso % (Auto) 0.4, Absolute Neuts (auto) 3.4, Absolute Lymphs (auto) 0.90, Nucleated RBC % 0, Sodium 141, Potassium 4.1, Chloride 108 H, Carbon Dioxide 28.0, Anion Gap 5, BUN 11, Creatinine 0.99, Est GFR (MDRD) Af Amer 95, Est GFR (MDRD) Non-Af 78, BUN/Creatinine Ratio 11.1, Glucose 100, Calcium 9.3, Total Bilirubin 0.60, AST 18, ALT 18, Alkaline Phosphatase 139 H, B-Natriuretic Peptide 142.8 H, Total Protein 6.9, Albumin 3.6, Globulin 3.3, Albumin/Globulin Ratio 1.1 Imagaing Radiology Impression Knee X-Ray 06/21/23 17:15 IMPRESSION: Total knee prosthesis is in place with no acute fracture or subluxation. Soft tissue swelling at the knee. Electronically Signed: Janet Wills MD at 17:35 EST , Assessment & Plan Assessment/Plan (1) Debility: (2) Injury of right knee: (3) Inability to bear weight: (4) Fall due to slipping on ice or snow: (5) Bilateral lower extremity edema: (6) Acute on chronic heart failure with preserved ejection fraction: PLAN: Plan Right knee pain status post mechanical fall -X-rays unremarkable -CT of knee is pending -Depending on function/effusion may need orthopedic evaluation but will await further evaluation the next 24 to 48 hours to see how he progresses -As needed ice -Scheduled Tylenol 1g q 8 hours -As needed oxycodone -Avoid NSAIDs due to age and medical history along with chronic anticoagulation -PT/OT consultation -Repeat hemoglobin in 6 hours to ensure stability with concern for development of hemarthrosis with apixaban use and trauma Fall/debility -Patient with mechanical fall due to losing balance -PT/OT consultation -Social work/case management consultation for assistance with discharge planning Acute on chronic HFpEF/lower extremity edema -BNP is elevated when compared to previous done about 6 months ago -Lasix IV push twice daily -Hold home oral Lasix of 40 mg daily -Check lower extremity duplex to rule out DVT however the likelihood of this is low being on Eliquis however I have seen clotting on Eliquis -Sodium restricted diet -Fluid restricted diet -Accurate I's and O's -Daily weights -Abad bandages to bilateral lower extremities for compression -Patient with recent echocardiogram 2022 that showed an EF of 50% with indeterminate diastolic dysfunction and right ventricular systolic pressure 45 mmHg, mild aortic valve insufficiency, mild mitral valve insufficiency, moderate pulmonic valve insufficiency and hypokinesis of the inferior aspect of the heart -Patient had follow-up stress test done for the hypokinesis which showed no signs of ischemia PAF -Continue home diltiazem--> could contribute to lower extremity swelling -Continue home Eliquis GERD -Continue home PPI 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 ARIANNA -Continue home nocturnal oxygen at 2 L while sleeping and with naps COPD -Continue home scheduled and as needed inhalers History of AAA -Patient has a 3.6 cm infrarenal abdominal aortic aneurysm that was noted to be stable -Is due for follow-up soon -Recommend outpatient follow-up Hypertension -Continue home diltiazem Deafness -Patient is completely deaf however he reads lips very well DVT prophylaxis -Continue Eliquis CODE STATUS Full code Charges/Coding Visit Charges Inpatient E&M: 71024 Init Hosp L2
--- NOTE | 2023-06-21 19:40 | CT_ITS ---
CT RIGHT LOWER EXTREMITY WITH 3-D IMAGING CLINICAL INDICATION: injury, unable to move, neg XR TECHNIQUE: Axial CT images of the RIGHT lower extremity was performed without IV contrast material. Coronal and sagittal reformats were provided. RADIATION DOSAGE (If Supplied By Facility): CTDIvol = ( 15.81 ) mGy, DLP = ( 583.04 ) mGycm COMPARISON: None. FINDINGS: Bones: There is a total knee prosthesis in place with normal alignment. Diffuse osteopenia. No acute fracture. Soft Tissues: Focal collection of high density with central lucency at the medial aspect of the knee consistent with hematoma measuring 5.9 x 3.0 cm in axial dimension by 8.7 cm. Is diffuse stranding within the subcutaneous fat of the distal thigh, calf region and suggestive of edema. CT/Extremity Lower without Contra IMPRESSION: Total knee prosthesis in place with no acute fracture or subluxation. There is a focal hematoma along the medial aspect of the upper knee measuring 5.9 x 3.0 x 2.7 cm. Diffuse edema versus atelectasis of distal thigh, knee and calf region, nonspecific. Electronically Signed: Janet Wills MD at 20:17 EST ,
--- NOTE | 2023-06-21 20:25 | VDLE_ITS ---
Reason For Study: Swelling RIGHT LEFT GSV is normal. GSV is normal. CFV is compressible, spontaneous, phasic, CFV is compressible, spontaneous, phasic, competent and demonstrates normal competent, and demonstrates normal augmentation. augmentation. FV is compressible, spontaneous, phasic, FV is compressible, spontaneous, phasic, competent and demonstrates normal competent and demonstrates normal augmentation. augmentation. POP V is compressible, spontaneous, phasic, POP V is compressible, spontaneous, phasic, competent and demonstrates normal competent and demonstrates normal augmentation. augmentation. T/P Trunk is compressible. T/P Trunk is compressible. PTV is compressible. PTV is compressible. RT PerV is compressible. LT PerV is compressible. Procedure This is a venous duplex using B-mode, color flow and spectral Doppler. Exam performed portable in patient room. A preliminary report was called and/or faxed to [facility]. VL/Venous Duplex US - Jorge Extrem Interpretation Summary Deep veins of the bilateral lower extremities are patent and compressible segme ntally. There is no evidence of bilateral lower extremity deep vein thrombosis. The bilateral great saphenous veins appear patent and compressible segmentally. Ordering Physician: Cindy Watkins Referring Physician: Kirk Ervin Performed By: Natalie Serna, ROSE, RVT
[2023-06-21 20:50] VITALS: BP 165/114; PULSE 88; RESP 24; TEMP 36.4; O2SAT 96; BMI 36.9
[2023-06-21] MEDS: Doxazosin 1 MG Tablet 2 MG PO (21:01)
[2023-06-21] MEDS: APIXABAN 5 MG TABLET PO (21:01)
[2023-06-21] MEDS: Furosemide 40 MG/4 ML Vial IV (21:01)
[2023-06-21] MEDS: Acetaminophen 500 MG Tablet 1000 MG PO (21:01)
[2023-06-21 21:45] LABS: Hemoglobin 13.6 g/dL (13.0-16.5)
[2023-06-21] MEDS: Ipratropium/Albuterol Sulfate 3 ML AMPUL.NEB INHALATION (22:09)
[2023-06-21 22:10] VITALS: PULSE 82; RESP 20
[2023-06-21] MEDS: Budesonide Respules 0.5 MG/2 ML AMPUL.NEB. INHALATION (22:10)
[2023-06-21 22:15] VITALS: BP 165/114; PULSE 88; RESP 20; TEMP 36.4; O2SAT 97
[2023-06-22] VITALS (9 sets, daily range): BP systolic 147–157; BP diastolic 68–95; PULSE 80–94; RESP 16–20; TEMP 36.6–37.1; O2SAT 94–97; BMI 37.0
[2023-06-22] MEDS: Acetaminophen 500 MG Tablet 1000 MG PO ×3 (04:08→20:43)
[2023-06-22] MEDS: oxyCODONE 5 MG Tablet 2.5 MG PO ×3 (04:09→20:43)
[2023-06-22 06:17] LABS: Absolute Lymphocyte Count 0.92 X10^3/uL (0.83-4.51); Absolute Neutrophil Count 5.4 X10^3/uL (2.0-7.7); Basophil# 0.02 X10^3/uL; Basophil% 0.3 % (0-1); Eosinophils% 1.4 % (0-5); Hematocrit 38.9 % (40-54); Hemoglobin 12.3 g/dL (13.0-16.5); Lymphocyte # 0.92 X10^3/ul (0.83-4.51); Lymphocyte % 12.6 % (19-41); Mean Corp Hgb Conc 31.6 g/dL (32-36); Mean Corpuscular Hgb 30.8 pg (27.0-32.0); Mean Corpuscular Volume 97.5 fL (80-94); Monocyte# 0.85 X10^3/uL; Monocyte% 11.7 % (0-10); NRBC Flagged by Analyzer 0 % (0-5); Neutrophil # 5.39 X10^3/uL (2.7-7.7); Neutrophil % 73.9 % (47-70); Platelet Count 156 K/mm3 (150-450); RBC Distribution Width CV 14.3 % (11.6-14.6); RBC Distribution Width SD 51.8 fl (35.1-43.9); Red Blood Count 3.99 M/mm3 (4.6-6.2); White Blood Count 7.3 K/mm3 (4.4-11.0)
[2023-06-22 06:30] LABS: ALB/GLOB Ratio 1.1 RATIO (0.9-2.4); AST(SGOT) 22 U/L (15-37); Alanine Aminotransfer ALT/SGPT 15 U/L (16-61); Albumin, Serum 3.3 g/dL (3.2-5.0); Alkaline Phosphatase 124 U/L (45-117); Anion Gap 5 (5-15); BUN 10 mg/dL (7-18); BUN/Creat Ratio 10.7 RATIO (10-20); Calcium,Total 8.3 mg/dL (8.5-10.1); Chloride 107 mmol/L (98-107); Creatinine, Serum 0.94 mg/dL (0.70-1.30); EST Glomerular Filtration Rate 83 mL/min (>60); Est Glom Filt Rate - Afr Amer 101 mL/min (>60); Estimated Creatinine Clearance 84.38 ml/min; Glucose 107 mg/dL (74-106); Phosphorus 2.9 mg/dL (2.5-4.9); Potassium 3.5 mmol/L (3.5-5.1); Protein, Total 6.3 g/dL (6.4-8.2); Sodium Level 140 mmol/L (136-145)
[2023-06-22] MEDS: Budesonide Respules 0.5 MG/2 ML AMPUL.NEB. INHALATION ×2 (07:04→20:50)
[2023-06-22] MEDS: Ipratropium/Albuterol Sulfate 3 ML AMPUL.NEB INHALATION ×3 (07:04→20:50)
--- NOTE | 2023-06-22 07:58 | PCM.PN.HOSP ---
Reason for Visit Reason for Visit: Diagnoses Acute on chronic diastolic (congestive) heart failure (06/21/23) Other abnormalities of gait and mobility (06/21/23) Other malaise (06/21/23) Localized edema (06/21/23) Unspecified injury of right lower leg, initial encounter (06/21/23) Unspecified fall due to ice and snow, initial encounter (06/21/23) Subjective Subjective Patient still with swelling in right leg reports pain is improving, no problem with changes in sensation or movement of his lower extremities, denies changes in his breathing or other acute complaints Objective Data Objective Data Vital Signs: Vital Signs Temp Pulse Resp BP Pulse Ox O2 Del Method 98 F 80 20 H 151/90 H 97 Room Air 06/22/23 04:15 06/22/23 04:15 06/22/23 04:15 06/22/23 04:15 06/22/23 04:15 06/22/23 04:15 Oxygen Delivery Method Room Air Weight: 113.6 kg Body Mass Index (BMI) 37.0 Intake & Output: Intake and Output for Last 24 Hours 06/20/23 06/21/23 06/22/23 23:59 23:59 23:59 Intake Total 480 / 480 Output Total 850 / 850 Balance -370 / -370 Lab / Micro Data 06/22/23 05:28 06/22/23 05:28 Labs: Laboratory Results - last 24 hr 06/21/23 17:08: WBC 5.0, RBC 4.39 L, Hgb 13.9, Hct 42.8, MCV 97.5 H, MCH 31.7, MCHC 32.5, RDW Std Deviation 52.3 H, RDW Coeff of Taty 14.4, Plt Count 164, MPV 9.6, Immature Gran % (Auto) 0.400, Neut % (Auto) 68.2, Lymph % (Auto) 17.9 L, Hardin % (Auto) 10.5 H, Eos % (Auto) 2.6, Baso % (Auto) 0.4, Absolute Neuts (auto) 3.4, Absolute Lymphs (auto) 0.90, Nucleated RBC % 0, Sodium 141, Potassium 4.1, Chloride 108 H, Carbon Dioxide 28.0, Anion Gap 5, BUN 11, Creatinine 0.99, Est GFR (MDRD) Af Amer 95, Est GFR (MDRD) Non-Af 78, BUN/Creatinine Ratio 11.1, Glucose 100, Calcium 9.3, Total Bilirubin 0.60, AST 18, ALT 18, Alkaline Phosphatase 139 H, B-Natriuretic Peptide 142.8 H, Total Protein 6.9, Albumin 3.6, Globulin 3.3, Albumin/Globulin Ratio 1.1 06/21/23 21:21: Hgb 13.6 06/22/23 05:28: WBC 7.3, RBC 3.99 L, Hgb 12.3 L, Hct 38.9 L, MCV 97.5 H, MCH 30.8, MCHC 31.6 L, RDW Std Deviation 51.8 H, RDW Coeff of Taty 14.3, Plt Count 156, MPV 10.0, Immature Gran % (Auto) 0.100, Neut % (Auto) 73.9 H, Lymph % (Auto) 12.6 L, [place] % (Auto) 11.7 H, Eos % (Auto) 1.4, Baso % (Auto) 0.3, Absolute Neuts (auto) 5.4, Absolute Lymphs (auto) 0.92, Nucleated RBC % 0, Sodium 140, Potassium 3.5, Chloride 107, Carbon Dioxide 28.0, Anion Gap 5, BUN 10, Creatinine 0.94, Estim Creat Clear Calc 84.38, Est GFR (MDRD) Af Amer 101, Est GFR (MDRD) Non-Af 83, BUN/Creatinine Ratio 10.7, Glucose 107 H, Calcium 8.3 L, Phosphorus 2.9, Total Bilirubin 0.90, AST 22, ALT 15 L, Alkaline Phosphatase 124 H, Total Protein 6.3 L, Albumin 3.3, Globulin 3.0, Albumin/Globulin Ratio 1.1 Radiography Diagnostic Testing: Radiology Impression Knee X-Ray 06/21/23 17:15 IMPRESSION: Total knee prosthesis is in place with no acute fracture or subluxation. Soft tissue swelling at the knee. Electronically Signed: Janet Wills MD at 17:35 EST , Lower Extremity CT 06/21/23 19:40 IMPRESSION: Total knee prosthesis in place with no acute fracture or subluxation. There is a focal hematoma along the medial aspect of the upper knee measuring 5.9 x 3.0 x 2.7 cm. Diffuse edema versus atelectasis of distal thigh, knee and calf region, nonspecific. Electronically Signed: Janet Wills MD at 20:17 EST , Physical Exam Narrative General: Alert, no apparent distress HEENT: normocephalic Eyes: Anicteric, normal conjunctiva, extraocular movements grossly intact Neck: Supple Respiratory: Somewhat diminished throughout Cardiovascular: Regular rate GI: Soft, nontender, nondistended Extremities: Right knee/leg more swollen than left but no temperature differences or movement differences Musculoskeletal: Moving all extremities Neuro: No overt focal neurological deficits Skin: Has some bruising with right knee, has 0.5 x 1 inch fluid-filled blister on tip of any with no purulence appreciated no other blisters noted Psych: Cooperative Assessment & Plan Assessment/Plan (1) Debility: (2) Injury of right knee: (3) Inability to bear weight: (4) Fall due to slipping on ice or snow: (5) Bilateral lower extremity edema: (6) Acute on chronic heart failure with preserved ejection fraction: PLAN: Plan Right knee pain status post mechanical fall -X-rays unremarkable -CT of knee is pending -Depending on function/effusion may need orthopedic evaluation but will await further evaluation the next 24 to 48 hours to see how he progresses -As needed ice -Scheduled Tylenol 1g q 8 hours -As needed oxycodone -Avoid NSAIDs due to age and medical history along with chronic anticoagulation -PT/OT consultation -Repeat hemoglobin in 6 hours to ensure stability with concern for development of hemarthrosis with apixaban use and trauma -06/22: Hemoglobin 12.3 from 13.6, will check again in the a.m., focal hematoma along medial aspect of upper knee measuring 5.9 x 3 x 2.[address], PT/OT, pain control, compression, holding patient's Eliquis given hematoma, patient reports pain is improving so we will continue to monitor clinically and elevate extremity with the above measures Fall/debility -Patient with mechanical fall due to losing balance -PT/OT consultation -Social work/case management consultation for assistance with discharge planning -06/22: Need to work with PT/OT, pain control, may need placement on discharge Acute on chronic HFpEF/lower extremity edema -BNP is elevated when compared to previous done about 6 months ago -Lasix IV push twice daily -Hold home oral Lasix of 40 mg daily -Check lower extremity duplex to rule out DVT however the likelihood of this is low being on Eliquis however I have seen clotting on Eliquis -Sodium restricted diet -Fluid restricted diet -Accurate I's and O's -Daily weights -Abad bandages to bilateral lower extremities for compression -Patient with recent echocardiogram 2022 that showed an EF of 50% with indeterminate diastolic dysfunction and right ventricular systolic pressure 45 mmHg, mild aortic valve insufficiency, mild mitral valve insufficiency, moderate pulmonic valve insufficiency and hypokinesis of the inferior aspect of the heart -Patient had follow-up stress test done for the hypokinesis which showed no signs of ischemia -06/22: Will follow daily weights and I's and O's, patient started on IV Lasix twice daily, will decrease to once daily, has some ankles and legs in the seems to be improving PAF -Continue home diltiazem--> could contribute to lower extremity swelling -Continue home Eliquis -06/22: Holding Eliquis given patient's hematoma, continue Cardizem GERD -Continue home PPI 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 ARIANNA -Continue home nocturnal oxygen at 2 L while sleeping and with naps COPD -Continue home scheduled and as needed inhalers History of AAA -Patient has a 3.6 cm infrarenal abdominal aortic aneurysm that was noted to be stable -Is due for follow-up soon -Recommend outpatient follow-up Hypertension -Continue home diltiazem Deafness -Patient is completely deaf however he reads lips very well DVT prophylaxis -Continue Eliquis CODE STATUS Full code Time spent in the patient's overall evaluation,decision-making process, review of diagnostic data, adjustment of management, discussion with other providers, nursing nursing and ancillary staff involved in patient's care documentation, 38 minutes Charges/Coding Visit Charges Inpatient E&M: 53022 Subs Hosp L2
[2023-06-22] MEDS: Pantoprazole Sodium 40 MG Tablet PO (09:07)
[2023-06-22] MEDS: Furosemide 40 MG/4 ML Vial IV (09:08)
[2023-06-22] MEDS: dilTIAZem CD 120 MG Capsule PO (09:08)
[2023-06-22] MEDS: Doxazosin 1 MG Tablet 2 MG PO (20:42)
[2023-06-23] VITALS (10 sets, daily range): BP systolic 129–160; BP diastolic 86–90; PULSE 83–99; RESP 18–24; TEMP 36.5–36.9; O2SAT 94–97; BMI 36.9
[2023-06-23] MEDS: Albuterol 2.5 MG/3 ML VIAL.NEB. INHALATION ×2 (04:21→10:42)
--- NOTE | 2023-06-23 04:26 | CT_ITS ---
EXAM: CT RIGHT LOWER EXTREMITY WITH INTRAVENOUS CONTRAST, KNEE CLINICAL INDICATION: Suspected right knee arthro infection Suspected right knee arthro infection TECHNIQUE: Helically acquired images were obtained of the right knee with intravenous contrast. This CT exam was performed using one or more of the following dose reduction techniques: automated exposure control, adjustment of the mA and/or kV according to patient size, and/or use of iterative reconstruction technique. CONTRAST: IV 75mL Isovue-370 RADIATION DOSE: CTDIvol = 15.52 mGy, DLP = 774.05 mGy-cm COMPARISON: CT scan right knee 06/21/2023. Extra right knee 06/21/2023. FINDINGS: LIMITATIONS: X-ray beam attenuation artifacts due to metallic hardware. BONES/JOINTS: Patient is status post total knee replacement. There is no visualized bone resorption around the hardware to suggest loosening or infection. No acute fracture. No subluxation. Normal alignment. Preservation of the joint space. No sclerotic or destructive changes. SOFT TISSUES: As seen on axial images 44-87, there is an approximately 13 x 5.7 x 3.1 cm hematoma in soft tissues lateral to the knee. Reliable measurement is difficult due to presence of artifacts. There is no definite change from recent previous study. No soft tissue swelling or gas. No radiopaque foreign body. CT/Extremity Lower WITH Contrast IMPRESSION: 1. Status post total knee replacement. No visible radiographic evidence for loosening or infection. 2. No evidence for a significant knee joint effusion. This also argues against joint infection. 3. Redemonstration of a hematoma in soft tissues lateral to the knee, with no definite change from the CT scan done 2 days ago. Electronically Signed: Tonny Hill MD at 5:31 EST ,
[2023-06-23] MEDS: Piperacil/Tazobactam 3.375 GM in 0.9% Normal Saline (50mL MB+) 50 ML IV ×3 (05:15→22:45)
[2023-06-23] MEDS: Acetaminophen 500 MG Tablet 1000 MG PO ×3 (05:15→21:11)
[2023-06-23] MEDS: oxyCODONE 5 MG Tablet 2.5 MG PO ×2 (05:35→21:11)
[2023-06-23] MEDS: Vancomycin HCl 2,000 MG in 0.9% Normal Saline (500mL Bag) 500 ML 175 MG IV (05:47)
--- NOTE | 2023-06-23 05:55 | PCM.RX.CS ---
Consult Antibiotic Management Pharmacy has been consulted to manage selected antibiotic: Vancomycin Type of Intervention Type of Consult: New start Labs Labs: Sodium 140 mmol/L (136-145) 06/22/23 05:28 Potassium 3.5 mmol/L (3.5-5.1) 06/22/23 05:28 Chloride 107 mmol/L (98-107) 06/22/23 05:28 Carbon Dioxide 28.0 mmol/L (21.0-32.0) 06/22/23 05:28 Anion Gap 5 (5-15) 06/22/23 05:28 BUN 10 mg/dL (7-18) 06/22/23 05:28 Creatinine 0.94 mg/dL (0.70-1.30) 06/22/23 05:28 Est GFR (MDRD) Af Amer 101 mL/min (>60) 06/22/23 05:28 Est GFR (MDRD) Non-Af 83 mL/min (>60) 06/22/23 05:28 BUN/Creatinine Ratio 10.7 RATIO (10-20) 06/22/23 05:28 Glucose 107 mg/dL (74-106) H 06/22/23 05:28 Dosing Weight Weight used for dosin.5 kg Estimated Creatinine Clearance Estimated Creatinine Clearance: 84 Goal Trough Goal Trough: 15-20 mcg/mL Pharmacy Plan for Drug Dosing Pharmacy Plan for Drug Dosing: Pharmacy Service will continue to monitor and adjust dosing as required. Follow-Up Labs Follow-Up Labs: Trough: Vancomycin Date/Time Labs Ordered Labs to be done on [date and time ordered]: 06/24/23 @7618
[2023-06-23 06:33] LABS: Absolute Lymphocyte Count 0.99 X10^3/uL (0.83-4.51); Absolute Neutrophil Count 5.4 X10^3/uL (2.0-7.7); Basophil# 0.01 X10^3/uL; Basophil% 0.1 % (0-1); Eosinophil# 0.09 X10^3/uL; Eosinophils% 1.2 % (0-5); Hematocrit 39.3 % (40-54); Hemoglobin 12.8 g/dL (13.0-16.5); Lymphocyte # 0.99 X10^3/ul (0.83-4.51); Lymphocyte % 13.5 % (19-41); Mean Corp Hgb Conc 32.6 g/dL (32-36); Mean Corpuscular Hgb 31.7 pg (27.0-32.0); Mean Corpuscular Volume 97.3 fL (80-94); Mean Platelet Vol. 10.2 fl (6.2-12.0); Monocyte# 0.78 X10^3/uL; Monocyte% 10.7 % (0-10); NRBC Flagged by Analyzer 0 % (0-5); Neutrophil # 5.42 X10^3/uL (2.7-7.7); Neutrophil % 74.2 % (47-70); Platelet Count 157 K/mm3 (150-450); RBC Distribution Width CV 14.5 % (11.6-14.6); RBC Distribution Width SD 52.1 fl (35.1-43.9); Red Blood Count 4.04 M/mm3 (4.6-6.2); White Blood Count 7.3 K/mm3 (4.4-11.0)
[2023-06-23 06:47] LABS: Anion Gap 8 (5-15); BUN 12 mg/dL (7-18); BUN/Creat Ratio 12.1 RATIO (10-20); Calcium,Total 8.4 mg/dL (8.5-10.1); Chloride 102 mmol/L (98-107); Creatinine, Serum 0.99 mg/dL (0.70-1.30); EST Glomerular Filtration Rate 78 mL/min (>60); Est Glom Filt Rate - Afr Amer 95 mL/min (>60); Estimated Creatinine Clearance 80.08 ml/min; Glucose 116 mg/dL (74-106); Potassium 3.2 mmol/L (3.5-5.1); Sodium Level 137 mmol/L (136-145)
[2023-06-23] MEDS: Ipratropium/Albuterol Sulfate 3 ML AMPUL.NEB INHALATION ×3 (07:04→20:14)
[2023-06-23] MEDS: Budesonide Respules 0.5 MG/2 ML AMPUL.NEB. INHALATION ×2 (07:04→20:15)
[2023-06-23 07:07] LABS: International Normalized Ratio 1.2; Prothrombin Time (Protime)PT. 15.2 SECONDS (11.7-14.9)
--- NOTE | 2023-06-23 09:24 | PCM.PN.HOSP ---
Reason for Visit Reason for Visit: Diagnoses Acute on chronic diastolic (congestive) heart failure (06/21/23) Other abnormalities of gait and mobility (06/21/23) Other malaise (06/21/23) Localized edema (06/21/23) Unspecified injury of right lower leg, initial encounter (06/21/23) Unspecified fall due to ice and snow, initial encounter (06/21/23) Objective Data Objective Data Vital Signs: Vital Signs Temp Pulse Resp BP Pulse Ox O2 Del Method 97.7 F L 88 18 137/89 H 97 Room Air 06/23/23 08:20 06/23/23 08:20 06/23/23 08:20 06/23/23 08:20 06/23/23 08:20 06/23/23 08:20 Oxygen Delivery Method Room Air Weight: 250 lb 3.594 oz Body Mass Index (BMI) 36.9 Intake & Output: Intake and Output for Last 24 Hours 06/21/23 06/22/23 06/23/23 23:59 23:59 23:59 Intake Total 960 / 1110 440 / 440 Output Total 2800 / 2900 800 / 800 Balance -1840 / -1790 -360 / -360 Lab / Micro Data 06/23/23 05:35 06/23/23 05:35 Labs: Laboratory Results - last 24 hr 06/23/23 05:35: WBC 7.3, RBC 4.04 L, Hgb 12.8 L, Hct 39.3 L, MCV 97.3 H, MCH 31.7, MCHC 32.6, RDW Std Deviation 52.1 H, RDW Coeff of Taty 14.5, Plt Count 157, MPV 10.2, Immature Gran % (Auto) 0.300, Neut % (Auto) 74.2 H, Lymph % (Auto) 13.5 L, [place] % (Auto) 10.7 H, Eos % (Auto) 1.2, Baso % (Auto) 0.1, Absolute Neuts (auto) 5.4, Absolute Lymphs (auto) 0.99, Nucleated RBC % 0, PT 15.2 H, INR 1.2, Sodium 137, Potassium 3.2 L, Chloride 102, Carbon Dioxide 27.0, Anion Gap 8, BUN 12, Creatinine 0.99, Estim Creat Clear Calc 80.08, Est GFR (MDRD) Af Amer 95, Est GFR (MDRD) Non-Af 78, BUN/Creatinine Ratio 12.1, Glucose 116 H, Calcium 8.4 L Radiography Diagnostic Testing: Radiology Impression Lower Extremity CT 06/23/23 04:26 IMPRESSION: 1. Status post total knee replacement. No visible radiographic evidence for loosening or infection. 2. No evidence for a significant knee joint effusion. This also argues against joint infection. 3. Redemonstration of a hematoma in soft tissues lateral to the knee, with no definite change from the CT scan done 2 days ago. Electronically Signed: Tonny Hill MD at 5:31 EST , Physical Exam Narrative seen and examined. Patient complain of pain over right knee predominantly over the lateral aspect. Physical exam General: Alert, Oriented x3, Cooperative HEENT: Atraumatic, PERRLA, EOMI, Normocephalic Oral: No Gingival or Mucosal Lesions/ Ulcerations Neck: Supple, No JVD, Negative Carotid Bruits Lungs: Air entry diminished in bilateral lung bases. No crepitation/rhonchi Cardiovascular: Regular rate, Regular Rhythm, Normal S1, Normal S2, No murmurs Abdomen: Bowel Sounds Present, Soft, Non Tender, Non-Distended : No renal angle tenderness. No suprapubic tenderness. Extremities: No edema, Capillary Refill Less than 3 Seconds Skin: Bruise/purplish bluish discoloration of the right knee. Musculoskeletal: bruising with right knee, about 0.5 x 1 inch fluid-filled blister on it submit. No purulence appreciated. Tenderness present to the touch all around the knee predominantly lateral aspect. Neurological: Cranial nerves II-XII grossly intact, DTR 2+/4. No acute focal neurological deficit. Psych/Mental Status: Normal Affect, Appropriate. Assessment & Plan Assessment/Plan (1) Debility: (2) Injury of right knee: (3) Inability to bear weight: (4) Fall due to slipping on ice or snow: (5) Bilateral lower extremity edema: (6) Acute on chronic heart failure with preserved ejection fraction: PLAN: Plan Right knee pain status post mechanical fall -X-rays unremarkable -CT of knee is pending -Depending on function/effusion may need orthopedic evaluation but will await further evaluation the next 24 to 48 hours to see how he progresses -As needed ice -Scheduled Tylenol 1g q 8 hours -As needed oxycodone -Avoid NSAIDs due to age and medical history along with chronic anticoagulation -PT/OT consultation focal hematoma along medial aspect of upper knee measuring 5.9 x 3 x 2.[address], PT/OT, pain control, compression, holding patient's Eliquis given hematoma, patient reports pain is improving so we will continue to monitor clinically and elevate extremity with the above measures 06/23 hemoglobin 12.8 g. On pain control. PT and OT, conservative RICE treatment. Fall/debility -Patient with mechanical fall due to losing balance -PT/OT consultation -Social work/case management consultation for assistance with discharge planning Need to work with PT/OT, pain control, may need placement on discharge Acute on chronic HFpEF/lower extremity edema -BNP is elevated when compared to previous done about 6 months ago -Lasix IV push twice daily -Hold home oral Lasix of 40 mg daily -Check lower extremity duplex to rule out DVT however the likelihood of this is low being on Eliquis however I have seen clotting on Eliquis -Sodium restricted diet -Fluid restricted diet -Accurate I's and O's -Daily weights -Abad bandages to bilateral lower extremities for compression -Patient with recent echocardiogram 2022 that showed an EF of 50% with indeterminate diastolic dysfunction and right ventricular systolic pressure 45 mmHg, mild aortic valve insufficiency, mild mitral valve insufficiency, moderate pulmonic valve insufficiency and hypokinesis of the inferior aspect of the heart -Patient had follow-up stress test done for the hypokinesis which showed no signs of ischemia 06/23: Heart failure core measures including intake and output, fluid restriction less than 1500 mL, daily weight monitoring, kidney and electrolytes monitoring. 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
[2023-06-23] MEDS: Furosemide 40 MG/4 ML Vial IV (10:28)
[2023-06-23] MEDS: Senna/Docusate Sodium 1 Tablet 2 TABLET PO (10:28)
[2023-06-23] MEDS: Pantoprazole Sodium 40 MG Tablet PO (10:29)
[2023-06-23] MEDS: 0.9% Saline Lock 10 ML Syringe IV (10:29)
[2023-06-23] MEDS: dilTIAZem CD 120 MG Capsule PO (10:29)
--- NOTE | 2023-06-23 11:10 | CASEMGMT ---
RN BRITNI Face to Face with patient for initial transition planning/care coordination assessment. RN CM introduced self and role at [facility]. Patient lying in bed, alert and oriented. Patient willing to participate in assessment and is able to answer all questions appropriately. Care providers, pharmacy, and demographics verified. Patient wishes to discharge home with possible HHC vs SNF pending progress with therapy. Patient states he has no further needs or concerns at this time. CM to follow for discharge planning needs that may arise. PCP: [facility] Specialists: José Luis Arnett, assistant womens volleyball coach; MELANY, cardiolgy; Katia, urologist; Preferred Pharmacy: [facility] Insurance: [employer] Prescription Benefit: yes Living Will/HPOA: yes, sister India Rashid LNOK: sisters Living Arrangements: Patient lives alone in a first floor apartment with no steps to enter. Patient states he is indepnedent at home. Transportation: sister DME/HHC: Patient has shower chair, cane, crutches, grab bars, walker, pusle ox, and home oxygen at through [facility]. Patient has been to [facility] in the past. Patient has had [facility] HHC in the past. Disposition Plan: TBD, anticipate HHC vs SNF pending course of treatment and progress with therapy. Xochitl BLANK, RN, CM
--- NOTE | 2023-06-23 14:01 | CASEMGMT ---
Discharge Planning A list of?SNF providers including quality and resource use data and consistent with the patient's preferred geographic region, medical needs, and insurance network was created in [employer] Guide.? This list was provided to the SW. Jyoti Knight Discharge Planning Asst.
--- NOTE | 2023-06-23 14:06 | CASEMGMT ---
Discharge Planning A list of?HH providers including quality and resource use data and consistent with the patient's preferred geographic region, medical needs, and insurance network was created in [employer] Guide.? This list was provided to the SW. Jyoti Knight Discharge Planning Asst.
--- NOTE | 2023-06-23 14:08 | CASEMGMT ---
RN let VELIA know that patient's family is in the room and they were thinking patient needs to go somewhere for rehab. VELIA met with patient and his sisters India and Sally. Introduced self and role at [facility]. Patient's sister Sally asked if patient could do his rehab here at [facility]. SW explained patient would not be able to go to TCU as they only take a certain number of [place] patient's and they already have their max. Family then asked about [employer] and home health. SW explained SW can make a referral to [employer], but this does not happen fast. SW then explained home health and how it works. Family said they would be interested in home health. SW provided patient and his sisters with a A list of?[facility] facility and home health providers including quality and resource use data and consistent with patient?s preferred geographic region, medical needs, and insurance network were provided from the [employer] Guide. VELIA explained to them that they need to pick 3 or so they would be okay with and VELIA/EUGENIA CM will contact agencies/facilities. They thanked VELIA. Nataliya Guillermo CUSTOMER SERVICES MANAGER TRISTIN
[2023-06-23] MEDS: Vancomycin HCl 2,000 MG in 0.9% Normal Saline (500mL Bag) 500 ML 250 MG IV (18:40)
[2023-06-23] MEDS: Doxazosin 1 MG Tablet 2 MG PO (21:12)
[2023-06-24] VITALS (11 sets, daily range): BP systolic 124–143; BP diastolic 73–96; PULSE 84–94; RESP 14–24; TEMP 36.4–37.5; O2SAT 95–99; BMI 36.8
[2023-06-24] MEDS: Senna/Docusate Sodium 1 Tablet 2 TABLET PO (03:58)
[2023-06-24] MEDS: 0.9% Saline Lock 10 ML Syringe IV (04:07)
[2023-06-24] MEDS: Vancomycin HCl 2,000 MG in 0.9% Normal Saline (500mL Bag) 500 ML 250 MG IV (04:54)
[2023-06-24] MEDS: Acetaminophen 500 MG Tablet 1000 MG PO ×3 (04:57→21:19)
[2023-06-24] MEDS: Piperacil/Tazobactam 3.375 GM in 0.9% Normal Saline (50mL MB+) 50 ML IV ×3 (06:39→21:22)
[2023-06-24] MEDS: Ipratropium/Albuterol Sulfate 3 ML AMPUL.NEB INHALATION ×3 (07:03→20:22)
[2023-06-24] MEDS: Budesonide Respules 0.5 MG/2 ML AMPUL.NEB. INHALATION ×2 (07:03→20:22)
[2023-06-24 08:01] LABS: Absolute Lymphocyte Count 0.91 X10^3/uL (0.83-4.51); Absolute Neutrophil Count 6.4 X10^3/uL (2.0-7.7); Basophil# 0.02 X10^3/uL; Basophil% 0.2 % (0-1); Eosinophil# 0.21 X10^3/uL; Eosinophils% 2.5 % (0-5); Hematocrit 38.7 % (40-54); Hemoglobin 12.5 g/dL (13.0-16.5); Lymphocyte # 0.91 X10^3/ul (0.83-4.51); Mean Corp Hgb Conc 32.3 g/dL (32-36); Mean Corpuscular Hgb 31.5 pg (27.0-32.0); Mean Corpuscular Volume 97.5 fL (80-94); Mean Platelet Vol. 9.7 fl (6.2-12.0); Monocyte# 0.75 X10^3/uL; NRBC Flagged by Analyzer 0 % (0-5); Neutrophil % 77.1 % (47-70); Platelet Count 142 K/mm3 (150-450); RBC Distribution Width CV 14.6 % (11.6-14.6); RBC Distribution Width SD 52.5 fl (35.1-43.9); Red Blood Count 3.97 M/mm3 (4.6-6.2); White Blood Count 8.3 K/mm3 (4.4-11.0)
[2023-06-24 08:29] LABS: Anion Gap 5 (5-15); BUN 14 mg/dL (7-18); BUN/Creat Ratio 14.8 RATIO (10-20); Calcium,Total 8.8 mg/dL (8.5-10.1); Chloride 108 mmol/L (98-107); Creatinine, Serum 0.95 mg/dL (0.70-1.30); EST Glomerular Filtration Rate 82 mL/min (>60); Est Glom Filt Rate - Afr Amer 99 mL/min (>60); Estimated Creatinine Clearance 83.34 ml/min; Glucose 114 mg/dL (74-106); Potassium 3.4 mmol/L (3.5-5.1); Sodium Level 140 mmol/L (136-145)
--- NOTE | 2023-06-24 09:17 | NURSING ---
Call placed to Dr Ervin's office, spoke with Kamryn landon who is faxing med list to PCU.
[2023-06-24] MEDS: Pantoprazole Sodium 40 MG Tablet PO (10:52)
[2023-06-24] MEDS: Furosemide 40 MG/4 ML Vial IV (10:52)
[2023-06-24] MEDS: dilTIAZem CD 120 MG Capsule PO (10:53)
[2023-06-24] MEDS: Potassium Chloride Oral Tablet 20 MEQ 40 MEQ PO (10:55)
--- NOTE | 2023-06-24 13:37 | CASEMGMT ---
SW made a referral to [facility] for [facility]port services for patient. Nataliya Guillermo [employer] PANELBOARD OPERATOR TRISTIN
--- NOTE | 2023-06-24 15:30 | CASEMGMT ---
EUGENIA RYDER in to discuss discharge planning with patient and sister Sally. Patient and sister agreeable to [facility] and prefer [facility] after review [facility] list. Sister and patient had no further questions or concerns. EUGENIA RYDER called [facility] and made referral. [facility] is able to accept patient with or Friday start of care. EUGENIA RYDER updated sister Sally regarding acceptance. CM will continue to follow this patient and plan for a safe discharge.
--- NOTE | 2023-06-24 16:34 | PCM.PN.HOSP ---
Reason for Visit Reason for Visit: Diagnoses Acute on chronic diastolic (congestive) heart failure (06/21/23) Other abnormalities of gait and mobility (06/21/23) Other malaise (06/21/23) Localized edema (06/21/23) Unspecified injury of right lower leg, initial encounter (06/21/23) Unspecified fall due to ice and snow, initial encounter (06/21/23) Objective Data Objective Data Vital Signs: Vital Signs Temp Pulse Resp BP Pulse Ox O2 Del Method 98.4 F 94 16 129/73 H 99 Room Air 06/24/23 13:40 06/24/23 13:40 06/24/23 13:40 06/24/23 13:40 06/24/23 14:00 06/24/23 16:12 Oxygen Delivery Method Room Air Weight: 249 lb 9.012 oz Body Mass Index (BMI) 36.8 Intake & Output: Intake and Output for Last 24 Hours 06/22/23 06/23/23 06/24/23 23:59 23:59 23:59 Intake Total 960 / 1110 2431.88 / 2431.88 1280.00 / 1280.00 Output Total 2800 / 2900 2500 / 2500 2175 / 2175 Balance -1840 / -1790 -68.12 / -68.12 -895.00 / -895.00 Lab / Micro Data 06/24/23 07:45 06/24/23 07:45 Labs: Laboratory Results - last 24 hr 06/24/23 07:45: WBC 8.3, RBC 3.97 L, Hgb 12.5 L, Hct 38.7 L, MCV 97.5 H, MCH 31.5, MCHC 32.3, RDW Std Deviation 52.5 H, RDW Coeff of Taty 14.6, Plt Count 142 L, MPV 9.7, Immature Gran % (Auto) 0.200, Neut % (Auto) 77.1 H, Lymph % (Auto) 11.0 L, [place] % (Auto) 9.0, Eos % (Auto) 2.5, Baso % (Auto) 0.2, Absolute Neuts (auto) 6.4, Absolute Lymphs (auto) 0.91, Nucleated RBC % 0, Sodium 140, Potassium 3.4 L, Chloride 108 H, Carbon Dioxide 27.0, Anion Gap 5, BUN 14, Creatinine 0.95, Estim Creat Clear Calc 83.34, Est GFR (MDRD) Af Amer 99, Est GFR (MDRD) Non-Af 82, BUN/Creatinine Ratio 14.8, Glucose 114 H, Calcium 8.8 Physical Exam Narrative seen and examined. Patient complain of pain over right knee predominantly over the lateral aspect. Patient had history of smoking, 40 pack years, quit in 2010. Physical exam General: Alert, Oriented x3, Cooperative HEENT: Atraumatic, PERRLA, EOMI, Normocephalic Oral: No Gingival or Mucosal Lesions/ Ulcerations Neck: Supple, No JVD, Negative Carotid Bruits Lungs: Air entry diminished in bilateral lung bases. No crepitation/rhonchi Cardiovascular: Regular rate, Regular Rhythm, Normal S1, Normal S2, No murmurs Abdomen: Bowel Sounds Present, Soft, Non Tender, Non-Distended : No renal angle tenderness. No suprapubic tenderness. Extremities: No edema, Capillary Refill Less than 3 Seconds Skin: Bruise/purplish bluish discoloration of the right knee. Musculoskeletal: bruising with right knee, about 0.5 x 1 inch fluid-filled blister on it submit. No purulence appreciated. Swelling and tenderness over left knee predominantly over the lateral aspect is better than before. Neurological: Cranial nerves II-XII grossly intact, DTR 2+/4. No acute focal neurological deficit. Psych/Mental Status: Normal Affect, Appropriate. Assessment & Plan Assessment/Plan (1) Debility: (2) Injury of right knee: (3) Inability to bear weight: (4) Fall due to slipping on ice or snow: (5) Bilateral lower extremity edema: (6) Acute on chronic heart failure with preserved ejection fraction: PLAN: Plan Right knee pain status post mechanical fall -X-rays unremarkable -CT of knee is pending -Depending on function/effusion may need orthopedic evaluation but will await further evaluation the next 24 to 48 hours to see how he progresses -As needed ice -Scheduled Tylenol 1g q 8 hours -As needed oxycodone -Avoid NSAIDs due to age and medical history along with chronic anticoagulation -PT/OT consultation focal hematoma along medial aspect of upper knee measuring 5.9 x 3 x 2.[address], PT/OT, pain control, compression, holding patient's Eliquis given hematoma, patient reports pain is improving so we will continue to monitor clinically and elevate extremity with the above measures 06/23 hemoglobin 12.8 g. On pain control. PT and OT, conservative RICE treatment. 06/24: Hemoglobin is 12.5 g, at baseline. Continue PT and OT. SNF placement. Fall/debility -Patient with mechanical fall due to losing balance -PT/OT consultation -Social work/case management consultation for assistance with discharge planning Need to work with PT/OT, pain control, may need placement on discharge Acute on chronic HFpEF/lower extremity edema -BNP is elevated when compared to previous done about 6 months ago -Lasix IV push twice daily -Hold home oral Lasix of 40 mg daily -Check lower extremity duplex to rule out DVT however the likelihood of this is low being on Eliquis however I have seen clotting on Eliquis -Sodium restricted diet -Fluid restricted diet -Accurate I's and O's -Daily weights -Abad bandages to bilateral lower extremities for compression -Patient with recent echocardiogram 2022 that showed an EF of 50% with indeterminate diastolic dysfunction and right ventricular systolic pressure 45 mmHg, mild aortic valve insufficiency, mild mitral valve insufficiency, moderate pulmonic valve insufficiency and hypokinesis of the inferior aspect of the heart -Patient had follow-up stress test done for the hypokinesis which showed no signs of ischemia 06/23: Heart failure core measures including intake and output, fluid restriction less than 1500 mL, daily weight monitoring, kidney and electrolytes monitoring. 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
[2023-06-24 17:56] LABS: Vancomycin, Trough Level 30.8 ug/mL (5.0-15.0)
--- NOTE | 2023-06-24 18:03 | PCM.RX.CS ---
Consult Antibiotic Management Pharmacy has been consulted to manage selected antibiotic: Vancomycin Type of Intervention Type of Consult: Follow-up Suspected Infection Suspected Infection: Other (EMPIRIC/WOUND) Prior Doses of Antibiotics Prior Doses of Antibiotics Received/Current Regimen: Vancomycin 2000 mg iv given 06/23 @ 5649, 06/23 @ 0830, and 06/24 @ 7373 Labs Labs: Sodium 140 mmol/L (136-145) 06/24/23 07:45 Potassium 3.4 mmol/L (3.5-5.1) L 06/24/23 07:45 Chloride 108 mmol/L (98-107) H 06/24/23 07:45 Carbon Dioxide 27.0 mmol/L (21.0-32.0) 06/24/23 07:45 Anion Gap 5 (5-15) 06/24/23 07:45 BUN 14 mg/dL (7-18) 06/24/23 07:45 Creatinine 0.95 mg/dL (0.70-1.30) 06/24/23 07:45 Est GFR (MDRD) Af Amer 99 mL/min (>60) 06/24/23 07:45 Est GFR (MDRD) Non-Af 82 mL/min (>60) 06/24/23 07:45 BUN/Creatinine Ratio 14.8 RATIO (10-20) 06/24/23 07:45 Glucose 114 mg/dL (74-106) H 06/24/23 07:45 Vancomycin Trough 30.8 ug/mL (5.0-15.0) H 06/24/23 17:10 Dosing Weight Weight used for dosin.2 kg Estimated Creatinine Clearance Estimated Creatinine Clearance: ~83 Goal Trough Goal Trough: 15-20 mcg/mL Pharmacy Plan for Drug Dosing Pharmacy Plan for Drug Dosing: Vancomycin trough = 30.8, will hold vancomycin, random level in the morning. Pharmacy Service will continue to monitor and adjust dosing as required. Follow-Up Labs Follow-Up Labs: Trough: Vancomycin Date/Time Labs Ordered Labs to be done on [date and time ordered]: 06/25/22 @ 0900
[2023-06-24] MEDS: Doxazosin 1 MG Tablet 2 MG PO (21:20)
[2023-06-25 03:07] VITALS: BMI 37.0
[2023-06-25 03:09] VITALS: BP 134/82; PULSE 86; RESP 18; TEMP 36.2; O2SAT 98
[2023-06-25] MEDS: oxyCODONE 5 MG Tablet 2.5 MG PO ×2 (03:36→07:45)
[2023-06-25] MEDS: Acetaminophen 500 MG Tablet 1000 MG PO ×2 (05:10→13:33)
[2023-06-25] MEDS: Piperacil/Tazobactam 3.375 GM in 0.9% Normal Saline (50mL MB+) 50 ML IV (05:12)
[2023-06-25] MEDS: Ipratropium/Albuterol Sulfate 3 ML AMPUL.NEB INHALATION ×2 (07:27→13:08)
[2023-06-25] MEDS: Budesonide Respules 0.5 MG/2 ML AMPUL.NEB. INHALATION (07:27)
[2023-06-25 07:28] VITALS: PULSE 79; RESP 18; O2SAT 98
[2023-06-25] MEDS: Potassium Chloride Oral Tablet 20 MEQ 40 MEQ PO (08:04)
[2023-06-25 08:26] VITALS: BP 150/99; PULSE 88; RESP 18; TEMP 36.4; O2SAT 95
[2023-06-25 09:07] LABS: Absolute Lymphocyte Count 0.93 X10^3/uL (0.83-4.51); Absolute Neutrophil Count 5.5 X10^3/uL (2.0-7.7); Basophil# 0.01 X10^3/uL; Basophil% 0.1 % (0-1); Eosinophil# 0.27 X10^3/uL; Eosinophils% 3.7 % (0-5); Hematocrit 39.4 % (40-54); Hemoglobin 12.4 g/dL (13.0-16.5); Lymphocyte # 0.93 X10^3/ul (0.83-4.51); Lymphocyte % 12.6 % (19-41); Mean Corp Hgb Conc 31.5 g/dL (32-36); Mean Corpuscular Hgb 31.4 pg (27.0-32.0); Mean Corpuscular Volume 99.7 fL (80-94); Mean Platelet Vol. 9.8 fl (6.2-12.0); Monocyte% 9.5 % (0-10); NRBC Flagged by Analyzer 0 % (0-5); Neutrophil # 5.46 X10^3/uL (2.7-7.7); Neutrophil % 73.8 % (47-70); Platelet Count 150 K/mm3 (150-450); RBC Distribution Width CV 14.7 % (11.6-14.6); RBC Distribution Width SD 54.3 fl (35.1-43.9); Red Blood Count 3.95 M/mm3 (4.6-6.2); White Blood Count 7.4 K/mm3 (4.4-11.0)
[2023-06-25 09:25] LABS: Anion Gap 3 (5-15); BUN 14 mg/dL (7-18); BUN/Creat Ratio 13.9 RATIO (10-20); Calcium,Total 8.8 mg/dL (8.5-10.1); Chloride 108 mmol/L (98-107); Creatinine, Serum 1.01 mg/dL (0.70-1.30); EST Glomerular Filtration Rate 77 mL/min (>60); Est Glom Filt Rate - Afr Amer 93 mL/min (>60); Estimated Creatinine Clearance 78.68 ml/min; Glucose 119 mg/dL (74-106); Potassium 3.6 mmol/L (3.5-5.1); Sodium Level 138 mmol/L (136-145)
[2023-06-25 09:34] LABS: Vancomycin, Random Level 15.8 ug/mL (0.0-15.0)
[2023-06-25 09:56] VITALS: BP 139/90; PULSE 91; RESP 18; TEMP 36.4; O2SAT 96
[2023-06-25] MEDS: dilTIAZem CD 120 MG Capsule PO (10:32)
[2023-06-25] MEDS: Pantoprazole Sodium 40 MG Tablet PO (10:33)
[2023-06-25] MEDS: Furosemide 40 MG/4 ML Vial IV (10:34)
--- NOTE | 2023-06-25 11:01 | DCINST_ITS ---
Discharge Instructions Diet Discharge Diet: Low fat / Low cholesterol and 2000 mg Sodium Diet Activity Discharge Activity: Return to Normal Activity Weight Bearing Status: Weight bearing as tolerated Dressing / Incision Call your doctor if you observe: Fever of 101 or Higher, Coldness, Increased Pain, Numbness or Tingling, Change in Color, Inability to urinate, Inability to have a bowel movement, Shortness of breath, Dizziness, Fainting spells, Swelling in the ankles, Chest pain, Prolonged hiccupping, Increased palpitations (irregular heartbeat) and Calf discomfort Follow Up Care When: IN 2 WEEKS Test Results: Test results from this visit will be discussed in further detail at your follow- up appointment, if applicable. Discharge Plan Admission Admit Date/Time: 06/21/23 18:44 Primary Reason for Your Visit: Right knee hematoma. Attending Provider: Carlos Brennan Primary Care Provider: Kirk Ervin Consulting Providers: Cindy Watkins; Veronica Burgess; Josh Healy Discharge Orders/Prescriptions Prescriptions: New sennosides-docusate sodium [Stool Softener-Stimulant Laxat] 8.6-50 mg Tablet 2 tab PO BID PRN PRN (Reason: Constipation) Qty: 0 0RF oxycodone 5 mg Tablet 2.5 mg PO Q4H PRN PRN (Reason: Pain Score 4-10) 3 Days Qty: 7 0RF Continued terazosin 2 mg capsule 2 mg PO QHS Trelegy Ellipta 100-62.5-25 mcg blister with device 1 inh inhalation DAILY furosemide 40 mg tablet 40 mg PO DAILY Qty: 180 3RF albuterol sulfate 90 mcg/actuation HFA aerosol inhaler 2 puff inhalation Q6H PRN (Reason: Shortness Of Breath) Patient Comments: breathing methylcellulose (laxative) 500 MG tablet 500 mg PO BID pantoprazole 40 MG tablet,delayed release (DR/EC) 40 mg PO DAILY Patient Comments: gastric reflux (DME) Aerochamber MV Spacer See Rx Instructions .Route Qty: 1 0RF Rx Instructions: As directed metaxalone 800 mg tablet 800 mg PO TID 7 Days Qty: 21 0RF albuterol sulfate 2.5 mg /3 mL (0.083 %) solution for nebulization See Rx Instructions .ROUTE Q4H PRN (Reason: shortness of breath, wheezing) Patient Comments: Use 3 mL via nebulizer every 4 hours as needed for wheezing/shortness of breath. Use over 5-15minutes. Rx Instructions: 3ml every 4 hours PRN; budesonide 0.5 mg/2 mL suspension for nebulization See Rx Instructions .ROUTE .COMPLEX Patient Comments: Use 2 mL via nebulizer twice daily. INHALE 2 ML BY NEBULIZER OVER 5-15 MINUTES EVERY 12 HOURS. Rx Instructions: 2ml via nebulaizer BID; diltiazem HCl 120 mg capsule,extended release 24hr 120 mg PO DAILY Qty: 90 3RF Changed potassium chloride 20 mEq tablet extended release 40 meq PO DAILY Qty: 30 11RF Held apixaban 5 mg tablet 5 mg PO BID Qty: 180 4RF Hold Instructions: Hold it until hematoma subsides and follow with PCP. Referrals / Follow Up: Royer Garcia MD [Med Staff - Active Staff] - Within 2 Weeks Kirk Ervin MD [Primary Care Provider] - Disposition Disposition (needs filled in before D/C Order can be placed): Home Health Service
--- NOTE | 2023-06-25 12:08 | DS.PCM_ITS ---
Providers Date of Admission: 06/21/23 Date of Discharge: 06/25/23 Primary Care Physician: Dr. Kirk Ervin MD Consultations 06/24/23 16:36 Consult: Infectious Disease Routine Consulting Provider: Josh Healy Reason for Consult: Left knee hematoma, antibiotics infection? EMERGENT Consult: No MD Notified: Yes Date Notified: 06/24/23 Time Notified: 16:36 Method of Notification: Text Reason For Visit: LE EDEMA/INABILITY TO AMBULATE Diagnosis Discharge Diagnosis (1) Debility: Status: Acute Code(s): R53.81 - Other malaise (2) Injury of right knee: Status: Acute Code(s): S89.91XA - Unspecified injury of right lower leg, initial encounter (3) Inability to bear weight: Status: Acute Code(s): R26.89 - Other abnormalities of gait and mobility (4) Fall due to slipping on ice or snow: Status: Acute Code(s): W00.9XXA - Unspecified fall due to ice and snow, initial encounter (5) Bilateral lower extremity edema: Status: Acute Code(s): R60.0 - Localized edema (6) Acute on chronic heart failure with preserved ejection fraction: Status: Acute Code(s): I50.33 - Acute on chronic diastolic (congestive) heart failure Plan 73-year-old gentleman was admitted after he slipped on the snow and fell down. Patient had bilateral knee replacement unable to get up with a lot of swelling and pain therefore admitted. 1. Right knee pain status post mechanical fall complicated with right knee hematoma -X-rays unremarkable -Scheduled Tylenol 1g q 8 hours. Conservative RICE treatment. -As needed oxycodone -Avoid NSAIDs due to age and medical history along with chronic anticoagulation -PT/OT consultation focal hematoma along medial aspect of upper knee measuring 5.9 x 3 x 2.[address], PT/OT, pain control, compression, holding patient's Eliquis given hematoma, patient reports pain is improving so we will continue to monitor clinically and elevate extremity with the above measures 06/23 hemoglobin 12.8 g. On pain control. PT and OT, conservative RICE treatment. 06/24: Hemoglobin is 12.5 g, at baseline. Continue PT and OT. SNF placement. 06/25: Patient was evaluated by ID. Antibiotic was discontinued. Okay to monitor off antibiotic. Patient is discharged home. No fever while in the hospital. 2. Fall/debility -Patient with mechanical fall due to losing balance -PT/OT consultation -Social work/case management consultation for assistance with discharge planning Need to work with PT/OT, pain control, may need placement on discharge 06/25: Prescription signed for wheeled walker. 3. Acute on chronic HFpEF/lower extremity edema -BNP is elevated when compared to previous done about 6 months ago -Lasix IV push twice daily -Hold home oral Lasix of 40 mg daily -Check lower extremity duplex to rule out DVT however the likelihood of this is low being on Eliquis however I have seen clotting on Eliquis -Sodium restricted diet -Fluid restricted diet -Accurate I's and O's -Daily weights -Abad bandages to bilateral lower extremities for compression -Patient with recent echocardiogram 2022 that showed an EF of 50% with indeterminate diastolic dysfunction and right ventricular systolic pressure 45 mmHg, mild aortic valve insufficiency, mild mitral valve insufficiency, moderate pulmonic valve insufficiency and hypokinesis of the inferior aspect of the heart -Patient had follow-up stress test done for the hypokinesis which showed no signs of ischemia 06/23: Heart failure core measures including intake and output, fluid restriction less than 1500 mL, daily weight monitoring, kidney and electrolytes monitoring. 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 Discharge follow-up instructions completed. Discharge process discussed with the patient and all questions were answered to patient's satisfaction. Follow with PCP in 1 to 2 weeks Total time spent, exact 35 minutes on discharge meds reconciliation, examination, coordination of care with nurses and ancillary staff, review of imaging and blood test and discussion with the patient on follow-up instructions. Medications at Discharge Home Medications methylcellulose (laxative) 500 mg tablet 500 mg PO BID bowels 09/03/15 terazosin 2 mg capsule 2 mg PO QHS bladder 12/21/19 pantoprazole 40 mg tablet,delayed release 40 mg PO DAILY acid reflux 09/24/20 fluticasone fur. 100 mcg-umeclid 62.5 mcg-vilant 25 mcg inhalat.powder (Trelegy Ellipta) 1 inh inhalation DAILY 12/18/20 albuterol sulfate 90 mcg/actuation aerosol inhaler 2 puff inhalation Q6H PRN Shortness Of Breath 01/14/22 furosemide 40 mg tablet 40 mg PO DAILY #180 tabs 10/31/22 inhalational spacing device (Aerochamber MV spacer) #1 ea 11/21/22 diltiazem HCl 120 mg capsule,extended release 24 hr 120 mg PO DAILY heart #90 caps 12/13/22 metaxalone 800 mg tablet 800 mg PO TID muscle relaxer 7 days #21 tabs 05/24/23 apixaban 5 mg tablet 5 mg PO BID #180 tabs 05/29/23 albuterol sulfate 2.5 mg/3 mL (0.083 %) solution for nebulization See Rx Instructions .Route Q4H PRN shortness of breath, wheezing 06/24/23 budesonide 0.5 mg/2 mL suspension for nebulization See Rx Instructions .Route .COMPLEX breathing treatment 06/24/23 oxycodone 5 mg tablet 2.5 mg (1/2 x 5 mg) PO Q4H PRN PRN Pain Score 4-10 3 days #7 tabs 06/25/23 potassium chloride 20 mEq tablet,extended release 40 meq (2 x 20 mEq) PO DAILY #30 tabs 06/25/23 sennosides 8.6 mg-docusate sodium 50 mg tablet (Stool Softener-Stimulant Laxative) 2 tab PO BID PRN PRN Constipation #0 tabs 06/25/23 Physical Exam Narrative seen and examined. Patient complain of pain over right knee predominantly over the lateral aspect which is improving. Patient can walk on walker. Patient had history of smoking, 40 pack years, quit in 2009. Physical exam General: Alert, Oriented x3, Cooperative HEENT: Very hard of hearing/deafness. Atraumatic, PERRLA, EOMI, Normocephalic Oral: No Gingival or Mucosal Lesions/ Ulcerations Neck: Supple, No JVD, Negative Carotid Bruits Lungs: Air entry diminished in bilateral lung bases. No crepitation/rhonchi Cardiovascular: Regular rate, Regular Rhythm, Normal S1, Normal S2, No murmurs Abdomen: Bowel Sounds Present, Soft, Non Tender, Non-Distended : No renal angle tenderness. No suprapubic tenderness. Extremities: No edema, Capillary Refill Less than 3 Seconds Skin: Bruise/purplish bluish discoloration of the right knee. Musculoskeletal: bruising with right knee, about 0.5 x 1 inch fluid-filled blister on it submit. No purulence appreciated/drainage. Swelling and tenderness over left knee predominantly over the lateral aspect is better than before. Neurological: Cranial nerves II-XII grossly intact, DTR 2+/4. No acute focal neurological deficit. Psych/Mental Status: Normal Affect, Appropriate. Weight / BMI Weight Weight: 251 lb 5.231 oz Body Mass Index (BMI) 37.0 ABG / Lab / Microbiology Data 06/25/23 08:46 06/25/23 08:46 Laboratory: Laboratory Results - last 24 hr 06/24/23 17:10: Vancomycin Trough 30.8 H 06/25/23 08:46: WBC 7.4, RBC 3.95 L, Hgb 12.4 L, Hct 39.4 L, MCV 99.7 H, MCH 31.4, MCHC 31.5 L, RDW Std Deviation 54.3 H, RDW Coeff of Taty 14.7 H, Plt Count 150, MPV 9.8, Immature Gran % (Auto) 0.300, Neut % (Auto) 73.8 H, Lymph % (Auto) 12.6 L, [place] % (Auto) 9.5, Eos % (Auto) 3.7, Baso % (Auto) 0.1, Absolute Neuts (auto) 5.5, Absolute Lymphs (auto) 0.93, Nucleated RBC % 0, Sodium 138, Potassium 3.6, Chloride 108 H, Carbon Dioxide 27.0, Anion Gap 3 L, BUN 14, Creatinine 1.01, Estim Creat Clear Calc 78.68, Est GFR (MDRD) Af Amer 93, Est GFR (MDRD) Non-Af 77, BUN/Creatinine Ratio 13.9, Glucose 119 H, Calcium 8.8, Random Vancomycin 15.8 H D/C Instructions Discharge Diet: Low fat / Low cholesterol and 2000 mg Sodium Diet Weight Bearing Status: Weight bearing as tolerated Call your doctor if you observe: Fever of 101 or Higher, Coldness, Increased Pa in, Numbness or Tingling, Change in Color, Inability to urinate, Inability to have a bowel movement, Shortness of breath, Dizziness, Fainting spells, Swelling in the ankles, Chest pain, Prolonged hiccupping, Increased palpitations (irregular heartbeat) and Calf discomfort When: IN 2 WEEKS Meaningful Use Info Meaningful Use Diagnoses (Choose all that apply): None applicable Discharge Plan Admission Admit Date/Time: 06/21/23 18:44 Primary Reason for Your Visit: Right knee hematoma. Attending Provider: Carlos Brennan Primary Care Provider: Kirk Ervin Consulting Providers: Cindy Watkins; Veronica Burgess; Josh Healy Discharge Orders/Prescriptions Prescriptions: New sennosides-docusate sodium [Stool Softener-Stimulant Laxat] 8.6-50 mg Tablet 2 tab PO BID PRN PRN (Reason: Constipation) Qty: 0 0RF oxycodone 5 mg Tablet 2.5 mg PO Q4H PRN PRN (Reason: Pain Score 4-10) 3 Days Qty: 7 0RF Continued terazosin 2 mg capsule 2 mg PO QHS Trelegy Ellipta 100-62.5-25 mcg blister with device 1 inh inhalation DAILY furosemide 40 mg tablet 40 mg PO DAILY Qty: 180 3RF albuterol sulfate 90 mcg/actuation HFA aerosol inhaler 2 puff inhalation Q6H PRN (Reason: Shortness Of Breath) Patient Comments: breathing methylcellulose (laxative) 500 MG tablet 500 mg PO BID pantoprazole 40 MG tablet,delayed release (DR/EC) 40 mg PO DAILY Patient Comments: gastric reflux (DME) Aerochamber MV Spacer See Rx Instructions .Route Qty: 1 0RF Rx Instructions: As directed metaxalone 800 mg tablet 800 mg PO TID 7 Days Qty: 21 0RF albuterol sulfate 2.5 mg /3 mL (0.083 %) solution for nebulization See Rx Instructions .ROUTE Q4H PRN (Reason: shortness of breath, wheezing) Patient Comments: Use 3 mL via nebulizer every 4 hours as needed for wheezing/shortness of breath. Use over 5-15minutes. Rx Instructions: 3ml every 4 hours PRN; budesonide 0.5 mg/2 mL suspension for nebulization See Rx Instructions .ROUTE .COMPLEX Patient Comments: Use 2 mL via nebulizer twice daily. INHALE 2 ML BY NEBULIZER OVER 5-15 MINUTES EVERY 12 HOURS. Rx Instructions: 2ml via nebulaizer BID; diltiazem HCl 120 mg capsule,extended release 24hr 120 mg PO DAILY Qty: 90 3RF Changed potassium chloride 20 mEq tablet extended release 40 meq PO DAILY Qty: 30 11RF Held apixaban 5 mg tablet 5 mg PO BID Qty: 180 4RF Hold Instructions: Hold it until hematoma subsides and follow with PCP. Referrals / Follow Up: Royer Garcia MD [Med Staff - Active Staff] - 07/07/23 11:00 am Kirk Ervin MD [Primary Care Provider] - 07/01/23 2:00 pm Disposition Disposition (needs filled in before D/C Order can be placed): Home Health Service Charges/Coding Visit Charges Inpatient E&M: 46252 Disch Hosp >30min
--- NOTE | 2023-06-25 12:20 | CASEMGMT ---
Addendum entered by Xochitl Donald 06/25/23 15:07: EUGENIA RYDER updated by nursing that patient is wanting a walker like he has here. EUGENIA RYDER in to patient's room and states he has bariatric rollator at home and is too difficult to maneuver around apartment. EUGENIA RYDER received script and referral sent [employer] and arranged for deliver to patient's room. Patient was discharged prior to walker being delivered to room. EUGENIA RYDER called sister to see if they could machine operator picker walker the [facility]. Sister Sally states she will look to see if they already have smaller walker for patient. EUGENIA RYDER provided number to [facility] for katie Zavala to follow-up. EUGENIA RYDER updated [employer] Lia[facility]. Original Note: Patient has order for discharge. EUGENIA RYDER called and updated [facility] and start of care is planned for . EUGENIA RYDER updated discharge plan. EUGENIA RYDER in to updated patient. Patient denied further needs. EUGENIA RYDER called and left message for sister Sally. EUGENIA RYDER updated discharge plan.
[2023-06-25 13:11] VITALS: PULSE 84; RESP 22; O2SAT 98
--- NOTE | 2023-06-25 13:12 | CASEMGMT ---
Per nursing admission questions patient does not have advance directives and is not interested in documents. Nataliya Guillermo [employer]
[2023-06-25 13:41] VITALS: BP 143/72; PULSE 94; RESP 16; TEMP 36.7; O2SAT 95
--- NOTE | 2023-06-25 13:54 | CON.PCM.ID_ITS ---
Assessment & Plan Assessment/Plan (1) Injury of right knee: PLAN: R knee hematoma - ok to monitor off of abx. 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 Had pain, difficulty weight bearing. No fever or chills. Has chronic edema. Started on vanc/zosyn while here. Feeling ok, leg improving, no drainage. Full ROS performed and neg except as noted above. [facility] Medical History Abdominal aortic aneurysm without rupture Aneurysm of infrarenal abdominal aorta Asthma Chest pain Cholecystolithiasis COPD (chronic obstructive pulmonary disease) [place] Essential hypertension History of gastritis Hypokalemia Osteoarthritis Persistent atrial fibrillation Postoperative atrial fibrillation Pulmonary hypertension Home Medications methylcellulose (laxative) 500 mg tablet 500 mg PO BID bowels 09/03/15 [History Last Taken Unknown] terazosin 2 mg capsule 2 mg PO QHS bladder 12/21/19 [History Last Taken 09/23/20 22:00] pantoprazole 40 mg tablet,delayed release 40 mg PO DAILY acid reflux 09/24/20 [History Last Taken 09/23/20] fluticasone fur. 100 mcg-umeclid 62.5 mcg-vilant 25 mcg inhalat.powder (Trelegy Ellipta) 1 inh inhalation DAILY 12/18/20 [History Last Taken Unknown] albuterol sulfate 90 mcg/actuation aerosol inhaler 2 puff inhalation Q6H PRN Shortness Of Breath 01/14/22 [History Last Taken Unknown] furosemide 40 mg tablet 40 mg PO DAILY #180 tabs 10/31/22 [Rx Last Taken Unknown] inhalational spacing device (Aerochamber MV spacer) #1 ea 11/21/22 [Rx Last Taken Unknown] diltiazem HCl 120 mg capsule,extended release 24 hr 120 mg PO DAILY heart #90 caps 12/13/22 [Rx Last Taken Unknown] metaxalone 800 mg tablet 800 mg PO TID muscle relaxer 7 days #21 tabs 05/24/23 [Rx Last Taken Unknown] apixaban 5 mg tablet 5 mg PO BID #180 tabs 05/29/23 [Rx Last Taken Unknown] albuterol sulfate 2.5 mg/3 mL (0.083 %) solution for nebulization See Rx Instructions .Route Q4H PRN shortness of breath, wheezing 06/24/23 [History Last Taken Unknown] budesonide 0.5 mg/2 mL suspension for nebulization See Rx Instructions .Route .COMPLEX breathing treatment 06/24/23 [History Last Taken Unknown] oxycodone 5 mg tablet 2.5 mg (1/2 x 5 mg) PO Q4H PRN PRN Pain Score 4-10 3 days #7 tabs 06/25/23 [Rx Last Taken Unknown] potassium chloride 20 mEq tablet,extended release 40 meq (2 x 20 mEq) PO DAILY #30 tabs 06/25/23 [Rx Last Taken Unknown] sennosides 8.6 mg-docusate sodium 50 mg tablet (Stool Softener-Stimulant Laxat roxana) 2 tab PO BID PRN PRN Constipation #0 tabs 06/25/23 [Rx Last Taken Unknown] Allergy/AdvReac Type Severity Reaction Status Date / Time aspirin AdvReac Intermediate Excess Verified 05/24/23 19:11 bleeding,GI upset codeine AdvReac Intermediate GI upset Verified 05/24/23 19:11 Family History Father Colon cancer Prostate cancer Surgical History History of bilateral cataract extraction (~2015) History of bilateral knee arthroplasty History of cholecystectomy (~08/2020) History of cochlear implant History of colonoscopy History of esophagogastroduodenoscopy (EGD) History of tonsillectomy History of umbilical hernia repair (~08/2020) Status post bilateral knee replacements Status post excision of lipoma Status post total left knee replacement Social History Smoking Status: Former smoker how long ago did patient quit smokin years ago alcohol intake: current alcohol intake frequency: holidays/special occasions only substance use type: does not use caffeine: Yes Type: coffee Physical Exam Const alert and no apparent distress General Appearance: cooperative Eyes PERRL and EOMs intact bilaterally Neck supple and No nodes Resp normal air movement and clear to auscultation bilaterally Cardio regular rate and regular rhythm GI soft to palpation, non-tender and non-distended Extremity Extremity Narrative: R knee swelling, bruising General Extremity: edema Skin Skin Narrative: no rash Neuro CN's II-XII intact bilaterally Lab / Micro Data Attestation: I reviewed the patient's lab results. 06/25/23 08:46 06/25/23 08:46 Labs: Laboratory Results - last 24 hr 06/24/23 17:10: Vancomycin Trough 30.8 H 06/25/23 08:46: WBC 7.4, RBC 3.95 L, Hgb 12.4 L, Hct 39.4 L, MCV 99.7 H, MCH 31.4, MCHC 31.5 L, RDW Std Deviation 54.3 H, RDW Coeff of Taty 14.7 H, Plt Count 150, MPV 9.8, Immature Gran % (Auto) 0.300, Neut % (Auto) 73.8 H, Lymph % (Auto) 12.6 L, [place] % (Auto) 9.5, Eos % (Auto) 3.7, Baso % (Auto) 0.1, Absolute Neuts (auto) 5.5, Absolute Lymphs (auto) 0.93, Nucleated RBC % 0, Sodium 138, Potassium 3.6, Chloride 108 H, Carbon Dioxide 27.0, Anion Gap 3 L, BUN 14, Creatinine 1.01, Estim Creat Clear Calc 78.68, Est GFR (MDRD) Af Amer 93, Est GFR (MDRD) Non-Af 77, BUN/Creatinine Ratio 13.9, Glucose 119 H, Calcium 8.8, Random Vancomycin 15.8 H
== END 2023-06-25 14:31 | disposition home health service (06) | DRG 604 ==
LOC: ED 18:52 → PCU 06-22 07:02
PROVIDERS: Internal Medicine; Internal Medicine Infectious Disease; Admitting Provider Internal Medicine; Emergency Provider Emergency Medicine; PCP Family Medicine; Visit Provider Internal Medicine
DX: S80.01XA Contusion of right knee, initial encounter (principal); I50.33 Acute on chronic diastolic (congestive) heart failure; I11.0 Hypertensive heart disease with heart failure; J44.9 Chronic obstructive pulmonary disease, unspecified; I48.0 Paroxysmal atrial fibrillation; N13.8 Other obstructive and reflux uropathy; I71.43 Infrarenal abdominal aortic aneurysm, without rupture; G47.33 Obstructive sleep apnea (adult) (pediatric); K21.9 Gastro-esophageal reflux disease without esophagitis; I08.8 Other rheumatic multiple valve diseases; W00.0XXA Fall on same level due to ice and snow, initial encounter; S80.221A Blister (nonthermal), right knee, initial encounter; Z79.01 Long term (current) use of anticoagulants; R53.81 Other malaise; N40.1 Benign prostatic hyperplasia with lower urinary tract symptoms; R26.89 Other abnormalities of gait and mobility; H91.93 Unspecified hearing loss, bilateral; Z79.51 Long term (current) use of inhaled steroids; Z79.899 Other long term (current) drug therapy; Z87.891 Personal history of nicotine dependence; Z96.653 Presence of artificial knee joint, bilateral; R26.9 Unspecified abnormalities of gait and mobility; M79.89 Other specified soft tissue disorders
CPT/HCPCS: 36415; 73560; 73700; 73701; 80048; 80053; 80202; 83880; 84100; 85018; 85025; 85610; 93970; 94640; 94668; 96365; 96366; 96367; 96375; 96376; 97110; 97116; 97162; 97165; 97530; 97802; 99221; 99284; J7040; Q9967; A4216; G0378; J1940

== ENCOUNTER → 2024-11-23 | Outpatient (CLI) | payer MEDICARE, SELFPAY ==
[2024-11-23 16:09] LABS: Absolute Lymphocyte Count 1.59 X10^3/uL (0.83-4.51); Basophil# 0.02 X10^3/uL; Basophil% 0.3 % (0-1); Eosinophil# 0.13 X10^3/uL; Eosinophils% 1.7 % (0-5); Hematocrit 43.3 % (40-54); Hemoglobin 14.6 g/dL (13.0-16.5); Lymphocyte # 1.59 X10^3/ul (0.83-4.51); Mean Corp Hgb Conc 33.7 g/dL (32-36); Mean Corpuscular Hgb 33.2 pg (27.0-32.0); Mean Corpuscular Volume 98.4 fL (80-94); Mean Platelet Vol. 10.1 fl (6.2-12.0); Monocyte# 0.82 X10^3/uL; Monocyte% 10.8 % (0-10); NRBC Flagged by Analyzer 0 % (0-5); Neutrophil # 4.98 X10^3/uL (2.7-7.7); Neutrophil % 65.8 % (47-70); Platelet Count 165 K/mm3 (150-450); RBC Distribution Width CV 13.6 % (11.6-14.6); RBC Distribution Width SD 49.3 fl (35.1-43.9); White Blood Count 7.6 K/mm3 (4.4-11.0)
[2024-11-23 16:50] LABS: Anion Gap 12 (5-15); BUN 13 mg/dL (4-19); BUN/Creat Ratio 11.6 RATIO (10-20); Calcium,Total 8.9 mg/dL (7.6-11.0); Carbon Dioxide 24.8 mmol/L (21.0-32.0); Chloride 102 mmol/L (98-108); Creatinine, Serum 1.12 mg/dL (0.70-1.20); EST Glomerular Filtration Rate 68 (>60); Glucose 92 mg/dL (70-99); Potassium 4.4 mmol/L (3.3-5.1); Pro- Brain NATRIURETIC PEPTIDE 935 pg/mL (<=1800); Sodium Level 139 mmol/L (133-145)
== END | disposition home or self-care (01) ==
LOC: LAB 15:33
PROVIDERS: PCP Family Medicine; Referring Provider Nurse Practitioner Family; Visit Provider Nurse Practitioner Family
DX: R06.00 Dyspnea, unspecified (principal)
CPT/HCPCS: 36415; 80048; 83880; 85025